=== PATIENT | male | born 1950 ===

== ENCOUNTER 2016-11-20 18:06 | Inpatient (IN) | payer MEDICARE, MEDICAID ==
[~2016-11-20] VITALS: Ht 182.9 cm; Wt 101.1 kg
[2016-11-20] VITALS (7 sets, daily range): BP systolic 109–125; BP diastolic 50–68; PULSE 92–100; RESP 16–24; O2SAT 98–100
[~2016-11-20 18:06] MED LIST: AMIO200T PO; ATOR40TA69 PO; CHOL100043 PO; FURO40TA4 PO; HYDR-3797 PO; INSU100I25 SUBQ; LORA10CA PO; OXYB5TAB10 PO; PANT40TA3 PO; POTA20TA16 PO; SERT100T9 PO; TAMS0.4C29 PO; TRIA80OI TOPICAL; WARF1TAB8 PO
--- NOTE | 2016-11-20 18:25 | ED.REPORT ---
HPI-General Illness Date of Service Nov 20, 2016 ED Provider: Roney Tyson MD This patient is a 66 year old male on Warfarin with a history of GI bleed, hypertension, DM, and artificial valve presenting to the ED complaining of possible GI bleed. Patient states that he has had dark stools that have been going on for the last couple days. Patient had a blood transfusion in October 2016 due to similar past symptoms. He denies hematuria or vomiting blood. Patient's family states that he has been gagging frequently but no vomiting and that he has appeared to be pale and fatigued. Nurse from the clinic checked the patient in his home and advised that patient needs blood. Nursing Notes Stated Complaint: NEED BLOOD/ANEMIA Chief Complaint: General Complaint Nursing Notes Reviewed: Yes Allergies: Coded Allergies: No Known Drug Allergies (Verified Allergy, Unknown, 01/11/15) Uncoded Allergies: UNK (Allergy, Unknown, 09/11/09) Scheduled Amiodarone (Amiodarone) 200 Mg Tablet 200 MG PO QAM Ascorbate Calcium (Vitamin C) 500 Mg Tablet 500 MG PO DAILY Atorvastatin Calcium (Atorvastatin Calcium) 40 Mg Tablet 40 MG PO QPM Cholecalciferol (Vitamin D3) (Vitamin D) 1,000 Unit Tablet 1,000 UNIT PO QAM Ferrous Sulfate (Ferrous Sulfate) 324 Mg Tablet.dr 324 MG PO BID Furosemide (Furosemide) 40 Mg Tablet 40 MG PO QAM Insulin Aspart (NovoLOG U-100 Pen) 100 Unit/Ml Insuln.pen 20 UNITS SC TIDWM Insulin Detemir (Levemir Flextouch) 100 Unit/1 Ml Insuln.pen 55 UNITS SUBQ QAM Multivitamin (Once Daily) 1 Each Tablet 1 EACH PO DAILY Oxybutynin Chloride (Oxybutynin Chloride) 5 Mg Tablet 5 MG PO BID Pantoprazole DR (Pantoprazole DR) 40 Mg Tablet.dr 40 MG PO DAILYAC Potassium Chloride (Potassium Chloride) 20 Meq Tab.er.prt 20 MEQ PO QAM Sertraline HCl (Sertraline) 100 Mg Tablet 200 MG PO QAM Tamsulosin ER (Tamsulosin ER) 0.4 Mg Cap.er.24h 0.4 MG PO QPM Warfarin Sodium (Jantoven) 1 Mg Tablet 1 MG PO DIRECTED Scheduled PRN Hydroxyzine Pamoate (HydrOXYzine Pamoate) 25 Mg Capsule 25 MG PO HS PRN PRN For Insomnia Mometasone/Formoterol (Dulera 100 Mcg/5 Mcg Inhaler) 13 Gm Hfa.aer.ad 1 PUFFS IH DIRECTED PRN PRN For Shortness of Breath General Time Seen by MD: 18:25 Chief Complaint Blood in stool Hx Obtained From: Patient, Other family... Arrived By: Walk-in Sudden in Onset?: No Onset Occurred: More than a week ago... 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 BPH with [place] Hyperlipidemia Chronic kidney disease stage III GERD Cerebral infarction Anxiety Aortic valve stenosis Paroxysmal atrial fibrillation Chornic GI bleed Reports: Diabetes mellitus, Hypertension Past Surgical History Valve replacement - on Warfarin Family History Alcoholism Smoking History Former Smoker Social History Alcohol Use: >5 per day Drug Use: Denies drug use Other Social History: Good social support, Local resident Ambulatory Status Independent Review of Systems Pale Full Review of Systems Constitutional: Reports: Fatigue Cardiovascular: Denies: Chest pain, Edema GI: Reports: Abdominal pain, Melena Male: Denies Hematuria Musculoskeletal: Denies: Back pain Skin: Denies Rash Complete sys rev & neg: except as marked. Physical Exam Vital Signs Vital Signs Date Time Temp Pulse Resp B/P Pulse Ox O2 Delivery O2 Flow Rate FiO2 11/20/16 19:32 36.8 92 20 112/51 100 Nasal Cannula 2 11/20/16 18:13 36.3 93 16 117/68 99 Room Air Initial VS: Reviewed General/Constitutional: Well-developed Head / Eyes: Atraumatic, Normocephalic, PERRL ENT: Mucous membranes moist, Conjunctiva normal, No scleral icterus Neck: Supple, Non-tender, Full range of motion Respiratory: Breath sounds normal, Clear to auscultation, No respiratory distress Cardiovascular: Regular rate & rhythm, Heart sounds normal, Intact distal pulses Abdomen / GI: Soft, Non-tender Lymphatic: No lymphadenopathy Neurologic: Alert, Oriented Heart Sounds / Murmur: Positive: Click present Lower Extremity / Pelvis / MS: Atraumatic, Full range of motion, No swelling, No edema Skin: Atraumatic, Warm, Dry Pale Interpretation & Diagnostics Lab Results Interpretation Result Diagram: 11/21/16 1510 11/21/16 0425 Test 11/20/16 18:45 Prothrombin Time 24.9sec (8.1-12.5) Prothromb Time International Ratio 2.29ratio Hold Hardy Top Tube Received (Received) Pulse Oximetry Interpretation Pulse Oximetry Interpretation: 99% on room air Pulse Oximetry: Pulse Ox normal ECG Interpretation ECG Interpretation: Sinus rhythm with a rate of 94, No STEMI, No ST elevation Time: 18:26 Interpreted by: ED physician Re-Eval/Medical Decision Med Decision/Clinical Course 66-year-old male with a history of chronic GI bleed presents anemic. He has symptoms consistent with anemia. He will be transfused and admitted to the hospitalist service. Due to the fact that he is not having any melanotic stool at this time and he has mechanical heart valve we will not reverse the warfarin. I discussed this with the hospitalist and he concurs. They will watch him closely. Source of Hx: Old records Time of Eval: 18:25 Patient Status: Condition improved Re-Evaluation/Progress Note: Pt. rechecked. Patient was told that he'd be admitted. Patient understands and agrees with the plan. All questions have been addressed at this time. Consultation : Referral / Consult Name: Sergei Richey MD Consulted With: Hospitalist Call Returned at: 19:30 Orthodontic Assistant: Will see patient, Agrees with eval, Agrees with plan, Accepts admit Note: Discussed findings with Dr. Richey, hospitalist, and he agrees with evaluation and plan. He will accept the patient as admit. Counseled Regarding: Diagnosis, Lab results, Need for admission Discharge & Departure Primary Impression: Anemia Anemia type: iron deficiency Iron deficiency anemia type: chronic blood loss Qualified Code: D50.0 - Iron deficiency anemia secondary to blood loss ( chronic) Additional Impression: GI bleed GI bleed type/associated pathology: unspecified gastrointestinal hemorrhage type Qualified Code: K92.2 - Gastrointestinal hemorrhage, unspecified Disposition: ADMITTED TO HOSPITAL Discharge Condition All VS Reviewed: Yes Condition: Stable Referrals: OTHER,PHYSICIAN (PCP) (Family) Scribe Attestation Portions of this note were transcribed by Sergei Allen. I, Dr. Tyson, personally performed the history, physical exam and medical decision- making; I reviewed and confirmed the accuracy of the information in the transcribed note. Signed by: Sergei Schmitz and Dev Sinha, 11/20/2016 and 22:23 Roney Tyson DO Nov 20, 2016 18:25 Fara Allen [Ruth] Nov 20, 2016 19:01 SERGEI SCHMITZ Nov 20, 2016 19:03 (18-29) Blood Urea Nitrogen 23mg/dL (8-27) Creatinine 1.47mg/dL (0.76-1.27) Estimat Glomerular Filtration Rate 51mL/min (>59) Glucose Level 132mg/dL (60-99) Calcium Level 8.2mg/dL (8.5-10.1) Total Bilirubin 0.7mg/dL (0.0-1.2) Aspartate Amino Transf (AST/SGOT) 61U/L (0-50) Alanine Aminotransferase (ALT/SGPT) 35U/L (0-44) Alkaline Phosphatase 283U/L (25-160) Total Protein 6.4g/dL (6.4-8.4) Albumin 2.7g/dL (3.4-5.0) Hold Hardy Top Tube Received (Received) Pulse Oximetry Interpretation Pulse Oximetry Interpretation: 99% on room air Pulse Oximetry: Pulse Ox normal ECG Interpretation ECG Interpretation: Sinus rhythm with a rate of 94, No STEMI, No ST elevation Time: 18:26 Interpreted by: ED physician Re-Eval/Medical Decision Source of Hx: Old records Time of Eval: 18:25 Patient Status: Condition improved Re-Evaluation/Progress Note: Pt. rechecked. Patient was told that he'd be admitted. Patient understands and agrees with the plan. All questions have been addressed at this time. Consultation : Referral / Consult Name: Sergei Richey MD Consulted With: Hospitalist Call Returned at: 19:30 Orthodontic Assistant: Will see patient, Agrees with eval, Agrees with plan, Accepts admit Note: Discussed findings with Dr. Richey, hospitalist, and he agrees with evaluation and plan. He will accept the patient as admit. Counseled Regarding: Diagnosis, Lab results, Need for admission Discharge & Departure Primary Impression: Anemia Anemia type: iron deficiency Iron deficiency anemia type: chronic blood loss Qualified Code: D50.0 - Iron deficiency anemia secondary to blood loss ( chronic) Additional Impression: GI bleed GI bleed type/associated pathology: unspecified gastrointestinal hemorrhage type Qualified Code: K92.2 - Gastrointestinal hemorrhage, unspecified Disposition: ADMITTED TO HOSPITAL Discharge Condition All VS Reviewed: Yes Condition: Stable Referrals: OTHER,PHYSICIAN (PCP) (Family) Scribe Attestation Portions of this note were transcribed by Sergei Schmitz and Ruth Allen. I, Dr. Tyson, personally performed the history, physical exam and medical decision- making; I reviewed and confirmed the accuracy of the information in the transcribed note. Signed by: Sergei Schmitz and Dev Sinha, 11/20/2016 and 22:23 Roney Tyson DO Nov 20, 2016 18:25 Fara Allen [Ruth] Nov 20, 2016 19:01 SERGEI SCHMITZ Nov 20, 2016 19:03
[2016-11-20 19:04] LABS: BASOPHILS % (AUTO) 0.3 % (0-3); EOSINOPHILS % (AUTO) 0.7 % (0-5); MONOCYTES % (AUTO) 10.5 % (4-12); Mean Corpuscular Hemoglobin 22.1 pg (27.0-35.0); Mean Corpuscular Volume 77.1 fL (81-100); NEUTROPHILS % (AUTO) 77.6 % (40-74); Platelet Count 150 bil/L (150-400)
[2016-11-20 19:20] LABS: INR 2.29 ratio
[2016-11-20] MEDS ORDERED: MOME13HF2 IH (20:55)
[2016-11-20] MEDS ORDERED: MULT-666 PO (20:55)
[2016-11-20] MEDS ORDERED: ASCO-294 PO (20:55)
[2016-11-20] MEDS ORDERED: FERR324T2 PO (20:55)
[2016-11-20] MEDS ORDERED: INSU100I SC (20:57)
[2016-11-20 21:24] LABS: APPEARANCE,URINE CLEAR (CLEAR,HAZY); COLOR,URINE YELLOW (YELLOW); OCCULT BLOOD,URINE NEGATIVE (NEGATIVE); PH,URINE 6.5 (5.0-8.0); UROBILINOGEN,URINE NORMAL (NORMAL)
[2016-11-20] MEDS ORDERED: 0.9% Sodium Chloride 250 ML ONE (22:21)
[2016-11-20] MEDS: 0.9% Sodium Chloride 1,000 ML IV SCH (22:45)
[2016-11-20] MEDS ORDERED: Ondansetron 2 mg/mL 2 mL Inj IVPUSH PRN (22:45)
[2016-11-20] MEDS ORDERED: Polyethylene Glycol (PEG) 17 Gm Powder PO PRN (22:45)
[2016-11-20] MEDS ORDERED: Alum-Mag Hydrox-Simeth 30 mL Suspension PO PRN (22:45)
[2016-11-21] VITALS (13 sets, daily range): BP systolic 109–142; BP diastolic 51–76; PULSE 84–106; RESP 14–24; O2SAT 97–100
[2016-11-21] MEDS ORDERED: 0.9% Sodium Chloride 250 ML ONE ×2 (01:40→18:14)
--- NOTE | 2016-11-21 04:06 | PCM.HPMED ---
Subjective Date of Service Nov 21, 2016 Primary Provider: Admitting Physician: Sergei Richey MD Primary Care Physician: Other,Physician Attending Physician: Sergei Richey MD Chief Complaint: dark stools and weakness History of Present Illness: Patient is a 66 year old male with a pmh as outline below that is presenting with a multiple week history of dark stools and progressively worsening weakness. Patient had been in his usual state of health during the recent holidays. However during that time the patient was noticed to have occasional dark stools. Patient said that they were either tarry and black or they were brown amixed with black. Patient had went to his usual pmd who performed a guiac test but the physician told the patient that it was positive however it was mostly stool and not that much blood. Patient continued on with his normal activities. In the past week the patient had noticed that he was becoming progessively more and more weak. He was unable to stand for prolongued periods of time, and would become breathless with even the smalles amount of activity. Patient today was seen to have an even harder time keeping his balance and actually collapsed into his counter but was able to steady himself. Patient then called his visiting nurse who then came to the house and did an i stat hgb which was seen to be 5.6, at this point EMS was called and the patient was brought to the hospital. Patient is currently hemodynamically stable however he is very drowsy and very weak. Review of Systems: Constitutional: Reports: Fatigue Cardiovascular: Denies: Chest pain, Edema GI: Reports: Abdominal pain, Melena Male: Denies Hematuria Musculoskeletal: Denies: Back pain Skin: Denies Rash Complete sys rev & neg: except as marked. Allergies Coded Allergies: No Known Drug Allergies (Verified Allergy, Unknown, 01/11/15) Uncoded Allergies: UNK (Allergy, Unknown, 09/11/09) Home Medications Amiodarone (Amiodarone) 200 Mg Tablet 200 MG PO QAM Ascorbate Calcium (Vitamin C) 500 Mg Tablet 500 MG PO DAILY Atorvastatin Calcium (Atorvastatin Calcium) 40 Mg Tablet 40 MG PO QPM Cholecalciferol (Vitamin D3) (Vitamin D) 1,000 Unit Tablet 1,000 UNIT PO QAM Ferrous Sulfate (Ferrous Sulfate) 324 Mg Tablet.dr 324 MG PO BID Furosemide (Furosemide) 40 Mg Tablet 40 MG PO QAM Insulin Aspart (NovoLOG U-100 Pen) 100 Unit/Ml Insuln.pen 20 UNITS SC TIDWM Insulin Detemir (Levemir Flextouch) 100 Unit/1 Ml Insuln.pen 55 UNITS SUBQ QAM Multivitamin (Once Daily) 1 Each Tablet 1 EACH PO DAILY Oxybutynin Chloride (Oxybutynin Chloride) 5 Mg Tablet 5 MG PO BID Pantoprazole DR (Pantoprazole DR) 40 Mg Tablet.dr 40 MG PO DAILYAC Potassium Chloride (Potassium Chloride) 20 Meq Tab.er.prt 20 MEQ PO QAM Sertraline HCl (Sertraline) 100 Mg Tablet 200 MG PO QAM Tamsulosin ER (Tamsulosin ER) 0.4 Mg Cap.er.24h 0.4 MG PO QPM Warfarin Sodium (Jantoven) 1 Mg Tablet 1 MG PO DIRECTED Scheduled PRN Hydroxyzine Pamoate (HydrOXYzine Pamoate) 25 Mg Capsule 25 MG PO HS PRN PRN For Insomnia Mometasone/Formoterol (Dulera 100 Mcg/5 Mcg Inhaler) 13 Gm Hfa.aer.ad 1 PUFFS IH DIRECTED PRN PRN For Shortness of Breath PMH 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 BPH with [place] Hyperlipidemia Chronic kidney disease stage III GERD Cerebral infarction Anxiety Aortic valve stenosis Paroxysmal atrial fibrillation Chornic GI bleed Reports: Diabetes mellitus, Hypertension Surgical History Valve replacement - on Warfarin Family History Alcoholism Social History Hx Alcohol Use: Yes Alcoholic Drinks Per Day: 0 Hx Substance Use: Yes (ETOH, 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+) Hx Tobacco Use: Yes Smoking Status: Former Smoker Exam Vital Signs Vital Sign - Last Date Time Temp Pulse Resp B/P Pulse Ox O2 Delivery O2 Flow Rate FiO2 11/21/16 03:50 36.8 106 20 128/76 97 Room Air 11/20/16 20:40 2 Intake and Output 11/20/16 11/20/16 11/21/16 Cumulative From/Thru 15:00 23:00 07:00 11/20/16 18:13 - 11/21/16 03:49 Intake Total 400 ml 400 ml Balance 400 ml 400 ml Intake IV Total 100 ml 100 ml Packed Cells 300 ml 300 ml Exam General/Constitutional: Well-developed Head / Eyes: Atraumatic, Normocephalic, PERRL Respiratory: Breath sounds normal, Clear to auscultation, No respiratory distress Cardiovascular: Regular rate & rhythm, Heart sounds normal, Intact distal pulses ENT: Mucous membranes moist, Conjunctiva normal, No scleral icterus Neck: Supple, Non-tender, Full range of motion Abdomen / GI: Soft, Non-tender Lymphatic: No lymphadenopathy Neurologic: Alert, Oriented Heart Sounds / Murmur: Positive: Click present Lower Extremity / Pelvis / MS: Atraumatic, Full range of motion, No swelling, No edema Skin: Atraumatic, Warm, Dry Lab and Diagnostics Result Diagram: 11/20/16184411/20/161844 12-lead ECG Sinus rhythm with a rate of 94, No STEMI, No ST elevation Assessment & Plan Patient is a 66 year old male that is presenting with a few week history of dark stools and progressively worsening weakness. Patient was found to have a hemoglobin of 5.6 on cbc. Patient is currently stable. GI bleed - Patient has a presumed gi bleed presumably from his extensive gastric ulcer history. - Patient has been having dark stools for the better part of a month - Patient was found to becoming progressively weaker as time went on - pt has a hemoglobin of 5.6 with stable vital signs - pt has had 2 units of blood transfused awaiting hgb level - pt will require GI consult for upper endoscopy - c/w with cbc q8 until steady state is reached - will start carafate solution and protonix 40 mg IV BID Weakness and imbalance - Patient has been experiencing imbalance and weakness in the past week - Pt has imbalance already from a previous stroke, and is recieving physical therapy as a result - Pt claims that he is already feeling more alert and awake after fluid resuscitation - will order pt eval Atrial fibrillation on coumadin - Patient has an established history of atrial fibrillation - Patient is currently rate controlled with his home medications - Pt currently on coumadin 1 mg with 1.5 mg with an INR of 2.6 for both atrial fibrillation and prosthetic heart valve - Given the subcritical nature of the patients bleed will hold off on reversing INR with vitamin K - will hold tonites coumadin dose - will resume when patient has steady hgb levels Diabetes Mellitus - established - will place on sliding scale coverage dvt ppx not warranted gi ppx via protonix VTE Mechanical Devices: Intermittant Pneumatic CD Sergei Richey MD Nov 21, 2016 04:05
[2016-11-21] MEDS ORDERED: hydrOXYzine Pamoate 25 mg Capsule PO PRN (04:10)
[2016-11-21 04:42] LABS: BASOPHILS % (AUTO) 0.5 % (0-3); EOSINOPHILS % (AUTO) 0.5 % (0-5); MONOCYTES % (AUTO) 10.6 % (4-12); Mean Corpuscular Hemoglobin 23.3 pg (27.0-35.0); Mean Corpuscular Volume 78.2 fL (81-100); NEUTROPHILS % (AUTO) 75.8 % (40-74); Platelet Count 161 bil/L (150-400)
[2016-11-21 05:24] LABS: Magnesium 1.9 mg/dL (1.6-2.6)
--- NOTE | 2016-11-21 06:26 | NUR ---
Admit Pt arrived to [facility] 2006 from ED. Pt arrived with daughter at bedside. Pt reports weakness. 2 units of PRBC's transfused and pt tolerated well. Pt declines, pain, SOB, and CP. PT orient to room, hospital policies and call light. VSS and Tele SR
[2016-11-21] MEDS: Insulin Human REGular 300 Unit/3 mL Inj SUBQ SCH ×3 (09:54→20:57)
[2016-11-21] MEDS: Pantoprazole 4 mg/mL 10 mL Inj IVPUSH SCH ×2 (09:56→18:03)
[2016-11-21] MEDS: Sucralfate 100 mg/mL 10 mL Suspension PO SCH ×3 (09:56→18:03)
[2016-11-21] MEDS: Tolterodine ER 2 mg ER24 Capsule PO SCH ×2 (09:57→20:48)
[2016-11-21] MEDS: Potassium Chloride 20 mEq SR Tablet PO SCH (10:01)
[2016-11-21] MEDS: 0.9% Sodium Chloride 1,000 ML IV SCH ×2 (10:02→22:54)
--- NOTE | 2016-11-21 11:45 | NUR ---
Social Work: Initial Assessment D: Per EMR review, pt is a 66 year old male admitted for anemia, GI Bleed, Coagulopathy. Pt is Medicare with [employer] supplement; No LTC insurance or VA Benefits. PCP is Dr. Veag. NOK is Surekha Sarmiento, Dtr, . Advanced directives on file and current, per pt. No readmit score entered at this time. INFORMATION OFFICER met with pt at bedside. Sw role explained. See initial assessment. Pt lives in [facility], alone. He is currently open for services with [facility] and has an open [employer] application. Pt cannot recall CM name. Pt states he uses a walker at baseline and has been very unsteady on his feet. Pt denies any recent falls. Pt's is slow to answer questions, somewhat forgetful but able to verbalize appropriate responses to current situation. Pt provided verbal consent for INFORMATION OFFICER to speak with his daughters, Surekha and/or Jewels ([phone]). Pt states he lives in a single-story home with one step to enter. INFORMATION OFFICER, Nel Guillen, spoke with pt's daughter, Jewels. She confirms the aforementioned information. She states that the pt's mentation has been slowly declining since a heart surgery in September of 2015. Pt has never been to skilled rehab however they believe that the pt could benefit from a skilled rehab placement for continued strengthening. Her sister, Surekha would be the one to assist pt in making decisions on preference for facilities. 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 t/c to [facility], pt's CM is Antoinette Hernandez. INFORMATION OFFICER left message notifying of pt's admission. [facility] will fax clinicals. A: Pt who is currently 1 person assist and would benefit from PT Evaluation. P: Evolving; INFORMATION OFFICER to request PT evaluation from MD to assist with dcp. JILL Valderrama Addendum: 11/21/16 at 1202 by GISELLA DIAS Amended: Links added.
[2016-11-21] MEDS ORDERED: Propofol 10,000 mCg/mL 20 mL Inj ONE (14:50)
--- NOTE | 2016-11-21 15:46 | NUR ---
per FILM PROCESSOR request , axed H&P to Soraya Ureña at [phone]
[2016-11-21] MEDS ORDERED: Phytonadione (Adult) 10 mg/1 mL Inj PO ONE (17:05)
[2016-11-21] MEDS ORDERED: 0.9% Sodium Chloride 250 ML IV ONE (19:00)
--- NOTE | 2016-11-21 19:18 | NUR ---
Plasma transfusion started FFP transfusion started per protocol at 1845. Vitals checked at 1900. No signs of adverse reaction. Pt. denies rash, itching or feeling flushed. Report given to night RN about transfusion and she is aware to take 1914 vitals.
--- NOTE | 2016-11-21 20:21 | PCM.PNMED ---
Subjective Date of Service Nov 21, 2016 Subjective Jesus Sarmiento is a 66 year old male with a history of aortic valve replacement on chronic anticoagulation, paroxysmal atrial fibrillation, COPD stage III, diabetes mellitus presented to the ER with a several week history of melena, progressive weakness as well as fatigue and a hemoglobin of 5.6. Admitted for possible GI bleed and acute anemia. Overnight: Admitted to [facility] on telemetry. Today patient denies chest pain, shortness of breath, fatigue, headache, dizziness, nausea, vomiting diarrhea or constipation. Reports dark/black stool for past several weeks. Exam Vital Signs Vital Sign - Last Date Time Temp Pulse Resp B/P Pulse Ox O2 Delivery O2 Flow Rate FiO2 11/21/16 19:00 36.4 93 15 126/66 11/21/16 16:44 99 Room Air 11/20/16 20:40 2 Intake and Output 11/20/16 11/20/16 11/21/16 Cumulative From/Thru 15:00 23:00 07:00 11/20/16 18:13 - 11/21/16 05:21 Intake Total 400 ml 400 ml Output Total 1150 ml 1150 ml Balance -750 ml -750 ml Intake Oral 0 ml 0 ml IV Total 100 ml 100 ml Packed Cells 300 ml 300 ml Output Urine Total 1150 ml 1150 ml Exam General: No acute distress, well-developed, well-nourished, mumbling a bit but appropriately interactive. HEENT: Normocephalic, atraumatic. External ears without defect. PERRLA, Anicteric sclerae, Moist mucosa. Neck: Supple with full range of motion. No jugular venous distension. No bruits. No lymphadenopathy or thyromegaly. Cardiovascular: Regular rate and rhythm with systolic murmur, no rubs, or gallops appreciated Pulmonary: Clear to auscultation bilaterally with no crackles, wheezes, or rhonchi. Normal respiratory effort with no use of accessory muscles. Abdomen: Bowel tones present. Soft, mildly tender to palpation in mid-epigastric , nondistended. No hepatosplenomegaly or masses appreciated. Extremities: No clubbing, cyanosis, edema, or lymphadenopathy appreciated. Skin: Normal temperature, pale, no rash, ulcers, or subcutaneous nodules appreciated. Neurological: Cranial nerves grossly intact. No focal deficit. IVs and Medications Medications Reviewed: Medications were reviewed in detail Lab and Diagnostics Prothrombin Time 24.9, Prothromb Time International Ratio 2.29, Hold Hardy Top Tube Received Urine Color Yellow, Urine Appearance Clear, Urine pH 6.5, Urine Specific [place] 1.010, Urine Protein Negative, Urine Glucose (UA) Negative, Urine Ketones Negative, Urine Occult Blood Negative, Urine Nitrite Negative, Urine Bilirubin Negative, Urine Urobilinogen Normal, Urine Leukocyte Esterase Negative , Urine RBC 0-2, Urine WBC 0-5, Urine Epithelial Cells Occasional, Urine Crystals None seen, Urine Bacteria None, Urine Hyaline Casts None, Urine Granular Casts None seen, Urine Waxy Casts None seen, Urine Red Blood Cell Casts None seen, Urine White Blood Cell Casts None seen, Urine Mucus None seen, Urine Trichomonas None seen, Urine Yeast None, Urinalysis Comment None, Urine Culture Reflexed Not indicated White Blood Count 11.0, Red Blood Count 3.26, Mean Corpuscular Volume 78.2, Mean Corpuscular Hemoglobin 23.3, Mean Corpuscular Hemoglobin Concent 29.8, Red Cell Distribution Width 18.0, Platelet Count 161, Neutrophils (%) (Auto) 75.8, Lymphocytes (%) (Auto) 12.1, Monocytes (%) (Auto) 10.6, Eosinophils (%) (Auto) 0.5, Basophils (%) (Auto) 0.5 Sodium Level 139, Potassium Level 4.0, Chloride Level 104, Carbon Dioxide Level 20, Blood Urea Nitrogen 21, Creatinine 1.36, Estimat Glomerular Filtration Rate 56, Glucose Level 80, Calcium Level 8.2, Magnesium Level 1.9, Total Bilirubin 1.1, Aspartate Amino Transf (AST/SGOT) 72, Alanine Aminotransferase (ALT/SGPT) 33, Alkaline Phosphatase 228, Total Protein 6.1, Albumin 2.6 Hemoglobin 7.3, Hematocrit 24.6 Result Diagram: 11/21/16 1510 11/21/16 0425 Microbiology Microbiology CLARISSA OCCULT BLOOD IMMUNOCHEM Final 11/21/16-08 OCCULT BLD IMMUNOCHEMICAL POSITIVE REFERENCE INTERVAL NEGATIVE 12-lead ECG Sinus rhythm with a rate of 94, No STEMI, No ST elevation Assessment & Plan 66 year old male with a history of aortic valve replacement on chronic anticoagulation, paroxysmal atrial fibrillation, COPD stage III, diabetes mellitus presented to the ER with a several week history of melena, progressive weakness as well as fatigue and a hemoglobin of 5.6. Admitted for possible GI bleed and acute anemia. Hospital day #1. 1. Acute gastrointestinal bleed, present on admission. Active -CT abd & pelvis on 11/06/16 showed a mass lesion within caudate lobe of liver, consistent with a hepatoma and hepatic cirrhosis -Pt admitted on 10/24/16 for similar presentation with EGD on 10/25 showing gastritis and portal gastropathy, no esophageal varices. -H/H on admission of 5.6/19.5 and pt transfused 2 units of pRBCs. Repeat H/H 7.6 /25.5 and 7.3/24.6. -Consulted GI and plan for EGD tomorrow, pending reversal of INR. -2 units of FFP, 2.5mg oral vitamin K -Goal INR < 1.5 -Continue protonix and monitor H/H -Patient NPO, CBC in the morning 2. Acute on chronic anemia, present on admission. Active -Secondary to acute blood loss. Pt is hemodynamically stable -H/H 7.3/24.6 after pRBC transfusion. -Iron studies in outpatient setting (10/23/17) show: Fe 11, Ferritin 28, TIBC 343 , %sat 3. -Pt reports ongoing iron replacement for chronic anemia. -CBC in the morning 3. Status post bioprosthetic valve( aortic valve ) with chronic anticoagulation with warfarin, present on admission. Active. -Pt also has hx of Afib. Chronically anticoagulated on warfarin. INR on admission 2.29 -Holding anticoagulation due to the acute nature of the bleed, the risk of re- bleeding -INR reversal, as above, per GI for upcoming endoscopy. -As soon as pt is stable and bleeding has been addressed we will restart anticoagulation 4. Right hepatic lobe nodular mass, present on admission. Active. -Radiology report states "mass could possibly reflect regenerating nodule, however neoplasm cannot be excluded." -Radiology reports recommend nonemergent CT of the abdomen with contrast ( hepatic protocol) for further evaluation. -Could be followed up in the outpatient setting 5. Paroxysmal atrial fibrillation,present on admission. Stable -Pt is on chronic anticoagulation on warfarin. -Continue to monitor patient on telemetry -Anticoagulation held in setting of acute GI bleed, plan for endoscopy tomorrow per GI. -Reversal of INR, as above. 6. Chronic kidney disease, stage 3. Present on admission. Stable -Apparent baseline BUN/Creatinine of 17-23/1.26-1.5 -Avoid nephrotoxic agents -Continue IV fluids 7. Insulin dependent diabetes mellitus,chronic, present on admission. Stable -Diabetic diet, low dose correctional insulin -Bedside blood glucose monitoring 8. Chronic hypertension, present on admission.Active -Continue home medications. 9. GERD, chronic, present on admission. Active. -Patient has been started on PPI, as above. 10. Depression, chronic, present on admission. Active -Continue home medications. 11. Alcoholism, in recovery. present on admission. Active -Per patient he has been sober for the nearly two years 12. Cirrhosis secondary to alcohol abuse, present on admission. Active -No fluid noted on exam -Imaging of abdomen did demonstrate some fluid, likely secondary to cirrhosis -Monitor for any mental status changes, if they occur recommend getting ammonia level and lactulose Acetaminophen-fever/headache/mild/moderate pain Antiemetics, as needed Bowel regimen, as needed. Disposition: Anticipated discharge in 1-2 days pending endoscopy results. Pain Evaluation: Adequate Pain Control VTE Prophylaxis: SCDs VTE Mechanical Devices: Intermittant Pneumatic CD Resuscitation Status: CPR: Attempt Resuscitation Attending Statement The patient was seen and examined together with Dr. Dickinson on 11-21-16 and I agree with the history, exam and plan as outlined in the note above. Tiffanie Dickinson DO Nov 21, 2016 19:44 Katrina Roy MD Nov 22, 2016 15:21
[2016-11-22] VITALS (17 sets, daily range): BP systolic 110–136; BP diastolic 47–79; PULSE 79–92; RESP 16–24; O2SAT 95–98
[2016-11-22] MEDS: Insulin Human REGular 300 Unit/3 mL Inj SUBQ SCH ×4 (03:30→20:30)
[2016-11-22 03:54] LABS: BASOPHILS % (AUTO) 0.3 % (0-3); EOSINOPHILS % (AUTO) 0.5 % (0-5); MONOCYTES % (AUTO) 10.5 % (4-12); Mean Corpuscular Hemoglobin 23.3 pg (27.0-35.0); Mean Corpuscular Volume 78.5 fL (81-100); NEUTROPHILS % (AUTO) 76.4 % (40-74); Platelet Count 116 bil/L (150-400)
[2016-11-22 04:13] LABS: INR 1.79 ratio
--- NOTE | 2016-11-22 06:21 | NUR ---
Transfusion Pt Hgb 6.3 and INR 1.79. MD notified and orders to transfuse 1 FFP and 1 PRBC were given. FFP started and no reactions noted. Pt currently resting during administration. I unit PRBC will be started when FFP finishes. VSS and Tele SR
[2016-11-22] MEDS: Sucralfate 100 mg/mL 10 mL Suspension PO SCH ×3 (09:46→16:53)
[2016-11-22] MEDS: Pantoprazole 4 mg/mL 10 mL Inj IVPUSH SCH ×2 (09:46→16:53)
[2016-11-22] MEDS: Potassium Chloride 20 mEq SR Tablet PO SCH (09:47)
[2016-11-22] MEDS: Tolterodine ER 2 mg ER24 Capsule PO SCH ×2 (09:47→21:15)
[2016-11-22 10:01] LABS: INR 1.61 ratio
[2016-11-22] MEDS: 0.9% Sodium Chloride 250 ML IV SCH ×7 (10:37→20:58)
[2016-11-22] MEDS: 0.9% Sodium Chloride 1,000 ML IV SCH ×2 (10:38→19:31)
[2016-11-22] MEDS ORDERED: Phytonadione (Adult) 10 mg/1 mL Inj PO ONE (12:15)
[2016-11-22 13:30] LABS: INR 1.59 ratio
[2016-11-22] MEDS ORDERED: MetoCLOpramide 5 mg/mL 2 mL Inj IVPUSH PRN (14:25)
[2016-11-22] MEDS ORDERED: Atropine 0.4 mg/mL Inj IVPUSH PRN (14:25)
[2016-11-22] MEDS ORDERED: Lactated Ringer's 1,000 ML IV ONE (14:25)
[2016-11-22] MEDS ORDERED: Ondansetron 2 mg/mL 2 mL Inj IVPUSH PRN (14:25)
--- NOTE | 2016-11-22 14:54 | CONS ---
[address] [address] CONSULTATION REPORT PATIENT: LOUIE FRANCIS : 1950 MR#: [id number] ADMIT: 11/20/2016 JOB ID: [id number] DATE OF SERVICE: 11/22/2016 GASTROENTEROLOGY CONSULTATION: REASON FOR CONSULTATION: Melena. HISTORY OF PRESENT ILLNESS: A 66-year-old male with a history of aortic valve replacement on Coumadin, diabetes, hypertension, alcohol abuse, BPH, hyperlipidemia, chronic kidney disease stage 3, GERD, cerebral infarct, anxiety, aortic valve stenosis in the past, paradoxical atrial fibrillation, hepatic cirrhosis most likely due to alcohol with splenomegaly by CT scan on November 05, 2016, cholelithiasis presents for consultation for melena for the past four weeks. The patient states he has had black stools one time per day, but no bright red blood per rectum. The patient denies bright red blood per rectum, nausea and vomiting, hematemesis, abdominal pain, change in bowel habits or unintentional weight loss. The patient underwent an EGD that was performed by Dr. Leonard on October 24, 2016, which showed gastritis and portal hypertensive gastropathy and no gastric or esophageal varices were seen. The patient states he had a colonoscopy in the past, unknown when. I have no records. The patient denies family history of colon cancer, inflammatory bowel disease or celiac disease. The patient was admitted with a hemoglobin of 5.6, transfused up to 6.3, currently at 7.6. Creatinine of 6.3. The patient's PT 17.2, INR 1.59. His BUN is 21. Creatinine is 1.3. The patient presents for further evaluation. PAST MEDICAL HISTORY: As stated above. PAST SURGERIES: As stated above. DRUG ALLERGIES: None. MEDICATION AT HOME: Amiodarone, vitamin C, atorvastatin, calcium, vitamin D3, iron sulfate, Lasix, NovoLog, Levemir, multivitamin, oxybutynin, pantoprazole, potassium chloride, , Tamsulosin, Coumadin, hydroxyzine as needed and Dulera as needed. SOCIAL HISTORY: He does drink alcohol. Has a history of substance abuse with alcohol and cocaine for 20 years. He is a former smoker. REVIEW OF SYSTEMS: The patient denies headache, blurred vision, nausea, vomiting, chest pain, shortness of breath, abdominal pain, skin rash or joint pain. PHYSICAL EXAMINATION: Vital signs upon presentation: His temperature is 36.4, blood pressure 110/60, pulse of 86, respiratory rate of 20. General: She has had no scars. Anicteric. Throat: Supple. Lungs: Clear to auscultation bilaterally. Cardiovascular: Regular rhythm and rate. Abdomen: Soft, nondistended, nontender. Normoactive bowel sounds. Extremities: Without cyanosis, clubbing or edema. LABORATORIES: Sodium of 139, potassium 3.6, chloride 106, bicarbonate 22, BUN of 21, creatinine 1.3. Glucose 129. Hemoglobin A1c 7.0. Calcium 7.5. Magnesium 1.9. Total bili of 1.0. AST 68, ALT 31, alk phos 148. Total protein 5.5. Albumin 2.2. White count 6.2, hemoglobin 6.3, hematocrit 21, MCV is 78. Platelet count of 116. PT 17.2, INR 1.5. ASSESSMENT AND PLAN: This is a 66-year-old male with a history of valve replacement on Coumadin, cirrhosis with splenomegaly by CAT scan, most likely due to alcohol, BPH, hyperlipidemia, chronic kidney disease stage 3, GERD, stable infarct in the past, anxiety, aortic valve stenosis in the past, paroxysmal atrial fibrillation, diabetes, hypertension who presents for consultation for melena. Differential diagnosis includes portal hypertensive gastropathy which is most likely versus peptic ulcer disease versus gastritis versus esophagitis versus duodenitis. RECOMMENDATIONS: 1. Continue Protonix drip. 2. N.p.o. except for medications. 3. EGD with anesthesia today. 4. Transfuse packed red blood cells as needed per hospitalist team.
[2016-11-22] MEDS: Lactated Ringer's 1,000 ML IV SCH ×3 (15:14→16:25)
--- NOTE | 2016-11-22 15:31 | NUR ---
[facility] Signed
--- NOTE | 2016-11-22 15:36 | PCM.HPANE ---
Patient Data Surgeon Admitting Provider:Sergei Richey MD Attending Provider:Sergei Richey MD Primary Care Physician:Other,Physician Other Provider: Reason for Visit Anemia, Gi Bleed, Coagulopathy Ht/WT & BMI Height (Feet): 6 Height (Inches): 0.00 Weight (Kilograms): 104.400 Body Mass Index 30.91 Allergies Coded Allergies: No Known Drug Allergies (Verified Allergy, Unknown, 01/11/15) Uncoded Allergies: UNK (Allergy, Unknown, 09/11/09) Past Anesthesia History Anesthesia History: Denies:: Anesthesia Reactions Diabetes History Hx Diabetes?: Yes (on insulin) Current Bedside Blood Glucose: 136 MRSA MRSA: No Medications Hypertension Medication: No Home Meds Incl Beta Araseli: No Active Scripts Pantoprazole DR 40 Mg Tablet.dr40 Mg PO DAILYAC 30 Days Prov:Rodri Clinton MD 10/27/16 Reported Medications Insulin Aspart (NovoLOG U-100 Pen)100 Unit/Ml Insuln.pen20 Units SC TIDWM 11/20/16 Mometasone/Formoterol (Dulera 100 Mcg/5 Mcg Inhaler)13 Gm Hfa.aer.ad1 Puffs IH DIRECTED PRN For Shortness of Breath 11/20/16 Ferrous Sulfate 324 Mg Tablet.dr324 Mg PO BID 30 Days Ref 0 11/20/16 Ascorbate Calcium (Vitamin C)500 Mg Kbqpbf638 Mg PO DAILY 11/20/16 Multivitamin (Once Daily)1 Each Tablet1 Each PO DAILY 11/20/16 Hydroxyzine Pamoate (HydrOXYzine Pamoate)25 Mg Achkdjx18 Mg PO HS PRN For Insomnia 10/24/16 Cholecalciferol (Vitamin D3) (Vitamin D)1,000 Unit Tablet1,000 Unit PO QAM 10/24/16 Atorvastatin Calcium 40 Mg Yuucmn16 Mg PO QPM 10/24/16 Tamsulosin ER 0.4 Mg Cap.er.24h0.4 Mg PO QPM 10/24/16 Potassium Chloride 20 Meq Tab.er.prt20 Meq PO QAM 10/24/16 Furosemide 40 Mg Pgidfb38 Mg PO QAM 10/24/16 Amiodarone 200 Mg Otfvan931 Mg PO QAM 10/24/16 Insulin Detemir (Levemir Flextouch)100 Unit/1 Ml Insuln.pen55 Units SUBQ QAM 10/24/16 Sertraline HCl (Sertraline)100 Mg Armejl602 Mg PO QAM 10/24/16 Oxybutynin Chloride 5 Mg Tablet5 Mg PO BID 10/24/16 Warfarin Sodium (Jantoven)1 Mg Tablet1 Mg PO DIRECTED 10/24/16 Discontinued Reported Medications Triamcinolone Acetonide (Triamcinolone Acetonide Ointment)80 Gm Oint...g.1 Applic TOPICAL BID PRN Top of Head Itching 10/24/16 Loratadine (Claritin)10 Mg Hannlmf37 Mg PO QAM 10/24/16 History History of ENT Problems?: No HEENT History: Positive for:: Cataracts (left eye had surgery) Dysphagia Denies:: Glaucoma Sinus Problem Hx of Heart Problems?: Yes Cardiovascular History: Positive for:: Cardiac Surgery (hx of valve replacement, on coumadin) Edema Heart Murmur (aortic valve stenosis, s/p AVR now anticoagulated) Hypertension Irregular Heartbeat (paroxysmal afib) Denies:: Congestive Heart Failure Pacemaker Thrombophlebitis Hx of Respiratory Problem?: Yes Respiratory History: Positive for:: Asthma COPD Dyspnea Pneumonia Denies:: Emphysema Hemoptysis Tuberculosis Hx Neurologic Problems?: Yes Neurological History: Positive for:: CVA Dizziness Headaches Denies:: Alzheimer's Disease Dementia Parkinson's Disease Seizures Hx of GI Problems?: Yes Gastrointestinal History: Positive for:: Gastroesphageal Reflux Gastrointestinal Bleeding Rectal Bleeding Denies:: Diverticulitis Heartburn Hepatitis Hiatal Hernia Hx of Problems?: Yes Genitourinary History: Positive for:: Kidney Stones Urinary Tract Infection Denies:: HX of Hemodialysis HX of Peritoneal Dialysis: No Male Hx: Positive for:: Prostate Problems (BPH) Denies:: Scrotal Mass Testicular Surgery Hx Musculoskeletal Problems?: Yes Musculoskeletal History: Positive for:: Back Injury Denies:: Joint Replacement Musculoskeletal Trauma Hx of Psycho/Social Problems?: Yes Psycho Social History: Denies:: Anxiety Bipolar Disorder Hx Depression Suicide Attempt Hx Surgeries?: Yes (valve replacement, ABD SURG INFANT) Hx Any Other Health Problems?: Yes Other History: Positive for:: Hospitalization Denies:: Cancer Endocrine Disease Thyroid Disease History Blood Transfusions: Positive for:: Accept Blood Products? Blood Transfusions Denies:: Blood Transfuse Reaction Hx Diabetes: Yes (on insulin)Bedside Blood Glucose: 136 Hx Alcohol Use: YesAlcoholic Drinks Per Day: 0Hx Substance Use: Yes (ETOH, cocanine 20+) Smoking Status: Former Smoker Have You Smoked inLast 12 mo: No Stop/Bang Treated for Sleep Apnea?: No Do You Have a CPAP Machine?: No S-Snoring: Do You Snore Loudly: No T-Tired: feel tired, fatigued: No O-Obsered: Observed not breath: No P-Blood Pressure: treated: Yes B- Body Mass Index > 35 kg/m2: No A- Age over 50: Yes N- Neck Large Circumference: Yes G- Gender Male: Yes CANDICE Total Score: 3 CANDICE Risk Assessment: High Risk, =/>3 Yes Risk Assessment Category Category 1A: Patient has history of documented sleep apnea, and HAS NOT received any narcotic, sedative or anesthesia administration during this stay. Category 1B: Patient has history of documented sleep apnea, and HAS received any narcotic , sedative or anesthesia administration during this stay Category 2: Patient has SUSPECTED Obstructive Sleep Apnea, and HAS received any narcotic , sedative or anesthesia administration during this stay. Category 3: Patient has SUSPECTED Obstructive Sleep Apnea and HAS NOT received narcotic, sedative or anesthesia administration during this stay. Category 4: Outpatient in Procedural Areas with known sleep apnea or who screen positive for High Risk via the STOP/BANG questionnaire. Exam Exam Vital Signs Vital Signs Date Time Temp Pulse Resp B/P Pulse Ox O2 Delivery O2 Flow Rate FiO2 11/22/16 13:35 36.4 86 20 110/63 11/22/16 11:02 36.8 85 16 122/65 11/22/16 09:54 87 11/22/16 09:31 36.7 90 24 127/69 11/22/16 06:48 37.3 80 20 131/72 11/22/16 06:28 37.3 79 20 130/70 General Appearance: Alert, Oriented X3, Cooperative, No Acute Distress HEENT/AIRWAY: MP 2, Other (poor dentition, none loose; neck FROM) Lungs: Clear to Auscultation, Normal Air Movement Heart: Exam Unremarkable, Regular Rate/Rhythm, No Murmurs/Rubs/Gallops Meds/Labs/Diagnostics Admission Meds Current Medications Phytonadione 2.5 mg 2.5 mg ONCE ONCE PO Last administered on 11/21/16t 18:33; Start 11/21/16 at 17:05; Stop 11/21/16 at 17:13; Status DC Sodium Chloride (Normal Saline) 250 ml @ ud STK-MED ONCE .ROUTE Last administered on 11/21/16 18:33; Start 11/21/16 at 18:14; Stop 11/21/16 at 18:15; Status DC Thiamine HCl 100 mg 100 mg DAILY PO Last administered on 11/22/16 09:48; Start 11/21/16 at 20:35 Sodium Chloride 250 ml @ 10 mls/hr Q24H IV Last administered on 11/22/16 10:37 ; Start 11/22/16 at 05:05 Sodium Chloride (Normal Saline) 250 ml @ 10 mls/hr Q24H IV Last administered on 11/22/16 14:15; Start 11/22/16 at 13:50 Bedside Blood Glucose: 136 Labs Test 11/20/16 18:45 11/20/16 21:14 11/21/16 04:25 11/21/16 13:43 Hold Hardy Top Tube Received (Received) Urine Color Yellow (YELLOW) Urine Appearance Clear (CLEAR,HAZY) Urine pH 6.5 (5.0-8.0) Urine Specific [place] 1.010 (1.003-1.035) Urine Protein Negativemg/dL (NEG,TRACE) Urine Glucose (UA) Negativemg/dL (NEGATIVE) Urine Ketones Negativemg/dL (NEGATIVE) Urine Occult Blood Negative (NEGATIVE) Urine Nitrite Negative (NEGATIVE) Urine Bilirubin Negative (NEGATIVE) Urine Urobilinogen Normalmg/dL (NORMAL) Urine Leukocyte Esterase Negative (NEGATIVE) Urine RBC 0-2/hpf (0-2) Urine WBC 0-5/hpf (0-5) Urine Epithelial Cells Occasional/hpf (NONE-MOD) Urine Crystals None seen (NONE SEEN) Urine Bacteria None/hpf (NONE-FEW) Urine Hyaline Casts None/lpf (NONE) Urine Granular Casts None seen (NONE SEEN) Urine Waxy Casts None seen (NONE SEEN) Urine Red Blood Cell Casts None seen (NONE SEEN) Urine White Blood Cell Casts None seen (NONE SEEN) Urine Mucus None seen (None Seen) Urine Trichomonas None seen (NONE SEEN) Urine Yeast None (NONE SEEN) Urinalysis Comment None Urine Culture Reflexed Not indicated Hemoglobin A1c 7.0% (4.8-5.6) Magnesium Level 1.9mg/dL (1.6-2.6) Hold Urine Received (Received) Test 11/22/16 03:25 11/22/16 13:00 White Blood Count 6.2th/mm3 (3.8-10.1) Red Blood Count 2.70mil/mm3 (4.40-5.80) Hemoglobin 6.3g/dL (13.8-17.2) Hematocrit 21.2% (41.0-50.0) Mean Corpuscular Volume 78.5fL (81-100) Mean Corpuscular Hemoglobin 23.3pg (27.0-35.0) Mean Corpuscular Hemoglobin Concent 29.7% (32.0-37.0) Red Cell Distribution Width 18.4% (12.3-15.4) Platelet Count 116bil/L (150-400) Neutrophils (%) (Auto) 76.4% (40-74) Lymphocytes (%) (Auto) 12.1% (14-46) Monocytes (%) (Auto) 10.5% (4-12) Eosinophils (%) (Auto) 0.5% (0-5) Basophils (%) (Auto) 0.3% (0-3) Sodium Level 139mEq/L (134-144) Potassium Level 3.6mEq/L (3.5-5.2) Chloride Level 106mEq/L (97-108) Carbon Dioxide Level 22mmol/L (18-29) Blood Urea Nitrogen 21mg/dL (8-27) Creatinine 1.30mg/dL (0.76-1.27) Estimat Glomerular Filtration Rate 59mL/min (>59) Glucose Level 129mg/dL (60-99) Calcium Level 7.5mg/dL (8.5-10.1) Total Bilirubin 1.0mg/dL (0.0-1.2) Aspartate Amino Transf (AST/SGOT) 68U/L (0-50) Alanine Aminotransferase (ALT/SGPT) 31U/L (0-44) Alkaline Phosphatase 148U/L (25-160) Total Protein 5.5g/dL (6.4-8.4) Albumin 2.2g/dL (3.4-5.0) Prothrombin Time 17.2sec (8.1-12.5) Prothromb Time International Ratio 1.59ratio Plan Impression Patient chart reviewed, patient interviewed and anesthestic plan with risks, benefits, and alternatives discussed, and informed consent obtained. NPO Status: > 8 hrs ASA Physical Status: ASA3 Severe Disease Anesthetic Plan: GA, MAC Bene/Risks/Altern/Consents: Yes HP Complete Prior to Induction: Yes Tonio Ang MD Nov 22, 2016 14:25
--- NOTE | 2016-11-22 15:37 | PCM.ANEP2 ---
Post Anesthesia Evaluation ASA/CMS Post Anesthesia VS in Patient's Normal Range?: Yes Resp Stable; Airway Patent?: Yes CV Function & Hydration Stable: Yes Mental Status Recovered?: Yes Pain control Satisfactory?: Yes N/V Control Satisfactory?: Yes Tonio Ang MD Nov 22, 2016 15:37
--- NOTE | 2016-11-22 16:29 | ENDO ---
[address] [address] ENDOSCOPY PROCEDURE PATIENT: LOUIE FRANCIS : 1950 MR#: [id number] ADMIT: 11/20/2016 JOB ID: [id number] PROCEDURE: Esophagogastroduodenoscopy and biopsy. PREOPERATIVE DIAGNOSES: 1. Erosive esophagitis. 2. Moderate nonerosive gastritis. 3. Mild portal hypertensive gastropathy. 4. Bulbar duodenitis. 5. There was oozing of blood from various places in the stomach, most likely from the patients portal hypertensive gastropathy. ANESTHESIA: Monitored anesthesia care. COMPLICATIONS: None. ESTIMATED BLOOD LOSS: Minimal. DESCRIPTION OF PROCEDURE: After the risks and benefits were explained to the patient, informed consent was obtained. After anesthesia was administered, the upper endoscope was inserted into the mouth, intubating the esophagus, stomach, and second portion of the duodenum and the mucosa carefully examined. After the procedure ws done, the scope was withdrawn and the procedure terminated. FINDINGS: Upon inspection of the esophagus there was mild erosive esophagitis of the distal esophagus. The Z-line was located at 42 cm from the incisors. Upon entering the stomach, there was mild portal hypertensive gastropathy and moderate nonerosive gastritis. There was oozing and blood clots that were seen at various parts of the stomach, most likely from the patient's portal hypertensive gastropathy. Retroflexion was normal. The duodenal bulb showed mild erythema, but the first and second portions were normal. No ulcers or masses were seen. Biopsies taken at the duodenal bulb and antrum. A hemoclip was placed post bx site given slight oozing of blood post bx with good hemostasis. IMPRESSION: 1. Mild erosive esophagitis. 2. Mild portal hypertensive gastropathy. 3. Moderate nonerosive gastritis. 4. Bulbar duodenitis. 5. Oozing and blood clots seen in various parts of the stomach, most likely from the patient's portal hypertensive gastropathy. RECOMMENDATIONS: 1. Continue Protonix drip. 2. Start Carafate 1 g by mouth 4 times a day. 3. Serial hemoglobins. 4. If the patients hemoglobin is stable, without overt signs of bleeding, by tomorrow morning, then okay to stop the Protonix drip and transition to Protonix 40 mg by mouth twice a day, along with Carafate, and to start a clear liquid diet at that point in time. 5. NPO except for meds until tomorrow morning. MTDD
--- NOTE | 2016-11-22 18:03 | PCM.PNMED ---
Subjective Date of Service Nov 22, 2016 Subjective Jesus Sarmiento Jr. is a 66-year-old male with a past medical history significant for aortic valve replacement on chronic anticoagulation, paroxysmal atrial fibrillation, COPD stage III, diabetes mellitus type 2, who presented to the ER with a several week history of melena, progressive weakness as well as fatigue and a hemoglobin of 5.6. Admitted for possible GI bleed and acute anemia. Hospital day #3. Overnight: There were no acute events. Telemetry overnight: Sinus rhythm, heart rate is 80- 90s, without ectopy. The patient is resting in bed comfortably and in no acute distress. The patient reports no abdominal discomfort or melena/hematochezia. Today patient denies chest pain, shortness of breath, fatigue, headache, dizziness, nausea, vomiting diarrhea or constipation. The patient's appetite is normal he endorses hunger. He is n.p.o. for planned EGD this afternoon. . Exam Vital Signs Vital Sign - Last Date Time Temp Pulse Resp B/P Pulse Ox O2 Delivery O2 Flow Rate FiO2 11/22/16 16:40 36.9 88 20 136/72 98 Room Air 11/22/16 15:42 2 Intake and Output 11/21/16 11/21/16 11/22/16 Cumulative From/Thru 15:00 23:00 07:00 11/20/16 18:13 - 11/22/16 06:28 Intake Total 3011 ml 3058 ml 6469 ml Output Total 1850 ml 700 ml 3700 ml Balance 1161 ml 2358 ml 2769 ml Intake Oral 0 ml 1920 ml 1920 ml IV Total 2741 ml 875 ml 3716 ml Packed Cells 300 ml FFP 263 ml 263 ml Platelets 270 ml 270 ml Output Urine Total 1850 ml 700 ml 3700 ml # Voids 2 2 Exam General: Elderly gentleman lying in bed and in no acute distress, disheveled, well-developed, well-nourished, mumbling a bit but appropriately interactive. HEENT: Normocephalic, atraumatic. External ears without defect. Pupils equal, round, reactive to light. Anicteric sclerae. Moist mucosa. Adentulous Neck: Supple with full range of motion. No lymphadenopathy or thyromegaly. Cardiovascular: Regular rate and rhythm with systolic murmur, no rubs, or gallops appreciated. Pulmonary: Clear to auscultation bilaterally with no crackles, wheezes, or rhonchi. Normal respiratory effort with no use of accessory muscles. Abdomen: Soft, mildly tender to palpation in mid-epigastric, nondistended, bowel sounds present. No hepatosplenomegaly or masses appreciated. Extremities: No clubbing, cyanosis, or edema. Skin: Normal temperature, pale, no rash, ulcers, or subcutaneous nodules appreciated. Neurological: Cranial nerves grossly intact. No focal deficit. . IVs and Medications Medications Reviewed: Medications were reviewed in detail Lab and Diagnostics Item Value Date Time Hemoglobin A1c 7.0 % H 11/21/16 0425 Calcium Level 7.5 mg/dL L 11/22/16324 Total Bilirubin 1.0 mg/dL 11/22/16324 Aspartate Amino Transf (AST/SGOT) 68 U/L H 11/22/16 032 Alanine Aminotransferase (ALT/SGPT) 31 U/L 11/22/16324 Alkaline Phosphatase 148 U/L 11/22/16324 Total Protein 5.5 g/dL L 11/22/16324 Albumin 2.2 g/dL L 11/22/16 032 Result Diagram: 11/22/16 1710 11/22/16324 Microbiology Stool occult blood positive. . 12-lead ECG Sinus rhythm with a rate of 94, No STEMI, No ST elevation Assessment & Plan Jesus Sarmiento Jr. is a 66-year-old male with a past medical history significant for aortic valve replacement on chronic anticoagulation, paroxysmal atrial fibrillation, COPD stage III, diabetes mellitus type 2, who presented to the ER with a several week history of melena, progressive weakness as well as fatigue and a hemoglobin of 5.6. Admitted for possible GI bleed and acute anemia. Hospital day #3. 1. Acute upper gastrointestinal bleed, present on admission. Active. - Patient presented severely anemic with progressive weakness and melena for several weeks. - CT abd & pelvis on 11/06/16 showed a mass lesion within caudate lobe of liver , consistent with a hepatoma and hepatic cirrhosis. - Admitted on 10/24/16 for similar presentation with EGD on 10/25 showing gastritis and portal gastropathy, no esophageal varices. - H/H on admission of 5.6/19.5 and pt transfused 2U PRBC's. - Consulted GI and plan for EGD this afternoon, pending reversal of INR. - 5U FFP, 2.5mg oral vitamin K. - Goal INR < 1.5 - Continue Protonix and monitor H/H. - Patient NPO for 24 hours after EGD. 2. Acute on chronic anemia, present on admission. Active - Secondary to acute blood loss. Pt is hemodynamically stable. - H/H 7.3/24.6 after PRBC transfusion. - Iron studies in outpatient setting (10/23/17) show: Fe 11, Ferritin 28, TIBC 343, %sat 3. - Continue iron replacement for chronic anemia once appropriate for PO intake. - Continue to monitor hemoglobin and hematocrit closely. 3. Status post bioprosthetic valve( aortic valve ) with chronic anticoagulation with warfarin, present on admission. Active. - Pt also has history of atrial fibrillation. Chronically anticoagulated on warfarin. INR on admission 2.29. - Holding warfarin due to the acute nature of the bleed. We will start a heparin drip in the morning and consider bridging in the next 1-2 days per GI recs. - INR reversal, as above, per GI for upcoming endoscopy. -As soon as pt is stable and bleeding has been addressed we will restart anticoagulation 4. Right hepatic lobe nodular mass, present on admission. Active. - Radiology report states "mass could possibly reflect regenerating nodule, however neoplasm cannot be excluded." - Radiology reports recommend nonemergent CT of the abdomen with contrast ( hepatic protocol) for further evaluation. - Could be followed up in the outpatient setting Chronic Conditions: Paroxysmal atrial fibrillation, present on admission. Stable - On chronic anticoagulation on warfarin. - Continue to monitor patient on telemetry. - Warfarin held in setting of acute GI bleed, plan for endoscopy today per GI. Start heparin gtt tomorrow morning as above problem #3. - Reversal of INR, as above. Chronic kidney disease, stage 3, present on admission. Stable. - Apparent baseline BUN/Creatinine of 17-23/1.26-1.5 - Avoid nephrotoxic agents. - Continue IV fluids Chronic diabetes mellitus type 2, insulin using. Stable - Hemoglobin A1c 7.0%. - Continue carbohydrate consistent diet. - Continue low dose correctional scale insulin. - Bedside blood glucose monitoring. Chronic hypertension, present on admission.Active - Continue home medications. GERD, chronic, present on admission. Active. - Patient has been started on PPI, as above. Depression, chronic, present on admission. Active - Continue home medications. Alcoholism, in recovery. present on admission. Active - Per patient he has been sober for the nearly two years Cirrhosis secondary to alcohol abuse, present on admission. Active - No fluid noted on exam. - Imaging of abdomen did demonstrate some fluid, likely secondary to cirrhosis. - Monitor for any mental status changes, if they occur recommend getting ammonia level and lactulose. Acetaminophen-fever/headache/mild/moderate pain Antiemetics, as needed Bowel regimen, as needed. Disposition: Anticipated discharge in 1-2 days pending endoscopy results. . VTE Prophylaxis: SCDs VTE Mechanical Devices: Intermittant Pneumatic CD Resuscitation Status: CPR: Attempt Resuscitation Attending Statement The patient was seen and examined together with Dr. Biggs on 11-22-16 and I agree with the history, exam and plan as outlined in the note above. Osiris Biggs DO Nov 22, 2016 18:03 Katrina Roy MD Nov 23, 2016 08:54
--- NOTE | 2016-11-22 19:38 | NUR ---
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 Pt left [facility] room 2006 for endo and returned to [facility] room 2006 without issue. Pt denied pain before/after procedure. Pt had large formed BM after returning from endo which was very dark green/black in appearance, guaiac sent. Pt's H/H ordered upon returning to [facility] room 2006 which came back at 8.03/12
[2016-11-22] MEDS: Sucralfate 1,000 mg Tablet PO SCH (21:15)
[2016-11-23] VITALS (8 sets, daily range): BP systolic 124–159; BP diastolic 75–89; PULSE 84–89; RESP 16–20; O2SAT 95–98
[2016-11-23] MEDS: 0.9% Sodium Chloride 1,000 ML IV SCH ×3 (00:45→12:10)
[2016-11-23] MEDS: Insulin Human REGular 300 Unit/3 mL Inj SUBQ SCH ×4 (01:54→20:30)
[2016-11-23 03:06] LABS: BASOPHILS % (AUTO) 0.2 % (0-3); EOSINOPHILS % (AUTO) 0.3 % (0-5); MONOCYTES % (AUTO) 10.3 % (4-12); Mean Corpuscular Hemoglobin 24.3 pg (27.0-35.0); Mean Corpuscular Volume 79.6 fL (81-100); Platelet Count 140 bil/L (150-400)
[2016-11-23 03:20] LABS: INR 1.47 ratio
[2016-11-23] MEDS: Sucralfate 1,000 mg Tablet PO SCH ×4 (05:54→22:04)
--- NOTE | 2016-11-23 06:12 | NUR ---
Blood Glucose Pt blood glucose 87 at HS; pt and family members very concerned about result, requested immediate treatment, pt reported feeling groggy, dizzy, and as having slurred speech. paged, 25ml of D50 administered with f/u BG of 109. BG reassessments were 140 and 157 at approx. 0000 and 0200. Pt refused 0230 insulin. This AM, family member stated pt had eaten the night prior; pt and family aware of NPO status. VSS, tele SR 80s-90s.
[2016-11-23] MEDS: Pantoprazole 4 mg/mL 10 mL Inj IVPUSH SCH ×2 (08:21→16:05)
[2016-11-23] MEDS: Potassium Chloride 20 mEq SR Tablet PO SCH (08:22)
[2016-11-23] MEDS: Tolterodine ER 2 mg ER24 Capsule PO SCH ×2 (08:22→22:04)
[2016-11-23] MEDS ORDERED: Heparin 5,000 Unit/mL Inj SUBQ SCH (08:30)
[2016-11-23] MEDS: Sucralfate 100 mg/mL 10 mL Suspension PO SCH (10:29)
--- NOTE | 2016-11-23 10:33 | PCM.PNSURG ---
Subjective Date of Service: Nov 23, 2016 Date of Service: Nov 23, 2016 Visit Information: Subjective: hb 8.2 this am. No overt signs gi bleed. Postop General: No Complaints Objective Vital Sign- Last 8 Hours Date Time Temp Pulse Resp B/P Pulse Ox O2 Delivery O2 Flow Rate FiO2 11/23/16 09:58 84 11/23/16 08:13 36.3 85 16 141/82 95 Room Air 11/23/16 04:33 36.6 85 20 124/76 95 Room Air 11/23/16 02:57 86 Intake and Output- Last 8 Hour 11/23/16 Cumulative From/Thru 07:00 11/20/16 18:13 - 11/23/16 06:06 Intake Total 1093 ml 8968 ml Output Total 1000 ml 7275 ml Balance 93 ml 1693 ml Intake Oral 0 ml 1920 ml IV Total 1093 ml 5415 ml Packed Cells 900 ml FFP 463 ml Platelets 270 ml Output Urine Total 1000 ml 7275 ml # Voids 3 5 General: Oriented X3 Neck: Supple Lungs: Clear to Auscultation Heart: Exam Unremarkable Abdomen: Benign, Soft, Non-tender, Non-distended, Normoactive bowel tones Extremities: Distal Pulses Palpable Result Diagram: 11/23/16 0250 11/23/16 0250 Assessment & Plan Impression This is a 66-year-old male with a history of valve replacement on Coumadin, cirrhosis with splenomegaly by CAT scan, most likely due to alcohol, BPH, hyperlipidemia, chronic kidney disease stage 3, GERD, stable infarct in the past, anxiety, aortic valve stenosis in the past, paroxysmal atrial fibrillation, diabetes, hypertension who presents for consultation for melena. ct abdomen liver protocol 11/05/2016- Liver: The liver is cirrhotic, again showing lobulated margin and prominent caudate lobe. Splenomegaly is persistent, consistent with portal hypertension as are perisplenic varices. Corresponding to the most recent ultrasound exam, there is a 3.7 cm rounded mass in the caudate lobe adjacent to the IVC. This shows noncontrast attenuation of 45, arterial phase of 53, venous phase 66 and 5 minute delayed phase of 53, indicating mild enhancement with washout. There is no arterial phase hyperenhancement or peripheral rim of hyperenhancement on venous or delayed phase. On CT abdomen of 02/13/2015, a 13 mm focal enhancement in this same location was present but not seen currently. Other solid organs: Gallbladder contains a solitary gallstone. Biliary system is non dilated. Pancreas is normal in morphology. Spleen is normal in size and enhancement. No adrenal nodules. Both kidneys demonstrate normal size and enhancement, without hydronephrosis or nephrolithiasis. Nodes and vessels: No retroperitoneal or mesenteric adenopathy by size criteria. Aorta and inferior vena cava are normal in size. Bowel and peritoneum: Unenhanced bowel loops are normal in caliber. No free fluid or air. Bones: No suspicious bony lesions. No vertebral body compression fractures. Miscellaneous: No ventral hernias. IMPRESSION: 1. Mass lesion within the caudate lobe of liver is confirmed . The characteristics show intermediate probability of hepatoma , category LR-3 . Since the lesion is visible on ultrasound, serial ultrasound images could be obtained to determine growth rate . Although fairly deep from the posterior skin margin, CT guided percutaneous biopsy appears feasible. 2. Hepatic cirrhosis and splenomegaly. 3. Cholelithiasis without cholecystitis. egd 11/22/2016- FINDINGS: Upon inspection of the esophagus there was mild erosive esophagitis of the distal esophagus. The Z-line was located at 42 cm from the incisors. Upon entering the stomach, there was mild portal hypertensive gastropathy and moderate nonerosive gastritis. There was oozing and blood clots that were seen at various parts of the stomach, most likely from the patient's portal hypertensive gastropathy. Retroflexion was normal. The duodenal bulb showed mild erythema, but the first and second portions were normal. No ulcers or masses were seen. Biopsies taken at the duodenal bulb and antrum. A hemoclip was placed post bx site given slight oozing of blood post bx with good hemostasis. IMPRESSION: 1. Mild erosive esophagitis. 2. Mild portal hypertensive gastropathy. 3. Moderate nonerosive gastritis. 4. Bulbar duodenitis. 5. Oozing and blood clots seen in various parts of the stomach, most likely from the patient's portal hypertensive gastropathy. Recs: 1) protonix 40mg po bid 2) Carafate 1 g by mouth 4 times a day. 3) avoid nsaids, narcotics given cirrhosis 4) start clear liquid diet. Advance as tolerate per hospitalist team 5) check afp 6) outpatient workup of liver mass in caudate (ie. also consider mri abdomen as outpatient) to r/o HCC given hx cirrhosis. 7) ok to d/c home from gi standpoint 8) await egd bx results will sign off Problems: VTE Prophylaxis: SCDs Resuscitation Status: CPR: Attempt Resuscitation Getachew Dye MD Nov 23, 2016 10:33
--- NOTE | 2016-11-23 11:13 | NUR ---
Evaluation completed. Please go to "Notes" then click on "Assessments and Notes" (bottom left corner of screen). Then select appropriate discipline tab on top of screen.
[2016-11-23] MEDS: 0.9% Sodium Chloride 250 ML IV SCH (13:50)
[2016-11-23] MEDS: Heparin 25K Unit/500mL 0.45 NS 25,000 UNIT in IV Premix 1 EACH IV SCH (15:56)
--- NOTE | 2016-11-23 17:29 | PCM.PNMED ---
Subjective Date of Service Nov 23, 2016 Subjective Jesus Sarmiento is a 66 year old male with a history of aortic valve replacement on chronic anticoagulation, paroxysmal atrial fibrillation, CKD stage III, and type 2 diabetes mellitus insulin-using who presented to the ED with a several week history of melena, progressive weakness as well as fatigue and a hemoglobin of 5.6. Admitted for possible GI bleed and acute anemia. Hospital day #4. No acute events overnight. Per nursing, patient hypoglycemic with a blood glucose of 87 and patient reported feeling groggy and dizzy with slurred speech. He received 25ml of D50 and repeat blood glucose was 109. Today, patient is sitting up in a chair visiting with his daughter. He appears comfortable and in no acute distress. He denies abdominal discomfort and endorses one bowel movement this morning that was black in color. . Exam Vital Signs Vital Sign - Last Date Time Temp Pulse Resp B/P Pulse Ox O2 Delivery O2 Flow Rate FiO2 11/23/16 09:58 84 11/23/16 08:13 36.3 16 141/82 95 Room Air 11/22/16 15:42 2 Intake and Output 11/22/16 11/22/16 11/23/16 Cumulative From/Thru 15:00 23:00 07:00 11/20/16 18:13 - 11/23/16 06:06 Intake Total 760 ml 646 ml 1093 ml 8968 ml Output Total 2575 ml 1000 ml 7275 ml Balance 760 ml -1929 ml 93 ml 1693 ml Intake Oral 0 ml 0 ml 1920 ml IV Total 160 ml 446 ml 1093 ml 5415 ml Packed Cells 600 ml 900 ml FFP 200 ml 463 ml Platelets 270 ml Output Urine Total 2575 ml 1000 ml 7275 ml # Voids 3 5 Exam General: No acute distress, well-developed, well-nourished, appropriately interactive. HEENT: Normocephalic, atraumatic. PERRLA, Anicteric sclerae, Moist mucosa. Neck: Supple with full range of motion. No jugular venous distension. No bruits. No lymphadenopathy or thyromegaly. Cardiovascular: Regular rate and rhythm with systolic murmur, no rubs, or gallops appreciated Pulmonary: Clear to auscultation bilaterally with no crackles, wheezes, or rhonchi. Abdomen: Bowel tones present. Soft, mildly tender to palpation in mid-epigastric , nondistended. No hepatosplenomegaly or masses appreciated. Extremities: No clubbing, cyanosis, edema, or lymphadenopathy appreciated. Skin: Normal temperature, turgor, no rash, ulcers, or subcutaneous nodules appreciated. IVs and Medications Medications Reviewed: Medications were reviewed in detail Lab and Diagnostics White Blood Count 6.5, Red Blood Count 3.38, Hemoglobin 8.2, Hematocrit 26.9, Mean Corpuscular Volume 79.6, Mean Corpuscular Hemoglobin 24.3, Mean Corpuscular Hemoglobin Concent 30.5, Red Cell Distribution Width 18.6, Platelet Count 140, Neutrophils (%) (Auto) 79.0, Lymphocytes (%) (Auto) 9.7, Monocytes (% ) (Auto) 10.3, Eosinophils (%) (Auto) 0.3, Basophils (%) (Auto) 0.2, Prothrombin Time 15.9, Prothromb Time International Ratio 1.47, Sodium Level 144, Potassium Level 3.5, Chloride Level 109, Carbon Dioxide Level 22, Blood Urea Nitrogen 22, Creatinine 1.28, Estimat Glomerular Filtration Rate 60, Glucose Level 169, Calcium Level 7.7, Total Bilirubin 1.5, Aspartate Amino Transf (AST/SGOT) 80, Alanine Aminotransferase (ALT/SGPT) 33, Alkaline Phosphatase 151, Total Protein 6.0, Albumin 2.4 Result Diagram: 11/23/16 0250 11/23/16 0250 Microbiology Stool occult blood positive. . 12-lead ECG Sinus rhythm with a rate of 94, No ST elevation . Additional Diagnostics ENDOSCOPY PROCEDURE: Esophagogastroduodenoscopy and biopsy (11/22/16). IMPRESSION: 1. Mild erosive esophagitis. 2. Mild portal hypertensive gastropathy. 3. Moderate nonerosive gastritis. 4. Bulbar duodenitis. 5. Oozing and blood clots seen in various parts of the stomach, most likely from the patient's portal hypertensive gastropathy. <Electronically signed by Getachew Dye MD> 11/22/16 7702 Assessment & Plan Jesus Sarmiento Jr. is a 66-year-old male with a past medical history significant for aortic valve replacement on chronic anticoagulation, paroxysmal atrial fibrillation, COPD stage III, diabetes mellitus type 2, who presented to the ER with a several week history of melena, progressive weakness as well as fatigue and a hemoglobin of 5.6. Admitted for possible GI bleed and acute anemia. Hospital day #4 1. Acute upper gastrointestinal bleed, present on admission. Resolved - s/p EGD on 11/23/16, biopsy results pending - Likely secondary to portal hypertensive gastropathy. - Continue protonix 40mg po bid, carafate 1g po qid and avoid NSAIDs, narcotics. Per GI - Start clear liquid diet, advance as tolerated 2. Acute on chronic anemia, present on admission. Stable - Secondary to acute blood loss. - H/H 5.6/19.5 on admission, transfused 2U pRBCS. - Iron studies (10/23/16) consistent with iron deficiency - Continue iron replacement for chronic anemia - CBC in the morning 3. Status post bivalvular replacement, present on admission. Stable - Pt also has hx of Afib, chronically anticoagulated on warfarin. - INR reversed prior to EGD. - Start heparin drip, bridge to warfarin. INR goal 2.5-3.5 4. Right hepatic lobe nodular mass, present on admission. Active. - Unknown etiology, may represent malignancy. Recommend further evaluation in outpatient setting. - Nodule noted on abdominal CT (11/05/16). - Will check AFP to r/o hepatocellular carcinoma given hx of cirrhosis, per GI 5. Paroxysmal atrial fibrillation, present on admission. Stable - Pt chronically anticoagulated on warfarin, which was held in setting of acute GI bleed. - INR reversed for EGD (11/22/16) - Start heparin drip, bridge to warfarin. INR goal 2.5-3.5 6. Chronic kidney disease, stage 3, present on admission. Resolved. - Apparent baseline BUN/Creatinine of 17-23/1.26-1.5 7. Chronic diabetes mellitus type 2, insulin using. Stable - Hemoglobin A1c 7.0%. - Continue diabetic diet, correctional insulin, bedside glucose monitoring. 8. Chronic hypertension, present on admission. Stable - Continue home medications. 9. GERD, chronic, present on admission. Stable - Patient has been started on PPI, as above. 10. Depression, chronic, present on admission. Stable - Continue home medications. 11. Alcoholism, in recovery. present on admission. Active - Per patient he has been sober for the nearly two years 12. Cirrhosis secondary to alcohol abuse, present on admission. Active - No fluid noted on exam. - Imaging of abdomen did demonstrate some fluid, likely secondary to cirrhosis. - Monitor for any mental status changes, if they occur recommend getting ammonia level and lactulose. Acetaminophen-fever/headache/mild/moderate pain Antiemetics, as needed Bowel regimen, as needed. Disposition: Anticipated discharge in 1-2 days pending anticoagulation and further monitoring for advancement of diet and signs/symptoms of occult bleed. Pain Evaluation: Adequate Pain Control VTE Prophylaxis: SCDs VTE Mechanical Devices: Intermittant Pneumatic CD Resuscitation Status: CPR: Attempt Resuscitation Attending Statement The patient was seen and examined together with Dr. Dickinson on 11-23-16 and I agree with the history, exam and plan as outlined in the note above. Tiffanie Dickinson DO Nov 23, 2016 11:45 Katrina Roy MD Nov 24, 2016 16:03
--- NOTE | 2016-11-23 19:40 | NUR ---
Shift Note Pt's diet resumed today with clear liquids, Pt tolerated well. Pt had BM today with no visible blood in it, guaiac sample sent to lab. Pt's coumadin doses resumed this evening along with heparin gtt to bridge, heparin gtt started at 800 units/Hr per protocol.
[2016-11-23] MEDS: Heparin 5,000 Unit/mL Inj IVPUSH PRN (21:14)
[2016-11-24] VITALS (8 sets, daily range): BP systolic 128–164; BP diastolic 67–87; PULSE 82–90; RESP 16–22; O2SAT 96–99
[2016-11-24] MEDS: Insulin Human REGular 300 Unit/3 mL Inj SUBQ SCH ×5 (02:30→20:45)
[2016-11-24 03:32] LABS: BASOPHILS % (AUTO) 0.3 % (0-3); EOSINOPHILS % (AUTO) 2.5 % (0-5); MONOCYTES % (AUTO) 10.8 % (4-12); Mean Corpuscular Hemoglobin 24.3 pg (27.0-35.0); NEUTROPHILS % (AUTO) 70.8 % (40-74); Platelet Count 103 bil/L (150-400)
[2016-11-24 03:47] LABS: INR 1.39 ratio
--- NOTE | 2016-11-24 04:38 | NUR ---
Heparin Drip Ptt this AM @ 0300 was 64.3. No changes in drip rate made. Heparin Dripp continues at 850units/hr. Next Ptt draw @ 0900 11/24/16 No noted bleeding. No BM this shift. Care continues
[2016-11-24] MEDS ORDERED: Potassium Chloride 20 mEq SR Tablet PO ONE ×2 (06:55→13:10)
[2016-11-24] MEDS: Tolterodine ER 2 mg ER24 Capsule PO SCH ×2 (08:25→20:45)
[2016-11-24] MEDS: Pantoprazole 4 mg/mL 10 mL Inj IVPUSH SCH ×2 (08:25→17:51)
[2016-11-24] MEDS: Potassium Chloride 20 mEq SR Tablet PO SCH (08:26)
[2016-11-24] MEDS: Sucralfate 1,000 mg Tablet PO SCH ×4 (08:26→20:45)
[2016-11-24] MEDS: 0.9% Sodium Chloride 250 ML IV SCH (11:48)
--- NOTE | 2016-11-24 11:48 | NUR ---
NUTRITION ASSESSMENT Assess: 66 YO M admitted for anemia, GI bleed, resolved per notes. Pt has been NPO/Clear liquids X 4 days. Pt advanced to clear liquids yesterday. Pt with liver cirrhosis. PMHX: CKD stg 3, GERD, cerebral infarction, anxiety, aortic valve stenosis, valve replacement, BPH, HLD, ETOH abuse, afib, chronic GI bleed, type 2 diabetes. DIET: Clear liquids. PO intake 100% X 1 meal. LABS: K+ 3.1, Ca 7.6, (11/23): Alb 2.4 MEDICATIONS: Reviewed. Coumadin, Lasix, Vitamin D. GI: 2 BM 11/23. SKIN: No issues noted. WEIGHT: 106.0 kg, BMI 31.7 kg/m2. ESTIMATED NEEDS: BMI/CKD Calories: 6715-1794 kcal/day (20-25 kcal/kg BW) Protein: 81-97 g/day (1.0-1.2 g/kg IBW) NUTRITION DIAGNOSIS: 1) Inadequate oral intake related to decreased ability to consume sufficient energy as evidenced by NPO/Clear liquid diet X 4 days. INTERVENTION: 1) Will await timely advancement of diet, if unable to advance diet in the next 1-3 days consider nutrition support. MONITOR/EVALUATE: PO intake, diet advance/tolerance, labs, nutrition status. Follow per moderate nutrition risk guidelines.
[2016-11-24] MEDS: Insulin ASPART 70/30 FlexPen 300 Unit/3 mL Inj SUBQ SCH ×2 (12:00→17:54)
--- NOTE | 2016-11-24 13:38 | PCM.PHAPRO ---
Progress Date of Service: Nov 24, 2016 dark stools and weakness Warfarin Management per Pharmacy: Indication: Stroke prophylaxis as patient has aortic valve replacement with atrial fibrillation Goal INR: 2.5-3.5 (closer to 2.5 due to recent GI bleed) Home Dose: Patient states was stable on warfarin 1 mg PO daily prior, however recently dose has been changing 0.5 mg->1 mg PO daily Labs: Hgb/Hct: 9.0/29.3 Plt: 103 INR: 1.35 Drug-Disease Interactions: Recent GI bleed (H+H stable), GERD, cirrhosis, EtOH abuse Additional Anticoagulants: Heparin gtts Recommendation: Warfarin 1 mg PO x 1 today at 1700 Pharmacy to continue to monitor for signs/symptoms of bleeding. Thank You, Roxann Ellis, Pharm D. Roxann Ellis Nov 24, 2016 13:38
--- NOTE | 2016-11-24 14:43 | PCM.PNMED ---
Subjective Date of Service Nov 24, 2016 Subjective Jesus Sarmiento is a 66 year old male with a history of aortic valve replacement on chronic anticoagulation, paroxysmal atrial fibrillation, CKD stage III, and type 2 diabetes mellitus insulin-using who presented to the ED with a several week history of melena, progressive weakness as well as fatigue and a hemoglobin of 5.6. Admitted for possible GI bleed and acute anemia. Hospital day #4. No acute events overnight. He denies abdominal discomfort and endorses bowel movement yesterday that was black in color. Patient states he feels weak and lethargic. Patient's speech slightly slurred per daughter this is below baseline. Patient refused physical therapy yesterday he is agreeable to attempt today. Discussed with patient his living situation and he admits to having difficulty taking medications as scheduled. Per daughter his diet is inconsistent as he does not always fix food for himself. Exam Vital Signs Vital Sign - Last Date Time Temp Pulse Resp B/P Pulse Ox O2 Delivery O2 Flow Rate FiO2 11/24/16 04:05 36.4 82 20 128/67 97 Room Air 11/22/16 15:42 2 Intake and Output 11/23/16 11/23/16 11/24/16 Cumulative From/Thru 15:00 23:00 07:00 11/20/16 18:13 - 11/24/16 05:44 Intake Total 2721 ml 565 ml 09063 ml Output Total 1700 ml 400 ml 9375 ml Balance 1021 ml 165 ml 2879 ml Intake Oral 2140 ml 400 ml 4460 ml IV Total 581 ml 165 ml 6161 ml Packed Cells 900 ml FFP 463 ml Platelets 270 ml Output Urine Total 1700 ml 400 ml 9375 ml # Voids 5 # Bowel Movements 2 2 Exam General: No acute distress, well-developed, well-nourished, appropriately interactive. Slurred speech baseline per daughter. HEENT: Normocephalic, atraumatic. PERRLA, Anicteric sclerae, Moist mucosa. Neck: Supple with full range of motion. No jugular venous distension. No bruits. No lymphadenopathy or thyromegaly. Cardiovascular: Regular rate and rhythm with systolic murmur, no rubs, or gallops appreciated Pulmonary: Clear to auscultation bilaterally with no crackles, wheezes, or rhonchi. Abdomen: Bowel tones present. Soft, mildly tender to palpation in mid-epigastric , nondistended. No hepatosplenomegaly or masses appreciated. Extremities: No clubbing, cyanosis, edema, or lymphadenopathy appreciated. Skin: Normal temperature, turgor, no rash, ulcers, or subcutaneous nodules appreciated. Lab and Diagnostics PT 15.0 INR 1.39 APTT 64.3 Result Diagram: 11/24/160 11/24/16 0310 Microbiology Stool occult blood positive. 12-lead ECG Sinus rhythm with a rate of 94, No ST elevation . Additional Diagnostics ENDOSCOPY PROCEDURE: Esophagogastroduodenoscopy and biopsy (11/22/16). IMPRESSION: 1. Mild erosive esophagitis. 2. Mild portal hypertensive gastropathy. 3. Moderate nonerosive gastritis. 4. Bulbar duodenitis. 5. Oozing and blood clots seen in various parts of the stomach, most likely from the patient's portal hypertensive gastropathy. <Electronically signed by Getachew Dye MD> 11/22/16 2230 Assessment & Plan Jesus Sarmiento Jr. is a 66-year-old male with a past medical history significant for aortic valve replacement on chronic anticoagulation, paroxysmal atrial fibrillation, COPD stage III, diabetes mellitus type 2, who presented to the ER with a several week history of melena, progressive weakness as well as fatigue and a hemoglobin of 5.6. Admitted for possible GI bleed and acute anemia. Hospital day 4. 1. Acute upper gastrointestinal bleed, present on admission. Resolved - s/p EGD on 11/23/16, biopsy results pending - Likely secondary to portal hypertensive gastropathy. - Continue protonix 40mg po bid, carafate 1g po qid and avoid NSAIDs, narcotics. Per GI - Start clear liquid diet, advance as tolerated 2. Acute on chronic anemia, present on admission. Stable - Secondary to acute blood loss. - H/H 5.6/19.5 on admission, transfused 2U pRBCS. - Iron studies (10/23/16) consistent with iron deficiency - Continue iron replacement for chronic anemia - H/H 9.0/29.3 today. Repeat in the morning. 3. Status post bivalvular replacement, present on admission. Stable - Pt also has hx of Afib, chronically anticoagulated on warfarin. - INR reversed prior to EGD. - Start heparin drip, bridge to warfarin. INR goal 2.5-3.5. 4. Right hepatic lobe nodular mass, present on admission. Active. - Unknown etiology, may represent malignancy. Recommend further evaluation in outpatient setting. - Nodule noted on abdominal CT (11/05/16). - Will check AFP to r/o hepatocellular carcinoma given hx of cirrhosis, per GI 5. Paroxysmal atrial fibrillation, present on admission. Stable - Pt chronically anticoagulated on warfarin, which was held in setting of acute GI bleed. - INR reversed for EGD (11/22/16) - Start heparin drip, bridge to warfarin. INR goal 2.5-3.5 6. Chronic kidney disease, stage 3, present on admission. Resolved. - Apparent baseline BUN/Creatinine of 17-23/1.26-1.5. 7. Chronic diabetes mellitus type 2, insulin using. Stable - Hemoglobin A1c 7.0%. - Continue diabetic diet, correctional insulin, bedside glucose monitoring. - Restarted patient on insulin aspart 10 units 3 times a day with meals. - Home regimen is insulin aspart 20 units 3 times a day with meals and Levemir 55 units every morning. 8. Chronic hypertension, present on admission. Stable - Continue home medications. 9. GERD, chronic, present on admission. Stable - Patient has been started on PPI, as above. 10. Depression, chronic, present on admission. Stable - Continue home medications. 11. Alcoholism, in recovery. present on admission. Active - Per patient he has been sober for nearly two years 12. Cirrhosis secondary to alcohol abuse, present on admission. Active - No fluid noted on exam. - Imaging of abdomen did demonstrate some fluid, likely secondary to cirrhosis. - Monitor for any mental status changes, if they occur recommend getting ammonia level and lactulose. Acetaminophen-fever/headache/mild/moderate pain Antiemetics, as needed Bowel regimen, as needed. Disposition: Anticipated discharge in 1-2 days pending anticoagulation and further monitoring for advancement of diet and signs/symptoms of occult bleed. Pain Evaluation: Adequate Pain Control GI Prophylaxis: Proton Pump Inhibitor VTE Prophylaxis: Sub-Q Heparin (Unfractionated), Theraputic Anticoag with Warfarin, SCDs VTE Mechanical Devices: Intermittant Pneumatic CD Resuscitation Status: CPR: Attempt Resuscitation Attending Statement The patient was seen and examined together with Dr. Dunn on 11/24/2016 and I agree with the history, exam and plan as outlined in the note above. . DON DUNN DO Nov 24, 2016 06:57 Keith Antony MD Nov 25, 2016 18:36
[2016-11-24] MEDS: Heparin 5,000 Unit/mL Inj IVPUSH PRN ×2 (14:52→22:05)
--- NOTE | 2016-11-24 16:02 | NUR ---
Diet Advanced His diet was advanced from a clear liquid diet to consistent carb as tolerated. He is tolerating it well. Care continues.
[2016-11-24] MEDS: Heparin 25K Unit/500mL 0.45 NS 25,000 UNIT in IV Premix 1 EACH IV SCH (19:33)
[2016-11-25] MEDS: Insulin Human REGular 300 Unit/3 mL Inj SUBQ SCH ×4 (02:30→20:46)
[2016-11-25 02:57] LABS: Mean Corpuscular Hemoglobin 23.9 pg (27.0-35.0); Mean Corpuscular Volume 78.9 fL (81-100)
[2016-11-25 03:39] LABS: INR 1.36 ratio
[2016-11-25 03:56] VITALS: BP 141/71; PULSE 86; RESP 20; O2SAT 97
[2016-11-25 03:59] LABS: Magnesium 1.6 mg/dL (1.6-2.6)
--- NOTE | 2016-11-25 05:08 | NUR ---
Heparin gtt Heparin gtt currently infusing at 975units/hr; PTT therapeutic times x1 this shift. Stool guaiac sample sent to lab. Pt denies pain, dyspnea, nausea. VSS; no telemetry.
[2016-11-25] MEDS: Sucralfate 1,000 mg Tablet PO SCH ×4 (06:21→20:45)
--- NOTE | 2016-11-25 06:30 | NUR ---
Transfer Pt transferred via wheelchair with Blanche Mcnair RN and REGISTERED NURSE STEP DOWN. Daughter with patient. Pt ambulated to bed fair. Pt has Heparin drip running.
[2016-11-25 08:23] VITALS: BP 165/73; PULSE 85; RESP 18; O2SAT 98
[2016-11-25] MEDS: Potassium Chloride 20 mEq SR Tablet PO SCH (08:50)
[2016-11-25] MEDS: Tolterodine ER 2 mg ER24 Capsule PO SCH ×2 (08:55→20:45)
[2016-11-25] MEDS: Insulin ASPART 70/30 FlexPen 300 Unit/3 mL Inj SUBQ SCH ×3 (08:55→17:36)
--- NOTE | 2016-11-25 09:08 | NUR ---
Social Work Note: Continued Discharge Planning Data& Assessment: SW met with pt daughter and pt at bedside to confirm discharge plan and assess for any unmet needs. Pt confirmed plan to return home with resume [facility] RN, PT, [employer] C[employer] EDGER, and OT. SW explained this is only a temporary service. Pt daughter is planning on getting certified as a caregiver. Per pt daughter request, SW also provided in home caregiving information. SW received a message from [facility] liaison requested [facility] application be completed. SW to complete [facility] application. Pt and pt daughter deny any other needs at this time. SW to continue to follow. Plan: Anticipated discharge home via POV with resume [facility] PT, RN, OT and [employer]. Pt and pt daughter deny any other needs at this time. SW to continue to follow. No other discharge needs identified at this time. JILL Nugent
--- NOTE | 2016-11-25 11:27 | NUR ---
Social Work Continued Discharge Planning: Access provided to [facility] as patient current with [facility] for C Rn, PT, OT and aid. Patient current with [facility] and assigned trimming caser is Antoinette Hernandez, . Per Antoinette patient is newly assigned with [facility] and services have yet to be provided due to recent hospitalization and rep inabilities to make contact with patient/family. [facility] rep requested clinicals be faxed to [phone]. SW faxed per request. [facility] rep states that she will attempt at bedside [facility] assessment or at home, pending discharge date. SW to follow. PLAN: Resume home with [facility] services via [facility] (Access provided). [facility] following (faxed clinicals). SW to follow. Goyo MELCHOR
--- NOTE | 2016-11-25 11:50 | PATH ---
SURGICAL PATHOLOGY Attending Physician:Getachew Dye MD CASE STATUS: Signed Out PATIENT NAME: LOUIE FRANCIS JR, JR PID: [id number] : 1950 DATE COLLECTED:11/22/2016 00:00 SPECIMEN: 1: Gastric, Biopsy 2: Duodenum, Biopsy CLINICAL HISTORY: GASTRITIS/PORTAL GASTROPATHY DUODENAL BULB INFLAMED A: GASTRIC BIOPSY B: DUODENAL BULB BIOPSY FINAL DIAGNOSIS: 1.GASTRIC BIOPSY: MODERATE REACTIVE GASTROPATHY, ANTRAL MUCOSA. Negative for intestinal metaplasia. Negative for Helicobacter organisms. Negative for dysplasia and malignancy. 2.DUODENAL BULB BIOPSY: ANTRAL-TYPE MUCOSA WITH MODERATE REACTIVE GASTROPATHY. Negative for intestinal metaplasia. Negative for dysplasia and malignancy. ICD10 code K29.70 GROSS DESCRIPTION: The specimen is received in two formalin filled containers labeled with the patient's name. 1). The specimen is sublabeled "gastric" and consists of a 0.3 x 0.3 x 0.3 CM portion of tissue which is entirely submitted in cassette 1A. 2). The specimen is sublabeled "duodenal bulb" and consists of 2 portions of tissue which aggregate to 0.3 x 0.3 x 0.2 CM. The specimen is entirely submitted in cassette 2A. 11/24/2016 [facility] MICRO DESCRIPTION: See diagnosis. ICD-9 CODES: CPT CODES: 1: 41945 2: 14946 Electronically Signed Out Halima Jimenez MD [facility], [place] [address] Technical component performed at [facility], [address] [place] [address] [address], [place], [address]
[2016-11-25 13:07] VITALS: BP 161/74; PULSE 97; RESP 19; O2SAT 96
[2016-11-25] MEDS: 0.9% Sodium Chloride 250 ML IV SCH (13:50)
--- NOTE | 2016-11-25 16:16 | PCM.PNMED ---
Subjective Date of Service Nov 25, 2016 Subjective Jesus Sarmiento is a 66 year old male with a history of aortic valve replacement on chronic anticoagulation, paroxysmal atrial fibrillation, CKD stage III, and type 2 diabetes mellitus insulin-using who presented to the ED with a several week history of melena, progressive weakness as well as fatigue and a hemoglobin of 5.6. Admitted for possible GI bleed and acute anemia. Hospital day 5. No acute events overnight. He denies abdominal discomfort and endorses bowel movement today. Patient states he weakness has improved and he has been able to walk with walker. Patient's speech slightly less slurred today. Exam Vital Signs Vital Sign - Last Date Time Temp Pulse Resp B/P Pulse Ox O2 Delivery O2 Flow Rate FiO2 11/25/16 13:07 36.8 97 19 161/74 96 Room Air 11/22/16 15:42 2 Intake and Output 11/24/16 11/24/16 11/25/16 Cumulative From/Thru 15:00 23:00 07:00 11/20/16 18:13 - 11/25/16 06:20 Intake Total 1120 ml 738 ml 72813 ml Output Total 2050 ml 1000 ml 38755 ml Balance -930 ml -262 ml 1687 ml Intake Oral 900 ml 500 ml 5860 ml IV Total 220 ml 238 ml 6619 ml Packed Cells 900 ml FFP 463 ml Platelets 270 ml Output Urine Total 2050 ml 1000 ml 94567 ml # Voids 2 4 11 # Bowel Movements 3 2 7 Exam General: No acute distress, well-developed, well-nourished, appropriately interactive. Slurred speech baseline per daughter. HEENT: Normocephalic, atraumatic. PERRLA, Anicteric sclerae, Moist mucosa. Neck: Supple with full range of motion. No jugular venous distension. No bruits. No lymphadenopathy or thyromegaly. Cardiovascular: Regular rate and rhythm with systolic murmur, no rubs, or gallops appreciated Pulmonary: Clear to auscultation bilaterally with no crackles, wheezes, or rhonchi. Abdomen: Bowel tones present. Soft, mildly tender to palpation in mid-epigastric , nondistended. No hepatosplenomegaly or masses appreciated. Extremities: No clubbing, cyanosis, edema, or lymphadenopathy appreciated. Skin: Normal temperature, turgor, no rash, ulcers, or subcutaneous nodules appreciated. Lab and Diagnostics Result Diagram: 1/10/17 0234 1/10/17 0234 Microbiology Stool occult blood positive. 12-lead ECG Sinus rhythm with a rate of 94, No ST elevation . Additional Diagnostics ENDOSCOPY PROCEDURE: Esophagogastroduodenoscopy and biopsy (11/22/16). IMPRESSION: 1. Mild erosive esophagitis. 2. Mild portal hypertensive gastropathy. 3. Moderate nonerosive gastritis. 4. Bulbar duodenitis. 5. Oozing and blood clots seen in various parts of the stomach, most likely from the patient's portal hypertensive gastropathy. <Electronically signed by Getachew Dye MD> 11/22/16 2713 Assessment & Plan Jesus Sarmiento Jr. is a 66-year-old male with a past medical history significant for aortic valve replacement on chronic anticoagulation, paroxysmal atrial fibrillation, COPD stage III, diabetes mellitus type 2, who presented to the ER with a several week history of melena, progressive weakness as well as fatigue and a hemoglobin of 5.6. Admitted for possible GI bleed and acute anemia. Hospital day 5. 1. Acute upper gastrointestinal bleed, present on admission. Resolved. - s/p EGD on 11/23/16, biopsy results pending - Likely secondary to portal hypertensive gastropathy. - Continue protonix 40mg po bid, carafate 1g po qid and avoid NSAIDs, narcotics. Per GI - Tolerating general diet. 2. Acute on chronic anemia, present on admission. Stable - Secondary to acute blood loss. - H/H 5.6/19.5 on admission, transfused 2U pRBCS. - Iron studies (10/23/16) consistent with iron deficiency - Continue iron replacement for chronic anemia - H/H stable. Repeat in the morning. 3. Status post bivalvular replacement, present on admission. Stable - Pt also has hx of Afib, chronically anticoagulated on warfarin. - INR reversed prior to EGD. - Start heparin drip, bridge to warfarin. INR goal 2.5-3.5. - Awaiting INR to reach goal for discharge. 4. Right hepatic lobe nodular mass, present on admission. Active. - Unknown etiology, may represent malignancy. Recommend further evaluation in outpatient setting. - Nodule noted on abdominal CT (11/05/16). - Will check AFP to r/o hepatocellular carcinoma given hx of cirrhosis, per GI 5. Paroxysmal atrial fibrillation, present on admission. Stable - Pt chronically anticoagulated on warfarin, which was held in setting of acute GI bleed. - INR reversed for EGD (11/22/16) - Start heparin drip, bridge to warfarin. INR goal 2.5-3.5 6. Chronic kidney disease, stage 3, present on admission. Resolved. - Apparent baseline BUN/Creatinine of 17-23/1.26-1.5. 7. Chronic diabetes mellitus type 2, insulin using. Stable - Hemoglobin A1c 7.0%. - Continue diabetic diet, correctional insulin, bedside glucose monitoring. - Restarted patient on insulin aspart 15 units 3 times a day with meals. - Home regimen is insulin aspart 20 units 3 times a day with meals and Levemir 55 units every morning. 8. Chronic hypertension, present on admission. Stable - Continue home medications. 9. GERD, chronic, present on admission. Stable - Patient has been started on PPI, as above. 10. Depression, chronic, present on admission. Stable - Continue home medications. 11. Alcoholism, in recovery. present on admission. Active - Per patient he has been sober for nearly two years 12. Cirrhosis secondary to alcohol abuse, present on admission. Active - No fluid noted on exam. - Imaging of abdomen did demonstrate some fluid, likely secondary to cirrhosis. - Monitor for any mental status changes, if they occur recommend getting ammonia level and lactulose. 13. Cognitive decline, present on admission. Active. - Cognitive assessment planned for today. Acetaminophen-fever/headache/mild/moderate pain Antiemetics, as needed Bowel regimen, as needed. Disposition: Anticipated discharge in 1-2 days pending therapeutic INR. Pain Evaluation: Adequate Pain Control GI Prophylaxis: Proton Pump Inhibitor VTE Prophylaxis: Sub-Q Heparin (Unfractionated), Theraputic Anticoag with Warfarin, SCDs VTE Mechanical Devices: Intermittant Pneumatic CD Resuscitation Status: CPR: Attempt Resuscitation Attending Statement The patient was seen and examined together with Dr. Dunn on 11/25/2016 and I agree with the history, exam and plan as outlined in the note above. . DON DUNN DO Nov 25, 2016 16:16 Keith Antony MD Nov 25, 2016 18:37
[2016-11-25] MEDS: Pantoprazole 40 mg ER24 Tablet PO SCH (17:35)
[2016-11-25 18:23] VITALS: BP 155/81; PULSE 92; RESP 19; O2SAT 97
--- NOTE | 2016-11-25 19:09 | NUR ---
Heparin drip Pt continuing on heparin drip, currently running at 1050 units/hr. Pt is subtherapeutic today and the rate had to be increased x2 today. Pt had one BM today, he went without a collection hat in place and therefore it was not able to be sent as a guaiac stool sample. Continue to monitor for s/s of bleeding.
[2016-11-25 22:10] VITALS: BP 124/67; PULSE 83; RESP 22; O2SAT 98
[2016-11-25] MEDS: Heparin 25K Unit/500mL 0.45 NS 25,000 UNIT in IV Premix 1 EACH IV SCH (22:25)
[2016-11-26 02:10] VITALS: BP 125/56; PULSE 78; RESP 16; O2SAT 98
[2016-11-26] MEDS: Insulin Human REGular 300 Unit/3 mL Inj SUBQ SCH ×4 (02:30→22:44)
[2016-11-26 03:51] LABS: Mean Corpuscular Hemoglobin 23.9 pg (27.0-35.0); Mean Corpuscular Volume 78.7 fL (81-100)
[2016-11-26 04:15] LABS: INR 1.37 ratio
[2016-11-26 06:10] VITALS: BP 133/81; PULSE 76; RESP 18; O2SAT 98
--- NOTE | 2016-11-26 06:32 | NUR ---
Heparin Drip Last PTT was in goal. IV currently running at 1075 units/hr. Continue to monitor for S/S bleeding. Next lab draw scheduled for 1000.
[2016-11-26] MEDS: Pantoprazole 40 mg ER24 Tablet PO SCH ×2 (06:42→17:08)
[2016-11-26] MEDS: Sucralfate 1,000 mg Tablet PO SCH ×4 (06:42→22:39)
[2016-11-26 08:09] VITALS: BP 165/85; PULSE 81; RESP 20; O2SAT 95
[2016-11-26] MEDS: Tolterodine ER 2 mg ER24 Capsule PO SCH ×2 (09:08→20:06)
--- NOTE | 2016-11-26 09:08 | NUR ---
[facility] Signed [id number]
[2016-11-26] MEDS: Potassium Chloride 20 mEq SR Tablet PO SCH (09:13)
[2016-11-26] MEDS: Insulin ASPART 70/30 FlexPen 300 Unit/3 mL Inj SUBQ SCH ×3 (09:14→16:54)
--- NOTE | 2016-11-26 12:51 | NUR ---
NUTRITION FOLLOW-UP: Assess: 66 YO M admitted with anemia, GI bleed, resolved per notes. Pt was NPO/Clear liquids X 4 days. Diet advanced yesterday to consistent carbohydrate; PO intake consistently 80% - 100% trays. Awaiting INR to reach goal for discharge. Right hepatic lobe nodular mass, present on admission, unknown etiology, may represent malignancy. Provider recommending further evaluation in outpatient setting. PMHX:CKD stg 3, GERD, cerebral infarction, anxiety, aortic valve stenosis, valve replacement, BPH, HLD, ETOH abuse, afib, chronic GI bleed, type 2 diabetes. DIET: Consistent carbohydrate. PO intake 80% - 100% trays. LABS: Reviewed. Glu 112, Ca 8.3. MEDICATIONS: Reviewed. Coumadin, Lasix, Vitamin B1 & D, insulin. GI: BM x 2 (11/25). SKIN: No issues noted. WEIGHT: 106.7 kg, BMI 31.0 kg/m2. Admit weight: 106.0 kg, BMI 31.7 kg/m2. ESTIMATED NEEDS: BMI/CKD Calories: 8622-8189 kcal/day (20-25 kcal/kg BW) Protein: 81-97 g/day (1.0-1.2 g/kg IBW) NUTRITION DIAGNOSIS: 1) Inadequate oral intake related to decreased ability to consume sufficient energy as evidenced by NPO/Clear liquid diet X 4 days - RESOLVED. INTERVENTION: 1) Will add Glucerna supplement to lunch tray to boost nutrition reserves. MONITOR/EVALUATE: PO intake, diet advance/tolerance, labs, nutrition status. Follow per moderate nutrition risk guidelines.
[2016-11-26 13:30] VITALS: BP 136/75; PULSE 79; RESP 18; O2SAT 97
[2016-11-26] MEDS: 0.9% Sodium Chloride 250 ML IV SCH (13:50)
--- NOTE | 2016-11-26 13:51 | PCM.PNMED ---
Subjective Date of Service Nov 26, 2016 Subjective denies any new issues/complaints Exam Vital Signs Vital Sign - Last Date Time Temp Pulse Resp B/P Pulse Ox O2 Delivery O2 Flow Rate FiO2 11/26/16 08:09 36.3 81 20 165/85 95 Room Air 11/22/16 15:42 2 Intake and Output 11/25/16 11/25/16 11/26/16 Cumulative From/Thru 15:00 23:00 07:00 11/20/16 18:13 - 11/26/16 06:39 Intake Total 1200 ml 977 ml 06489 ml Output Total 800 ml 1975 ml 18326 ml Balance 400 ml -998 ml 1089 ml Intake Oral 1200 ml 500 ml 7560 ml IV Total 477 ml 7096 ml Packed Cells 900 ml FFP 463 ml Platelets 270 ml Output Urine Total 800 ml 1975 ml 27792 ml # Voids 3 14 # Bowel Movements 0 7 General: Alert, Cooperative, No Acute Distress Eyes: Scleral Anicteric Mouth: Mucous Membr Moist/[place] Neck: Supple Chest & Lungs: Chest Wall Normal, Clear to auscultation & percussion Cardiovascular: Regular Rate/Rhythm Abdomen: Non-tender, Non-distended, Normoactive bowel tones, Soft Extremities: No cyanosis/clubbing/edma bilat Neurological: Grossly Neurologically Intact, Normal Speech IVs and Medications Medications Reviewed: Medications were reviewed in detail Lab and Diagnostics Result Diagram: 11/26/16 0342 11/25/16 0234 Microbiology Stool occult blood positive. 12-lead ECG Sinus rhythm with a rate of 94, No ST elevation . Additional Diagnostics ENDOSCOPY PROCEDURE: Esophagogastroduodenoscopy and biopsy (11/22/16). IMPRESSION: 1. Mild erosive esophagitis. 2. Mild portal hypertensive gastropathy. 3. Moderate nonerosive gastritis. 4. Bulbar duodenitis. 5. Oozing and blood clots seen in various parts of the stomach, most likely from the patient's portal hypertensive gastropathy. <Electronically signed by Getachew Dye MD> 11/22/16 7109 Assessment & Plan 66-year-old male with a past medical history significant for aortic valve replacement on chronic anticoagulation, paroxysmal atrial fibrillation, COPD stage III, diabetes mellitus type 2, who presented to the ER with a several week history of melena, progressive weakness as well as fatigue and a hemoglobin of 5.6. Admitted for possible GI bleed and acute anemia. 1. Acute upper gastrointestinal bleed, present on admission. Resolved. - s/p EGD on 11/23/16, biopsy results showing gastritis - Likely secondary to portal hypertensive gastropathy. - Continue Protonix 40mg po bid, Carafate 1g po qid and avoid NSAIDs, narcotics. Per GI - Tolerating general diet. 2. Acute on chronic anemia, present on admission. Stable - Secondary to acute blood loss. - H/H 5.6/19.5 on admission, transfused 2U PRBC. - Iron studies (10/23/16) consistent with iron deficiency - Continue iron replacement for chronic anemia - H/H stable. 3. Status post bivalvular replacement, present on admission. Stable - Pt also has hx of Afib, chronically anticoagulated on warfarin. - INR reversed prior to EGD. - c/w heparin drip, bridge to warfarin. INR goal 2.5-3.5. - Awaiting INR to reach goal for discharge. 4. Right hepatic lobe nodular mass, present on admission. Active. - Unknown etiology, may represent malignancy. Recommend further evaluation in outpatient setting. - Nodule noted on abdominal CT (11/05/16). - AFP elevated at 13.4. ? hepatocellular carcinoma given hx of cirrhosis. f/u w / GI 5. Paroxysmal atrial fibrillation, present on admission. Stable - Pt chronically anticoagulated on warfarin, which was held in setting of acute GI bleed. - INR reversed for EGD (11/22/16) - Heparin drip, bridge to warfarin. INR goal 2.5-3.5 6. Chronic kidney disease, stage 3, present on admission. Resolved. - Apparent baseline BUN/Creatinine of 17-23/1.26-1.5. 7. Chronic diabetes mellitus type 2, insulin using. Stable - Hemoglobin A1c 7.0%. - Continue diabetic diet, correctional insulin, bedside glucose monitoring. - Restarted patient on insulin aspart 15 units 3 times a day with meals. - Home regimen is insulin aspart 20 units 3 times a day with meals and Levemir 55 units every morning. 8. Chronic hypertension, present on admission. Stable - Continue home medications. 9. GERD, chronic, present on admission. Stable - Patient has been started on PPI, as above. 10. Depression, chronic, present on admission. Stable - Continue home medications. 11. Alcoholism, in recovery. present on admission. Active - Per patient he has been sober for nearly two years 12. Cirrhosis secondary to alcohol abuse, present on admission. Active - No fluid noted on exam. - Imaging of abdomen did demonstrate some fluid, likely secondary to cirrhosis. - Monitor for any mental status changes, if they occur recommend getting ammonia level and lactulose. 13. Cognitive decline, present on admission. Improving - f/u Disposition: Anticipated discharge in 2-3 days pending therapeutic INR. GI Prophylaxis: Proton Pump Inhibitor VTE Prophylaxis: Sub-Q Heparin (Unfractionated), Theraputic Anticoag with Warfarin, SCDs VTE Mechanical Devices: Intermittant Pneumatic CD Resuscitation Status: CPR: Attempt Resuscitation Cheko Hernandez Nov 26, 2016 13:51
--- NOTE | 2016-11-26 16:10 | NUR ---
Ambulate w/Nsg Pt is released to and encouraged to ambulate w/nsg 2-3x/day as tolerated. PT will cont to see 2x/week for continued training of safe mobility w/FWW as well as logroll techniques.
[2016-11-26 17:25] VITALS: BP 142/69; PULSE 88; RESP 18; O2SAT 98
--- NOTE | 2016-11-26 18:02 | NUR ---
Activity- Ambulated in hallway and up with standby assist in room. Tolerated activity well. Patient denies pain or shortness of breath. Heparin gtt infusing. No signs of bleeding.
[2016-11-26 19:55] VITALS: BP 144/78; PULSE 83; RESP 20; O2SAT 98
[2016-11-26] MEDS: Heparin 25K Unit/500mL 0.45 NS 25,000 UNIT in IV Premix 1 EACH IV SCH (22:44)
[2016-11-27 00:10] VITALS: BP 158/79; PULSE 82; RESP 18
[2016-11-27] MEDS: Insulin Human REGular 300 Unit/3 mL Inj SUBQ SCH ×4 (04:09→20:32)
[2016-11-27 04:25] VITALS: BP 160/79; PULSE 82; RESP 18; O2SAT 100
--- NOTE | 2016-11-27 06:01 | NUR ---
Hypertension / Heparin drip Pt mildly hypertensive tonight with SBPs in the 144s to 160s. Denies headache, dizziness or visual problems. No c/o chest pain, no Tele. No c/o SOB, RA sats 98-100%. Pt remains afebrile. IV Heparin drip infusing at 1075 units per hour/ per Cardiac protocol, last PTT within goal, next PTT this AM not resulted yet.
[2016-11-27 06:28] LABS: INR 1.26 ratio
[2016-11-27] MEDS: Potassium Chloride 20 mEq SR Tablet PO SCH (07:54)
[2016-11-27] MEDS: Sucralfate 1,000 mg Tablet PO SCH ×4 (07:54→20:32)
[2016-11-27] MEDS: Tolterodine ER 2 mg ER24 Capsule PO SCH (07:55)
[2016-11-27] MEDS: Pantoprazole 40 mg ER24 Tablet PO SCH ×2 (07:55→17:39)
[2016-11-27 08:48] VITALS: BP 152/73; PULSE 82; RESP 18; O2SAT 98
[2016-11-27] MEDS: Insulin ASPART 70/30 FlexPen 300 Unit/3 mL Inj SUBQ SCH ×3 (08:56→17:59)
--- NOTE | 2016-11-27 11:10 | NUR ---
Social Work Continued Discharge Planning: Data & Assessment:Patient was discussed in daily rounds and patient's estimated discharge date is 11/28/15. Industrial Designer spoke with Antoinette Hernandez [facility] worker, and notoied her of the patient's estimated discharge date. Antoinette Hernandez stated that she will complete an assessment on the patient once he is home. patient will resume home health with [facility] once discharged. SW will continue to to follow patient. Plan: Patient will resume home with home health services with [facility] once discharged. [facility] will complete assessment on patient. SW will continue to follow patient. Alyssa Galvan LMSW, ACM
[2016-11-27 12:30] VITALS: BP 131/68; PULSE 91; RESP 18; O2SAT 97
--- NOTE | 2016-11-27 13:01 | PCM.PNMED ---
Subjective Date of Service Nov 27, 2016 Subjective denies any new issues/complaints Exam Vital Signs Vital Sign - Last Date Time Temp Pulse Resp B/P Pulse Ox O2 Delivery O2 Flow Rate FiO2 11/27/16 12:30 36.7 91 18 131/68 97 Room Air 11/22/16 15:42 2 Intake and Output 11/26/16 11/26/16 11/27/16 Cumulative From/Thru 15:00 23:00 07:00 11/20/16 18:13 - 11/27/16 06:36 Intake Total 1044 ml 719 ml 81666 ml Output Total 1300 ml 2100 ml 54625 ml Balance -256 ml -1381 ml -548 ml Intake Oral 760 ml 450 ml 8770 ml IV Total 284 ml 269 ml 7649 ml Packed Cells 900 ml FFP 463 ml Platelets 270 ml Output Urine Total 1300 ml 2100 ml 71789 ml # Voids 14 # Bowel Movements 1 0 8 Exam General: Alert, Cooperative, No Acute Distress Eyes: Scleral Anicteric Mouth: Mucous Membr Moist/[place] Neck: Supple Chest & Lungs: Chest Wall Normal, Clear to auscultation bilat Cardiovascular: Regular Rate/Rhythm Abdomen: Non-tender, Non-distended, Normoactive bowel tones, Soft Extremities: No cyanosis/clubbing/edema bilat Neurological: Grossly Neurologically Intact, Normal Speech IVs and Medications Medications Reviewed: Medications were reviewed in detail Lab and Diagnostics Result Diagram: 11/26/16 0342 11/25/16 0234 Microbiology Stool occult blood positive. 12-lead ECG Sinus rhythm with a rate of 94, No ST elevation . Additional Diagnostics ENDOSCOPY PROCEDURE: Esophagogastroduodenoscopy and biopsy (11/22/16). IMPRESSION: 1. Mild erosive esophagitis. 2. Mild portal hypertensive gastropathy. 3. Moderate nonerosive gastritis. 4. Bulbar duodenitis. 5. Oozing and blood clots seen in various parts of the stomach, most likely from the patient's portal hypertensive gastropathy. <Electronically signed by Getachew Dye MD> 11/22/16 2896 Assessment & Plan 66-year-old male with a past medical history significant for aortic valve replacement on chronic anticoagulation, paroxysmal atrial fibrillation, COPD stage III, diabetes mellitus type 2, who presented to the ER with a several week history of melena, progressive weakness as well as fatigue and a hemoglobin of 5.6. Admitted for possible GI bleed and acute anemia. 1. Acute upper gastrointestinal bleed, present on admission. Resolved. - s/p EGD on 11/23/16, biopsy results showing gastritis - Likely secondary to portal hypertensive gastropathy. - Continue Protonix 40mg po bid, Carafate 1g po qid and avoid NSAIDs, narcotics. Per GI - Tolerating general diet. 2. Acute on chronic anemia, present on admission. Stable - Secondary to acute blood loss. - H/H 5.6/19.5 on admission, transfused 2U PRBC. - Iron studies (10/23/16) consistent with iron deficiency - Continue iron replacement for chronic anemia - H/H stable. 3. Status post bivalvular replacement, present on admission. Stable - Pt also has hx of Afib, chronically anticoagulated on warfarin. - INR reversed prior to EGD. - c/w heparin drip, bridge to warfarin. INR goal 2.5-3.5. - Awaiting INR to reach goal for discharge. 4. Right hepatic lobe nodular mass, present on admission. Active. - Unknown etiology, may represent malignancy. Recommend further evaluation in outpatient setting. - Nodule noted on abdominal CT (11/05/16). - AFP elevated at 13.4. ? hepatocellular carcinoma given hx of cirrhosis. f/u w / GI 5. Paroxysmal atrial fibrillation, present on admission. Stable - Pt chronically anticoagulated on warfarin, which was held in setting of acute GI bleed. - INR reversed for EGD (11/22/16) - Heparin drip, bridge to warfarin. INR goal 2.5-3.5 6. Chronic kidney disease, stage 3, present on admission. Resolved. - Apparent baseline BUN/Creatinine of 17-23/1.26-1.5. 7. Chronic diabetes mellitus type 2, insulin using. Stable - Hemoglobin A1c 7.0%. - Continue diabetic diet, correctional insulin, bedside glucose monitoring. - Restarted patient on insulin aspart 15 units 3 times a day with meals. - Home regimen is insulin aspart 20 units 3 times a day with meals and Levemir 55 units every morning. 8. Chronic hypertension, present on admission. Stable - Continue home medications. 9. GERD, chronic, present on admission. Stable - Patient has been started on PPI, as above. 10. Depression, chronic, present on admission. Stable - Continue home medications. 11. Alcoholism, in recovery. present on admission. Active - Per patient he has been sober for nearly two years 12. Cirrhosis secondary to alcohol abuse, present on admission. Active - No fluid noted on exam. - Imaging of abdomen did demonstrate some fluid, likely secondary to cirrhosis. - Monitor for any mental status changes, if they occur recommend getting ammonia level and lactulose. 13. Cognitive decline, present on admission. Improving - f/u Disposition: Anticipated discharge in 2-3 days pending therapeutic INR. GI Prophylaxis: Proton Pump Inhibitor VTE Prophylaxis: Sub-Q Heparin (Unfractionated), Theraputic Anticoag with Warfarin, SCDs VTE Mechanical Devices: Intermittant Pneumatic CD Resuscitation Status: CPR: Attempt Resuscitation Cheko Hernandez Nov 27, 2016 13:01
--- NOTE | 2016-11-27 14:31 | NUR ---
Daughter called Daughter Surekha called and would like to speak to public health social worker. Called public health social worker and aware.
--- NOTE | 2016-11-27 14:36 | PCM.CONPHA ---
Subjective Date of Service: Nov 27, 2016 atrial fibrillation, aortic valve replacement Reason for Pharmacy Consult: Anticoagulation Management Objective Vital Signs Date Time Temp Pulse Resp B/P Pulse Ox O2 Delivery O2 Flow Rate FiO2 11/27/16 12:30 36.7 91 18 131/68 97 Room Air 11/27/16 08:48 36.9 82 18 152/73 98 Room Air 11/27/16 04:25 36.5 82 18 160/79 100 Room Air 11/27/16 00:10 36.4 82 18 158/79 Room Air 11/26/16 19:55 36.4 83 20 144/78 98 Room Air 11/26/16 17:25 36.6 88 18 142/69 98 Room Air 11/26/16 16:00 Room Air Intake and Output 11/25/16 11/26/16 11/27/16 00:00 00:00 00:00 Intake Total 1685 ml 1938 ml 2021 ml Output Total 2450 ml 1800 ml 3275 ml Balance -765 ml 138 ml -1254 ml Weight (Kilograms): 105.300 Height (Feet): 6 Height (Inches): 0.00 Test 11/20/16 18:45 11/20/16 21:14 11/21/16 04:25 11/21/16 13:43 Hold Hardy Top Tube Received (Received) Urine Color Yellow (YELLOW) Urine Appearance Clear (CLEAR,HAZY) Urine pH 6.5 (5.0-8.0) Urine Specific Violet 1.010 (1.003-1.035) Urine Protein Negativemg/dL (NEG,TRACE) Urine Glucose (UA) Negativemg/dL (NEGATIVE) Urine Ketones Negativemg/dL (NEGATIVE) Urine Occult Blood Negative (NEGATIVE) Urine Nitrite Negative (NEGATIVE) Urine Bilirubin Negative (NEGATIVE) Urine Urobilinogen Normalmg/dL (NORMAL) Urine Leukocyte Esterase Negative (NEGATIVE) Urine RBC 0-2/hpf (0-2) Urine WBC 0-5/hpf (0-5) Urine Epithelial Cells Occasional/hpf (NONE-MOD) Urine Crystals None seen (NONE SEEN) Urine Bacteria None/hpf (NONE-FEW) Urine Hyaline Casts None/lpf (NONE) Urine Granular Casts None seen (NONE SEEN) Urine Waxy Casts None seen (NONE SEEN) Urine Red Blood Cell Casts None seen (NONE SEEN) Urine White Blood Cell Casts None seen (NONE SEEN) Urine Mucus None seen (None Seen) Urine Trichomonas None seen (NONE SEEN) Urine Yeast None (NONE SEEN) Urinalysis Comment None Urine Culture Reflexed Not indicated Hemoglobin A1c 7.0% (4.8-5.6) Hold Urine Received (Received) Test 11/23/16 02:50 11/24/16 03:05 11/24/16 03:10 11/25/16 02:34 Total Bilirubin 1.5mg/dL (0.0-1.2) Aspartate Amino Transf (AST/SGOT) 80U/L (0-50) Alanine Aminotransferase (ALT/SGPT) 33U/L (0-44) Alkaline Phosphatase 151U/L (25-160) Total Protein 6.0g/dL (6.4-8.4) Albumin 2.4g/dL (3.4-5.0) Tumor Marker Alpha Fetoprotein 13.4ng/mL (0.0-8.3) Neutrophils (%) (Auto) 70.8% (40-74) Lymphocytes (%) (Auto) 15.4% (14-46) Monocytes (%) (Auto) 10.8% (4-12) Eosinophils (%) (Auto) 2.5% (0-5) Basophils (%) (Auto) 0.3% (0-3) Sodium Level 135mEq/L (134-144) Potassium Level 3.7mEq/L (3.5-5.2) Chloride Level 99mEq/L (97-108) Carbon Dioxide Level 23mmol/L (18-29) Blood Urea Nitrogen 17mg/dL (8-27) Creatinine 1.25mg/dL (0.76-1.27) Estimat Glomerular Filtration Rate 62mL/min (>59) Glucose Level 112mg/dL (60-99) Calcium Level 8.3mg/dL (8.5-10.1) Magnesium Level 1.6mg/dL (1.6-2.6) Test 11/26/16 03:42 11/27/16 05:30 White Blood Count 6.8th/mm3 (3.8-10.1) Red Blood Count 3.47mil/mm3 (4.40-5.80) Hemoglobin 8.3g/dL (13.8-17.2) Hematocrit 27.3% (41.0-50.0) Mean Corpuscular Volume 78.7fL (81-100) Mean Corpuscular Hemoglobin 23.9pg (27.0-35.0) Mean Corpuscular Hemoglobin Concent 30.4% (32.0-37.0) Red Cell Distribution Width 18.7% (12.3-15.4) Platelet Count 105bil/L (150-400) Prothrombin Time 13.5sec (8.1-12.5) Prothromb Time International Ratio 1.26ratio Activated Partial Thromboplast Time 60.0sec (22.8-33.0) Assessment/Plan Assessment/Plan Assessment: * Patient is needing warfarin management for atrial fibrillation and aortic valve replacement. * Due to some confusion and the patient moving to [facility] from [facility], the patient did not receive warfarin the past 2 days. * Patient's INR goal range: 2.5 - 3.5 * Patient's INR on 11/27/15: 1.26 * Patient's INR has dropped steadily since the patient did not receive warfarin for 2 days. Plan: * Will restart the patient with warfarin 1 mg on 11/27/15 and will reevaluate with the PT/INR tomorrow. * Will continue to follow. Carmelo Key Nov 27, 2016 14:36
--- NOTE | 2016-11-27 15:58 | NUR ---
Social Work casino worker received received a call from patient's nurse stating that patient's daughter was requesting a call. casino worker attempted to call patient's daughter, Surekha Sarmiento [phone], but there was no answer. SW left a message with her name and number requesting a call back. SW will continue to follow. Plan: SW left a message with her name and number requesting a call back. SW will continue to try and contact patient's daughter. SW will continue to follow. Alyssa Galvan LMSW, ACM
[2016-11-27 16:27] VITALS: BP 112/64; PULSE 91; RESP 18; O2SAT 97
--- NOTE | 2016-11-27 18:56 | NUR ---
Heparin drip patient is alert and oriented X3. able to make needs known. stable vital signs. room air. denies shortness of breath or trouble breathing. stable mood . stable vital signs. IV left heparin drip at 1075 units. stable blood sugars. Insulin received as ordered. patient received all PO medications whole with water with out difficulty swallowing. ADA diet. per doctor noted patient will be discharging once INR reached goal. denies pain or discomfort. call light with in reach for safety. continue to monitor for shortness of breath, pain and safety.
[2016-11-27 20:37] VITALS: BP 142/70; PULSE 84; RESP 19; O2SAT 100
[2016-11-27] MEDS: Heparin 25K Unit/500mL 0.45 NS 25,000 UNIT in IV Premix 1 EACH IV SCH (23:22)
[2016-11-28 01:40] VITALS: BP 132/71; PULSE 85; RESP 20; O2SAT 99
[2016-11-28] MEDS: Insulin Human REGular 300 Unit/3 mL Inj SUBQ SCH ×4 (02:32→20:30)
[2016-11-28 05:42] VITALS: BP 127/73; PULSE 78; RESP 19; O2SAT 97
[2016-11-28] MEDS: Pantoprazole 40 mg ER24 Tablet PO SCH ×2 (06:55→17:18)
[2016-11-28] MEDS: Sucralfate 1,000 mg Tablet PO SCH ×4 (06:55→21:48)
--- NOTE | 2016-11-28 07:11 | NUR ---
Activity Pt was mobile with slightly unsteady gate. Got up with SBA to bathroom for BM and urinal at bedside. Heparin drip running at 1075 units/hr.
[2016-11-28 07:49] LABS: INR 1.26 ratio
--- NOTE | 2016-11-28 08:08 | NUR ---
[facility] relayed result for PTT= 65.3, Dr. Fish contacted, no change. Will follow protocol.
--- NOTE | 2016-11-28 09:42 | NUR ---
[facility] Signed 910AM
[2016-11-28] MEDS: Insulin ASPART 70/30 FlexPen 300 Unit/3 mL Inj SUBQ SCH ×3 (09:46→17:46)
[2016-11-28] MEDS: Potassium Chloride 20 mEq SR Tablet PO SCH (09:47)
[2016-11-28 11:43] VITALS: BP 134/82; PULSE 85; RESP 20; O2SAT 99
--- NOTE | 2016-11-28 13:23 | NUR ---
Social Work Continued Discharge Planning: SW conducted discharge planning update. Plan remains as home with resumption of HHC services via [facility]. Access previously provided. Patient [facility] referral initiated and case work aide Antoinette Hernandez [facility], following. SW contacted and left voice mail message for [facility] rep advising her of plans to open case upon patient anticipated discharge date, as patient and family adamant about opening case for [facility] referral. No other needs identified at this time. Patient currently on heprin drip at this time. SW to follow. PLAN: Home with resumption of HHC services via [facility] (access provided). [facility] referral initiated and home visit pending case work aide completion upon patient arrival home. SW to follow. Goyo MELCHOR
[2016-11-28] MEDS: Tolterodine ER 2 mg ER24 Capsule PO SCH (15:53)
[2016-11-28 18:02] VITALS: BP 142/75; PULSE 96; RESP 20; O2SAT 99
[2016-11-28 20:33] VITALS: BP 143/69; PULSE 91; RESP 16; O2SAT 99
[2016-11-28] MEDS ORDERED: Glucose 40% Oral Gel 15 Gm Tube PO PRN (21:05)
[2016-11-28] MEDS: Insulin LISPRO Low-Dose Scale SUBQ SCH (21:49)
--- NOTE | 2016-11-28 23:37 | PCM.PNMED ---
Subjective Date of Service Nov 28, 2016 Subjective Patient is feeling a little bit better today. His appetite is good and he is eating well. He states he is continuing to feel stronger every day. Exam Vital Signs Vital Sign - Last Date Time Temp Pulse Resp B/P Pulse Ox O2 Delivery O2 Flow Rate FiO2 11/28/16 20:33 37.0 91 16 143/69 99 Room Air 11/22/16 15:42 2 Intake and Output 11/27/16 11/27/16 11/28/16 Cumulative From/Thru 15:00 23:00 07:00 11/20/16 18:13 - 11/28/16 06:21 Intake Total 650 ml 859 ml 14538 ml Output Total 2350 ml 1250 ml 74083 ml Balance -1700 ml -391 ml -2639 ml Intake Oral 650 ml 400 ml 9820 ml IV Total 459 ml 8108 ml Packed Cells 900 ml FFP 463 ml Platelets 270 ml Output Urine Total 2350 ml 1250 ml 55366 ml # Voids 14 # Bowel Movements 1 9 Exam General: Patient is in no apparent distress and is sitting on the side of the bed eating dinner. HEENT: Head is atraumatic normocephalic. Eyes: Pupils are equally round and reactive to light and accommodation. Extraocular muscles are intact. Sclera are white anicteric. Subconjunctival mucosa is pink. Ears and nose are unremarkable. Oropharynx: There is no mucosal lesions, there is no thrush, there is no pharyngitis. Neck: Is supple, there are no nodes, or masses, or tenderness. Chest: Is clear to auscultation and percussion. There are no rales, rhonchi, wheezes or rubs. Heart: Rate, rhythm is regular. There is a grade 2/6 systolic ejection murmur heard best left sternal border radiating to the base. There is no rub or gallop appreciated. Abdomen: Good bowel sounds are present. Abdomen is obese, soft, nontender, no organomegaly or masses were appreciated. Extremities: Are symmetrical and well perfused. There is no minimal edema, there is no cellulitis, no rash. Neurologic: There are no focal neurological deficits. Cranial nerves II through XII are intact. There are no sensory or motor deficits. Psychiatric: Patients mood is calm and shows no sign of agitation. Genital: Deferred Rectal: Deferred Lab and Diagnostics Result Diagram: 11/26/16 0342 11/25/16 0234 Microbiology Stool occult blood positive. 12-lead ECG Sinus rhythm with a rate of 94, No ST elevation . Additional Diagnostics ENDOSCOPY PROCEDURE: Esophagogastroduodenoscopy and biopsy (11/22/16). IMPRESSION: 1. Mild erosive esophagitis. 2. Mild portal hypertensive gastropathy. 3. Moderate nonerosive gastritis. 4. Bulbar duodenitis. 5. Oozing and blood clots seen in various parts of the stomach, most likely from the patient's portal hypertensive gastropathy. <Electronically signed by Getachew Dye MD> 11/22/16 3507 Assessment & Plan 66-year-old male with a past medical history significant for aortic valve replacement on chronic anticoagulation, paroxysmal atrial fibrillation, COPD stage III, diabetes mellitus type 2, who presented to the ER with a several week history of melena, progressive weakness as well as fatigue and a hemoglobin of 5.6. Admitted for possible GI bleed and acute anemia. 1. Acute upper gastrointestinal bleed, present on admission. Resolved. - s/p EGD on 11/23/16, biopsy results showing gastritis - Likely secondary to portal hypertensive gastropathy. - Continue Protonix 40mg po bid, Carafate 1g po qid and avoid NSAIDs, narcotics. Per GI - Tolerating general diet. 2. Acute on chronic anemia, present on admission. Stable - Secondary to acute blood loss anemia with chronic iron deficiency anemia. - H/H 5.6/19.5 on admission, transfused 2U PRBC. - Iron studies (10/23/16) consistent with iron deficiency - Continue iron replacement for chronic anemia - H/H stable. 3. Status post bivalvular replacement, present on admission. Stable - Pt also has hx of Afib, chronically anticoagulated on warfarin. - INR reversed prior to EGD. - c/w heparin drip, bridge to warfarin. INR goal 2.5-3.5. - Awaiting INR to reach goal for discharge. 4. Right hepatic lobe nodular mass, present on admission. Active. - Unknown etiology, may represent malignancy. Recommend further evaluation in outpatient setting. - Nodule noted on abdominal CT (11/05/16). - AFP elevated at 13.4. ? hepatocellular carcinoma given hx of cirrhosis. f/u w / GI 5. Paroxysmal atrial fibrillation, present on admission. Stable - Pt chronically anticoagulated on warfarin, which was held in setting of acute GI bleed. - INR reversed for EGD (11/22/16) - Heparin drip, bridge to warfarin. INR goal 2.5-3.5 6. Chronic kidney disease, stage 3, present on admission. Resolved. - Apparent baseline BUN/Creatinine of 17-23/1.26-1.5. 7. Chronic diabetes mellitus type 2, insulin using. Stable - Hemoglobin A1c 7.0%. - Continue diabetic diet, correctional insulin, bedside glucose monitoring. - Restarted patient on insulin aspart 15 units 3 times a day with meals. - Home regimen is insulin aspart 20 units 3 times a day with meals and Levemir 55 units every morning. 8. Chronic hypertension, present on admission. Stable - Continue home medications. 9. GERD, chronic, present on admission. Stable - Patient has been started on PPI, as above. 10. Depression, chronic, present on admission. Stable - Continue home medications. 11. Alcoholism, in recovery. present on admission. Active - Per patient he has been sober for nearly two years 12. Cirrhosis secondary to alcohol abuse, present on admission. Active - No fluid noted on exam. - Imaging of abdomen did demonstrate some fluid, likely secondary to cirrhosis. - Monitor for any mental status changes, if they occur recommend getting ammonia level and lactulose. 13. Cognitive decline, present on admission. Improving - f/u Disposition: Anticipated discharge in 2-3 days pending therapeutic INR. Pain Evaluation: Adequate Pain Control GI Prophylaxis: Proton Pump Inhibitor VTE Prophylaxis: Sub-Q Heparin (Unfractionated), Theraputic Anticoag with Warfarin, SCDs VTE Mechanical Devices: Intermittant Pneumatic CD Resuscitation Status: CPR: Attempt Resuscitation AbeGrupo MD Nov 28, 2016 23:37
[2016-11-29] MEDS: Heparin 25K Unit/500mL 0.45 NS 25,000 UNIT in IV Premix 1 EACH IV SCH ×3 (01:15→14:43)
[2016-11-29] MEDS: Insulin Human REGular 300 Unit/3 mL Inj SUBQ SCH ×3 (02:30→14:30)
[2016-11-29 05:02] VITALS: BP 145/68; PULSE 89; RESP 18; O2SAT 98
--- NOTE | 2016-11-29 06:03 | NUR ---
I&O Pt has been requesting ice consistently all night, 5 cups of ice given tonight, pt has had appropriate output to match.
[2016-11-29] MEDS: Sucralfate 1,000 mg Tablet PO SCH ×4 (06:37→21:36)
[2016-11-29] MEDS: Insulin LISPRO Low-Dose Scale SUBQ SCH ×4 (07:30→21:58)
[2016-11-29 07:49] LABS: INR 1.31 ratio
[2016-11-29] MEDS: Insulin ASPART 70/30 FlexPen 300 Unit/3 mL Inj SUBQ SCH ×3 (08:00→17:42)
[2016-11-29] MEDS: Pantoprazole 40 mg ER24 Tablet PO SCH ×2 (08:09→17:31)
[2016-11-29] MEDS: Potassium Chloride 20 mEq SR Tablet PO SCH (08:10)
[2016-11-29] MEDS: Tolterodine ER 2 mg ER24 Capsule PO SCH (08:14)
[2016-11-29 08:22] LABS: BASOPHILS % (AUTO) 0.5 % (0-3); EOSINOPHILS % (AUTO) 1.1 % (0-5); MONOCYTES % (AUTO) 11.5 % (4-12); Mean Corpuscular Hemoglobin 23.7 pg (27.0-35.0); Mean Corpuscular Volume 78.9 fL (81-100); NEUTROPHILS % (AUTO) 72.7 % (40-74); Platelet Count 88 bil/L (150-400)
[2016-11-29 08:41] LABS: Magnesium 1.7 mg/dL (1.6-2.6)
[2016-11-29 09:33] VITALS: BP 135/73; PULSE 85; RESP 16; O2SAT 99
--- NOTE | 2016-11-29 14:00 | NUR ---
Coughing Pt reports coughing after eating/drinking. Pt reports that this has been the case for a long time. Swallow eval was not done by speech therapy. Hospitalist notified.
--- NOTE | 2016-11-29 15:30 | NUR ---
Insulin Pt has several orders for insulin, however pt only takes lantus and aspart at home. Hospitalist notified. Addendum: 11/29/16 at 1753 by MARY JANE BORJA RN Per hospitalistDEIRDRE to discontinue both Humulin R orders. Orders faxed to the pharmacy.
[2016-11-29 16:03] VITALS: BP 138/69; PULSE 90; RESP 20; O2SAT 97
[2016-11-29] MEDS ORDERED: Insulin Human REGular 300 Unit/3 mL Inj SUBQ SCH (17:00)
--- NOTE | 2016-11-29 18:05 | NUR ---
Dulera inhaler Has own at bedside, appears to have no medication left in it. Left message with daughter Valerie to call regarding getting a refill as our pharmacy doesn't keep this in stock. Addendum: 11/29/16 at 1812 by SEVEN RICHARDS RN Daughter Surekha walked into pt room. States will be able to get medication refilled. 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
--- NOTE | 2016-11-29 19:39 | PCM.PNMED ---
Subjective Date of Service Nov 29, 2016 Subjective Patient appears little bit more somnolent today is lying supine in bed and is speech is slow and deliberate. Patient has no new complaints. He has no pain. He states that his stools are dark Exam Vital Signs Vital Sign - Last Date Time Temp Pulse Resp B/P Pulse Ox O2 Delivery O2 Flow Rate FiO2 11/29/16 16:03 37.1 90 20 138/69 97 Room Air Intake and Output 11/28/16 11/28/16 11/29/16 Cumulative From/Thru 15:00 23:00 07:00 11/20/16 18:13 - 11/29/16 06:46 Intake Total 2210 ml 1439 ml 21569 ml Output Total 1200 ml 1850 ml 55619 ml Balance 1010 ml -411 ml -2040 ml Intake Oral 1960 ml 1200 ml 40257 ml IV Total 250 ml 239 ml 8597 ml Packed Cells 900 ml FFP 463 ml Platelets 270 ml Output Urine Total 1200 ml 1850 ml 37038 ml # Voids 14 # Bowel Movements 2 11 Exam General: Patient is somewhat more somnolent today and lying supine in bed. Speech is slow and deliberate. HEENT: Head is atraumatic normocephalic. Eyes: Pupils are equally round and reactive to light and accommodation. Extraocular muscles are intact. Sclera are white anicteric. Subconjunctival mucosa is pink. Ears and nose are unremarkable. Oropharynx: There is no mucosal lesions, there is no thrush, there is no pharyngitis. Neck: Is supple, there are no nodes, or masses, or tenderness. Chest: Is clear to auscultation and percussion. There are no rales, rhonchi, wheezes or rubs. Heart: Rate, rhythm is regular. There is a grade 2/6 systolic ejection murmur heard best left sternal border radiating to the base. There is no rub. Or gallop appreciated. Abdomen: Good bowel sounds are present. Abdomen is obese, soft, nontender, no organomegaly or masses were appreciated. Extremities: Are symmetrical and well perfused. There is minimal edema, there is no cellulitis, no rash. Neurologic: There are no focal neurological deficits. Cranial nerves II through XII are intact. There are no sensory or motor deficits. Although patient appears a little bit more somnolent today. Psychiatric: Patients mood is calm and shows no sign of agitation. Genital: Deferred Rectal: Deferred Lab and Diagnostics Result Diagram: 11/29/16 1400 11/29/16 0700 Microbiology Stool occult blood positive. 12-lead ECG Sinus rhythm with a rate of 94, No ST elevation . Additional Diagnostics ENDOSCOPY PROCEDURE: Esophagogastroduodenoscopy and biopsy (11/22/16). IMPRESSION: 1. Mild erosive esophagitis. 2. Mild portal hypertensive gastropathy. 3. Moderate nonerosive gastritis. 4. Bulbar duodenitis. 5. Oozing and blood clots seen in various parts of the stomach, most likely from the patient's portal hypertensive gastropathy. <Electronically signed by Getachew Dye MD> 11/22/16 8254 Assessment & Plan 66-year-old male with a past medical history significant for aortic valve replacement on chronic anticoagulation, paroxysmal atrial fibrillation, COPD stage III, diabetes mellitus type 2, who presented to the ER with a several week history of melena, progressive weakness as well as fatigue and a hemoglobin of 5.6. Admitted for possible GI bleed and acute anemia. 1. Acute upper gastrointestinal bleed, present on admission. Resolved?. All stools check for blood are positive these include stools on 11/21/2016, 2016, 11/24/2016, 11/26/2016 and 11/28/2016. -It is possible that these positive results represents blood that is from previous bleeding making its way through the gastrointestinal system. This also could be due to iron supplementation. However, patient could have some continued bleeding as his hemoglobin and hematocrit remained quite low. Therefore, patient will need to be monitored very closely. - s/p EGD on 11/23/16, biopsy results showing gastritis - Likely secondary to portal hypertensive gastropathy. - Continue Protonix 40mg po bid, Carafate 1g po qid and avoid NSAIDs, narcotics. Per GI - Tolerating general diet. 2. Acute on chronic anemia, present on admission. Stable - Secondary to acute blood loss anemia with chronic iron deficiency anemia. - H/H 5.6/19.5 on admission, transfused 2U PRBC. - Iron studies (10/23/16) consistent with iron deficiency - Continue iron replacement for chronic anemia - H/H stable. 3. Status post bivalvular replacement, present on admission. Stable - Pt also has hx of Afib, chronically anticoagulated on warfarin. - INR reversed prior to EGD. - c/w heparin drip, bridge to warfarin. INR goal 2.5-3.5. Continue warfarin. - Awaiting INR to reach goal for discharge. 4. Right hepatic lobe nodular mass, present on admission. Active. - Unknown etiology, may represent malignancy. Recommend further evaluation in outpatient setting. - Nodule noted on abdominal CT (11/05/16). - AFP elevated at 13.4. ? hepatocellular carcinoma given hx of cirrhosis. f/u w / GI 5. Paroxysmal atrial fibrillation, present on admission. Stable - Pt chronically anticoagulated on warfarin, which was held in setting of acute GI bleed. - INR reversed for EGD (11/22/16) - Heparin drip, bridge to warfarin. INR goal 2.5-3.5 INR remained subtherapeutic. 6. Chronic kidney disease, stage 3, present on admission. Resolved. - Apparent baseline BUN/Creatinine of 17-23/1.26-1.5. 7. Chronic diabetes mellitus type 2, insulin using. Stable - Hemoglobin A1c 7.0%. - Continue diabetic diet, correctional insulin, bedside glucose monitoring. - Restarted patient on insulin aspart 15 units 3 times a day with meals. - Home regimen is insulin aspart 20 units 3 times a day with meals and Levemir 55 units every morning. 8. Chronic hypertension, present on admission. Stable - Continue home medications. 9. GERD, chronic, present on admission. Stable - Patient has been started on PPI, as above. 10. Depression, chronic, present on admission. Stable - Continue home medications. 11. Alcoholism, in recovery. present on admission. Active - Per patient he has been sober for nearly two years 12. Cirrhosis secondary to alcohol abuse, present on admission. Active - No fluid noted on exam. - Imaging of abdomen did demonstrate some fluid, likely secondary to cirrhosis. - Monitor for any mental status changes, if they occur recommend getting ammonia level and lactulose. 13. Cognitive decline, present on admission. Improving - f/u Disposition: Anticipated discharge in 2-3 days pending therapeutic INR. Pain Evaluation: Adequate Pain Control GI Prophylaxis: Proton Pump Inhibitor VTE Prophylaxis: Sub-Q Heparin (Unfractionated), Theraputic Anticoag with Warfarin, SCDs VTE Mechanical Devices: Intermittant Pneumatic CD Resuscitation Status: CPR: Attempt Resuscitation Grupo Fish MD Nov 29, 2016 19:39
[2016-11-29 20:33] VITALS: BP 131/62; PULSE 93; RESP 16; O2SAT 98
[2016-11-30] MEDS: Heparin 25K Unit/500mL 0.45 NS 25,000 UNIT in IV Premix 1 EACH IV SCH ×2 (00:39→22:48)
[2016-11-30 04:33] VITALS: BP 127/68; PULSE 87; RESP 18; O2SAT 98
--- NOTE | 2016-11-30 05:36 | NUR ---
Nose Bleed Pt c/o nosebleed, minimal amount noted, a few spots on a tissue. Dr Jimenes informed and instructed to monitor. Pt had no additional bleeding.
[2016-11-30] MEDS: Sucralfate 1,000 mg Tablet PO SCH ×4 (06:33→21:51)
[2016-11-30] MEDS: Insulin LISPRO Low-Dose Scale SUBQ SCH ×4 (07:30→21:45)
[2016-11-30 08:21] LABS: BASOPHILS % (AUTO) 0.3 % (0-3); EOSINOPHILS % (AUTO) 1.4 % (0-5); MONOCYTES % (AUTO) 9.8 % (4-12); Mean Corpuscular Hemoglobin 23.6 pg (27.0-35.0); Mean Corpuscular Volume 78.5 fL (81-100); NEUTROPHILS % (AUTO) 73.5 % (40-74); Platelet Count 99 bil/L (150-400)
[2016-11-30 08:40] VITALS: BP 152/79; PULSE 89; RESP 20; O2SAT 99
[2016-11-30 08:43] LABS: INR 1.33 ratio
[2016-11-30] MEDS: Insulin ASPART 70/30 FlexPen 300 Unit/3 mL Inj SUBQ SCH ×3 (08:44→17:46)
[2016-11-30] MEDS: Pantoprazole 40 mg ER24 Tablet PO SCH ×2 (08:46→17:35)
[2016-11-30] MEDS: Tolterodine ER 2 mg ER24 Capsule PO SCH (08:46)
[2016-11-30] MEDS: Potassium Chloride 20 mEq SR Tablet PO SCH (08:46)
[2016-11-30 08:50] LABS: Magnesium 1.9 mg/dL (1.6-2.6)
[2016-11-30 09:22] LABS: ERYTHROCYTE SEDIMENTATION RATE 34 mm/hr (0-30)
--- NOTE | 2016-11-30 10:57 | NUR ---
Swallowing Pt has baseline issues, states medications are much easier tolerated in applesauce. meds given in applesauce, tolerated breakfast w/o issue Addendum: 11/30/16 at 1200 by ELIZA VARELA RN Seen by speech - pt to be placed on dysphagia mechanical with nectar thick liquids with meals, water/ice sips between meals. meds whole in applesauce.
--- NOTE | 2016-11-30 10:59 | NUR ---
David JENKINS aware of recent INR 1.33. POC is to wait for INR to be therapeutic prior to dc. Pt stable and w/o complaints.
--- NOTE | 2016-11-30 11:48 | PCM.PNMED ---
Subjective Date of Service Nov 30, 2016 Subjective He is now stable for discharge, pending return of INR to therapeutic levels. He is unable to reliably dose himself on Lovenox and since his goal is to return home that has been delayed. Pharmacy is managing his Coumadin dosing. His home dose was apparently 1 mg daily, and he has been very sensitive to dose changes and so his dose has been left at 2 mg for several days despite his INR remaining low.. Exam Vital Signs Vital Sign - Last Date Time Temp Pulse Resp B/P Pulse Ox O2 Delivery O2 Flow Rate FiO2 11/30/16 04:33 36.6 87 18 127/68 98 Room Air Intake and Output 11/29/16 11/29/16 11/30/16 Cumulative From/Thru 15:00 23:00 07:00 11/20/16 18:13 - 11/30/16 06:14 Intake Total 1573 ml 653 ml 96627 ml Output Total 1450 ml 400 ml 12321 ml Balance 123 ml 253 ml -1664 ml Intake Oral 1317 ml 400 ml 64303 ml IV Total 256 ml 253 ml 9106 ml Packed Cells 900 ml FFP 463 ml Platelets 270 ml Output Urine Total 1450 ml 400 ml 54386 ml # Voids 2 16 # Bowel Movements 2 1 14 Exam Alert and oriented 3, no apparent distress. Heart is regular rate and rhythm without murmur. Lungs are clear to auscultation bilaterally. He is afebrile and his vital signs are stable. He tells me he lives in his own home in [facility], visited weekly by physical therapy and visiting nurse. Dr. Sy at the [facility] is his primary care doctor. Lab and Diagnostics Result Diagram: 11/29/16 1400 11/29/16 0700 Additional Diagnostics ENDOSCOPY PROCEDURE: Esophagogastroduodenoscopy and biopsy (11/22/16). IMPRESSION: 1. Mild erosive esophagitis. 2. Mild portal hypertensive gastropathy. 3. Moderate nonerosive gastritis. 4. Bulbar duodenitis. 5. Oozing and blood clots seen in various parts of the stomach, most likely from the patient's portal hypertensive gastropathy. <Electronically signed by Getachew Dye MD> 11/22/16 6760 Assessment & Plan 66-year-old male with a past medical history significant for aortic valve replacement on chronic anticoagulation, paroxysmal atrial fibrillation, COPD stage III, diabetes mellitus type 2, who presented to the ER with a several week history of melena, progressive weakness as well as fatigue and a hemoglobin of 5.6. Admitted for possible GI bleed and acute anemia. 1. Acute upper gastrointestinal bleed, present on admission. Resolved?. All stools check for blood are positive these include stools on 11/21/2016, 2016, 11/24/2016, 11/26/2016 and 11/28/2016. He complains of black stool today. -It is possible that these positive results represents blood that is from previous bleeding making its way through the gastrointestinal system. This also could be due to iron supplementation. However, patient could have some continued bleeding as his hemoglobin and hematocrit remained quite low. Therefore, patient will need to be monitored very closely. - s/p EGD on 11/23/16, biopsy results showing gastritis - Likely secondary to portal hypertensive gastropathy. - Continue Protonix 40mg po bid, Carafate 1g po qid and avoid NSAIDs, narcotics. Per GI - Tolerating general diet. 2. Acute on chronic anemia, present on admission. Stable - Secondary to acute blood loss anemia with chronic iron deficiency anemia. - H/H 5.6/19.5 on admission, transfused 2U PRBC. - Iron studies (10/23/16) consistent with iron deficiency - Continue iron replacement for chronic anemia - H/H stable. 3. Status post bivalvular replacement, present on admission. Stable - Pt also has hx of Afib, chronically anticoagulated on warfarin. - INR reversed prior to EGD. - c/w heparin drip, bridge to warfarin. INR goal 2.5-3.5. Continue warfarin. - Awaiting INR to reach goal for discharge. I spoke with pharmacy today about increasing the dose. The plan had been to leave the dose 2 mg. That will be adjusted. 4. Right hepatic lobe nodular mass, present on admission. Active. - Unknown etiology, may represent malignancy. Recommend further evaluation in outpatient setting. - Nodule noted on abdominal CT (11/05/16). - AFP elevated at 13.4. ? hepatocellular carcinoma given hx of cirrhosis. f/u w / GI 5. Paroxysmal atrial fibrillation, present on admission. Stable - Pt chronically anticoagulated on warfarin, which was held in setting of acute GI bleed. - INR reversed for EGD (11/22/16) - Heparin drip, bridge to warfarin. INR goal 2.5-3.5 INR remained subtherapeutic. 6. Chronic kidney disease, stage 3, present on admission. Resolved. - Apparent baseline BUN/Creatinine of 17-23/1.26-1.5. 7. Chronic diabetes mellitus type 2, insulin using. Stable - Hemoglobin A1c 7.0%. - Continue diabetic diet, correctional insulin, bedside glucose monitoring. - Restarted patient on insulin aspart 15 units 3 times a day with meals. - Home regimen is insulin aspart 20 units 3 times a day with meals and Levemir 55 units every morning. 8. Chronic hypertension, present on admission. Stable - Continue home medications. 9. GERD, chronic, present on admission. Stable - Patient has been started on PPI, as above. 10. Depression, chronic, present on admission. Stable - Continue home medications. 11. Alcoholism, in recovery. present on admission. Active - Per patient he has been sober for nearly two years 12. Cirrhosis secondary to alcohol abuse, present on admission. Active - No fluid noted on exam. - Imaging of abdomen did demonstrate some fluid, likely secondary to cirrhosis. 13. Cognitive decline, present on admission. Improved Disposition: Anticipated discharge in 1-2 days pending therapeutic INR. The limiting factor is a therapeutic INR. Apparently he is not felt to be reliable as a self injector of Lovenox at home. The only other option would be a intermediate facility for continued management of his Coumadin outside of the hospital setting and then return home when the INR is at goal. GI Prophylaxis: Proton Pump Inhibitor VTE Prophylaxis: Sub-Q Heparin (Unfractionated), Theraputic Anticoag with Warfarin, SCDs VTE Mechanical Devices: Intermittant Pneumatic CD Resuscitation Status: CPR: Attempt Resuscitation Martha Gutierrez MD Nov 30, 2016 07:34
[2016-11-30 11:56] VITALS: BP 154/67; PULSE 88; O2SAT 98
--- NOTE | 2016-11-30 12:09 | NUR ---
Evaluation completed. Rec: Ila/Dysphagia Mechanical. Medication whole in pureed. GLOBAL [employer]ATIVE OFFICER to follow Please go to "Notes" then click on "Assessments and Notes" (bottom left corner of screen). Then select appropriate discipline tab on top of screen.
[2016-11-30 16:07] VITALS: BP 141/67; PULSE 93; RESP 16; O2SAT 98
--- NOTE | 2016-11-30 16:15 | NUR ---
FRANKIE signed JILL Nugent
--- NOTE | 2016-11-30 16:15 | NUR ---
Social Work Note: Continued Discharge Planning Data& Assessment: SW met with pt at bedside to discuss discharge planning and assess for any unmet needs. Pt is not medically ready for discharge at this time. Pt INR levels are not therapeutic at this time per MD in morning rounds. Pt is ambulating independently in the halls. Pt will be evaluated by [facility] for [facility] caregiving when discharged home. Pt will discharge home with resume Home Health services through [facility]. Pt daughter to transport pt home when medically ready. Pt denies any discharge needs at this time. SW to continue to follow if any other needs arise. Plan: Pt to discharge home via POV with resume [facility] when medically ready. [facility] to follow up regarding evaluation for in home caregiving. Pt denies any discharge needs at this time. SW to continue to follow if any other needs arise. JILL Nugent
[2016-11-30 20:33] VITALS: BP 146/72; PULSE 90; RESP 16; O2SAT 98
[2016-12-01 00:33] VITALS: BP 136/72; PULSE 85; RESP 16; O2SAT 98
[2016-12-01 04:33] VITALS: BP 125/67; PULSE 83; RESP 18; O2SAT 98
--- NOTE | 2016-12-01 06:43 | NUR ---
BM Pt had bowel movement BRP, there was no hat in toilet so could not be guiac, stool appeared black.
[2016-12-01] MEDS: Sucralfate 1,000 mg Tablet PO SCH ×4 (06:47→20:36)
[2016-12-01 07:13] LABS: INR 1.76 ratio
[2016-12-01 07:45] VITALS: BP 136/73; PULSE 82; RESP 16; O2SAT 98
[2016-12-01] MEDS: Potassium Chloride 20 mEq SR Tablet PO SCH (09:21)
[2016-12-01] MEDS: Pantoprazole 40 mg ER24 Tablet PO SCH ×2 (09:22→16:39)
[2016-12-01] MEDS: Tolterodine ER 2 mg ER24 Capsule PO SCH (09:22)
[2016-12-01] MEDS: Insulin LISPRO Low-Dose Scale SUBQ SCH ×4 (09:24→20:36)
[2016-12-01] MEDS: Insulin ASPART 70/30 FlexPen 300 Unit/3 mL Inj SUBQ SCH ×3 (09:25→17:32)
--- NOTE | 2016-12-01 10:49 | NUR ---
Peter JENKINS notified via cook page that guiac continues to be positive. Addendum: 12/01/16 at 1246 by ELIZA VARELA RN [id number] aware of guiac results, 2 dark stools this shift one of which was loose, symptoms of gastric bloating, flatus and decreased appetite. to order H&H today. Notified of reported SALCIDO pain 03/25, to order tylenol. Will continue to monitor, to continue heparin and warfarin.
--- NOTE | 2016-12-01 13:10 | PCM.PNMED ---
Subjective Date of Service Dec 01, 2016 Subjective 66-year-old man with hepatic cirrhosis, diabetes mellitus and valvular heart disease admitted with falling episode possibly due to symptomatic anemia. No new symptoms. On full dose PPI for gastritis. He is now stable for discharge, pending return of INR to therapeutic levels for his valvular heart disease. He is unable to reliably dose himself on Lovenox; hence inpatient warfarin therapy. Stools are guaiac positive but no overt GI bleeding. Exam Vital Signs Vital Sign - Last Date Time Temp Pulse Resp B/P Pulse Ox O2 Delivery O2 Flow Rate FiO2 12/01/16 07:45 36.5 82 16 136/73 98 Room Air Intake and Output 11/30/16 11/30/16 12/01/16 Cumulative From/Thru 15:00 23:00 07:00 11/20/16 18:13 - 12/01/16 04:33 Intake Total 2090 ml 560 ml 60072 ml Output Total 700 ml 950 ml 64026 ml Balance 1390 ml -390 ml -664 ml Intake Oral 1820 ml 300 ml 28125 ml IV Total 270 ml 260 ml 9636 ml Packed Cells 900 ml FFP 463 ml Platelets 270 ml Output Urine Total 700 ml 950 ml 26268 ml # Voids 2 18 # Bowel Movements 2 16 Exam General: Healthy slightly obese man with cognitive impairment in no acute distress HEENT: sclerae anicteric, oral mucosa moist Neck: no JVD Chest: clear to auscultation Cardiac: S1S2, III/ murmur Abdomen: BS normal, slightly protuberant, non-tender Extremities: No edema Neuro: Responds to voice but limited details, cranial nerves appear symmetric, motor and coordination normal IVs and Medications Medications Reviewed: Medications were reviewed in detail Lab and Diagnostics Result Diagram: 11/30/1616 11/30/16715 Additional Diagnostics ENDOSCOPY PROCEDURE: Esophagogastroduodenoscopy and biopsy (11/22/16). IMPRESSION: 1. Mild erosive esophagitis. 2. Mild portal hypertensive gastropathy. 3. Moderate nonerosive gastritis. 4. Bulbar duodenitis. 5. Oozing and blood clots seen in various parts of the stomach, most likely from the patient's portal hypertensive gastropathy. <Electronically signed by Getachew Dye MD> 11/22/16 6017 Assessment & Plan 66-year-old male with a past medical history significant for aortic valve replacement on chronic anticoagulation, paroxysmal atrial fibrillation, COPD stage III, diabetes mellitus type 2, who presented to the ER with a several week history of melena, progressive weakness as well as fatigue and a hemoglobin of 5.6. Admitted for possible GI bleed and acute anemia. 1. Acute upper gastrointestinal bleed, present on admission. Resolved?. All stools check for blood are positive these include stools on 11/21/2016, 2016, 11/24/2016, 11/26/2016 and 11/28/2016. Nurse reports dark black stool. It is possible that these positive results represents blood that is from previous bleeding making its way through the gastrointestinal system. This also could be due to iron supplementation. However, patient could have some continued bleeding as his hemoglobin and hematocrit remained quite low. Therefore, patient will need to be monitored very closely. S/p EGD on 11/23/16, biopsy results showing gastritis. GI blood loss likely secondary to portal hypertensive gastropathy. - Continue Protonix 40mg po bid, Carafate 1g po qid and avoid NSAIDs, narcotics. Per GI - Recheck hemoglobin today and each morning - Tolerating general diet. 2. Acute on chronic anemia, present on admission. Stable - Secondary to acute blood loss anemia with chronic iron deficiency anemia. - H/H 5.6/19.5 on admission, transfused 2U PRBC. - Iron studies (10/23/16) consistent with iron deficiency - Continue iron replacement for chronic anemia - H/H stable. 3. Status post bivalvular replacement, present on admission. Requiring bridging anticoagulation. Patient unable to manage outpatient Lovenox dosing. Currently actively heparinized, despite recent GI bleed and some evidence of ongoing guaiac positive stools. - Pt also has hx of Afib, chronically anticoagulated on warfarin. - INR reversed prior to EGD. - c/w heparin drip, bridge to warfarin. INR goal 2.5-3.5. Continue warfarin. - Awaiting INR to reach goal for discharge. Pharmacy to manage 4. Right hepatic lobe nodular mass, present on admission. Active. - Unknown etiology, may represent malignancy. Recommend further evaluation in outpatient setting. - Nodule noted on abdominal CT (11/05/16). - AFP elevated at 13.4. ? hepatocellular carcinoma given hx of cirrhosis. f/u w / GI 5. Paroxysmal atrial fibrillation, present on admission. Stable - Pt chronically anticoagulated on warfarin, which was held in setting of acute GI bleed. - INR reversed for EGD (11/22/16) - Heparin drip, bridge to warfarin. INR goal 2.5-3.5 INR remained subtherapeutic. 6. Chronic kidney disease, stage 3, present on admission. Resolved. - Apparent baseline BUN/Creatinine of 17-23/1.26-1.5. 7. Chronic diabetes mellitus type 2, insulin using. Stable - Hemoglobin A1c 7.0%. - Continue diabetic diet, correctional insulin, bedside glucose monitoring. - Restarted patient on insulin aspart 15 units 3 times a day with meals. - Home regimen is insulin aspart 20 units 3 times a day with meals and Levemir 55 units every morning. 8. Chronic hypertension, present on admission. Stable - Continue home medications. 9. GERD, chronic, present on admission. Stable - Patient has been started on PPI, as above. 10. Depression, chronic, present on admission. Stable - Continue home medications. 11. Alcoholism, in recovery. present on admission. Active - Per patient he has been sober for nearly two years 12. Cirrhosis secondary to alcohol abuse, present on admission. Active - No fluid noted on exam. - Imaging of abdomen did demonstrate some fluid, likely secondary to cirrhosis. 13. Cognitive decline, present on admission. Improved Disposition: Anticipated discharge in 1-2 days pending therapeutic INR. The limiting factor is a therapeutic INR. Apparently he is not felt to be reliable as a self injector of Lovenox at home. The only other option would be a [facility] facility for continued management of his Coumadin outside of the hospital setting and then return home when the INR is at goal. GI Prophylaxis: Proton Pump Inhibitor VTE Prophylaxis: Sub-Q Heparin (Unfractionated), Theraputic Anticoag with Warfarin, SCDs VTE Mechanical Devices: Intermittant Pneumatic CD Resuscitation Status: CPR: Attempt Resuscitation Time spent 35 minutes Filiberto Davis MD Dec 01, 2016 11:33
[2016-12-01 13:33] LABS: Mean Corpuscular Hemoglobin 22.8 pg (27.0-35.0); Mean Corpuscular Volume 77.8 fL (81-100)
--- NOTE | 2016-12-01 13:51 | NUR ---
NUTRITION FOLLOW-UP: Assess: 66 YO M admitted with anemia, GI bleed, resolved per notes. Pt continues with good po intake. Awaiting INR to reach goal for discharge. Right hepatic lobe nodular mass, present on admission, unknown etiology, may represent malignancy. Provider recommending further evaluation in outpatient setting. PMHX:CKD stg 3, GERD, cerebral infarction, anxiety, aortic valve stenosis, valve replacement, BPH, HLD, ETOH abuse, afib, chronic GI bleed, type 2 diabetes. DIET: Dysphagia Mechanical, [place] Thick, Consistent carbohydrate. Glucerna at Lunch. PO intake 90 - 100% most trays. LABS: Reviewed. MEDICATIONS: Reviewed. Coumadin, Lasix, Vitamin B1 & D, insulin. GI: BM x 3 (11/30). WEIGHT: 102.6 kg Admit weight: 106.0 kg, BMI 31.7 kg/m2. ESTIMATED NEEDS: BMI/CKD Calories: 2875-5563 kcal/day (20-25 kcal/kg BW) Protein: 81-97 g/day (1.0-1.2 g/kg IBW) NUTRITION DIAGNOSIS: 1) Chewing / swallowing difficulties related to dysfunctional swallow as evidenced by current need for mechanically altered diet texture, ST following. INTERVENTION: 1) Continue to advance diet as tolerated per ST recommendations. MONITOR/EVALUATE: PO intake, diet advance/tolerance, labs, nutrition status. Follow per moderate nutrition risk guidelines.
[2016-12-01 14:40] VITALS: BP 136/68; PULSE 84; RESP 16; O2SAT 100
[2016-12-01 20:28] VITALS: BP 142/72; PULSE 86; RESP 18; O2SAT 99
[2016-12-01] MEDS: Heparin 25K Unit/500mL 0.45 NS 25,000 UNIT in IV Premix 1 EACH IV SCH (20:36)
[2016-12-02] VITALS (8 sets, daily range): BP systolic 123–136; BP diastolic 67–76; PULSE 84–88; RESP 16–20; O2SAT 98–99
[2016-12-02] MEDS: Sucralfate 1,000 mg Tablet PO SCH ×4 (06:04→22:37)
[2016-12-02 07:09] LABS: INR 2.96 ratio
--- NOTE | 2016-12-02 07:24 | NUR ---
Activities Pt up to BR using his cane. Pt tolerated well. Heparin infusing per orders. VSS. No overt complications noted. INR level pending this am.
[2016-12-02] MEDS: Heparin 25K Unit/500mL 0.45 NS 25,000 UNIT in IV Premix 1 EACH IV SCH (07:45)
[2016-12-02 08:24] LABS: Mean Corpuscular Hemoglobin 22.7 pg (27.0-35.0)
[2016-12-02] MEDS ORDERED: 0.9% Sodium Chloride 250 ML IV PRN (09:00)
[2016-12-02] MEDS: Insulin ASPART 70/30 FlexPen 300 Unit/3 mL Inj SUBQ SCH ×3 (09:51→17:05)
[2016-12-02] MEDS: Insulin LISPRO Low-Dose Scale SUBQ SCH ×4 (09:51→22:00)
[2016-12-02] MEDS: Tolterodine ER 2 mg ER24 Capsule PO SCH (09:52)
[2016-12-02] MEDS: Pantoprazole 40 mg ER24 Tablet PO SCH ×2 (09:52→17:04)
[2016-12-02] MEDS: Potassium Chloride 20 mEq SR Tablet PO SCH (09:52)
[2016-12-02] MEDS ORDERED: Phytonadione (Adult) 10 mg/1 mL Inj PO ONE (11:30)
--- NOTE | 2016-12-02 13:30 | NUR ---
Palliative Care Palliative Care received order from Dr Hiral Davis 12/02/16 to assist with goals of care. Patient is a 66 year old man with history of aortic valve replacement (on chronic anticoagulation), paroxysmal atrial fibrillation, COPD (stage 3), DM2. He was admitted 11/20/16 for care of GI bleed and anemia. Surekha Torsten (daughter) [phone] (also listed in chart as [phone]) Valerie Sarmiento (daughter) [phone] Jewesl Oateslast name (daughter) [phone] Palliative Care to follow. Kristen Mckee
--- NOTE | 2016-12-02 15:01 | NUR ---
Tolerating least restrictive diet. [employer] to sign off. Refer to [employer] with new or worsening condition.
--- NOTE | 2016-12-02 15:25 | NUR ---
blood/food/mobility H&H low, 2nd unit of blood infusing. Tolerating well thus far. Eating most of his dysphagia diet. No cough noted with fluids. Ice in between meals - tolerating with cough. Pt reports feeling week, able to amb with cane, weak, need 1 assist as had 1 LOB when amb to BR.
--- NOTE | 2016-12-02 16:59 | PCM.PNMED ---
Subjective Date of Service Dec 02, 2016 Subjective 66-year-old man with hepatic cirrhosis, diabetes mellitus and valvular heart disease admitted with falling episode possibly due to symptomatic anemia. No new symptoms. States he feels weak today. No abdominal pain. She does continue to report black colored stool. On full dose PPI for gastritis. He has been returning to full anticoagulation for his A. fib and aortic valve replacement, but is experiencing ongoing critical GI bleeding. Exam Vital Signs Vital Sign - Last Date Time Temp Pulse Resp B/P Pulse Ox O2 Delivery O2 Flow Rate FiO2 12/02/16 15:01 36.9 85 20 123/76 12/02/16 11:35 99 Room Air Intake and Output 12/01/16 12/01/16 12/02/16 Cumulative From/Thru 15:00 23:00 07:00 11/20/16 18:13 - 12/02/16 06:06 Intake Total 1548 ml 265 ml 35635 ml Output Total 1225 ml 550 ml 27983 ml Balance 323 ml -285 ml -626 ml Intake Oral 1272 ml 57938 ml IV Total 276 ml 265 ml 34022 ml Packed Cells 900 ml FFP 463 ml Platelets 270 ml Output Urine Total 1225 ml 550 ml 64947 ml # Voids 18 # Bowel Movements 3 1 20 Exam General: Healthy slightly obese man with cognitive impairment in no acute distress HEENT: sclerae anicteric, oral mucosa moist Chest: clear to auscultation Cardiac: S1S2, III/ murmur Abdomen: BS normal, slightly protuberant, non-tender Extremities: No edema Neuro: Mild cognitive impairment, cranial nerves appear symmetric, motor and coordination normal IVs and Medications Medications Reviewed: Medications were reviewed in detail Lab and Diagnostics Result Diagram: 12/02/16 0615 11/30/16 0716 Additional Diagnostics ENDOSCOPY PROCEDURE: Esophagogastroduodenoscopy and biopsy (11/22/16). IMPRESSION: 1. Mild erosive esophagitis. 2. Mild portal hypertensive gastropathy. 3. Moderate nonerosive gastritis. 4. Bulbar duodenitis. 5. Oozing and blood clots seen in various parts of the stomach, most likely from the patient's portal hypertensive gastropathy. <Electronically signed by Getachew Dye MD> 11/22/16 7723 Assessment & Plan 66-year-old male with a past medical history significant for aortic valve replacement on chronic anticoagulation, paroxysmal atrial fibrillation, COPD stage III, diabetes mellitus type 2, who presented to the ER with a several week history of melena, progressive weakness as well as fatigue and a hemoglobin of 5.6. Admitted for possible GI bleed and acute anemia. 1. Acute upper gastrointestinal bleed, present on admission. Resolved?. All stools check for blood are positive these include stools on 11/21/2016, 2016, 11/24/2016, 11/26/2016 and 11/28/2016. Nurse reports dark black stool. The patient has continued bleeding as his hemoglobin and hematocrit remained quite low. Therefore, patient will need to continue anticoagulation. S/p EGD on 11/23/16, biopsy results showing gastritis. GI blood loss likely secondary to portal hypertensive gastropathy with diffuse gastric oozing. - Continue Protonix 40mg po bid, Carafate 1g po qid and avoid NSAIDs, narcotics. Per GI -Transfused 2 units red blood cells on 12/02 - Discontinue anticoagulation and administer vitamin K on 12/02 - Palliative care consult regarding goals of care in light of bleeding versus anticoagulation 2. Acute on chronic anemia, present on admission. Stable - Secondary to acute blood loss anemia with chronic iron deficiency anemia. - H/H 5.6/19.5 on admission, transfused 2U PRBC. - Iron studies (10/23/16) consistent with iron deficiency - Continue iron replacement for chronic anemia -Continue to monitor H/H. 3. Status post bivalvular replacement, present on admission. Unable to tolerate anticoagulation due to critical GI bleeding - Pt also has hx of Afib, chronically anticoagulated on warfarin. - Discontinue anticoagulation 4. Right hepatic lobe nodular mass, present on admission. Active. - Unknown etiology, may represent malignancy. Recommend further evaluation in outpatient setting. - Nodule noted on abdominal CT (11/05/16). - AFP elevated at 13.4. ? hepatocellular carcinoma given hx of cirrhosis. f/u w / GI 5. Paroxysmal atrial fibrillation, present on admission. Stable - Pt chronically anticoagulated on warfarin, which was held in setting of acute GI bleed. - Discontinue anticoagulation at this time 6. Chronic kidney disease, stage 3, present on admission. Resolved. Serum creatinine 1.47 on admission. Resolved to 1.12 - He has returned to his CK D stage II baseline 7. Chronic diabetes mellitus type 2, insulin using. Stable - Hemoglobin A1c 7.0%. - Continue diabetic diet, correctional insulin, bedside glucose monitoring. - Restarted patient on insulin aspart 15 units 3 times a day with meals. - Home regimen is insulin aspart 20 units 3 times a day with meals and Levemir 55 units every morning. 8. Chronic hypertension, present on admission. Stable - Continue home medications. 9. GERD, chronic, present on admission. Stable - Patient has been started on PPI, as above. 10. Depression, chronic, present on admission. Stable - Continue home medications. 11. Alcoholism, in recovery. present on admission. Active - Per patient he has been sober for nearly two years 12. Cirrhosis secondary to alcohol abuse, present on admission. Active. Liver suspicious for neoplasm requiring follow-up. - No fluid noted on exam. - Imaging of abdomen did demonstrate some fluid, likely secondary to cirrhosis. 13. Cognitive decline, present on admission. Improved Disposition: Anticipated discharge in 2-3 days pending stabilization of hemoglobin and resolution of melenic stools. GI Prophylaxis: Proton Pump Inhibitor VTE Prophylaxis: Sub-Q Heparin (Unfractionated), Theraputic Anticoag with Warfarin, SCDs VTE Mechanical Devices: Intermittant Pneumatic CD Resuscitation Status: CPR: Attempt Resuscitation Time spent 35 minutes spent in patient assessment and care coordination. Filiberto Davis MD Dec 02, 2016 16:59
[2016-12-03 05:30] VITALS: BP 136/78; PULSE 80; RESP 20; O2SAT 98
--- NOTE | 2016-12-03 06:03 | NUR ---
Fatigue / Ambulation Pt reports feeling better, however more weak and unsteady on feet. 1PA w/ standby, needs gait belt.
[2016-12-03] MEDS: Sucralfate 1,000 mg Tablet PO SCH ×4 (06:51→21:29)
[2016-12-03 07:10] LABS: Mean Corpuscular Hemoglobin 24.1 pg (27.0-35.0); Mean Corpuscular Volume 78.1 fL (81-100)
[2016-12-03 07:25] LABS: INR 1.55 ratio
[2016-12-03] MEDS: Insulin LISPRO Low-Dose Scale SUBQ SCH ×4 (07:30→21:36)
[2016-12-03 08:00] VITALS: BP 131/75; PULSE 85; RESP 20; O2SAT 98
[2016-12-03] MEDS: Tolterodine ER 2 mg ER24 Capsule PO SCH (08:34)
[2016-12-03] MEDS: Potassium Chloride 20 mEq SR Tablet PO SCH (08:34)
[2016-12-03] MEDS: Pantoprazole 40 mg ER24 Tablet PO SCH ×2 (08:34→17:06)
[2016-12-03] MEDS: Insulin ASPART 70/30 FlexPen 300 Unit/3 mL Inj SUBQ SCH ×3 (08:36→17:07)
--- NOTE | 2016-12-03 13:01 | NUR ---
Social Work: Continued d/c planning D/A: Pt is on day 13 of hospitalization. EMR reviewed, pt discussed in rounds. states that pt cannot tolerate anticoagulation, which he needs, and that d/c is pending on palliative and pt's blood levels and is not ready for d/c today. TIRE AD[employer]ER will continue to follow. Plan: Pt will d/c home via POV when medically stable with resume [facility] and [facility] eval. TIRE ADJUSTER will continue to follow. JILL Villegas
--- NOTE | 2016-12-03 15:32 | NUR ---
Mobility/pain/anticoag Pt ambulated to nurses station from room w/FWW. No LOB noted To wear SCD at night especially d/t no anticoagulation. Plan to hold anticoag until bleeding/H&H stabilized. Palliative consulted today.
[2016-12-03 16:43] VITALS: BP 132/70; PULSE 86; RESP 20; O2SAT 97
--- NOTE | 2016-12-03 16:52 | PCM.CONPAL ---
Date of Service Dec 03, 2016 Date of Hospital Admission: Nov 20, 2016 at 19:54 Date of Palliative Consult: Dec 03, 2016 Requesting Provider: Filiberto Davis MD Reason Palliative Care Consult: Goals of Care Discussion Hospital Unit @time of consult: Other (MOC-observation) Palliative Care Recommendation Summary of palliative recommendations: -Symptom management (Pain/other) GI Bleed due to gastritis Cirrhosis and portal hypertension Porcine AVR now off anticoagulation- I left a message with Dr. Rashid Godoy about this and asked their office to make sure pt has f/u appt. His appt for thsusan is cancelled since he is still in the hospital Elevated CEA and 3.7 cm mass in liver on CT-thought to be benign but warrants close followup -DPOA/Advanced Directives/POLST--see discussion Remains full code -Family/emotional support-daughters Additional Medical Diagnoses with primary management by Hospitalist team include : HTN DM SUDS- presently abstaining Probable COPD- chronic bronchitic cough-just exsmoker Problems: End of Life Preferences for now FULL CODE-- see discussion Goals of Care to be home with support of his daughters Resuscitation Status Resuscitation Status: CPR: Attempt Resuscitation Pt History History of Present Illness 66-year-old gentleman followed through the [facility] with a porcine aortic valve replacement middle 2014 at [place] in [place]. He states surgery was by Dr. Cook. He has not had much follow-up via cardiology mostly because of his canceling appointments. He was admitted to [facility] due to symptoms of increasing weakness orthostasis shortness of breath with minimal activity and was noted to have a GI bleed and significant anemia. He had similar symptoms a couple weeks ago also repeat requiring transfusion. His hemoglobin on admission this time was 7.3 decreasing to 5.6 increasing to 6.2 following transfusion. He has an ammonia level of 127 albumin of 2.6 and as well as an elevated alpha-fetoprotein level of 13.4 with upper limits of normal of 8.3. He has been on warfarin requiring very low doses of 1-2 mg. This medication has now been discontinued due to his recurrent bleed. Patient's PCP Dr. Fuentes Patient's family service worker Dr. Rashid Godoy He has a history of substance abuse disorder including illicit substances and alcohol. He states he has been clean of alcohol for 2 years and he is holding to that. He is an ex smoker having stopped in October. He lives alone is single with 2 daughters Surekha and Jewels who functioned as caregivers particularly over the past 2 months. He states they live nearby check on him frequently help him get groceries etc. He has one son. He states he had a CVA about 6 years ago with some gait instability and some memory loss and difficulty with his speech. He has known cirrhosis with portal hypertension and splenomegaly. His EGD noted active bleeding in his stomach and evidence of ongoing gastritis thought secondary to his portal hypertension that had not responded to PPIs over the past 2 weeks since his first admission for GI bleed. Alcohol none for 2 years Stopped smoking but his main druthers was chewing tobacco now for months Past Medical History Significant PMH Noted: Hypertension Porcine aortic valve replacement for stenosis History of PAF diabetes type 2 BPH with urinary frequency history of GI bleed with transfusion October 31 and again this admission History of colonoscopy unclear exactly when that was. He states he did have polyps No known allergies Social History Occupation: Has done [employer] and [employer] Social Support: 2 daughters Surekha and Jewels Living Situation: Lives alone single Spiritual Support Spiritual Support - spiritual connection Responsive Patient Symptoms Tiredness/Fatigue: Moderate Depression: Mild Drowsiness/Sleepiness: Moderate Anorexia: Mild Shortness of Breath: Moderate Other Notes black tarry stools when GI bleed Urinary frequency urgency. Post void incontinence. States urology consult one year ago. States occasional stool incontinence particularly with loose stool Chronic low back pain Palliative Performance Scale PPS Patient Status: Current PPS Ambulation: Reduced (walks with a walker or cane for stability) PPS Activity: Unable to do any work PPS Self-Care: Occasional assistance necessary PPS Intake: Normal PPS Conscious Level: Full or confusion Performance Scale: 70% Allergy Allergies Reviewed: Yes Medications Current Medications: Current Medications Sodium Chloride 250 ml @ 10 mls/hr Q24H PRN IV; Start 12/02/16 at 09:00 Scheduled Amiodarone (Amiodarone) 200 Mg Tablet 200 MG PO QAM Ascorbate Calcium (Vitamin C) 500 Mg Tablet 500 MG PO DAILY Atorvastatin Calcium (Atorvastatin Calcium) 40 Mg Tablet 40 MG PO QPM Cholecalciferol (Vitamin D3) (Vitamin D) 1,000 Unit Tablet 1,000 UNIT PO QAM Ferrous Sulfate (Ferrous Sulfate) 324 Mg Tablet 324 MG PO BID Furosemide (Furosemide) 40 Mg Tablet 40 MG PO QAM Insulin Aspart (NovoLOG U-100 Pen) 100 Unit/Ml Insuln.pen 20 UNITS SC TIDWM Insulin Detemir (Levemir Flextouch) 100 Unit/1 Ml Insuln.pen 55 UNITS SUBQ QAM Multivitamin (Once Daily) 1 Each Tablet 1 EACH PO DAILY Oxybutynin Chloride (Oxybutynin Chloride) 5 Mg Tablet 5 MG PO BID Pantoprazole DR (Pantoprazole DR) 40 Mg Tablet.dr 40 MG PO DAILYAC Potassium Chloride (Potassium Chloride) 20 Meq Tab.er.prt 20 MEQ PO QAM Sertraline HCl (Sertraline) 100 Mg Tablet 200 MG PO QAM Tamsulosin ER (Tamsulosin ER) 0.4 Mg Cap.er.24h 0.4 MG PO QPM Warfarin Sodium (Jantoven) 1 Mg Tablet 1 MG PO DIRECTED Scheduled PRN Hydroxyzine Pamoate (HydrOXYzine Pamoate) 25 Mg Capsule 25 MG PO HS PRN PRN For Insomnia Mometasone/Formoterol (Dulera 100 Mcg/5 Mcg Inhaler) 13 Gm Hfa.aer.ad 1 PUFFS IH DIRECTED PRN PRN For Shortness of Breath Objective Findings Exam Vital Sign - Last Date Time Temp Pulse Resp B/P Pulse Ox O2 Delivery O2 Flow Rate FiO2 12/03/16 16:43 37.0 86 20 132/70 97 Room Air Intake and Output 12/02/16 12/02/16 12/03/16 Cumulative From/Thru 15:00 23:00 07:00 11/20/16 18:13 - 12/03/16 06:24 Intake Total 364 ml 1891 ml 900 ml 21949 ml Output Total 800 ml 1100 ml 43405 ml Balance 364 ml 1091 ml -200 ml 629 ml Intake Oral 700 ml 900 ml 66357 ml IV Total 50 ml 837 ml 94662 ml Packed Cells 314 ml 354 ml 1568 ml FFP 463 ml Platelets 270 ml Output Urine Total 800 ml 1100 ml 57835 ml # Voids 18 # Bowel Movements 2 2 24 General: Alert/Oriented x3 HEENT: PERRLA, EOMI, Scleral Anicteric, Other (remarkably thick tongue, very poor dentition with a number of teeth each side absent) Heart: Dysrhythmia Present (heart rate is irregular with occasional ectopy) Lungs: Diminished Abdomen: Bowel Tones x4, Distended Neuro: Follows Commands, Spontaneous Eye Opening, Cranial Nerve 3-12 Intact, Other (speech has a slow K units thick tongue sometimes makes it difficult with almost slurring of words. He otherwise is appropriate and a fairly good historian) Skin: Other (number of areas of ecchymoses) Lab/Diagnostics Lab and Imaging results reviewed in detail in EMR. Hemoglobin 7.5 stable platelet count 100,000 Elevated alkaline phosphatase 192-236, mild elevation of transaminases creatinine has normalized Patient/Family Conference Members Present Family Members Present patient Medical Team Members Present? DnorthMD Discussion/Goals of Care Discussion FAMILY UNDERSTANDING OF DISEASE: Patient is aware of his cirrhosis, GI bleed as well as risk of stroke with artificial valve though not mechanical.. He also has PAF as a diagnosis. He is now off anticoagulation until his bleeding is controlled. Then restarting it is a debate.He knows the risks on both sides. He has good family support. He has control of his SUDS including smoking/chewing and I complimented him. He identifies his 2 daughters Surekha and Jewels as DPOAHC and states those forms are completed. He states he has completed an AD that states no heroics at end of life. He requests full code as he does not identify he is at end of life Time spent Total time [60 ] minutes; >50% face to face with patient and/or family, providing counselling regarding plans and recommendations, and in care coordination with his/her medical teams. I also spent an additional [ ] minutes counseling for advanced care planning with the patient/the patients family/the surrogate decision maker. copies to: Rashid Godoy MD, Deborah A MD Dec 03, 2016 16:52 Time spent Total time [ ] minutes; >50% face to face with patient and/or family, providing counselling regarding plans and recommendations, and in care coordination with his/her medical teams. I also spent an additional [ ] minutes counseling for advanced care planning with the patient/the patients family/the surrogate decision maker. Martina Madison MD Dec 03, 2016 16:52
--- NOTE | 2016-12-03 19:41 | PCM.PNMED ---
Subjective Date of Service Dec 03, 2016 Subjective Patient was seen and examined today. Patient is concerned about his current GI bleed situation and the fact that he has a valve replacement. Patient denies any chest pain, shortness of breath, nausea, vomiting, diarrhea. Patient does report weakness and black stools confirmed by nursing. Exam Vital Signs Vital Sign - Last Date Time Temp Pulse Resp B/P Pulse Ox O2 Delivery O2 Flow Rate FiO2 12/03/16 17:31 Room Air 12/03/16 16:43 37.0 86 20 132/70 97 Intake and Output 12/02/16 12/02/16 12/03/16 Cumulative From/Thru 15:00 23:00 07:00 11/20/16 18:13 - 12/03/16 06:24 Intake Total 364 ml 1891 ml 900 ml 86499 ml Output Total 800 ml 1100 ml 31371 ml Balance 364 ml 1091 ml -200 ml 629 ml Intake Oral 700 ml 900 ml 05013 ml IV Total 50 ml 837 ml 87080 ml Packed Cells 314 ml 354 ml 1568 ml FFP 463 ml Platelets 270 ml Output Urine Total 800 ml 1100 ml 47273 ml # Voids 18 # Bowel Movements 2 2 24 Exam Physical Exam: GEN: Patient was awake, alert, responding appropriately to questions HEENT: PERRLA, EOMI, Neck soft supple, trachea midline, nomocephalic/atraumatic CV: +S1/S2, RRR, positive murmur secondary to mechanical valve Respiratory: CTAB, no wheezes, rales, rhonchi GI: +bowel sounds x4, soft, compressible, mild tenderness to palpation in the right upper quadrant Skin: Mildly Jaundice EXT: no c/c/e Neuro: CN II-XII grossly intact Psych: mood and affect were appropriate IVs and Medications Medications Reviewed: Medications were reviewed in detail Medications Current Medications Sodium Chloride 250 ml @ 10 mls/hr Q24H PRN IV; Start 12/02/16 at 09:00 Lab and Diagnostics Result Diagram: 12/03/16 0630 11/30/16 0716 Additional Diagnostics ENDOSCOPY PROCEDURE: Esophagogastroduodenoscopy and biopsy (11/22/16). IMPRESSION: 1. Mild erosive esophagitis. 2. Mild portal hypertensive gastropathy. 3. Moderate nonerosive gastritis. 4. Bulbar duodenitis. 5. Oozing and blood clots seen in various parts of the stomach, most likely from the patient's portal hypertensive gastropathy. <Electronically signed by Getachew Dye MD> 11/22/16 135 Assessment & Plan 66-year-old male with a past medical history significant for aortic valve replacement on chronic anticoagulation, paroxysmal atrial fibrillation, COPD stage III, diabetes mellitus type 2, who presented to the ER with a several week history of melena, progressive weakness as well as fatigue and a hemoglobin of 5.6. Admitted for possible GI bleed and acute anemia. 1. Acute upper gastrointestinal bleed, present on admission. Resolved?. All stools check for blood are positive these include stools on 11/21/2016, 2016, 11/24/2016, 11/26/2016 and 11/28/2016. Nurse reports dark black stool. The patient has continued bleeding as his hemoglobin and hematocrit remained quite low. Therefore, patient will need to continue anticoagulation. S/p EGD on 11/23/16, biopsy results showing gastritis. GI blood loss likely secondary to portal hypertensive gastropathy with diffuse gastric oozing. - Continue Protonix 40mg po bid, Carafate 1g po qid and avoid NSAIDs, narcotics. Per GI -Transfused 2 units red blood cells on 12/02 - Discontinue anticoagulation and administer vitamin K on 12/02 - Palliative care consult regarding goals of care in light of bleeding versus anticoagulation 2. Acute on chronic anemia, present on admission. Stable - Secondary to acute blood loss anemia with chronic iron deficiency anemia. - H/H 5.6/19.5 on admission, transfused 2U PRBC H/H today 7.5/24.3 - Iron studies (10/23/16) consistent with iron deficiency - Continue iron replacement for chronic anemia -Continue to monitor H/H. 3. Status post bivalvular replacement, present on admission. Unable to tolerate anticoagulation due to critical GI bleeding - Pt also has hx of Afib, chronically anticoagulated on warfarin. - Discontinue anticoagulation 4. Right hepatic lobe nodular mass, present on admission. Active. - Unknown etiology, may represent malignancy. Recommend further evaluation in outpatient setting. - Nodule noted on abdominal CT (11/05/16). - AFP elevated at 13.4. ? hepatocellular carcinoma given hx of cirrhosis. f/u w / GI 5. Paroxysmal atrial fibrillation, present on admission. Stable - Pt chronically anticoagulated on warfarin, which was held in setting of acute GI bleed. - Discontinue anticoagulation at this time 6. Chronic kidney disease, stage 3, present on admission. Resolved. Serum creatinine 1.47 on admission. Resolved to 1.12 - He has returned to his CK D stage II baseline 7. Chronic diabetes mellitus type 2, insulin using. Stable - Hemoglobin A1c 7.0%. - Continue diabetic diet, correctional insulin, bedside glucose monitoring. - Restarted patient on insulin aspart 15 units 3 times a day with meals. - Home regimen is insulin aspart 20 units 3 times a day with meals and Levemir 55 units every morning. 8. Chronic hypertension, present on admission. Stable - Continue home medications. 9. GERD, chronic, present on admission. Stable - Patient has been started on PPI, as above. 10. Depression, chronic, present on admission. Stable - Continue home medications. 11. Alcoholism, in recovery. present on admission. Active - Per patient he has been sober for nearly two years 12. Cirrhosis secondary to alcohol abuse, present on admission. Active. Liver suspicious for neoplasm requiring follow-up. - No fluid noted on exam. - Imaging of abdomen did demonstrate some fluid, likely secondary to cirrhosis. 13. Cognitive decline, present on admission. Improved Disposition: Palate is care has been consulted in this particular case. Should the GI bleed not resolve the patient is aware that there is a balance between the bleed and anticoagulation. We will follow up with H&H tomorrow to see if the patient remained stable. GI Prophylaxis: Proton Pump Inhibitor VTE Prophylaxis: Sub-Q Heparin (Unfractionated), Theraputic Anticoag with Warfarin, SCDs VTE Mechanical Devices: Intermittant Pneumatic CD Resuscitation Status: CPR: Attempt Resuscitation Krystal White DO Dec 03, 2016 19:41
[2016-12-03 20:28] VITALS: BP 153/73; PULSE 91; RESP 20; O2SAT 99
[2016-12-04 00:54] VITALS: BP 148/74; PULSE 90; RESP 20; O2SAT 99
[2016-12-04 04:48] VITALS: BP 133/73; PULSE 89; RESP 22; O2SAT 98
[2016-12-04] MEDS: Sucralfate 1,000 mg Tablet PO SCH ×4 (05:30→21:32)
[2016-12-04 06:31] LABS: Mean Corpuscular Volume 77.7 fL (81-100)
[2016-12-04] MEDS: Insulin LISPRO Low-Dose Scale SUBQ SCH ×4 (07:30→21:32)
[2016-12-04] MEDS: Potassium Chloride 20 mEq SR Tablet PO SCH (08:12)
[2016-12-04] MEDS: Tolterodine ER 2 mg ER24 Capsule PO SCH (08:12)
[2016-12-04] MEDS: Insulin ASPART 70/30 FlexPen 300 Unit/3 mL Inj SUBQ SCH ×3 (08:13→17:18)
[2016-12-04] MEDS: Pantoprazole 40 mg ER24 Tablet PO SCH ×2 (08:13→17:18)
[2016-12-04 08:37] VITALS: BP 151/83; PULSE 88; RESP 18; O2SAT 99
--- NOTE | 2016-12-04 16:52 | NUR ---
Mobility/stool/dtr Pt feeling a little stronger today. Stool sent for [facility] Dtr Valerie in to see patient this am. Prefers kendra be set up prior to DC so there is someone on a daily basis to help him. She reports he needs help with medication management. Both sisters are able to help but not stay with him for long periods. SW notified of her request in AM rounds.
--- NOTE | 2016-12-04 16:54 | PCM.PALLBR ---
Palliative Care Recommendation Summary of palliative recommendations: 12/04/16 Pt is now off anticoagulation. I communicated to Dr. Godoy office re this and need to set up another appt for followup hopefully in the next 1-[address] Godoy can help with decision to restart anticoagulation based on his perceived risk with porcine valve vs recurrent GI bleed. Pt knows about this and the need to follow up with his PCP at the clinic to follow up on his hepatic mass-- probably reimaging in 3 months. I will call his daughter at his request to review this. His discharge to be determined by dr. White. Advise that he see a dentist to deal with his multiple caries TC to Surekha-reviewed all of the above. She requests his kendra referral be expedited. She will insure follow up is arranged with PCP and with Dr. Godoy -Symptom management (Pain/other) GI Bleed due to gastritis Cirrhosis and portal hypertension Porcine AVR now off anticoagulation- I left a message with Dr. Rashid Godoy about this and asked their office to make sure pt has f/u appt. His appt for shahnaz is cancelled since he is still in the hospital Elevated CEA and 3.7 cm mass in liver on CT-thought to be benign but warrants close followup -DPOA/Advanced Directives/POLST--see discussion Remains full code -Family/emotional support-daughters Additional Medical Diagnoses with primary management by Hospitalist team include : HTN DM SUDS- presently abstaining Probable COPD- chronic bronchitic cough-just exsmoker Problems: End of Life Preferences for now FULL CODE-- see discussion Goals of Care to be home with support of his daughters Resuscitation Status Resuscitation Status: CPR: Attempt Resuscitation Total time 45 minutes; >50% face to face with patient and/or family, providing counselling regarding plans and recommendations, and in care coordination with his/her medical teams. I also spent an additional [ ] minutes counseling for advanced care planning with the patient/the patients family/the surrogate decision maker. Palliative Brief Note Date of Service Dec 04, 2016 . Patient seen- in bed. Seems to have been playing board games. He has no complaints He is expecting to be discharged today. O: BP 150s/ dentition as mentioned-bad abd soft H/H stable to improved. Martina Madison MD Dec 04, 2016 16:54
--- NOTE | 2016-12-04 20:46 | PCM.PNMED ---
Subjective Date of Service Dec 04, 2016 Subjective Patient was examined at bedside today. Patient denies any chest pain, shortness of breath, nausea, vomiting, diarrhea. Exam Vital Signs Vital Sign - Last Date Time Temp Pulse Resp B/P Pulse Ox O2 Delivery O2 Flow Rate FiO2 12/04/16 08:37 36.3 88 18 151/83 99 Room Air Intake and Output 12/03/16 12/03/16 12/04/16 Cumulative From/Thru 15:00 23:00 07:00 11/20/16 18:13 - 12/04/16 05:25 Intake Total 1400 ml 413 ml 40926 ml Output Total 900 ml 1675 ml 06315 ml Balance 500 ml -1262 ml -133 ml Intake Oral 1400 ml 413 ml 22146 ml IV Total 0 ml 95314 ml Packed Cells 1568 ml FFP 463 ml Platelets 270 ml Output Urine Total 900 ml 1675 ml 54098 ml # Voids 18 # Bowel Movements 1 0 25 Exam Physical Exam: GEN: Patient was awake, alert, responding appropriately to questions HEENT: PERRLA, EOMI, Neck soft supple, trachea midline, nomocephalic/atraumatic CV: +S1/S2, RRR, positive systolic murmur Respiratory: CTAB, no wheezes, rales, rhonchi GI: +bowel sounds x4, soft, compressible, mild TTP, hepatomegaly Skin: Jaundice improved EXT: no c/c/e Neuro: CN II-XII grossly intact Psych: mood and affect were appropriate IVs and Medications Medications Reviewed: Medications were reviewed in detail Lab and Diagnostics Result Diagram: 12/04/16 0604 12/04/16 0604 Additional Diagnostics ENDOSCOPY PROCEDURE: Esophagogastroduodenoscopy and biopsy (11/22/16). IMPRESSION: 1. Mild erosive esophagitis. 2. Mild portal hypertensive gastropathy. 3. Moderate nonerosive gastritis. 4. Bulbar duodenitis. 5. Oozing and blood clots seen in various parts of the stomach, most likely from the patient's portal hypertensive gastropathy. <Electronically signed by Getachew Dye MD> 11/22/16 3158 Assessment & Plan 66-year-old male with a past medical history significant for aortic valve replacement on chronic anticoagulation, paroxysmal atrial fibrillation, COPD stage III, diabetes mellitus type 2, who presented to the ER with a several week history of melena, progressive weakness as well as fatigue and a hemoglobin of 5.6. Admitted for possible GI bleed and acute anemia. 1. Acute upper gastrointestinal bleed, present on admission. Resolved?. All stools check for blood are positive these include stools on 11/21/2016, 2016, 11/24/2016, 11/26/2016 and 11/28/2016. Nurse reports dark black stool. The patient has continued bleeding as his hemoglobin and hematocrit remained quite low. Therefore, patient will need to continue anticoagulation. S/p EGD on 11/23/16, biopsy results showing gastritis. GI blood loss likely secondary to portal hypertensive gastropathy with diffuse gastric oozing. - Continue Protonix 40mg po bid, Carafate 1g po qid and avoid NSAIDs, narcotics. Per GI -Transfused 2 units red blood cells on 12/02 - Discontinue anticoagulation and administer vitamin K on 12/02 - Palliative care consult regarding goals of care in light of bleeding versus anticoagulation 2. Acute on chronic anemia, present on admission. Stable - Secondary to acute blood loss anemia with chronic iron deficiency anemia. - H/H 5.6/19.5 on admission, transfused 2U PRBC H/H today 7.5/24.3 - Iron studies (10/23/16) consistent with iron deficiency - Continue iron replacement for chronic anemia -Continue to monitor H/H. 3. Status post bivalvular replacement, present on admission. Unable to tolerate anticoagulation due to critical GI bleeding - Pt also has hx of Afib, chronically anticoagulated on warfarin. - Discontinue anticoagulation 4. Right hepatic lobe nodular mass, present on admission. Active. - Unknown etiology, may represent malignancy. Recommend further evaluation in outpatient setting. - Nodule noted on abdominal CT (11/05/16). - AFP elevated at 13.4. ? hepatocellular carcinoma given hx of cirrhosis. f/u w / GI 5. Paroxysmal atrial fibrillation, present on admission. Stable - Pt chronically anticoagulated on warfarin, which was held in setting of acute GI bleed. - Discontinue anticoagulation at this time 6. Chronic kidney disease, stage 3, present on admission. Resolved. Serum creatinine 1.47 on admission. Resolved to 1.12 - He has returned to his CK D stage II baseline 7. Chronic diabetes mellitus type 2, insulin using. Stable - Hemoglobin A1c 7.0%. - Continue diabetic diet, correctional insulin, bedside glucose monitoring. - Restarted patient on insulin aspart 15 units 3 times a day with meals. - Home regimen is insulin aspart 20 units 3 times a day with meals and Levemir 55 units every morning. 8. Chronic hypertension, present on admission. Stable - Continue home medications. 9. GERD, chronic, present on admission. Stable - Patient has been started on PPI, as above. 10. Depression, chronic, present on admission. Stable - Continue home medications. 11. Alcoholism, in recovery. present on admission. Active - Per patient he has been sober for nearly two years 12. Cirrhosis secondary to alcohol abuse, present on admission. Active. Liver suspicious for neoplasm requiring follow-up. - No fluid noted on exam. - Imaging of abdomen did demonstrate some fluid, likely secondary to cirrhosis. 13. Cognitive decline, present on admission. Improved Disposition: The patient's H&H seems to be stabilizing. If the patient's H&H remained stable tomorrow morning the patient may be able to be discharged home. The patient's primary care and middleware solutions architect have been informed of the patient' s current situation by Dr. Madison. He will also been informed of the patient's new liver mass that will need further workup as well. GI Prophylaxis: Proton Pump Inhibitor VTE Prophylaxis: Sub-Q Heparin (Unfractionated), Theraputic Anticoag with Warfarin, SCDs VTE Mechanical Devices: Intermittant Pneumatic CD Resuscitation Status: CPR: Attempt Resuscitation Krystal White DO Dec 04, 2016 20:46
[2016-12-04 21:18] VITALS: BP 163/80; PULSE 86; RESP 17; O2SAT 99
[2016-12-05 05:04] VITALS: BP 137/78; PULSE 87; RESP 18; O2SAT 100
[2016-12-05] MEDS: Pantoprazole 40 mg ER24 Tablet PO SCH ×2 (06:43→17:00)
[2016-12-05] MEDS: Sucralfate 1,000 mg Tablet PO SCH ×4 (06:43→21:44)
--- NOTE | 2016-12-05 07:14 | NUR ---
Activity Pt ambulated to bathroom. Guaiac sent to lab. Daughter visited last night would like to talk with social welfare research worker and MD about upcoming discharge. Let oncoming RN know this as well.
[2016-12-05 07:31] LABS: Mean Corpuscular Hemoglobin 23.2 pg (27.0-35.0); Mean Corpuscular Volume 77.1 fL (81-100)
--- NOTE | 2016-12-05 08:02 | NUR ---
Social Work: Continued Discharge Planning D: LEGAL RESEARCHER received message from Body Worker with the following information: Case Management received phone call from JILL Edwards, [phone])with the [facility]. She is inquiring if case management had been in communication with Antoinette Hernandez, [facility] worker assigned to complete pt's assessment for [facility]. event technician have attempted several phone calls to Antoinette to discuss multiple patients with no return communication. A: Pt who needs completed HCS assessment P: LEGAL RESEARCHER will attempt contact with Antoinette today and attempt to speak to her historic sites supervisor if she is not available; LEGAL RESEARCHER to continue to follow. JILL Valderrama
[2016-12-05 08:30] VITALS: BP 157/78; PULSE 83; RESP 18; O2SAT 99
[2016-12-05] MEDS: Insulin LISPRO Low-Dose Scale SUBQ SCH ×4 (08:36→21:57)
[2016-12-05] MEDS: Insulin ASPART 70/30 FlexPen 300 Unit/3 mL Inj SUBQ SCH ×3 (08:37→16:59)
[2016-12-05] MEDS: Tolterodine ER 2 mg ER24 Capsule PO SCH (08:37)
[2016-12-05] MEDS: Potassium Chloride 20 mEq SR Tablet PO SCH (08:38)
--- NOTE | 2016-12-05 11:54 | NUR ---
NUTRITION FOLLOW-UP: Assess: 66 YO M admitted with anemia, GI bleed, resolved per notes. Pt continues with good po intake of 100% most meals. Pt is on a dysphagia mechanical diet and ST has signed off as this is pt's baseline diet. Pt has not had a new wt since 11/28. New wt was requested today. PMHX: CKD stg 3, GERD, cerebral infarction, anxiety, aortic valve stenosis, valve replacement, BPH, HLD, ETOH abuse, afib, chronic GI bleed, type 2 diabetes. DIET: Dysphagia Mechanical, [place] Thick, PO intake 100% most trays. LABS: Reviewed. Glu 133, Ca 8.4, AST 100, ALT 55, Alk phos 240, Ammonia 127, Alb 2.9 MEDICATIONS: Reviewed. Coumadin, Lasix, Vitamin B1 & D, insulin. GI: BM x 1 (12/05). WEIGHT: 102.6 kg, BMI 30.7kg/m2 Admit weight: 106.0 kg, IBW 80.9kg ESTIMATED NEEDS: BMI/CKD Calories: 6853-5013 kcal/day (20-25 kcal/kg BW) Protein: 81-97 g/day (1.0-1.2 g/kg IBW) NUTRITION DIAGNOSIS: 1) Chewing / swallowing difficulties related to dysfunctional swallow as evidenced by current need for mechanically altered diet texture, ST following.---Pt is at baseline diet INTERVENTION: 1) Continue current diet and supplements 2) Will monitor for new wt MONITOR/EVALUATE: PO intake, diet tolerance, labs, nutrition status. Follow per moderate nutrition risk guidelines.
[2016-12-05 12:24] LABS: Mean Corpuscular Hemoglobin 23.4 pg (27.0-35.0); Mean Corpuscular Volume 77.4 fL (81-100)
[2016-12-05 12:30] VITALS: BP 149/74; PULSE 83; RESP 14; O2SAT 99
--- NOTE | 2016-12-05 15:36 | NUR ---
Social Work Continued Discharge Planning: Plan remains as home with continued HHC services via [facility]. SW contacted [facility] rep Jose Miguel who was advised of potential weekend discharge for resumption of care services. SW spoke to [facility] child welfare social worker Antoinette Dwayne, who states that bedside eval to take place on Thursday at 9am or at home, pending discharge date. SW advised rep of possible weekend discharge. Rep aware and states upon discharge, call should be made to ensure home assessment vs bedside eval on Thursday. No other needs identified at this time. Patient daughter Surekha, made aware and notified. SW to follow. PLAN: Home with continued HH services via [facility] and [facility] program assistance. Goyo MELCHOR
--- NOTE | 2016-12-05 17:31 | PCM.PNMED ---
Subjective Date of Service Dec 05, 2016 Subjective Patient was examined at bedside today. Patient denies any chest pain, shortness of breath, nausea, vomiting, diarrhea. Exam Vital Signs Vital Sign - Last Date Time Temp Pulse Resp B/P Pulse Ox O2 Delivery O2 Flow Rate FiO2 12/05/16 12:30 36.7 83 14 149/74 99 12/05/16 08:30 Room Air Intake and Output 12/04/16 12/04/16 12/05/16 Cumulative From/Thru 15:00 23:00 07:00 11/20/16 18:13 - 12/05/16 05:51 Intake Total 1200 ml 150 ml 03381 ml Output Total 450 ml 650 ml 11478 ml Balance 750 ml -500 ml 117 ml Intake Oral 1200 ml 150 ml 13083 ml IV Total 0 ml 23759 ml Packed Cells 1568 ml FFP 463 ml Platelets 270 ml Output Urine Total 450 ml 650 ml 23488 ml # Voids 18 # Bowel Movements 11 16 26 Exam Physical Exam: GEN: Patient was awake, alert, responding appropriately to questions HEENT: PERRLA, EOMI, Neck soft supple, trachea midline, nomocephalic/atraumatic CV: +S1/S2, RRR, positive murmur secondary to mechanical valve Respiratory: CTAB, no wheezes, rales, rhonchi GI: +bowel sounds x4, soft, compressible, mild tenderness to palpation in the right upper quadrant, positive hepatomegaly Skin: Mildly Jaundice, improved from yesterday EXT: no c/c/e Neuro: CN II-XII grossly intact Psych: mood and affect were appropriate IVs and Medications Medications Reviewed: Medications were reviewed in detail Lab and Diagnostics Result Diagram: 12/05/16 1208 12/04/16 0604 Additional Diagnostics ENDOSCOPY PROCEDURE: Esophagogastroduodenoscopy and biopsy (11/22/16). IMPRESSION: 1. Mild erosive esophagitis. 2. Mild portal hypertensive gastropathy. 3. Moderate nonerosive gastritis. 4. Bulbar duodenitis. 5. Oozing and blood clots seen in various parts of the stomach, most likely from the patient's portal hypertensive gastropathy. <Electronically signed by Getachew Dye MD> 11/22/16 9471 Assessment & Plan 66-year-old male with a past medical history significant for aortic valve replacement on chronic anticoagulation, paroxysmal atrial fibrillation, COPD stage III, diabetes mellitus type 2, who presented to the ER with a several week history of melena, progressive weakness as well as fatigue and a hemoglobin of 5.6. Admitted for possible GI bleed and acute anemia. 1. Acute upper gastrointestinal bleed, present on admission. Resolved?. All stools check for blood are positive these include stools on 11/21/2016, 2016, 11/24/2016, 11/26/2016 and 11/28/2016. Nurse reports dark black stool. The patient has continued bleeding as his hemoglobin and hematocrit remained quite low. Therefore, patient will need to continue anticoagulation. S/p EGD on 11/23/16, biopsy results showing gastritis. GI blood loss likely secondary to portal hypertensive gastropathy with diffuse gastric oozing. - Continue Protonix 40mg po bid, Carafate 1g po qid and avoid NSAIDs, narcotics. Per GI -Transfused 2 units red blood cells on 12/02 - Discontinue anticoagulation and administer vitamin K on 12/02 - Palliative care consult regarding goals of care in light of bleeding versus anticoagulation 2. Acute on chronic anemia, present on admission. Stable - Secondary to acute blood loss anemia with chronic iron deficiency anemia. - H/H 5.6/19.5 on admission, transfused 2U PRBC H/H today 7.5/24.3 - Iron studies (10/23/16) consistent with iron deficiency - Continue iron replacement for chronic anemia -Continue to monitor H/H. 3. Status post bivalvular replacement, present on admission. Unable to tolerate anticoagulation due to critical GI bleeding - Pt also has hx of Afib, chronically anticoagulated on warfarin. - Discontinue anticoagulation 4. Right hepatic lobe nodular mass, present on admission. Active. - Unknown etiology, may represent malignancy. Recommend further evaluation in outpatient setting. - Nodule noted on abdominal CT (11/05/16). - AFP elevated at 13.4. ? hepatocellular carcinoma given hx of cirrhosis. f/u w / GI 5. Paroxysmal atrial fibrillation, present on admission. Stable - Pt chronically anticoagulated on warfarin, which was held in setting of acute GI bleed. - Discontinue anticoagulation at this time 6. Chronic kidney disease, stage 3, present on admission. Resolved. Serum creatinine 1.47 on admission. Resolved to 1.12 - He has returned to his CK D stage II baseline 7. Chronic diabetes mellitus type 2, insulin using. Stable - Hemoglobin A1c 7.0%. - Continue diabetic diet, correctional insulin, bedside glucose monitoring. - Restarted patient on insulin aspart 15 units 3 times a day with meals. - Home regimen is insulin aspart 20 units 3 times a day with meals and Levemir 55 units every morning. 8. Chronic hypertension, present on admission. Stable - Continue home medications. 9. GERD, chronic, present on admission. Stable - Patient has been started on PPI, as above. 10. Depression, chronic, present on admission. Stable - Continue home medications. 11. Alcoholism, in recovery. present on admission. Active - Per patient he has been sober for nearly two years 12. Cirrhosis secondary to alcohol abuse, present on admission. Active. Liver suspicious for neoplasm requiring follow-up. - No fluid noted on exam. - Imaging of abdomen did demonstrate some fluid, likely secondary to cirrhosis. 13. Cognitive decline, present on admission. Improved Disposition: The patient's H&H seems to be stabilizing, however this morning his hemoglobin dropped to 7.4 but repeat in 10 H&H increased to 8.6. The patient seems to be stabilizing now and this may be that the patient has a chronic anemia. We will reassess the patient's H&H in the morning and hopefully discharged tomorrow as on his H&H remained stable and he has no recurrent heme positive stools. GI Prophylaxis: Proton Pump Inhibitor VTE Prophylaxis: Sub-Q Heparin (Unfractionated), Theraputic Anticoag with Warfarin, SCDs VTE Mechanical Devices: Intermittant Pneumatic CD Resuscitation Status: CPR: Attempt Resuscitation Krystal White DO Dec 05, 2016 17:31
[2016-12-05 18:04] VITALS: BP 153/77; PULSE 89; RESP 20; O2SAT 99
--- NOTE | 2016-12-05 18:34 | NUR ---
Activity Pt. is standby assist to stand and ambulate. Has been using the standing to use the urinal and has good balance. No signs/symptoms of bleeding today. No BM today.
[2016-12-05 19:54] VITALS: BP 148/76; PULSE 91; RESP 19; O2SAT 100
[2016-12-06 04:24] VITALS: BP 119/69; PULSE 95; RESP 18; O2SAT 99
--- NOTE | 2016-12-06 06:21 | NUR ---
Activity Pt up to use urinal and to walk to bathroom, no BM. Pt sitting up to eat and drink as he was instructed to. SCDs on pt.
[2016-12-06] MEDS: Sucralfate 1,000 mg Tablet PO SCH ×4 (06:35→21:30)
[2016-12-06] MEDS: Pantoprazole 40 mg ER24 Tablet PO SCH ×2 (06:35→17:18)
[2016-12-06] MEDS: Insulin LISPRO Low-Dose Scale SUBQ SCH ×4 (07:30→22:00)
[2016-12-06 07:49] VITALS: BP 154/76; PULSE 97
[2016-12-06] MEDS: Potassium Chloride 20 mEq SR Tablet PO SCH (07:51)
[2016-12-06] MEDS: Insulin ASPART 70/30 FlexPen 300 Unit/3 mL Inj SUBQ SCH ×3 (07:58→17:25)
[2016-12-06 08:01] LABS: Mean Corpuscular Hemoglobin 23.3 pg (27.0-35.0); Mean Corpuscular Volume 77.3 fL (81-100)
[2016-12-06] MEDS: Tolterodine ER 2 mg ER24 Capsule PO SCH (08:07)
[2016-12-06 12:05] VITALS: BP 129/74; PULSE 85; RESP 18; O2SAT 99
--- NOTE | 2016-12-06 15:06 | PCM.PNMED ---
Subjective Date of Service Dec 06, 2016 Subjective Patient was examined at bedside today. Patient denies any chest pain, shortness of breath, nausea, vomiting, diarrhea. Patient states that his abdominal pain has also improved and that his stools are now back to normal color. Exam Vital Signs Vital Sign - Last Date Time Temp Pulse Resp B/P Pulse Ox O2 Delivery O2 Flow Rate FiO2 12/06/16 12:05 36.8 85 18 129/74 99 Room Air Intake and Output 12/05/16 12/05/16 12/06/16 Cumulative From/Thru 15:00 23:00 07:00 11/20/16 18:13 - 12/06/16 06:49 Intake Total 740 ml 1400 ml 39223 ml Output Total 2150 ml 1450 ml 06575 ml Balance -1410 ml -50 ml -1343 ml Intake Oral 720 ml 1400 ml 51629 ml IV Total 20 ml 95099 ml Packed Cells 1568 ml FFP 463 ml Platelets 270 ml Output Urine Total 2150 ml 1450 ml 65582 ml # Voids 18 # Bowel Movements 11 16 28 Exam Physical Exam: GEN: Patient was awake, alert, responding appropriately to questions HEENT: PERRLA, EOMI, Neck soft supple, trachea midline, nomocephalic/atraumatic CV: +S1/S2, RRR, positive murmur auscultated secondary to valve replacement Respiratory: CTAB, no wheezes, rales, rhonchi GI: +bowel sounds x4, soft, compressible, non TTP, hepatomegaly Skin: Mild jaundice improved from yesterday EXT: no c/c/e Neuro: CN II-XII grossly intact Psych: mood and affect were appropriate IVs and Medications Medications Reviewed: Medications were reviewed in detail Lab and Diagnostics Result Diagram: 12/06/16 1334 12/04/16 0604 Additional Diagnostics ENDOSCOPY PROCEDURE: Esophagogastroduodenoscopy and biopsy (11/22/16). IMPRESSION: 1. Mild erosive esophagitis. 2. Mild portal hypertensive gastropathy. 3. Moderate nonerosive gastritis. 4. Bulbar duodenitis. 5. Oozing and blood clots seen in various parts of the stomach, most likely from the patient's portal hypertensive gastropathy. <Electronically signed by Getachew Dye MD> 11/22/16 5887 Assessment & Plan 66-year-old male with a past medical history significant for aortic valve replacement on chronic anticoagulation, paroxysmal atrial fibrillation, COPD stage III, diabetes mellitus type 2, who presented to the ER with a several week history of melena, progressive weakness as well as fatigue and a hemoglobin of 5.6. Admitted for possible GI bleed and acute anemia. Acute upper gastrointestinal bleed, present on admission. Resolved?. - Continue Protonix 40mg po bid, Carafate 1g po qid and avoid NSAIDs, narcotics. Per GI -Transfused 2 units red blood cells on 12/02 - Discontinue anticoagulation and administer vitamin K on 12/02 - Palliative care consult regarding goals of care in light of bleeding versus anticoagulation Acute on chronic anemia, present on admission. Stable - Secondary to acute blood loss anemia with chronic iron deficiency anemia. - H/H 5.6/19.5 on admission, transfused 2U PRBC H/H today 8.0/26.7 - Iron studies (10/23/16) consistent with iron deficiency - Continue iron replacement for chronic anemia -Continue to monitor H/H. Status post bivalvular replacement, present on admission. Unable to tolerate anticoagulation due to critical GI bleeding - Pt also has hx of Afib, chronically anticoagulated on warfarin. - Discontinue anticoagulation Right hepatic lobe nodular mass, present on admission. Active. - Unknown etiology, may represent malignancy. Recommend further evaluation in outpatient setting. - Nodule noted on abdominal CT (11/05/16). - AFP elevated at 13.4. ? hepatocellular carcinoma given hx of cirrhosis. f/u w / GI Paroxysmal atrial fibrillation, present on admission. Stable - Pt chronically anticoagulated on warfarin, which was held in setting of acute GI bleed. - Discontinue anticoagulation at this time Chronic kidney disease, stage 3, present on admission. Resolved. Serum creatinine 1.47 on admission. Resolved to 1.12 - He has returned to his CK D stage II baseline Chronic diabetes mellitus type 2, insulin using. Stable - Hemoglobin A1c 7.0%. - Continue diabetic diet, correctional insulin, bedside glucose monitoring. - Restarted patient on insulin aspart 15 units 3 times a day with meals. - Home regimen is insulin aspart 20 units 3 times a day with meals and Levemir 55 units every morning. Chronic hypertension, present on admission. Stable - Continue home medications. GERD, chronic, present on admission. Stable - Patient has been started on PPI, as above. Depression, chronic, present on admission. Stable - Continue home medications. Alcoholism, in recovery. present on admission. Active - Per patient he has been sober for nearly two years Cirrhosis secondary to alcohol abuse, present on admission. Active. Liver suspicious for neoplasm requiring follow-up. - No fluid noted on exam. - Imaging of abdomen did demonstrate some fluid, likely secondary to cirrhosis. Cognitive decline, present on admission. Improved Disposition: The patient's H&H seems to be stabilizing and his anemia seems to be chronically hovering in the 7.5-8 region. Patient seems to be doing well and has no longer had any further symptoms of GI bleeding. The patient's stools have returned back to normal. Patient will most likely be discharged tomorrow. GI Prophylaxis: Proton Pump Inhibitor VTE Prophylaxis: Sub-Q Heparin (Unfractionated), Theraputic Anticoag with Warfarin, SCDs VTE Mechanical Devices: Intermittant Pneumatic CD Resuscitation Status: CPR: Attempt Resuscitation Krystal White DO Dec 06, 2016 15:06
[2016-12-06 22:03] VITALS: BP 163/75; PULSE 93; RESP 20; O2SAT 100
--- NOTE | 2016-12-07 02:58 | NUR ---
ACTIVITY Pt stands independently to use urinal steadily. Pt has been eating ice chips with no s/sx aspiration. Pt reported light brown colored stool this a.m. that was soft and more like his normal. No c/o pain. Hourly rounding in place.
[2016-12-07 04:09] VITALS: BP_SYST 153; BP_SYST 156; BP_DIAS 70; BP_DIAS 86; PULSE 71; PULSE 94; RESP 20; O2SAT 99
[2016-12-07] MEDS: Insulin LISPRO Low-Dose Scale SUBQ SCH ×2 (07:30→12:12)
[2016-12-07] MEDS: Sucralfate 1,000 mg Tablet PO SCH ×2 (07:44→12:08)
[2016-12-07] MEDS: Pantoprazole 40 mg ER24 Tablet PO SCH (07:45)
[2016-12-07] MEDS: Insulin ASPART 70/30 FlexPen 300 Unit/3 mL Inj SUBQ SCH ×2 (08:27→12:10)
[2016-12-07] MEDS: Tolterodine ER 2 mg ER24 Capsule PO SCH (08:34)
[2016-12-07] MEDS: Potassium Chloride 20 mEq SR Tablet PO SCH (08:35)
[2016-12-07 09:45] VITALS: BP 111/60; PULSE 84; RESP 22; O2SAT 99
--- NOTE | 2016-12-07 11:20 | PCM.DIMED ---
Discharge Instructions Date of Service Dec 07, 2016 Dates of Hospitalization Nov 20, 2016 at 19:54 Discharge Diagnosis Discharge Diagnosis Acute upper gastrointestinal bleed Acute on chronic anemia Right hepatic lobe nodular mass Paroxysmal atrial fibrillation Chronic kidney disease, stage 3 Chronic diabetes mellitus type 2 Cirrhosis secondary to alcohol abuse Medication Instructions Do not take warfarin or any other anticoagulation/blood thinners until follow up with cardiology Diet Heart Healthy Activity Other (gradually return to normal activity as tolerated) Call your provider Fever or Chills, Shortness of breath, Bleeding, Chest pain, Excessive diarrhea, Weakness (unilateral) Patient Instructions Follow-up with PCP in: 1 week (if an appointment has not already been made with your PCP please call and make an appointment) Follow-up in: 2 weeks (if an appointment has not already been made with your brake operator please call and make an appointment) Krystal White DO Dec 07, 2016 11:20
[2016-12-07] MEDS ORDERED: Thiamine PO (11:23)
--- NOTE | 2016-12-07 11:34 | PCM.DC.MED ---
Discharge Summary Date of Service Dec 07, 2016 Dates of Hospitalization Date of Hospital Admission Nov 20, 2016 at 19:54 Date of Discharge: Dec 07, 2016 Providers: Admitting Physician: Sergei Richye MD Primary Care Physician: Ria Sy MD Attending Physician: Sergei Richey MD Diagnosis at Time of Discharge Diagnosis at Time of Discharge Acute upper gastrointestinal bleed Acute on chronic anemia Right hepatic lobe nodular mass Paroxysmal atrial fibrillation Chronic kidney disease, stage 3 Chronic diabetes mellitus type 2 Cirrhosis secondary to alcohol abuse Consultations GI Procedures XRay, CTs & MRIs PROCEDURE: CT ABDOMEN HEPATIC PROTOCOL INDICATIONS: NODULE RT LOBE/ PER 10/24 US AT [facility] TECHNIQUE: 4 phase scanning was performed. Non-contrast 5 mm axial sections acquired from the diaphragm to the iliac crests. Following the administration of intravenous contrast, 5 mm thick arterial-phase, portal venous-phase, and 5-minute delayed phase images were acquired through the liver. 5 mm thick coronal and sagittal reformats were performed. For radiation dose reduction, the following was used : automated exposure control, adjustment of mA and/or kV according to patient size. COMPARISON: Abdominal ultrasound 10/24/2016; CT CAP 10/24/2016; CT abdomen 2015; CT abdomen and pelvis 02/13/2015 CT abdomen 02/12/2009; CT abdomen and pelvis 12/09/2008; abdomen ultrasound 11/27/2008 FINDINGS: Image quality: Excellent. Lung bases: Lung bases are clear. Heart size is normal. Liver: The liver is cirrhotic, again showing lobulated margin and prominent caudate lobe. Splenomegaly is persistent, consistent with portal hypertension as are perisplenic varices. Corresponding to the most recent ultrasound exam, there is a 3.7 cm rounded mass in the caudate lobe adjacent to the IVC. This shows noncontrast attenuation of 45, arterial phase of 53, venous phase 66 and 5 minute delayed phase of 53, indicating mild enhancement with washout. There is no arterial phase hyperenhancement or peripheral rim of hyperenhancement on venous or delayed phase. On CT abdomen of 02/13/2015, a 13 mm focal enhancement in this same location was present but not seen currently. Other solid organs: Gallbladder contains a solitary gallstone. Biliary system is non dilated. Pancreas is normal in morphology. Spleen is normal in size and enhancement. No adrenal nodules. Both kidneys demonstrate normal size and enhancement, without hydronephrosis or nephrolithiasis. Nodes and vessels: No retroperitoneal or mesenteric adenopathy by size criteria. Aorta and inferior vena cava are normal in size. Bowel and peritoneum: Unenhanced bowel loops are normal in caliber. No free fluid or air. Bones: No suspicious bony lesions. No vertebral body compression fractures. Miscellaneous: No ventral hernias. IMPRESSION: 1. Mass lesion within the caudate lobe of liver is confirmed . The characteristics show intermediate probability of hepatoma , category LR-3 . Since the lesion is visible on ultrasound, serial ultrasound images could be obtained to determine growth rate . Although fairly deep from the posterior skin margin, CT guided percutaneous biopsy appears feasible. 2. Hepatic cirrhosis and splenomegaly. 3. Cholelithiasis without cholecystitis. Dictated by: Delvis Sheppard M.D. on 11/06/2016 at 8:31 Approved by: Delvis Sheppard M.D. on 11/06/2016 at 8:31 Other Diagnostics ENDOSCOPY PROCEDURE: Esophagogastroduodenoscopy and biopsy (11/22/16). IMPRESSION: 1. Mild erosive esophagitis. 2. Mild portal hypertensive gastropathy. 3. Moderate nonerosive gastritis. 4. Bulbar duodenitis. 5. Oozing and blood clots seen in various parts of the stomach, most likely from the patient's portal hypertensive gastropathy. <Electronically signed by Getachew Dye MD> 11/22/16 6046 Brief History 66-year-old gentleman followed through the [facility] with a porcine aortic valve replacement middle 2014 at [facility] in [place]. He states surgery was by Dr. Cook. He has not had much follow-up via cardiology mostly because of his canceling appointments. He was admitted to [facility] due to symptoms of increasing weakness orthostasis shortness of breath with minimal activity and was noted to have a GI bleed and significant anemia. He had similar symptoms a couple weeks ago also repeat requiring transfusion. His hemoglobin on admission this time was 7.3 decreasing to 5.6 increasing to 6.2 following transfusion. He has an ammonia level of 127 albumin of 2.6 and as well as an elevated alpha-fetoprotein level of 13.4 with upper limits of normal of 8.3. He has been on warfarin requiring very low doses of 1-2 mg. This medication has now been discontinued due to his recurrent bleed. Patient's PCP Dr. 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 Rashid Godoy He has a history of substance abuse disorder including illicit substances and alcohol. He states he has been clean of alcohol for 2 years and he is holding to that. He is an ex smoker having stopped in October. He lives alone is single with 2 daughters Surekha and Jewels who functioned as caregivers particularly over the past 2 months. He states they live nearby check on him frequently help him get groceries etc. He has one son. He states he had a CVA about 6 years ago with some gait instability and some memory loss and difficulty with his speech. He has known cirrhosis with portal hypertension and splenomegaly. His EGD noted active bleeding in his stomach and evidence of ongoing gastritis thought secondary to his portal hypertension that had not responded to PPIs over the past 2 weeks since his first admission for GI bleed. Alcohol none for 2 years Stopped smoking but his main druthers was chewing tobacco now for months Hospital Course 66-year-old male with a past medical history significant for aortic valve replacement on chronic anticoagulation, paroxysmal atrial fibrillation, COPD stage III, diabetes mellitus type 2, who presented to the ER with a several week history of melena, progressive weakness as well as fatigue and a hemoglobin of 5.6. Admitted for GI bleed and acute anemia. The patient was admitted for an acute upper GI bleed with an H&H of 5.6/19.5 on admission. The patient was transfused 2 units of packed red blood cells and his hemoglobin increased to 8.0 over 26.7. The patient's H&H then started to fluctuate dropping as low as 7.4 and it seemed like he might be bleeding further however the patient's H&H was then stabilized and on discharge it is 8.5 /28.0. At this time and has been recommended that the patient no longer continue on anticoagulation as this may seem to be an issue for the patient. The patient currently is no longer actively bleeding in his stools are now back to normal color in no longer black and tarry. The patient has been advised to follow-up with his tool and die maker/designer Dr. Rashid Reyes for further recommendations on anticoagulation. It has been explained to the patient that he may not be a candidate for anticoagulation but this discussion needs to take this with his tool and die maker/designer. The patient has also been advised to follow up with his primary care physician as the patient has a mass on his liver that needs to be worked up further. Dr. Madison has sent documentation to both his tool and die maker/designer in his primary care in regards to this as well. Patient is being discharged home with home health in stable condition. Exam Vital Signs (Last) Date Time Temp Pulse Resp B/P Pulse Ox O2 Delivery O2 Flow Rate FiO2 12/07/16 09:45 36.8 84 22 111/60 99 Room Air Test 11/20/16 18:45 11/20/16 21:14 11/21/16 13:43 11/24/16 03:05 Hold Hardy Top Tube Received (Received) Urine Color Yellow (YELLOW) Urine Appearance Clear (CLEAR,HAZY) Urine pH 6.5 (5.0-8.0) Urine Specific [place] 1.010 (1.003-1.035) Urine Protein Negativemg/dL (NEG,TRACE) Urine Glucose (UA) Negativemg/dL (NEGATIVE) Urine Ketones Negativemg/dL (NEGATIVE) Urine Occult Blood Negative (NEGATIVE) Urine Nitrite Negative (NEGATIVE) Urine Bilirubin Negative (NEGATIVE) Urine Urobilinogen Normalmg/dL (NORMAL) Urine Leukocyte Esterase Negative (NEGATIVE) Urine RBC 0-2/hpf (0-2) Urine WBC 0-5/hpf (0-5) Urine Epithelial Cells Occasional/hpf (NONE-MOD) Urine Crystals None seen (NONE SEEN) Urine Bacteria None/hpf (NONE-FEW) Urine Hyaline Casts None/lpf (NONE) Urine Granular Casts None seen (NONE SEEN) Urine Waxy Casts None seen (NONE SEEN) Urine Red Blood Cell Casts None seen (NONE SEEN) Urine White Blood Cell Casts None seen (NONE SEEN) Urine Mucus None seen (None Seen) Urine Trichomonas None seen (NONE SEEN) Urine Yeast None (NONE SEEN) Urinalysis Comment None Urine Culture Reflexed Not indicated Hold Urine Received (Received) Tumor Marker Alpha Fetoprotein 13.4ng/mL (0.0-8.3) Test 11/30/16 07:16 12/02/16 06:15 12/03/16 06:30 12/04/16 06:04 Neutrophils (%) (Auto) 73.5% (40-74) Lymphocytes (%) (Auto) 14.7% (14-46) Monocytes (%) (Auto) 9.8% (4-12) Eosinophils (%) (Auto) 1.4% (0-5) Basophils (%) (Auto) 0.3% (0-3) Erythrocyte Sedimentation Rate 34mm/hr (0-30) Hemoglobin A1c 6.4% (4.8-5.6) Magnesium Level 1.9mg/dL (1.6-2.6) Ammonia 127ug/dL (18-53) Activated Partial Thromboplast Time 90.5sec (22.8-33.0) Prothrombin Time 16.7sec (8.1-12.5) Prothromb Time International Ratio 1.55ratio Sodium Level 140mEq/L (134-144) Potassium Level 3.9mEq/L (3.5-5.2) Chloride Level 105mEq/L (97-108) Carbon Dioxide Level 26mmol/L (18-29) Blood Urea Nitrogen 16mg/dL (8-27) Creatinine 1.19mg/dL (0.76-1.27) Estimat Glomerular Filtration Rate 65mL/min (>59) Glucose Level 133mg/dL (60-99) Calcium Level 8.4mg/dL (8.5-10.1) Total Bilirubin 1.2mg/dL (0.0-1.2) Aspartate Amino Transf (AST/SGOT) 100U/L (0-50) Alanine Aminotransferase (ALT/SGPT) 55U/L (0-44) Alkaline Phosphatase 240U/L (25-160) Total Protein 6.4g/dL (6.4-8.4) Albumin 2.9g/dL (3.4-5.0) Test 12/06/16 06:48 12/07/16 08:39 White Blood Count 5.7th/mm3 (3.8-10.1) Red Blood Count 3.35mil/mm3 (4.40-5.80) Mean Corpuscular Volume 77.3fL (81-100) Mean Corpuscular Hemoglobin 23.3pg (27.0-35.0) Mean Corpuscular Hemoglobin Concent 30.1% (32.0-37.0) Red Cell Distribution Width 18.9% (12.3-15.4) Platelet Count 108bil/L (150-400) Hemoglobin 8.5g/dL (13.8-17.2) Hematocrit 28.0% (41.0-50.0) Discharge Medications Discharge Medications ([Thiamine]) 100 MG TABLET 100 MG PO DAILY Prescribed by: BEBA WALKER DO Amiodarone (Amiodarone) 200 Mg Tablet 200 MG PO QAM (Reported) Ascorbate Calcium (Vitamin C) 500 Mg Tablet 500 MG PO DAILY (Reported) Atorvastatin Calcium (Atorvastatin Calcium) 40 Mg Tablet 40 MG PO QPM (Reported ) Cholecalciferol (Vitamin D3) (Vitamin D) 1,000 Unit Tablet 1,000 UNIT PO QAM ( Reported) Ferrous Sulfate (Ferrous Sulfate) 324 Mg Tablet.dr 324 MG PO BID (Reported) Furosemide (Furosemide) 40 Mg Tablet 40 MG PO QAM (Reported) Insulin Aspart (NovoLOG U-100 Pen) 100 Unit/Ml Insuln.pen 20 UNITS SC TIDWM ( Reported) Insulin Detemir (Levemir Flextouch) 100 Unit/1 Ml Insuln.pen 55 UNITS SUBQ QAM ( Reported) Multivitamin (Once Daily) 1 Each Tablet 1 EACH PO DAILY (Reported) Oxybutynin Chloride (Oxybutynin Chloride) 5 Mg Tablet 5 MG PO BID (Reported) Pantoprazole DR (Pantoprazole DR) 40 Mg Tablet.dr 40 MG PO DAILYAC Prescribed by: JUANJOSE VALLE MD Potassium Chloride (Potassium Chloride) 20 Meq Tab.er.prt 20 MEQ PO QAM ( Reported) Sertraline HCl (Sertraline) 100 Mg Tablet 200 MG PO QAM (Reported) Tamsulosin ER (Tamsulosin ER) 0.4 Mg Cap.er.24h 0.4 MG PO QPM (Reported) As needed Hydroxyzine Pamoate (HydrOXYzine Pamoate) 25 Mg Capsule 25 MG PO HS PRN PRN For Insomnia (Reported) Mometasone/Formoterol (Dulera 100 Mcg/5 Mcg Inhaler) 13 Gm Hfa.aer.ad 1 PUFFS IH DIRECTED PRN PRN For Shortness of Breath (Reported) Additional med instructions Do not take warfarin or any other anticoagulation/blood thinners until follow up with cardiology Followup Plan Discharge Diet: Heart Healthy Discharge Activity: Other (gradually return to normal activity as tolerated) Follow-up with PCP in: 1 week (if an appointment has not already been made with your PCP please call and make an appointment) Follow-up in: 2 weeks (if an appointment has not already been made with your tool and die maker/designer please call and make an appointment) copies to: Rashid Godoy MD, Precious L DO Dec 07, 2016 11:26
--- NOTE | 2016-12-07 12:15 | NUR ---
Social Work: Discharge Data & Assessment: Instructional Interventionist spoke with patient's daughter, Surekha Sarmiento [phone], and notified her that the patient would discharge today. Surekha Sarmiento voiced understanding and stated that her sister Jewels [phone] would pick the patient up later this afternoon. SW will notify patient's nurse. SW spoke with Jose Miguel at [facility] and notified him that the patient is discharging home today. Patient will resume home health with [facility] . SW will continue to follow. Plan: Patient will discharge home via daughter Jewels's private vehicle. Patient will also resume [facility] . SW will continue to follow. Alyssa Galvan, ASCENCION, JL
[2016-12-07 14:41] VITALS: BP 154/82
--- NOTE | 2016-12-07 16:34 | NUR ---
Discharge Patient discharge to home accompanied by daughter. Discharge notes, hard copy of prescription and instructions given. All belongings taken home with him. No signs of discomfort or any distress upon discharge.
== END 2016-12-07 16:20 | disposition home health service (06) | DRG 442 ==
LOC: SED 18:06 → PCC 19:54 → MOC 11-25 06:30
PROVIDERS: ADMIT Internal Medicine; ATTEND Internal Medicine
PROC: 30233N1 Transfusion of Nonautologous Red Blood Cells into Peripheral Vein, Percutaneous Approach (ICD-10-PCS; 2016-11-20)
PROC: 30233K1 Transfusion of Nonautologous Frozen Plasma into Peripheral Vein, Percutaneous Approach (ICD-10-PCS; 2016-11-21)
PROC: 30233N1 Transfusion of Nonautologous Red Blood Cells into Peripheral Vein, Percutaneous Approach (ICD-10-PCS; 2016-11-21)
PROC: 0DB68ZX Excision of Stomach, Via Natural or Artificial Opening Endoscopic, Diagnostic (ICD-10-PCS; 2016-11-22)
PROC: 30233K1 Transfusion of Nonautologous Frozen Plasma into Peripheral Vein, Percutaneous Approach (ICD-10-PCS; 2016-11-22)
PROC: 30233N1 Transfusion of Nonautologous Red Blood Cells into Peripheral Vein, Percutaneous Approach (ICD-10-PCS; 2016-11-22)
PROC: 0DB98ZX Excision of Duodenum, Via Natural or Artificial Opening Endoscopic, Diagnostic (ICD-10-PCS; principal; 2016-11-22 14:45)
PROC: 30233N1 Transfusion of Nonautologous Red Blood Cells into Peripheral Vein, Percutaneous Approach (ICD-10-PCS; 2016-12-02)
DX: K76.6 Portal hypertension (principal); K92.2 Gastrointestinal hemorrhage, unspecified; D62 Acute posthemorrhagic anemia; K31.89 Other diseases of stomach and duodenum; D50.0 Iron deficiency anemia secondary to blood loss (chronic); Z95.2 Presence of prosthetic heart valve; Z79.01 Long term (current) use of anticoagulants; Z87.891 Personal history of nicotine dependence; E78.5 Hyperlipidemia, unspecified; I48.0 Paroxysmal atrial fibrillation; E11.9 Type 2 diabetes mellitus without complications; I12.9 Hypertensive chronic kidney disease with stage 1 through stage 4 chronic kidney disease, or unspecified chronic kidney disease; N18.3 Chronic kidney disease, stage 3 (moderate); K70.30 Alcoholic cirrhosis of liver without ascites; K21.9 Gastro-esophageal reflux disease without esophagitis; F32.9 Major depressive disorder, single episode, unspecified; F10.21 Alcohol dependence, in remission; K20.8 Other esophagitis; K29.60 Other gastritis without bleeding; K29.80 Duodenitis without bleeding; R16.0 Hepatomegaly, not elsewhere classified; Z79.4 Long term (current) use of insulin; N40.0 Benign prostatic hyperplasia without lower urinary tract symptoms; K76.9 Liver disease, unspecified

== ENCOUNTER 2016-12-10 13:39 | Inpatient (IN) | payer MEDICARE, MEDICAID ==
[~2016-12-10] VITALS: Ht 182.9 cm; Wt 102.5 kg
[~2016-12-10 13:39] MED LIST changes: +ASCO-294 PO; +FERR324T2 PO; +INSU100I SC; -LORA10CA PO; +MOME13HF2 IH; +MULT-666 PO; -TRIA80OI TOPICAL; +Thiamine PO; -WARF1TAB8 PO
[2016-12-10 13:53] VITALS: BP 131/73; PULSE 98; RESP 22; O2SAT 99
[2016-12-10 14:56] LABS: BASOPHILS % (AUTO) 0.4 % (0-3); EOSINOPHILS % (AUTO) 0.5 % (0-5); Mean Corpuscular Hemoglobin 23.2 pg (27.0-35.0); Mean Corpuscular Volume 76.1 fL (81-100); NEUTROPHILS % (AUTO) 81.1 % (40-74); Platelet Count 120 bil/L (150-400)
[2016-12-10 15:25] LABS: Magnesium 1.9 mg/dL (1.6-2.6)
--- NOTE | 2016-12-10 18:02 | ED.REPORT ---
HPI-Abd Pain M 40 and Over Date of Service Dec 10, 2016 ED Provider: Roney Tyson DO A 66 year old male with a history of chronic GI bleeds, chronic kidney disease, alcoholism, aortic valve stenosis, hypertension, hyperlipidemia and GERD presents to the ED complaining of melena that began 3 days ago. Associated symptoms include mild SOB and abdominal pain. Patient was recently admitted to the hospital for anemia due to a GI bleed on 11/20. He was discharged with a hemoglobin of 8.5 on 12/07. He was also admitted on 10/24 for a GI bleed. Patient was sent to his caustic room operator earlier today who referred him to the ED after recording his hemoglobin at 7.4 and learning of his GI symptoms. He denies hematemesis, chest pain, or hematuria. Nursing Notes Stated Complaint: ABDOMINAL PAIN/BLACK STOOL Chief Complaint: Male Abdominal Pain Nursing Notes Reviewed: Yes Allergies: Coded Allergies: No Known Drug Allergies (Verified Allergy, Unknown, 12/10/16) Scheduled ([Thiamine]) 100 MG TABLET 100 MG PO DAILY Amiodarone (Amiodarone) 200 Mg Tablet 200 MG PO QAM Ascorbate Calcium (Vitamin C) 500 Mg Tablet 500 MG PO TID Atorvastatin Calcium (Atorvastatin Calcium) 40 Mg Tablet 40 MG PO QPM Cholecalciferol (Vitamin D3) (Vitamin D) 1,000 Unit Tablet 1,000 UNIT PO QAM Econazole Nitrate (Econazole Nitrate) 15 Gm Cream..g. 1 APPL TOP BID apply to scalp Ferrous Sulfate (Ferrous Sulfate) 324 Mg Tablet.dr 324 MG PO TID Furosemide (Furosemide) 40 Mg Tablet 40 MG PO QAM Insulin Aspart (NovoLOG U-100 Pen) 100 Unit/Ml Insuln.pen 20 UNITS SC TIDWM Insulin Detemir (Levemir Flextouch) 100 Unit/1 Ml Insuln.pen 55 UNITS SUBQ QAM Ketoconazole (Ketoconazole) 120 Ml Shampoo 120 ML TP DAILYWD shampoo 5ml to affected area daily Loratadine (Claritin) 10 Mg Capsule 10 MG PO MORNING Multivitamin (Once Daily) 1 Each Tablet 1 EACH PO DAILY Oxybutynin Chloride (Oxybutynin Chloride) 5 Mg Tablet 5 MG PO BID Pantoprazole DR (Pantoprazole DR) 40 Mg Tablet.dr 40 MG PO DAILYAC Potassium Chloride (Potassium Chloride) 20 Meq Tab.er.prt 20 MEQ PO QAM Sertraline HCl (Sertraline) 100 Mg Tablet 200 MG PO QAM Tamsulosin ER (Tamsulosin ER) 0.4 Mg Cap.er.24h 0.4 MG PO QPM Scheduled PRN Mometasone/Formoterol (Dulera 100 Mcg/5 Mcg Inhaler) 13 Gm Hfa.aer.ad 1 PUFFS IH DIRECTED PRN PRN For Shortness of Breath General Time Seen by MD: 18:01 Chief Complaint Other (Hematochezia) Hx Obtained From: Patient Arrived By: Walk-in Sudden in Onset?: No Onset Occurred: 3 days ago Symptom Duration: Since onset Progression since Onset: Unchanged Location: : RUQ Quality: Aching Radiation: : Does not radiate Severity: Current: Mild Severity: Maximum: Mild Associated with: Reports: Hematochezia, Melena, Denies: Hematemesis, Hematuria Pertinent Negative: Pt denies other symptoms Recent Healthcare: Recent doctor visit, Recent hospitalization Risk Factors )( AAA Risk Stratification Hypertension Risk factors reviewed Past Medical History Past Medical History Notes: PCP: Dr. Ria Sy Past Medical History 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 BPH with [place] Hyperlipidemia Chronic kidney disease stage III GERD Cerebral infarction Anxiety Aortic valve stenosis Paroxysmal atrial fibrillation [place] GI bleed Reports: Diabetes mellitus, Hypertension Past Surgical History Valve replacement - on Warfarin Family History Alcoholism Smoking History Former Smoker Social History Alcohol Use: >5 per day Drug Use: Denies drug use Other Social History: Good social support, Local resident Ambulatory Status Independent Review of Systems Constitutional: Denies: Chills, Fever Respiratory: Reports: Shortness of breath GI: Reports: Abdominal pain, Hematochezia, Melena, Denies: Hematemesis, Nausea, Vomiting Male: Denies Hematuria Complete sys rev & neg: except as marked. Neurologic: Denies: Change LOC Physical Exam Initial Vital Signs Vital Signs (First) Date Time Temp Pulse Resp B/P Pulse Ox O2 Delivery O2 Flow Rate FiO2 12/10/16 13:53 36.8 98 22 131/73 99 Room Air Initial VS: Reviewed Head / Eyes: Atraumatic, Normocephalic, PERRL Neurologic: Alert, Oriented, Nonfocal Psychiatric: Mood/affect normal, Behavior normal, Normal thought content General/Constitutional: Awake, Alert Respiratory / Chest: Atraumatic, Breath sounds NL, Breath sounds = bilat Cardiovascular: Heart rate NL, Regular rhythm, Heart sounds NL CARDIO: Loud click present No edema Abdomen: Atraumatic, Soft Tenderness/Guarding/Rebound: Positive: Tender RUQ... (Mild) Back: Atraumatic, Inspection NL Skin: Atraumatic, Warm, Dry, Intact SKIN: Pale Upper Extremity / MS: Atraumatic, Neurologic intact, Vascular intact Lower Extremity / Pelvis / MS: Atraumatic, Neurologic intact, Vascular intact Interpretation & Diagnostics Lab Results Interpretation Result Diagram: 12/10/16 1430 12/10/16 1430 Test 12/10/16 14:30 12/10/16 19:00 White Blood Count 5.5th/mm3 (3.8-10.1) Red Blood Count 4.14mil/mm3 (4.40-5.80) Hemoglobin 9.6g/dL (13.8-17.2) Hematocrit 31.5% (41.0-50.0) Mean Corpuscular Volume 76.1fL (81-100) Mean Corpuscular Hemoglobin 23.2pg (27.0-35.0) Mean Corpuscular Hemoglobin Concent 30.5% (32.0-37.0) Red Cell Distribution Width 19.2% (12.3-15.4) Platelet Count 120bil/L (150-400) Neutrophils (%) (Auto) 81.1% (40-74) Lymphocytes (%) (Auto) 9.8% (14-46) Monocytes (%) (Auto) 8.0% (4-12) Eosinophils (%) (Auto) 0.5% (0-5) Basophils (%) (Auto) 0.4% (0-3) Prothrombin Time 12.6sec (8.1-12.5) Prothromb Time International Ratio 1.17ratio Hold Urine Received (Received) Sodium Level 135mEq/L (134-144) Potassium Level 4.0mEq/L (3.5-5.2) Chloride Level 100mEq/L (97-108) Carbon Dioxide Level 22mmol/L (18-29) Blood Urea Nitrogen 16mg/dL (8-27) Creatinine 1.08mg/dL (0.76-1.27) Estimat Glomerular Filtration Rate 73mL/min (>59) Glucose Level 181mg/dL (60-99) Calcium Level 8.2mg/dL (8.5-10.1) Magnesium Level 1.9mg/dL (1.6-2.6) Total Bilirubin 0.8mg/dL (0.0-1.2) Aspartate Amino Transf (AST/SGOT) 67U/L (0-50) Alanine Aminotransferase (ALT/SGPT) 49U/L (0-44) Alkaline Phosphatase 259U/L (25-160) Total Protein 6.4g/dL (6.4-8.4) Albumin 2.9g/dL (3.4-5.0) Urine Color Yellow (YELLOW) Urine Appearance Clear (CLEAR,HAZY) Urine pH 6.5 (5.0-8.0) Urine Specific [place] <1.005 (1.003-1.035) Urine Protein Negativemg/dL (NEG,TRACE) Urine Glucose (UA) Negativemg/dL (NEGATIVE) Urine Ketones Negativemg/dL (NEGATIVE) Urine Occult Blood Negative (NEGATIVE) Urine Nitrite Negative (NEGATIVE) Urine Bilirubin Negative (NEGATIVE) Urine Urobilinogen Normalmg/dL (NORMAL) Urine Leukocyte Esterase Negative (NEGATIVE) Urine RBC 0-2/hpf (0-2) Urine WBC 0-5/hpf (0-5) Urine Epithelial Cells Occasional/hpf (NONE-MOD) Urine Crystals None seen (NONE SEEN) Urine Bacteria None/hpf (NONE-FEW) Urine Hyaline Casts None/lpf (NONE) Urine Granular Casts None seen (NONE SEEN) Urine Waxy Casts None seen (NONE SEEN) Urine Red Blood Cell Casts None seen (NONE SEEN) Urine White Blood Cell Casts None seen (NONE SEEN) Urine Mucus None seen (None Seen) Urine Trichomonas None seen (NONE SEEN) Urine Yeast None (NONE SEEN) Urinalysis Comment None Urine Culture Reflexed Not indicated Re-Eval/Medical Decision Med Decision/Clinical Course I discussed this with our on-call lithographic artist. We have decided that we will admit this gentleman overnight and check serial H&H. If he develops melanotic stool or a drop in his H&H then GI will get involved. Otherwise dose of Protonix and recommend close outpatient follow-up. Time of Eval: 20:06 Patient Status: Condition improved Re-Evaluation/Progress Note: Patient is rechecked. He is informed of his lab results and diagnoses. All of the patient's questions are addressed. He understands and agrees with the treatment plan to admit. Consultation #1: Referral / Consult Name: Carmelo Guillermo MD Call Returned at: 22:00 Machine Shop Specialist: Will see patient, Agrees with eval, Agrees with plan Note: GI Consultation #2: Referral / Consult Name: Andrae Jimenes MD Consulted With: Hospitalist Call Returned at: 22:42 Machine Shop Specialist: Will see patient, Agrees with eval, Agrees with plan, Accepts admit Counseled Regarding: Diagnosis, Lab results, Need for admission Discharge & Departure Primary Impression: Upper GI bleed Disposition: ADMITTED TO HOSPITAL Vital Signs - All Vital Signs Date Time Temp Pulse Resp B/P Pulse Ox O2 Delivery O2 Flow Rate FiO2 12/10/16 20:19 36.8 99 19 144/60 100 Room Air 12/10/16 13:53 36.8 98 22 131/73 99 Room Air )( All Prior VS Reviewed: Yes Condition: Stable Referrals: Ria Sy MD (PCP) Scribe Attestation Portions of this note were transcribed by Jenni Gilbert. I, Dr. Tyson personally performed the history, physical exam and medical decision-making; I reviewed and confirmed the accuracy of the information in the transcribed note. Signed by: Dev Norman, 12/10/16 [id number]. copies to: Ria Sy MD, Todd P DO Dec 10, 2016 18:02 JENNI GILBERT Dec 10, 2016 18:08
[2016-12-10 18:26] LABS: INR 1.17 ratio
[2016-12-10 19:13] LABS: APPEARANCE,URINE CLEAR (CLEAR,HAZY); COLOR,URINE YELLOW (YELLOW); PH,URINE 6.5 (5.0-8.0)
[2016-12-10 19:14] LABS: OCCULT BLOOD,URINE NEGATIVE (NEGATIVE); UROBILINOGEN,URINE NORMAL (NORMAL)
[2016-12-10] MEDS ORDERED: Pantoprazole 4 mg/mL 10 mL Inj IVPUSH ONE (20:05)
[2016-12-10 20:19] VITALS: BP 144/60; PULSE 99; RESP 19; O2SAT 100
[2016-12-10] MEDS ORDERED: Alum-Mag Hydrox-Simeth 30 mL Suspension PO PRN (20:45)
[2016-12-10] MEDS ORDERED: Polyethylene Glycol (PEG) 17 Gm Powder PO PRN (20:45)
[2016-12-10] MEDS ORDERED: Ondansetron 2 mg/mL 2 mL Inj IVPUSH PRN (20:45)
[2016-12-10 20:55] VITALS: BP 144/60; PULSE 87; RESP 18; O2SAT 99
[2016-12-10] MEDS ORDERED: ECON15CR10 TOP (21:20)
[2016-12-10] MEDS ORDERED: LORA10CA PO (21:20)
[2016-12-10] MEDS ORDERED: KETO120S3 TP (21:20)
[2016-12-10 21:41] VITALS: BP 152/75; PULSE 96; RESP 18; O2SAT 97
--- NOTE | 2016-12-10 22:21 | NUR ---
admit Pt admitted to room 3028 for UGI. Pt is A&Ox4, pale, slightly weak and unsteady on his feet. normally uses FWW; own FWW here. bed alarm on for safety. NPO x ice per Dr. Alicia. pt tolerating ice. Denies pain or discomfort. Pt is oriented to room and plan of care; has watched orientation video; he verbalized understanding. Addendum: 12/10/16 at 2224 by SHERIN SINHA RN arrived in the room from ED around 21:00
[2016-12-10] MEDS ORDERED: Glucose 40% Oral Gel 15 Gm Tube PO PRN (22:35)
--- NOTE | 2016-12-10 22:38 | PCM.HPMED ---
Subjective Date of Service Dec 10, 2016 Primary Provider: Admitting Physician: Andrae Jimenes MD Primary Care Physician: Ria Sy MD Attending Physician: Andrae Jimenes MD Chief Complaint: Reported Melena History of Present Illness: 66 year old male with a Chronic GI bleeds, chronic kidney disease, alcoholism, aortic valve stenosis, hypertension, hyperlipidemia and GERD presents to [facility] emergency department complaining of melena that began 3 days ago. Associated symptoms include mild SOB and abdominal pain. Abdominal pain is his chronic pain, located in right upper quadrant. Patient was sent to his patient companion earlier today who referred him to the ED after recording his hemoglobin at 7.4 and learning of his GI symptoms. He denies hematemesis, chest pain, or hematuria. Patient was recently admitted to the hospital for anemia due to a GI bleed on 11/20. He was discharged with a hemoglobin of 8.5 on 12/07. He was also admitted on 10/24 for a GI bleed. Patient was previously on Coumadin but has not taking it since discharged from the hospital Case discussed with Dr Tyson, He spoke to Dr Guillermo, doll surgeon GI who recommended observation and checking Hgb overnight. Plan for scope if evidence of melena are present but discharge if he remains stable overnight. Review of Systems: Pertinent positives as noted in HPI. All other systems were reviewed and are negative Allergies Coded Allergies: No Known Drug Allergies (Verified Allergy, Unknown, 12/10/16) Home Medications ([Thiamine]) 100 MG TABLET 100 MG PO DAILY Prescribed by: BEBA WALKER DO Amiodarone (Amiodarone) 200 Mg Tablet 200 MG PO QAM (Reported) Ascorbate Calcium (Vitamin C) 500 Mg Tablet 500 MG PO DAILY (Reported) Atorvastatin Calcium (Atorvastatin Calcium) 40 Mg Tablet 40 MG PO QPM (Reported ) Cholecalciferol (Vitamin D3) (Vitamin D) 1,000 Unit Tablet 1,000 UNIT PO QAM ( Reported) Ferrous Sulfate (Ferrous Sulfate) 324 Mg Tablet.dr 324 MG PO BID (Reported) Furosemide (Furosemide) 40 Mg Tablet 40 MG PO QAM (Reported) Insulin Aspart (NovoLOG U-100 Pen) 100 Unit/Ml Insuln.pen 20 UNITS SC TIDWM ( Reported) Insulin Detemir (Levemir Flextouch) 100 Unit/1 Ml Insuln.pen 55 UNITS SUBQ QAM ( Reported) Multivitamin (Once Daily) 1 Each Tablet 1 EACH PO DAILY (Reported) Oxybutynin Chloride (Oxybutynin Chloride) 5 Mg Tablet 5 MG PO BID (Reported) Pantoprazole DR (Pantoprazole DR) 40 Mg Tablet.dr 40 MG PO DAILYAC Prescribed by: JUANJOSE VALLE MD Potassium Chloride (Potassium Chloride) 20 Meq Tab.er.prt 20 MEQ PO QAM ( Reported) Sertraline HCl (Sertraline) 100 Mg Tablet 200 MG PO QAM (Reported) Tamsulosin ER (Tamsulosin ER) 0.4 Mg Cap.er.24h 0.4 MG PO QPM (Reported) As needed Hydroxyzine Pamoate (HydrOXYzine Pamoate) 25 Mg Capsule 25 MG PO HS PRN PRN For Insomnia (Reported) Mometasone/Formoterol (Dulera 100 Mcg/5 Mcg Inhaler) 13 Gm Hfa.aer.ad 1 PUFFS IH DIRECTED PRN PRN For Shortness of Breath (Reported) Additional med instructions Do not take warfarin or any other anticoagulation/blood thinners until follow up with cardiology PMH 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 BPH with [place] Hyperlipidemia Chronic kidney disease stage III GERD Cerebral infarction Anxiety Aortic valve stenosis Paroxysmal atrial fibrillation Chronic GI bleed Diabetes mellitus Hypertension . Surgical History Valve replacement - on Warfarin Family History Alcoholism Social History Hx Alcohol Use: Yes Hx Substance Use: Yes (ETOH, cocanine 20+) Hx Tobacco Use: Yes Smoking Status: Former Smoker Living Arrangement: with Family Exam Vital Signs Vital Sign - Last Date Time Temp Pulse Resp B/P Pulse Ox O2 Delivery O2 Flow Rate FiO2 12/10/16 20:19 36.8 99 19 144/60 100 Room Air Exam General: Awake and alert, appropriate HEENT: Head is atraumatic normocephalic. Eyes: Pupils are equally round and reactive to light and accommodation. Extraocular muscles are intact. Sclera are white anicteric. Subconjunctival mucosa is pink. Ears and nose are unremarkable. Oropharynx: There is no mucosal lesions, there is no thrush, there is no pharyngitis. Neck: Is supple, there are no nodes, or masses, or tenderness. Chest: Is clear to auscultation and percussion. There are no rales, rhonchi, wheezes or rubs. Heart: Rate, rhythm is regular. There is a grade 2/6 systolic ejection murmur heard best left sternal border radiating to the base. There is no rub. Or gallop appreciated. Abdomen: Good bowel sounds are present. Abdomen is obese, soft, nontender, no organomegaly or masses were appreciated. Extremities: Are symmetrical and well perfused. There is minimal edema, there is no cellulitis, no rash. Neurologic: There are no focal neurological deficits. Cranial nerves II through XII are intact. There are no sensory or motor deficits. Psychiatric: Patients mood is calm and shows no sign of agitation. Genital: Deferred Rectal: Deferred Lab and Diagnostics Labs Laboratory Tests Test 12/10/16 14:30 12/10/16 19:00 White Blood Count 5.5th/mm3 (3.8-10.1) Red Blood Count 4.14mil/mm3 (4.40-5.80) Hemoglobin 9.6g/dL (13.8-17.2) Hematocrit 31.5% (41.0-50.0) Mean Corpuscular Volume 76.1fL (81-100) Mean Corpuscular Hemoglobin 23.2pg (27.0-35.0) Mean Corpuscular Hemoglobin Concent 30.5% (32.0-37.0) Red Cell Distribution Width 19.2% (12.3-15.4) Platelet Count 120bil/L (150-400) Neutrophils (%) (Auto) 81.1% (40-74) Lymphocytes (%) (Auto) 9.8% (14-46) Monocytes (%) (Auto) 8.0% (4-12) Eosinophils (%) (Auto) 0.5% (0-5) Basophils (%) (Auto) 0.4% (0-3) Prothrombin Time 12.6sec (8.1-12.5) Prothromb Time International Ratio 1.17ratio Hold Urine Received (Received) Sodium Level 135mEq/L (134-144) Potassium Level 4.0mEq/L (3.5-5.2) Chloride Level 100mEq/L (97-108) Carbon Dioxide Level 22mmol/L (18-29) Blood Urea Nitrogen 16mg/dL (8-27) Creatinine 1.08mg/dL (0.76-1.27) Estimat Glomerular Filtration Rate 73mL/min (>59) Glucose Level 181mg/dL (60-99) Calcium Level 8.2mg/dL (8.5-10.1) Magnesium Level 1.9mg/dL (1.6-2.6) Total Bilirubin 0.8mg/dL (0.0-1.2) Aspartate Amino Transf (AST/SGOT) 67U/L (0-50) Alanine Aminotransferase (ALT/SGPT) 49U/L (0-44) Alkaline Phosphatase 259U/L (25-160) Total Protein 6.4g/dL (6.4-8.4) Albumin 2.9g/dL (3.4-5.0) Urine Color Yellow (YELLOW) Urine Appearance Clear (CLEAR,HAZY) Urine pH 6.5 (5.0-8.0) Urine Specific [place] <1.005 (1.003-1.035) Urine Protein Negativemg/dL (NEG,TRACE) Urine Glucose (UA) Negativemg/dL (NEGATIVE) Urine Ketones Negativemg/dL (NEGATIVE) Urine Occult Blood Negative (NEGATIVE) Urine Nitrite Negative (NEGATIVE) Urine Bilirubin Negative (NEGATIVE) Urine Urobilinogen Normalmg/dL (NORMAL) Urine Leukocyte Esterase Negative (NEGATIVE) Urine RBC 0-2/hpf (0-2) Urine WBC 0-5/hpf (0-5) Urine Epithelial Cells Occasional/hpf (NONE-MOD) Urine Crystals None seen (NONE SEEN) Urine Bacteria None/hpf (NONE-FEW) Urine Hyaline Casts None/lpf (NONE) Urine Granular Casts None seen (NONE SEEN) Urine Waxy Casts None seen (NONE SEEN) Urine Red Blood Cell Casts None seen (NONE SEEN) Urine White Blood Cell Casts None seen (NONE SEEN) Urine Mucus None seen (None Seen) Urine Trichomonas None seen (NONE SEEN) Urine Yeast None (NONE SEEN) Urinalysis Comment None Urine Culture Reflexed Not indicated Result Diagram: 12/10/16 1430 12/10/16 143 Assessment & Plan 66-year-old male with a past medical history significant for aortic valve replacement on chronic anticoagulation, paroxysmal atrial fibrillation, COPD stage III, diabetes mellitus type 2, who presented to the ER with a several week history of melena, progressive weakness as well as fatigue and a hemoglobin of 5.6. Admitted for possible GI bleed and acute anemia. 1. Possible Melena with recent upper gastrointestinal bleed, present on admission. . - s/p EGD on 11/23/16, biopsy results showing gastritis. Likely secondary to portal hypertensive gastropathy. - Continue Protonix 40mg po bid, Carafate 1g po qid - nothing by mouth - monitoring Hgb levels overnight 2. Chronic anemia, present on admission. Stable - Secondary to acute blood loss anemia with chronic iron deficiency anemia. Iron studies (10/23/16) consistent with iron deficiency - Continue iron replacement for chronic anemia 3. Status post bivalvular replacement, Stable - Pt also has Chronic Atrial fibrillation - continue to hold Coumadin till Cardiology evaluation 4. Paroxysmal atrial fibrillation, Chronic Stable - Pt chronically anticoagulated on warfarin, which was held in setting of acute GI bleed. - INR reversed for EGD (11/22/16) - Heparin drip, bridge to warfarin. INR goal 2.5-3.5 5. Chronic kidney disease, stage 3, - avoid nephrotoxic insults - monitor urine output 6. Diabetes mellitus type 2, insulin using. Stable - Hemoglobin A1c 7.0%. - low correctional Lispro protocol and bedside glucose monitoring. - Restarted patient on insulin aspart 15 units 3 times a day with meals when eating again. 7. Chronic hypertension, Stable - Continue home medications. 8. Cirrhosis secondary to alcohol abuse - No fluid noted on exam. - Monitor for any mental status changes, if they occur recommend getting ammonia level and lactulose. - Acetaminophen as needed for mild pain/fever/headache - Bowel regimen as needed - Antiemetic as needed Patient is admitted under observation status with expected length of stay less than 2 midnights due to severity of presenting symptoms, risk of adverse event, and complexity of treatment plan. . Resuscitation Status: CPR: Attempt Resuscitation Andrae Jimenes MD Dec 10, 2016 20:49
[2016-12-11] VITALS (18 sets, daily range): BP systolic 95–172; BP diastolic 52–86; PULSE 76–101; RESP 14–18; O2SAT 95–100
--- NOTE | 2016-12-11 04:40 | NUR ---
low H/H Pt had 3 black, formed BM this shift. stool for guaiac was sent x1. H/H @02:30 was 6.7/22.5. Rec'd an order for a STAT repeat. came back 6.8/22.3. Dr. Alicia was notified and rec'd new orders. will infuse the first unit when blood is ready. pt to sign consent. Denies dizziness when up. SBA with a FWW at bedside to void or to the BR to have a BM; tolerating well. bed alarm on for safety. Addendum: 12/11/16 at 0625 by SHERIN SINHA RN pt signed consent for blood transfusion; no questions or concerns at this time. 1st unit of PRBCs infusing; pt tolerating well w/o any adverse effects.
[2016-12-11] MEDS: 0.9% Sodium Chloride 250 ML IV SCH ×2 (05:56→09:33)
[2016-12-11] MEDS: Insulin LISPRO 300 Unit/3 mL Inj SUBQ SCH ×4 (08:00→21:58)
[2016-12-11] MEDS ORDERED: Pantoprazole 4 mg/mL 10 mL Inj IVPUSH ONE (08:35)
[2016-12-11] MEDS ORDERED: cefTRIAXone Inj 1,000 MG in IV Premix 1 EACH IV SCH (08:35)
[2016-12-11] MEDS ORDERED: cefTRIAXone Inj 1,000 MG in Dextrose 5% Minibag Plus 50 ML IV SCH (08:50)
[2016-12-11] MEDS ORDERED: Propofol 10,000 mCg/mL 20 mL Inj ONE (12:15)
[2016-12-11] MEDS ORDERED: Lactated Ringer's 1,000 ML IV ONE (12:29)
--- NOTE | 2016-12-11 12:29 | PCM.HPANE ---
Patient Data Surgeon Admitting Provider:Andrae Jimenes MD Attending Provider:Andrae Jimenes MD Primary Care Physician:Ria Sy MD Other Provider: Reason for Visit [facility] Bleed Ht/WT & BMI Height (Feet): 6 Height (Inches): 0 Weight (Kilograms): 102.500 Body Mass Index 30.61 Allergies Coded Allergies: No Known Drug Allergies (Verified Allergy, Unknown, 12/10/16) Past Anesthesia History Anesthesia History: Denies:: Anesthesia Reactions, Fam Anesthesia Reaction, Fam Malignant Hypertherm, Malignant Hyperthermia Diabetes History Hx Diabetes?: Yes (on insulin) Current Bedside Blood Glucose: 85 MRSA MRSA: No Medications Active Scripts [Thiamine] (Vitamin B1)100 MG TABLET No Conflict [id number] Mg PO DAILY #10 Prov:Krystal White DO 12/07/[address] 40 Mg Tablet.dr40 Mg PO DAILYAC 30 Days Prov:Rodri Clinton MD 10/27/16 Reported Medications Ketoconazole 120 Ml Totoiaw228 Ml TP DAILYWD shampoo 5ml to affected area daily 12/10/16 Econazole Nitrate 15 Gm Cream..g.1 Appl TOP BID #1 TUBE apply to scalp 12/10/16 Loratadine (Claritin)10 Mg Bmzahik62 Mg PO MORNING Ref 0 12/10/16 Insulin Aspart (NovoLOG U-100 Pen)100 Unit/Ml Insuln.pen20 Units SC TIDWM 11/20/16 Mometasone/Formoterol (Dulera 100 Mcg/5 Mcg Inhaler)13 Gm Hfa.aer.ad1 Puffs IH DIRECTED PRN For Shortness of Breath 11/20/16 Ferrous Sulfate 324 Mg Tablet.dr324 Mg PO TID 30 Days Ref 0 11/20/16 Ascorbate Calcium (Vitamin C)500 Mg Skmomh941 Mg PO TID 11/20/16 Multivitamin (Once Daily)1 Each Tablet1 Each PO DAILY 11/20/16 Cholecalciferol (Vitamin D3) (Vitamin D)1,000 Unit Tablet1,000 Unit PO QAM 10/24/16 Atorvastatin Calcium 40 Mg Fzaars70 Mg PO QPM 10/24/16 Tamsulosin ER 0.4 Mg Cap.er.24h0.4 Mg PO QPM 10/24/16 Potassium Chloride 20 Meq Tab.er.prt20 Meq PO QAM 10/24/16 Furosemide 40 Mg Qenryz00 Mg PO QAM 10/24/16 Amiodarone 200 Mg Famfiu411 Mg PO QAM 10/24/16 Insulin Detemir (Levemir Flextouch)100 Unit/1 Ml Insuln.pen55 Units SUBQ QAM 10/24/16 Sertraline HCl (Sertraline)100 Mg Wjrfsw199 Mg PO QAM 10/24/16 Oxybutynin Chloride 5 Mg Tablet5 Mg PO BID 10/24/16 Discontinued Reported Medications Hydroxyzine Pamoate (HydrOXYzine Pamoate)25 Mg Ghhzpuu34 Mg PO HS PRN For Insomnia 10/24/16 Warfarin Sodium (Jantoven)1 Mg Tablet1 Mg PO DIRECTED 10/24/16 History History of ENT Problems?: No HEENT History: Positive for:: Cataracts (left eye had surgery) Dysphagia Denies:: Sinus Problem Hx of Heart Problems?: Yes Cardiovascular History: Positive for:: Cardiac Surgery (hx of valve replacement, on coumadin) Edema Heart Murmur (aortic valve stenosis, s/p AVR now anticoagulated) Hypertension Irregular Heartbeat (paroxysmal afib) Denies:: Congestive Heart Failure Pacemaker Thrombophlebitis Hx of Respiratory Problem?: Yes Respiratory History: Positive for:: Asthma COPD Dyspnea Pneumonia Denies:: Emphysema Hemoptysis Tuberculosis Hx Neurologic Problems?: Yes Neurological History: Positive for:: CVA Dizziness Headaches Denies:: Alzheimer's Disease Dementia Parkinson's Disease Seizures Hx of GI Problems?: Yes Gastrointestinal History: Positive for:: Gastroesphageal Reflux Gastrointestinal Bleeding Rectal Bleeding Denies:: Diverticulitis Heartburn Hepatitis Hiatal Hernia Hx of Problems?: Yes Genitourinary History: Positive for:: Kidney Stones Urinary Tract Infection Denies:: HX of Hemodialysis HX of Peritoneal Dialysis: No Male Hx: Positive for:: Prostate Problems (BPH) Denies:: Scrotal Mass Testicular Surgery Hx Musculoskeletal Problems?: Yes Musculoskeletal History: Positive for:: Back Injury Denies:: Joint Replacement Musculoskeletal Trauma Hx of Psycho/Social Problems?: Yes Psycho Social History: Denies:: Anxiety Bipolar Disorder Hx Depression Suicide Attempt Hx Surgeries?: Yes (valve replacement, ABD SURG INFANT) Hx Any Other Health Problems?: Yes Other History: Positive for:: Hospitalization Denies:: Cancer Endocrine Disease Thyroid Disease History Blood Transfusions: Positive for:: Accept Blood Products? Blood Transfusions Denies:: Blood Transfuse Reaction Hx Diabetes: Yes (on insulin)Bedside Blood Glucose: 85 Hx Alcohol Use: YesHx Substance Use: Yes (ETOH, cocanine 20+) Smoking Status: Former Smoker Have You Smoked inLast 12 mo: No Stop/Bang Treated for Sleep Apnea?: No Do You Have a CPAP Machine?: No S-Snoring: Do You Snore Loudly: No T-Tired: feel tired, fatigued: Yes O-Obsered: Observed not breath: No P-Blood Pressure: treated: Yes B- Body Mass Index > 35 kg/m2: No A- Age over 50: Yes N- Neck Large Circumference: No G- Gender Male: Yes CANDICE Total Score: 3 Risk Assessment Category Category 1A: Patient has history of documented sleep apnea, and HAS NOT received any narcotic, sedative or anesthesia administration during this stay. Category 1B: Patient has history of documented sleep apnea, and HAS received any narcotic , sedative or anesthesia administration during this stay Category 2: Patient has SUSPECTED Obstructive Sleep Apnea, and HAS received any narcotic , sedative or anesthesia administration during this stay. Category 3: Patient has SUSPECTED Obstructive Sleep Apnea and HAS NOT received narcotic, sedative or anesthesia administration during this stay. Category 4: Outpatient in Procedural Areas with known sleep apnea or who screen positive for High Risk via the STOP/BANG questionnaire. Exam Exam Vital Signs Vital Signs Date Time Temp Pulse Resp B/P Pulse Ox O2 Delivery O2 Flow Rate FiO2 12/11/16 12:25 36.2 85 18 163/84 12/11/16 09:52 36.2 85 18 125/73 12/11/16 09:36 36.4 85 18 143/82 12/11/16 09:00 36.4 85 18 143/82 12/11/16 08:51 36.4 85 18 143/82 12/11/16 08:00 92 12/11/16 05:51 36.3 87 18 136/78 12/11/16 05:25 36.7 88 18 121/70 12/11/16 04:46 89 General Appearance: Alert, Oriented X3, Cooperative, No Acute Distress HEENT/AIRWAY: MP 2 Lungs: Clear to Auscultation Heart: Exam Unremarkable Meds/Labs/Diagnostics Admission Meds Current Medications Pantoprazole 40 mg 40 mg ONCE ONCE IVPUSH Last administered on 12/10/16 20:20 ; Start 12/10/16 at 20:05; Stop 12/10/16 at 20:06; Status DC Sodium Chloride (Normal Saline) 250 ml @ 10 mls/hr Q24H IV Last administered on 12/11/16 09:33; Start 12/11/16 at 04:00 Octreotide Acetate (SandoSTATIN Inj) 50 mcg OT ONCE SUBQ Last administered on 12/11/16 10:26; Start 12/11/16 at 09:20; Stop 12/11/16 at 09:21; Status DC Bedside Blood Glucose: 85 Labs Test 12/10/16 14:30 12/10/16 19:00 12/11/16 03:40 White Blood Count 5.5th/mm3 (3.8-10.1) Red Blood Count 4.14mil/mm3 (4.40-5.80) Mean Corpuscular Volume 76.1fL (81-100) Mean Corpuscular Hemoglobin 23.2pg (27.0-35.0) Mean Corpuscular Hemoglobin Concent 30.5% (32.0-37.0) Red Cell Distribution Width 19.2% (12.3-15.4) Platelet Count 120bil/L (150-400) Neutrophils (%) (Auto) 81.1% (40-74) Lymphocytes (%) (Auto) 9.8% (14-46) Monocytes (%) (Auto) 8.0% (4-12) Eosinophils (%) (Auto) 0.5% (0-5) Basophils (%) (Auto) 0.4% (0-3) Prothrombin Time 12.6sec (8.1-12.5) Prothromb Time International Ratio 1.17ratio Hold Urine Received (Received) Sodium Level 135mEq/L (134-144) Potassium Level 4.0mEq/L (3.5-5.2) Chloride Level 100mEq/L (97-108) Carbon Dioxide Level 22mmol/L (18-29) Blood Urea Nitrogen 16mg/dL (8-27) Creatinine 1.08mg/dL (0.76-1.27) Estimat Glomerular Filtration Rate 73mL/min (>59) Glucose Level 181mg/dL (60-99) Calcium Level 8.2mg/dL (8.5-10.1) Magnesium Level 1.9mg/dL (1.6-2.6) Total Bilirubin 0.8mg/dL (0.0-1.2) Aspartate Amino Transf (AST/SGOT) 67U/L (0-50) Alanine Aminotransferase (ALT/SGPT) 49U/L (0-44) Alkaline Phosphatase 259U/L (25-160) Total Protein 6.4g/dL (6.4-8.4) Albumin 2.9g/dL (3.4-5.0) Urine Color Yellow (YELLOW) Urine Appearance Clear (CLEAR,HAZY) Urine pH 6.5 (5.0-8.0) Urine Specific [place] <1.005 (1.003-1.035) Urine Protein Negativemg/dL (NEG,TRACE) Urine Glucose (UA) Negativemg/dL (NEGATIVE) Urine Ketones Negativemg/dL (NEGATIVE) Urine Occult Blood Negative (NEGATIVE) Urine Nitrite Negative (NEGATIVE) Urine Bilirubin Negative (NEGATIVE) Urine Urobilinogen Normalmg/dL (NORMAL) Urine Leukocyte Esterase Negative (NEGATIVE) Urine RBC 0-2/hpf (0-2) Urine WBC 0-5/hpf (0-5) Urine Epithelial Cells Occasional/hpf (NONE-MOD) Urine Crystals None seen (NONE SEEN) Urine Bacteria None/hpf (NONE-FEW) Urine Hyaline Casts None/lpf (NONE) Urine Granular Casts None seen (NONE SEEN) Urine Waxy Casts None seen (NONE SEEN) Urine Red Blood Cell Casts None seen (NONE SEEN) Urine White Blood Cell Casts None seen (NONE SEEN) Urine Mucus None seen (None Seen) Urine Trichomonas None seen (NONE SEEN) Urine Yeast None (NONE SEEN) Urinalysis Comment None Urine Culture Reflexed Not indicated Hemoglobin 6.8g/dL (13.8-17.2) Hematocrit 22.3% (41.0-50.0) Plan Impression Patient chart reviewed, patient interviewed and anesthestic plan with risks, benefits, and alternatives discussed, and informed consent obtained. NPO Status: > 8 hrs ASA Physical Status: ASA3 Severe Disease Anesthetic Plan: MAC Bene/Risks/Altern/Consents: Yes HP Complete Prior to Induction: Yes Wilbur Barry MD Dec 11, 2016 12:29
[2016-12-11] MEDS: Dextrose 5% 0.45% NaCl 1,000 ML IV SCH (13:50)
--- NOTE | 2016-12-11 13:51 | PCM.PNMED ---
Subjective Date of Service Dec 11, 2016 Subjective Patient is having melena overnight hgb dropped overnight, admitted that he took ibuprofen recently, decided to take for EGD per started PPI bolus and drip, octreotide bolus followed by drip Exam Vital Signs Vital Sign - Last Date Time Temp Pulse Resp B/P Pulse Ox O2 Delivery O2 Flow Rate FiO2 12/11/16 13:27 78 14 106/62 96 Room Air 12/11/16 12:32 36.7 Intake and Output 12/10/16 12/10/16 12/11/16 Cumulative From/Thru 15:00 23:00 07:00 12/10/16 13:53 - 12/11/16 06:20 Intake Total 600 ml 600 ml Output Total 1300 ml 1300 ml Balance -700 ml -700 ml Intake Oral 600 ml 600 ml Output Urine Total 1300 ml 1300 ml # Bowel Movements 4 4 Exam NAD, comfortably laying down on the bed no JVD, MMM, no LAD RRR, nl s1, s2 no mrg CTAB, no w,c S,ND, very mild tenderness,normoactive BS+, no splenomegaly hepatomegaly warm, no edema, pulses 2/2 IVs and Medications Medications Reviewed: Medications were reviewed in detail Lab and Diagnostics Result Diagram: 12/11/16 0340 12/10/16 1430 Assessment & Plan 66-year-old male with a past medical history significant for aortic valve replacement on chronic anticoagulation, paroxysmal atrial fibrillation, COPD stage III, diabetes mellitus type 2, who presented to the ER with a several week history of melena, progressive weakness as well as fatigue and a hemoglobin of 5.6. Admitted for possible GI bleed and acute anemia. Acute, active #Recurrent upper GI bleeding in the setting of cirrhosis, NSAID use, possible med-noncompliance. s/p EGD on 11/23/16, biopsy results showing gastritis. Likely secondary to portal hypertensive gastropathy. likely similar picture vs new ulcer. -appreciate GI input, EGD today. -continue PPI gtt, octreotide gtt for 4-5D, likely until Thursday, then likely nonselective BB upon d/c -CFX 1g qd ppx given acute GIB, cirrhosis -keep telemetry, monitor hemodynamics, hgb target>8 chronic, stable #Status post bivalvular replacement, afib, not on AC given recurrent GIB, stopped from last hospitalization #CKD3, avoid nephrotoxin, renally adjust meds #Diabetes mellitus type 2, insulin using. Stable, Hemoglobin A1c 7.0%. - low correctional Lispro protocol and bedside glucose monitoring. - Restarted patient on insulin aspart 15 units 3 times a day with meals when eating again. #Chronic hypertension, Stable, continue home medications. #Cirrhosis secondary to alcohol abuse, no signs of active WD. INR seemed at baseline. dispo: likely 4-5more days diet: NPO for now, likely clears after EGD Full Code dvt ppx: SCD . Resuscitation Status: CPR: Attempt Resuscitation Time spent 35 minutes Rodri Clinton MD Dec 11, 2016 13:51
[2016-12-11] MEDS: Pantoprazole Inj 80 MG in 0.9% Sodium Chloride 80 ML IV SCH ×2 (13:53→21:11)
--- NOTE | 2016-12-11 14:12 | PCM.ENDEGD ---
EGD Date of Service: Dec 11, 2016 Physician Andrae Jimenes MD Indication for Procedure GI bleeding Post Procedure Dx & Findings: Hemorrhagic gastropathy Procedure Esophagogastroduodenoscopy PROCEDURE IN DETAIL: The patient was placed in left lateral decubitus position. Bite block was placed. Scope lubricated, placed in posterior pharynx, passed through the cricopharyngeus and esophagus, slowly advanced the entire length of the gastric pouch, pylorus was identified, scope passed through the pylorus and descending portion of duodenum, withdrawn in the antrum, retroflexed upon itself for view of fundus and cardia. Scope was then withdrawn through the oropharynx. Scope advanced into the distal esophagus. Z line was intact. However there may be no grade 1 varices one column and 2 more columns of suddle varices at best grade 1. We visualized the stomach. Retroflexion was done. Stomach was easily inflatable and deflatable using air. The cardia fundus and the body showed mild congestion with portal hypertensive gastropathy. However in the antrum, there were significant amount of patchy redness diffusely in the entire antrum and the pylorus. This could be gave however to diffuse. Under other hand with his history of recent NSAID use, this could be hemorrhagic gastropathy as well. However there was no ulcers erosions. Despite touching the mucosa, he started oozing blood. Scope further advanced to the distal duodenum which showed normal villous structures without any ulcers masses or erosions. Impression Hemorrhagic gastropathy versus GAVE. It is unclear. However with underlying portal hypertension and low platelets, he continues to have melena and decreasing hemoglobin despite IV PPI and IV octreotide, I will transfer this patient for possible argon plasma to a tertiary care center. Probable grade 1 varices Recommendation IV PPI and IV octreotide and antibiotics for 5 days. Follow his hemoglobin as well as stool output. If he does well, I would discharge the patient with not a lot of propranolol to target heart rate in the low 50s and of course and being asymptomatic such has no dizziness lightheadedness or fall risk. I would start with clears today and given full liquid diet for now. Avoid NSAIDs. Presedation Assessment Risks and Benefits Informed consent was obtained from the patient after all risks and benefits including but not limited to drug reaction, infection, pain, bleeding, perforation, as well as alternatives were discussed. Patient monitoring Continuous pulse oximetry, cardiac monitoring, blood pressure monitoring, IV access, and oxygen at 2L per nasal cannula. Complications There were no periprocedural complications identified. Post Procedure Plan Post Procedure Recommendations 1. Restrict activities today. 2. Resume normal activities in the morning. 3. Resume medications. 4. GERD behavioral modification: - Avoid fatty, acidic, spicy, large meals - Do not lie down after meals - Do not eat or drink anything for at least 2 1/2 hours before going to bed at night - Discontinue tobacco and alcohol - Decrease or avoid caffeine - Avoid chocolate and mints - Decrease weight - Avoid aspirin and non steroidal anti-inflammatory agents (NSAID) such as Aleve, Advil, Mobic, Naproxen, Ibuprofen, etc 5. Add proton pump inhibitor. Take 30 minutes before 1st meal of the day. 6. Patient informed of normal post procedure side effects as bloating, drowsiness, blood streaking in the stool 7. If gastric biopsy reveal H.pylori, continue with appropriate treatment 8. If small bowel biopsy reveals celiac, continue with appropriate treatment 9. Please don't hesitate to call me with any questions Carmelo Guillermo MD Dec 11, 2016 14:12
--- NOTE | 2016-12-11 14:41 | NUR ---
Social Work: Initial Assessment Data: Pt is a 66 y/o male admitted for upper GI bleed. Pt's PCP is Dr Sy. Pt's insurance is Medicare with [facility] supp. EMR reviewed. Pt discussed in rounds. ADVISORY APPLICATION DEVELOPER met with pt at bedside, he requested ADVISORY APPLICATION DEVELOPER call his family to complete assessment. ADVISORY APPLICATION DEVELOPER called pt's daughter at listed phone number and it was a wrong number. ADVISORY APPLICATION DEVELOPER found pt's other daughter's phone number on board in room, ADVISORY APPLICATION DEVELOPER called this number and it did not work. ADVISORY APPLICATION DEVELOPER called pt's cousin, Valerie, listed in contacts, who states she can answer questions. She states that pt lives with his two daughters in a home with no stairs. Pt uses a walker regularly. Pt has history with [facility] and at a SNF after heart surgery. Pt has no LTC or VA benefits and is not a caregiver. Valerie does not know if pt has a DPOA or not. She states pt's daughter will be at the hospital tomorrow and ADVISORY APPLICATION DEVELOPER can ask her then about this. ADVISORY APPLICATION DEVELOPER will continue to follow for possible d/c needs. Assessment: Pt who has caregiving at baseline. Plan: Pt will likely d/c home via POV when medically stable, ADVISORY APPLICATION DEVELOPER will continue to follow for possible d/c needs. JILL Villegas Addendum: 12/11/16 at 1446 by SARBJIT MALONE Amended: Links added.
[2016-12-11] MEDS ORDERED: Insulin GLARgine 100 Unit/mL Syringe SUBQ ONE (14:50)
--- NOTE | 2016-12-11 15:05 | PCM.CHPMED ---
Subjective Date of Service: Dec 11, 2016 Provider requesting consult: Rodri Clinton MD Primary Physician: Admitting Physician: Andrae Jimenes MD Primary Care Physician: Ria Sy MD Attending Physician: Andrae Jimenes MD Chief Complaint: Chief Complaint: Melena, SOB, abdominal pain History of Present Illness: 66 year old male with a Chronic GI bleeds, chronic kidney disease, alcoholism, aortic valve stenosis, hypertension, hyperlipidemia and GERD presents to [facility] emergency department complaining of melena that began 3 days ago. Associated symptoms include mild SOB and abdominal pain. He describes a chronic RUQ abdominal pain ongoing for 1 year. He reports the pain is worse when he is in the car and hits a bump. He denies hematemesis, chest pain, or hematuria. He denies diarrhea and states he has had soft stool. He was previously admitted on 10/24 for a GI bleed. Patient was also recently admitted to the hospital for anemia due to a GI bleed on 11/20. He was discharged with a hemoglobin of 8.5 on 12/07. Patient was previously on Coumadin but has not taking it since discharged from the hospital. Endoscopy on 11/22/16 showed mild erosive esophagitis mild portal hypertensive gastropathy, mild nonerosive gastritis, bulbar duodenitis and oozing/blood clots in various parts of the stomach. He had seen his apprise counselor prior to admit, who found his Hb at 7.4 and sent him to the ED. He was found to have Hb 9.6 in the ED, possibly a lab error. Hb the next day was 6.7 and he was transfused. Pt is a poor historian and cannot remember if he took NSAIDs recently, but states he may have. He was an alcoholic and states he quit 2 years ago. He reports occasional Tylenol use. No family history of colon cancer, Crohn's, UC, celiac disease. Review of Systems: Comprehensive review of systems conducted and was negative except for the pertinent positives listed above. PMH Past Medical History 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 BPH with [place] Hyperlipidemia Chronic kidney disease stage III GERD Cerebral infarction Anxiety Aortic valve stenosis Paroxysmal atrial fibrillation Chronic GI bleed Diabetes mellitus Hypertension Bedside Blood Glucose: 85 Surgical History Valve replacement - on Warfarin (discontinued) Allergies: Coded Allergies: No Known Drug Allergies (Verified Allergy, Unknown, 12/10/16) Family History Family History Alcoholism Social History Hx Alcohol Use: YesHx Substance Use: Yes (ETOH, cocanine 20+)Hx Tobacco Use: Yes Smoking Status: Former Smoker Living Arrangement: with Family Exam Vital Signs Vital Sign - Last Date Time Temp Pulse Resp B/P Pulse Ox O2 Delivery O2 Flow Rate FiO2 12/11/16 13:45 36.7 81 18 150/86 97 Room Air Intake and Output 12/10/16 12/10/16 12/11/16 Cumulative From/Thru 15:00 23:00 07:00 12/10/16 13:53 - 12/11/16 06:20 Intake Total 600 ml 600 ml Output Total 1300 ml 1300 ml Balance -700 ml -700 ml Intake Oral 600 ml 600 ml Output Urine Total 1300 ml 1300 ml # Bowel Movements 4 4 Additional Information: General: Alert, Oriented X3, Cooperative, No Acute Distress Head: Normocephalic, atraumatic. External ears normal. Eyes: PERRLA, EOMI. Anicteric sclerae. Mouth: Mouth Normal, Mucous Membranes Moist/Maud Neck: Neck supple with full range of motion. Chest & Lungs: Clear to auscultation bilaterally with no crackles, wheezes, or rhonchi. Cardiovascular: Regular Rate/Rhythm, Normal S1, Normal S2, Sharp systolic murmur at RUSB Abdomen: RUQ tenderness with rebound, Non-distended, No masses, Normoactive bowel tones, Soft Musculoskeletal: Normal Range of Motion Extremities: No cyanosis/clubbing/edema bilaterally Neurological: Grossly Neurologically Intact, Slurred speech. Lab and Diagnostics Result Diagram: 12/11/16 1415 12/10/16 1430 Assessment & Plan Assessment 66 year old male with a Chronic GI bleeds, chronic kidney disease, alcoholism, aortic valve stenosis, hypertension, hyperlipidemia and GERD presents to [facility] emergency department complaining of melena that began 3 days ago. Acute upper GI bleed. - Hx 2 recent hospitalizations for upper GI bleed, presents with melena. Patient was previously on Coumadin but has not taking it since last discharge. Endoscopy on 11/22/16 showed mild erosive esophagitis mild portal hypertensive gastropathy, mild nonerosive gastritis, bulbar duodenitis and oozing/blood clots in various parts of the stomach. Given his possible recent NSAID use, will proceed with repeat upper endoscopy to rule out ulcerative disease. However , his bleeding is likely related to his portal hypertension. - Will schedule upper endoscopy today - Octreotide bolus/drip for 5 days - Protonix bolus/drip for 5 days - Recommend starting ceftriaxone 1 g/day Possible cholecystitis - Pt reports RUQ abdominal pain chronically, worse with hitting bumps in the road while driving, and presenting with rebound tenderness. CT abd on 11/05/16 showed possible thickened gallbladder wall with large stone near cystic duct. Will order HIDA scan without CCK to avoid choledocholithiasis. - HIDA scan ordered without CCK. - Recommend consulting General Surgery History of possible liver mass. - CT abd 11/05/16 showed possible mass lesion within the caudate lobe of liver. On review with radiology today, this was not immediately apparent, and warrants further investigation. - Ordered MRI with contrast to rule out hepatocellular carcinoma Cirrhosis with portal hypertension - Pt does not appear to have been on a nonselective beta lalit. If he fails medical therapy, will consider TIPS procedure. - Recommend starting nadolol around hospital day 4 I have seen and examined the patient and agree with above. Problems: Resuscitation Status: CPR: Attempt Resuscitation Pernell Villagran Dec 11, 2016 15:04 Carmelo Guillermo MD Dec 12, 2016 17:09
--- NOTE | 2016-12-11 20:40 | NUR ---
Case Management: *Explained ROBLEDO to patient, and daughters Surekha and Jewels at 1942. Patient sitting up at bedside, discussion mostly between myself and Surekha. Surekha requested that I tell the SW that they would like to consider a SNF. Jewels said that SNF had been discussed with [facility] previously. All questions answered. I gave Jesus the paper and he signed it and dated it (I timed it). I also provided them with the "How Medicare Covers Self-Administered Drugs Given in Hospital Outpatient Settings". I was called back to the room. Surekha then informed me that she wanted the ROBLEDO voided and felt I "coerced" her father to sign it and as DPOA she wanted it voided. I asked her since she was DPOA for him she could sign it, she refused. I did void the signature with a straight line, initialed it per her request. I gave her a copy. Dinora Eaton RN
[2016-12-11] MEDS: Octreotide 500 mCg/100 mL NS IV SCH ×2 (21:11)
[2016-12-12] VITALS (9 sets, daily range): BP systolic 148–188; BP diastolic 77–95; PULSE 79–93; RESP 18–22; O2SAT 97–100
--- NOTE | 2016-12-12 00:07 | NUR ---
Coccygeal Pain Pt complained of chronic coccygeal pain. Upon assessment of coccyx, skin clean, dry and intact with no visible abrasions/wounds. Provided patient with 2 pillows for additional cushioning and positioning assistance. Patient stated pillows did provide some relief and support while positioned on left side. Bed low and locked, call light within reach. Addendum: 12/12/16 at 0328 by SAI SORIANO wrong patient
--- NOTE | 2016-12-12 03:29 | NUR ---
Pt out of bed Pt attemted to get out of bed without assistance to use urinal. Assisted pt to stand using FWW while using urinal as pt is slightly lightheaded and unsteady. Pt back in bed. Reminded pt to use call light for needs, pt agrees. Bed alarm on, call light within reach.
[2016-12-12] MEDS: Pantoprazole Inj 80 MG in 0.9% Sodium Chloride 80 ML IV SCH ×2 (04:43→15:29)
[2016-12-12] MEDS: Dextrose 5% 0.45% NaCl 1,000 ML IV SCH ×2 (04:46→20:22)
--- NOTE | 2016-12-12 05:18 | NUR ---
no bleeding No bleeding noted this shift. Pt on protonix gtt and octreotide gtt. NPO since midnight for HIDA scan. pt slept most of the night.
[2016-12-12 06:47] LABS: BASOPHILS % (AUTO) 0.4 % (0-3); EOSINOPHILS % (AUTO) 0.9 % (0-5); MONOCYTES % (AUTO) 11.1 % (4-12); Mean Corpuscular Hemoglobin 24.3 pg (27.0-35.0); Mean Corpuscular Volume 77.4 fL (81-100); Platelet Count 149 bil/L (150-400)
[2016-12-12 07:07] LABS: Magnesium 1.8 mg/dL (1.6-2.6); Phosphorus 3.8 mg/dL (2.5-4.9)
[2016-12-12] MEDS: Insulin LISPRO 300 Unit/3 mL Inj SUBQ SCH ×4 (07:24→21:40)
[2016-12-12] MEDS: Insulin GLARgine 100 Unit/mL Syringe SUBQ SCH (09:32)
[2016-12-12] MEDS: Tolterodine ER 2 mg ER24 Capsule PO SCH (09:32)
[2016-12-12] MEDS: cefTRIAXone Inj 1,000 MG in Dextrose 5% Minibag Plus 50 ML IV SCH (09:39)
--- NOTE | 2016-12-12 09:57 | DRSVH ---
PROCEDURE: NM HIDA SCAN WITHOUT CCK RADIOPHARMACEUTICAL: 5.1 mCi Tc-99m mebrofenin IV. INDICATIONS: RUQ pain. TECHNIQUE: Following intravenous administration of Tc-99m mebrofenin, sequential anterior abdominal images were obtained through at least 60 minutes. COMPARISON: None. FINDINGS: There is normal tracer uptake and excretion by the liver. There is normal visualization o f intrahepatic ducts, common bile duct, and the gallbladder. There is normal tracer excretion into d uodenum. IMPRESSION: 1. Normal filling of gallbladder. No evidence for acute cholecystitis. Dictated by: Kristopher Mishra M.D. on 12/12/2016 at 9:55 Approved by: Kristopher Mishra M.D. on 12/12/2016 at 9:55
--- NOTE | 2016-12-12 10:53 | DRSVH ---
PROCEDURE: MRI ABDOMEN WITH AND WITHOUT CONTRAST ([id number]) INDICATIONS: Rule out hepatocellular carcinoma TECHNIQUE: Coronal HASTE, axial 2D FLASH in- and [id number]; axial breath-hold T2 FSE. Dynamic axial VIBE dur ing the administration of contrast; post-contrast coronal VIBE or 2D FLASH with fat saturation from t he hepatic dome to the iliac crests. Optional diffusion weighted imaging and ADC may be performed. COMPARISON: [facility], NM, NM HIDA SCAN WO CCK, 12/12/2016, 8:00. [facility], US, US ABD DOPPLER, 10/24/2016, 19:07. [facility], CT, CT CHEST ABD PELVIS W CON, 07/2016, 17:52. [facility], CT, THORAX WITHOUT CONTRAST, 08/21/2015, 9:59. [facility], CT , ABDOMEN WITH CONTRAST, 04/07/2016, 10:33. [facility], CT, CT ABD HEPATIC PROTOCOL, 10/17, 16:11. FINDINGS: Image quality: Limited examination due to significant motion artifacts, which degrade images on multi ple sequences. Lung bases: No basal pleural effusions. Heart size is normal. Liver: There is a mass in liver (segment V) measuring 3.4 x 3.7 cm, which is vaguely visible on pre- contrast images due to subtle hyperintensity on T1 and subtle hyperintensity on T2 weighted images. I t is best seen on diffusion weighted images and delayed post contrast images. On dynamic postcontras t images, there is subtle ajx-[id number]-cdiog-enhancement of the mass during the arterial phase. On portal v enous phase, there is slightly more rapid washout of contrast compared to adjacent liver parenchyma. Because of significant motion artifacts, the mass, however, is suboptimally visualized on arterial a nd portal venous phase images. On delayed images (hepatocellular phase), the mass demonstrates hypoin tensity compared to the adjacent liver. Liver has nodular contour. The caudate lobe is enlarged. Both findings are consistent with cirrhosis. Other solid organs: Spleen is moderately enlarged, suggesting portal hypertension. Gallbladder conta ins a gallstone. Biliary system is non dilated. Pancreas is normal in morphology. No adrenal nodul es. Both kidneys demonstrate normal size and enhancement, without hydronephrosis. Nodes and vessels: No retroperitoneal or mesenteric adenopathy by size criteria. Aorta and inferior vena cava are normal in size. Bowel and peritoneum: Unenhanced bowel loops are normal in caliber. No free fluid. Bones and soft tissues: No ventral hernias. Bone marrow is normal in overall signal. IMPRESSION: 1. A suspicious hepatic mass within segment V measuring 3.4 x 3.7 cm. 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 The study, however, is significantly limited due to motion artifacts. 2. Cirrhotic liver. 3. Moderate splenomegaly, suggesting portal hypertension. 4. Cholelithiasis. Dictated by: Kristopher Mishra M.D. on 12/12/2016 at 9:56 Transcribed by: NINA on 12/12/2016 at 10:52 Approved by: Kristopher Mishra M.D. on 12/12/2016 at 12:32
[2016-12-12] MEDS: Octreotide 500 mCg/100 mL NS IV SCH ×2 (12:01)
--- NOTE | 2016-12-12 12:58 | PCM.PNMED ---
Subjective Date of Service Dec 12, 2016 Subjective Denied further black stools since yesterday, no more BM yet mild vague abdominal pain, reported self-limited nosebleeding reported by daughter. Exam Vital Signs Vital Sign - Last Date Time Temp Pulse Resp B/P Pulse Ox O2 Delivery O2 Flow Rate FiO2 12/12/16 09:27 36.6 87 20 157/82 100 Room Air Intake and Output 12/11/16 12/11/16 12/12/16 Cumulative From/Thru 15:00 23:00 07:00 12/10/16 13:53 - 12/12/16 06:46 Intake Total 820 ml 2475 ml 1341 ml 5236 ml Output Total 1700 ml 3600 ml 6600 ml Balance 820 ml 775 ml -2259 ml -1364 ml Intake Oral 2190 ml 638 ml 3428 ml IV Total 170 ml 285 ml 703 ml 1158 ml Packed Cells 650 ml 650 ml Output Urine Total 1400 ml 3600 ml 6300 ml Stool Total 300 ml 300 ml # Bowel Movements 4 Exam NAD, comfortably laying down on the bed no JVD, MMM, no LAD RRR, nl s1, s2 no mrg CTAB, no w,c S,ND, very mild tenderness,normoactive BS+, no splenomegaly hepatomegaly warm, no edema, pulses 2/2 IVs and Medications Medications Reviewed: Medications were reviewed in detail Lab and Diagnostics Result Diagram: 12/12/1662412/12/16624 Assessment & Plan 66-year-old male with a past medical history significant for aortic valve replacement on chronic anticoagulation, paroxysmal atrial fibrillation, COPD stage III, diabetes mellitus type 2, who presented to the ER with a several week history of melena, progressive weakness as well as fatigue and a hemoglobin of 5.6. Admitted for possible GI bleed and acute anemia. Acute, active #Recurrent upper GI bleeding in the setting of cirrhosis, NSAID use, possible med-noncompliance. s/p EGD on 11/23/16, biopsy results showing gastritis. Likely secondary to portal hypertensive gastropathy. Repeat EGD 12/11 showed Hemorrhagic gastropathy versus GAVE. HIDA scan obtained 12/12 due to RUQ pain, negative for cholecystitis. -today, h/h remained stable, no active GIB -appreciate GI input, -continue PPI gtt, octreotide gtt for 4-5D, likely until Thursday, then likely nonselective BB upon d/c in anticipation of TIPS -continue CFX 1g qd ppx given acute GIB, cirrhosis -keep telemetry, monitor hemodynamics, hgb target>8 #A suspicious hepatic mass within segment V measuring 3.4 x 3.7 cm, POA, this was incidental finding from prior hospitalization, now abd MRI 12/12 more suggestive of HCC -appreciate GI recs, likely needs biopsy by IR. Of note, pt has not been on any AC for a while, can go for procedure as long as INR stable. 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 Therefore, daughter demanded investigation, counseled with daughter on current status, explained it is very unlikely that pt has this atypical "streptococcus infection", rather pt has explainable cause of GIB #CKD3, avoid nephrotoxin, renally adjust meds #Diabetes mellitus type 2, insulin using. Stable, Hemoglobin A1c 7.0%. - low correctional Lispro protocol and bedside glucose monitoring. - Restarted patient on insulin aspart 15 units 3 times a day with meals when eating again. #Chronic hypertension, Stable, continue home medications. #Cirrhosis secondary to alcohol abuse, no signs of active WD. INR seemed at baseline. dispo: likely 3-4more days diet:Clears per GI Full Code dvt ppx: SCD . Resuscitation Status: CPR: Attempt Resuscitation Time spent 35 minutes Rodri Clinton MD Dec 12, 2016 12:58
--- NOTE | 2016-12-12 14:43 | NUR ---
Checked patient's previous stay and he does have a qualifying stay within the last 30 days. Updated SUPERINTENDENT PRESSURE
--- NOTE | 2016-12-12 15:09 | NUR ---
Social Work: Continued d/c planning Data: Pt is on day 2 of hospitalization. EMR reviewed. Pt discussed in rounds. MD states that pt's family wants him to be able to go to a SNF, but was told this is not an option because of his observation status. GROUP DIRECTOR met with pt and family and explained that pt has a qualifying stay within the last month and SNF is an option at this time. Pt states that he does not want to go to SNF. Pt's daughter states they are having a family meeting on Thursday afternoon at the hospital to talk about options. GROUP DIRECTOR emphasized that it is up to what the pt wants for d/c, and he cannot be forced to go to SNF. Pt's daughter states understanding. GROUP DIRECTOR suggested getting a few referrals out to SNFs to get options. Pt and daughter agreeable. Pt again states that GROUP DIRECTOR can send referrals but it doesn't mean he is going there. GROUP DIRECTOR asked what he was worried about and he states that last time he went to a SNF it was hard to get out of there. GROUP DIRECTOR stated that he could have family go and visit the locations referred and ask any questions they may have. Pt agreed to sending out referral.SNF choice list given. Family states that [facility] their top two choices, with [facility] third. GROUP DIRECTOR explained that family needs to figure out a plan to take pt home if he continued to decline SNF, pt's daughter states understanding. GROUP DIRECTOR requested UR specialist to refer pt to these locations. GROUP DIRECTOR will continue to follow. Assessment: Pt who has MARSHAL and caregiving at baseline. Plan: Pt being referred [facility], and [facility]. Pt will either d/c to SNF or home depending on pt's desires. Family wants pt to go to SNF. Pt has qualifying stay from previous admission. GROUP DIRECTOR will continue to follow. JILL Villegas
--- NOTE | 2016-12-12 16:13 | NUR ---
spiritual care: pt request lengthy conversational visit. pt animated as he spoke of his [place] traditions, his trevor and values. Dtr at bedside, supportive. Pt shared concerns and interests [place] experienced by [place] people in this area. time of prayer observed as pt requested.
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
--- NOTE | 2016-12-12 19:16 | NUR ---
FRANKIE signed by pt's CORNELL Irby.
[2016-12-13] VITALS (8 sets, daily range): BP systolic 151–175; BP diastolic 70–95; PULSE 80–94; RESP 18–24; O2SAT 96–100
[2016-12-13] MEDS: Dextrose 5% 0.45% NaCl 1,000 ML IV SCH (00:40)
[2016-12-13] MEDS: 0.9% Sodium Chloride 250 ML IV SCH (01:07)
[2016-12-13] MEDS: Pantoprazole Inj 80 MG in 0.9% Sodium Chloride 80 ML IV SCH ×3 (01:33→22:11)
--- NOTE | 2016-12-13 03:38 | NUR ---
Uneventful night Patient has no s/s of bleeding. stool guaiac pending. protonix gtt infusing at 10ml/hr. Octreotide gtt infusing at 5mls/hr. Patient taking in multiple cups of ice this shift. no pain/discomfort. will continue to monitor.
--- NOTE | 2016-12-13 03:58 | NUR ---
Hypertension Patient BP elevated 170's systolic. Patient non-symptomatic. BP is increased from base line. No PRN BP Meds ordered. paged FYI. Will continue to monitor.
[2016-12-13 07:03] LABS: INR 1.26 ratio
[2016-12-13] MEDS: Insulin LISPRO 300 Unit/3 mL Inj SUBQ SCH ×4 (07:50→21:13)
[2016-12-13] MEDS: Tolterodine ER 2 mg ER24 Capsule PO SCH (08:45)
[2016-12-13] MEDS: cefTRIAXone Inj 1,000 MG in Dextrose 5% Minibag Plus 50 ML IV SCH (08:45)
[2016-12-13] MEDS: Insulin GLARgine 100 Unit/mL Syringe SUBQ SCH (08:46)
[2016-12-13 08:55] LABS: Mean Corpuscular Volume 77.8 fL (81-100)
--- NOTE | 2016-12-13 10:37 | NUR ---
Evaluation completed. Please go to "Notes" then click on "Assessments and Notes" (bottom left corner of screen). Then select appropriate discipline tab on top of screen.
[2016-12-13] MEDS: Octreotide 500 mCg/100 mL NS IV SCH ×2 (11:16)
--- NOTE | 2016-12-13 13:18 | NUR ---
NUTRITION ASSESSMENT: Assess: 66 YO M presents with melena that began 3 days ago. Associated symptoms include mild SOB and abdominal pain. He describes a chronic RUQ abdominal pain ongoing for 1 year. 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 His bleeding appears to have stopped but his Hb continued to drop. Full liquid diet ordered over the weekend. If no obvious melena, diet will be advanced by Thursday. CT abd 11/05/16 showed possible mass lesion within the caudate lobe of liver. MRI with contrast on 12/12/16 showed a suspicious hepatic mass measuring 3.4 x 3.7 cm consistent with probable hepatocellular carcinoma. Code status: full. PMHX: CKD stg 3, GERD, cerebral infarction, anxiety, aortic valve stenosis, valve replacement, BPH, HLD, ETOH abuse, afib, chronic GI bleed, type 2 diabetes. DIET: Full liquids per MD. PO intake 100% trays. LABS: Reviewed. K+ 3.4, Glu 128, Ca 7.8, AST 102, ALT 49, Alk Phos 169, Alb 2.6. MEDICATIONS: Reviewed. Vitamins D3, B1, MVI, insulin. GI: BM x 2 yesterday. WEIGHT: 102.5 kg, BMI 30.0 kg/m2 Admit weight: 104.55 kg, IBW 80.9kg ESTIMATED NEEDS: BMI/CKD Calories: 7104-9145 kcal/day (20-25 kcal/kg BW) Protein: 81-97 g/day (1.0-1.2 g/kg IBW) NUTRITION DIAGNOSIS: 1) Inadequate oral intake related to resolving GI bleed, as evidenced by inability to advance diet beyond full liquids. 2)Chewing / swallowing difficulties related to chronic dysphagia, as evidenced by history of requirement for modified diet texture. INTERVENTION: 1) Will notify RN of dysphagia history and request MD referral. 2)Will add supplements to trays until diet advanced beyond full liquids. MONITOR/EVALUATE: Diet advance / tolerance, PO intake, diet modification, labs, nutrition status. Follow per moderate nutrition risk guidelines.
--- NOTE | 2016-12-13 13:29 | NUR ---
Bleeding Pt has had BM x 2 with no visible bleeding, BM light brown soft formed. Will continue to monitor.
--- NOTE | 2016-12-13 16:45 | NUR ---
Evaluation completed. Please go to "Notes" then click on "Assessments and Notes" (bottom left corner of screen). Then select appropriate discipline tab on top of screen.
--- NOTE | 2016-12-13 17:04 | NUR ---
Pt concerns Pt and family have asked for results from "the blood culture they asked for." On review of chart, there wasn't any blood cultures done, I let pt know this, and pt wants to know why it wasn't done. I have relayed this information to MD, via page.
--- NOTE | 2016-12-13 18:45 | PCM.PNMED ---
Subjective Date of Service Dec 13, 2016 Subjective Patient was examined at bedside today. Patient denies any chest pain, shortness of breath, nausea, vomiting, diarrhea. Patient only complains of right upper quadrant pain secondary to hepatomegaly Exam Vital Signs Vital Sign - Last Date Time Temp Pulse Resp B/P Pulse Ox O2 Delivery O2 Flow Rate FiO2 12/13/16 16:54 36.8 89 18 160/70 99 Room Air Intake and Output 12/12/16 12/12/16 12/13/16 Cumulative From/Thru 15:00 23:00 07:00 12/10/16 13:53 - 12/13/16 06:46 Intake Total 1826 ml 1000 ml 8062 ml Output Total 1900 ml 2450 ml 05582 ml Balance -74 ml -1450 ml -2888 ml Intake Oral 1136 ml 1000 ml 5564 ml IV Total 690 ml 1848 ml Packed Cells 650 ml Output Urine Total 1900 ml 2450 ml 77284 ml Stool Total 300 ml # Bowel Movements 2 6 Exam Physical Exam: GEN: Patient was awake, alert, responding appropriately to questions HEENT: PERRLA, EOMI, Neck soft supple, trachea midline, nomocephalic/atraumatic CV: +S1/S2, RRR, positive systolic murmur secondary to valve replacement auscultated Respiratory: CTAB, no wheezes, rales, rhonchi GI: +bowel sounds x4, soft, compressible, mild tenderness to palpation in the right upper quadrant secondary to hepatomegaly EXT: no c/c/e Neuro: CN II-XII grossly intact Psych: mood and affect were appropriate IVs and Medications Medications Reviewed: Medications were reviewed in detail Medications Current Medications Ceftriaxone Sodium/Dextrose/ Water 50 ml @ 100 mls/hr Q24 IV Last administered on 12/13/16 08:45; Admin Dose 100 MLS/HR; Start 12/12/16 at 08:30 Amiodarone HCl 200 mg DAILY PO Last administered on 12/13/16 08:45; Admin Dose 200 MG; Start 12/12/16 at 08:30 Atorvastatin Calcium 40 mg HS PO Last administered on 12/12/16 21:42; Admin Dose 40 MG; Start 12/11/16 at 21:00 Cholecalciferol 1,000 unit DAILY PO Last administered on 12/13/16 08:45; Admin Dose 1,000 UNIT; Start 12/12/16 at 08:30 Tolterodine Tartrate 2 mg MORNING PO Last administered on 12/13/16 08:45; Admin Dose 2 MG; Start 12/12/16 at 08:30 Tamsulosin HCl 0.4 mg DAILY PO Last administered on 12/13/16 08:45; Admin Dose 0.4 MG; Start 12/12/16 at 08:30 Multivitamins/ Minerals Therapeutic 1 tablet DAILY PO Last administered on 08:45; Admin Dose 1 TABLET; Start 12/12/16 at 08:30 Sertraline HCl 200 mg DAILY PO Last administered on 12/13/16 08:45; Admin Dose 200 MG; Start 12/12/16 at 08:30 Thiamine HCl 100 mg DAILY PO Last administered on 12/13/16 08:45; Admin Dose 100 MG; Start 12/12/16 at 08:30 Insulin Glargine 30 unit DAILY SUBQ Last administered on 12/13/16 08:46; Admin Dose 30 UNIT; Start 12/12/16 at 08:30 Lab and Diagnostics Result Diagram: 12/13/1615 12/13/1615 Assessment & Plan 66-year-old male with a past medical history significant for aortic valve replacement on chronic anticoagulation, paroxysmal atrial fibrillation, COPD stage III, diabetes mellitus type 2, who presented to the ER with a several week history of melena, progressive weakness as well as fatigue and a hemoglobin of 5.6. Admitted for possible GI bleed and acute anemia. Acute, active #Recurrent upper GI bleeding in the setting of cirrhosis with portal hypertension, NSAID use, possible med-noncompliance. s/p EGD on 11/23/16, biopsy results showing gastritis. Likely secondary to portal hypertensive gastropathy. Repeat EGD 12/11 showed Hemorrhagic gastropathy versus GAVE. HIDA scan obtained due to RUQ pain, negative for cholecystitis. -today, h/h remained stable, no active GIB -appreciate GI input, -continue PPI gtt, octreotide gtt for 4-5D, likely until Thursday, then likely nonselective BB upon d/c in anticipation of TIPS -continue CFX 1g qd ppx given acute GIB, cirrhosis -keep telemetry, monitor hemodynamics, hgb target>8 -We will consider starting beta lalit tomorrow for the portal hypertension Nadalol Iron deficiency anemia -Continue to monitor H&H -Transfuse as necessary #A suspicious hepatic mass within segment V measuring 3.4 x 3.7 cm, POA, this was incidental finding from prior hospitalization, now abd MRI 12/12 more suggestive of HCC -appreciate GI recs, likely needs biopsy by IR. Of note, pt has not been on any AC for a while, can go for procedure as long as INR stable. 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 Therefore, daughter demanded investigation, counseled with daughter on current status, explained it is very unlikely that pt has this atypical "streptococcus infection", rather pt has explainable cause of GIB #CKD3, avoid nephrotoxin, renally adjust meds #Diabetes mellitus type 2, insulin using. Stable, Hemoglobin A1c 7.0%. - low correctional Lispro protocol and bedside glucose monitoring. - Restarted patient on insulin aspart 15 units 3 times a day with meals when eating again. #Chronic hypertension, Stable, continue home medications. #Cirrhosis secondary to alcohol abuse, no signs of active WD. INR seemed at baseline. dispo: likely 3-4more days diet:Clears per GI Full Code dvt ppx: SCD . Resuscitation Status: CPR: Attempt Resuscitation Time spent 35 minutes Resuscitation Status: CPR: Attempt Resuscitation Time spent Greater than 35 minutes Krystal White DO Dec 13, 2016 18:45
[2016-12-14] VITALS (8 sets, daily range): BP systolic 120–179; BP diastolic 64–91; PULSE 72–93; RESP 20–22; O2SAT 97–100
[2016-12-14] MEDS: 0.9% Sodium Chloride 250 ML IV SCH (04:00)
[2016-12-14] MEDS: Octreotide 500 mCg/100 mL NS IV SCH ×2 (06:48)
[2016-12-14] MEDS: Insulin LISPRO 300 Unit/3 mL Inj SUBQ SCH ×4 (08:00→22:00)
[2016-12-14] MEDS ORDERED: KCl 40 mEq/D5W 500 mL 40 MEQ in IV Premix 1 EACH IV ONE (08:05)
[2016-12-14] MEDS: Tolterodine ER 2 mg ER24 Capsule PO SCH (08:11)
[2016-12-14] MEDS: Insulin GLARgine 100 Unit/mL Syringe SUBQ SCH (08:15)
[2016-12-14] MEDS: cefTRIAXone Inj 1,000 MG in Dextrose 5% Minibag Plus 50 ML IV SCH (09:15)
[2016-12-14] MEDS: Pantoprazole Inj 80 MG in 0.9% Sodium Chloride 80 ML IV SCH ×2 (09:36→20:56)
--- NOTE | 2016-12-14 10:22 | NUR ---
MED Per pharmacy, out of [employer] PO. Pharmacist will contact , for new orders.
[2016-12-14 10:45] LABS: Mean Corpuscular Hemoglobin 23.6 pg (27.0-35.0); Mean Corpuscular Volume 77.2 fL (81-100)
--- NOTE | 2016-12-14 10:55 | NUR ---
Social Work-continued d/c planning: Data:EMR Reviewed. Pt is on day 4 of hospitalization for upper GI Bleed per H&P. Pt is not medically stable, MD anticipates several more days. PT has been working with pt and have cleared pt for home with HH, ambulating 300ft with Fww. SW placed a call to daughter Surekha [phone] and left message to further discuss discharge planning, SW awaiting a return call. Pt has [facility] and is working on getting [facility]. Pt's daughter assist with care at home. SW will continue to follow. Assessment:Pt who has caregivers and HH at baseline. Plan:SW has left message with daughter Surekha to discuss discharge planning. PT has been cleared to return home with HH services. SW will continue to follow. JILL Hankins
--- NOTE | 2016-12-14 11:10 | NUR ---
Left message with daughter Surekha for FRANKIE. Siomara Quinones MSW
[2016-12-14] MEDS ORDERED: Propranolol LA 80 mg ER24 Capsule PO SCH (11:53)
--- NOTE | 2016-12-14 15:44 | NUR ---
FRANKIE signed. JILL Hankins
--- NOTE | 2016-12-14 15:45 | NUR ---
Social Work-continued d/c planning: Data:EMR Reviewed. Pt is on day 4 of hospitalization for upper GI Bleed per H&P. SW followed up with pt's family at bedside. Pt's daughters not present due to illness. GI MD came and met with family and MD may transfer pt to [facility]. SW explained PT recommendation of home. Family would like SW to follow up with them again after decision is made to either transfer pt or not. Referrals have been made to SNF. Pt has CM [facility]in[facility] through the [facility] for [facility]. Pt will need HH if pt does return home. [facility] in folder. SW will continue to follow. Assessment:Pt who is independent at baseline. Plan:Pt to discharge home with HH services vs transfer to [facility]. [facility] in folder. SW will continue to follow. JILL Hankins
--- NOTE | 2016-12-14 15:55 | PCM.PNMED ---
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 Patient denies abdominal pain. While he was walking around today with physical therapy, he said he felt dizzy. I have received a very good history from his family about his falls. That he falls frequently. Exam Vital Signs Vital Sign - Last Date Time Temp Pulse Resp B/P Pulse Ox O2 Delivery O2 Flow Rate FiO2 12/14/16 13:30 36.8 76 20 159/88 100 Room Air Intake and Output 12/13/16 12/13/16 12/14/16 Cumulative From/Thru 15:00 23:00 07:00 12/10/16 13:53 - 12/14/16 00:30 Intake Total 1040 ml 2608 ml 33418 ml Output Total 1625 ml 51399 ml Balance 1040 ml 983 ml -865 ml Intake Oral 2396 ml 7960 ml IV Total 1040 ml 212 ml 3100 ml Packed Cells 650 ml Output Urine Total 1625 ml 28747 ml Stool Total 300 ml # Bowel Movements 2 0 8 Exam Physical examination: Patient is alert oriented. Lungs clear Cardia vascular regular rate rhythm normal S1-S2 Abdomen soft nontender mild distended normoactive bowel sounds Skin shows no jaundice. Lab and Diagnostics Result Diagram: 12/14/16 1038 12/13/16 0615 Assessment & Plan 66 year old male with a Chronic GI bleeds, chronic kidney disease, alcoholism, aortic valve stenosis, hypertension, hyperlipidemia and GERD presents to [facility] emergency department complaining of melena that began 3 days ago. Upper endoscopy was done which showed showed mild erosive esophagitis mild portal hypertensive gastropathy, significant erosive gastritis, and oozing. Given his recent NSAID use, EGD was done which showed significant erosive gastropathy gave versus erosive enteropathy. However the distribution is too diffuse to be gave on the other hand it could be combination of both. Or even possibly both. We will oozing of blood noted at the site when the scope touched the surface. Currently minimal habitus GI bleeding. Hemoglobin stable. No evidence of encephalopathy. Lesion in the liver. No need to biopsy most likely this is a progress or carcinoma. Patient needs to be followed up with a [facility]. As the lesion is less than 5 cm, prognosis should be good. Please make outpatient arrangement for evaluation for HCC at these places. I stop propanolol based on his following history. At this point, recommend watching him over couple days off IV Protonix and IV octreotide. If he starts to bleed, recommend evaluation at tertiary care center such as [facility] for possible TIPS plus or minus argon therapy of the antrum. Resuscitation Status: CPR: Attempt Resuscitation Carmelo Guillermo MD Dec 14, 2016 15:54
--- NOTE | 2016-12-14 16:52 | PCM.PNMED ---
Subjective Date of Service Dec 14, 2016 Subjective Patient was examined at bedside today. Patient denies any chest pain, shortness of breath, nausea, vomiting, diarrhea. Exam Vital Signs Vital Sign - Last Date Time Temp Pulse Resp B/P Pulse Ox O2 Delivery O2 Flow Rate FiO2 12/14/16 13:30 36.8 76 20 159/88 100 Room Air Intake and Output 12/13/16 12/13/16 12/14/16 Cumulative From/Thru 15:00 23:00 07:00 12/10/16 13:53 - 12/14/16 00:30 Intake Total 1040 ml 2608 ml 15195 ml Output Total 1625 ml 00621 ml Balance 1040 ml 983 ml -865 ml Intake Oral 2396 ml 7960 ml IV Total 1040 ml 212 ml 3100 ml Packed Cells 650 ml Output Urine Total 1625 ml 95919 ml Stool Total 300 ml # Bowel Movements 2 0 8 Exam Physical Exam: GEN: Patient was awake, alert, responding appropriately to questions HEENT: PERRLA, EOMI, Neck soft supple, trachea midline, nomocephalic/atraumatic CV: +S1/S2, RRR, positive murmur auscultated secondary to mechanical valve Respiratory: CTAB, no wheezes, rales, rhonchi GI: +bowel sounds x4, soft, compressible, mild TTP in the right upper quadrant EXT: no c/c/e Neuro: CN II-XII grossly intact Psych: mood and affect were appropriate IVs and Medications Medications Reviewed: Medications were reviewed in detail Medications Current Medications Nadolol 40 mg DAILY PO; Start 12/14/16 at 08:30; Stop 12/14/16 at 11:53; Status DC Propranolol HCl 80 mg DAILY PO Last administered on 12/14/16t 12:10; Admin Dose 80 MG; Start 12/14/16 at 11:53; Stop 12/14/16 at 15:48; Status DC Lab and Diagnostics Result Diagram: 12/14/16 1038 12/13/16 0615 Assessment & Plan 66-year-old male with a past medical history significant for aortic valve replacement on chronic anticoagulation, paroxysmal atrial fibrillation, COPD stage III, diabetes mellitus type 2, who presented to the ER with a several week history of melena, progressive weakness as well as fatigue and a hemoglobin of 5.6. Admitted for possible GI bleed and acute anemia. Acute, active #Recurrent upper GI bleeding in the setting of cirrhosis with portal hypertension, NSAID use, possible med-noncompliance. s/p EGD on 11/23/16, biopsy results showing gastritis. Likely secondary to portal hypertensive gastropathy. Repeat EGD 12/11 showed Hemorrhagic gastropathy versus GAVE. HIDA scan obtained due to RUQ pain, negative for cholecystitis. -today, h/h remained stable, no active GIB -appreciate GI input, -PPI and octreotide and nonselective beta lalit have been discontinued by GI -continue CFX 1g qd ppx given acute GIB, cirrhosis -keep telemetry, monitor hemodynamics, hgb target>8 Iron deficiency anemia -Continue to monitor H&H -Transfuse as necessary #A suspicious hepatic mass within segment V measuring 3.4 x 3.7 cm, POA, this was incidental finding from prior hospitalization, now abd MRI 12/12 more suggestive of HCC -appreciate GI recs, likely needs biopsy by IR. Of note, pt has not been on any AC for a while, can go for procedure as long as INR stable. 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 Therefore, daughter demanded investigation, counseled with daughter on current status, explained it is very unlikely that pt has this atypical "streptococcus infection", rather pt has explainable cause of GIB #CKD3, avoid nephrotoxin, renally adjust meds #Diabetes mellitus type 2, insulin using. Stable, Hemoglobin A1c 7.0%. - low correctional Lispro protocol and bedside glucose monitoring. - Restarted patient on insulin aspart 15 units 3 times a day with meals when eating again. #Chronic hypertension, Stable, continue home medications. #Cirrhosis secondary to alcohol abuse, no signs of active WD. INR seemed at baseline. Disposition: The patient has been discontinued from his PPI and octreotide as per GI. They are going to continue to monitor him to see if he remains stable off of these medications. The patient seems to be hemodynamically stable and is actually improving. Upper endoscopy was performed showing mild erosive esophagitis with mild portal hypertensive gastropathy and significant erosive gastritis with oozing. This is felt to be the reason for the patient's current GI bleed. The plan from GI is to watch the patient over the next couple of days to ensure that the patient does not start to rebleed. If the patient does start to rebleed then it is recommended that the patient be evaluated at a [facility] with or without argon therapy of the antrum. The patient has had concerns for endocarditis as there was a patient that had a prosthetic valve replacement at the same time that he did and had chronic bleeding and ended up dying from this. It was explained to the patient that the reason for his bleeding is known and it is secondary to his erosive gastritis. The patient understood and was okay without pursuing an endocarditis workup. Resuscitation Status: CPR: Attempt Resuscitation Krystal White DO Dec 14, 2016 16:51
[2016-12-15] VITALS (8 sets, daily range): BP systolic 112–139; BP diastolic 56–77; PULSE 65–74; RESP 20–22; O2SAT 95–100
[2016-12-15] MEDS: Octreotide 500 mCg/100 mL NS IV SCH ×2 (01:03)
[2016-12-15] MEDS: 0.9% Sodium Chloride 250 ML IV SCH ×2 (04:00→10:16)
[2016-12-15] MEDS: Pantoprazole Inj 80 MG in 0.9% Sodium Chloride 80 ML IV SCH (06:22)
[2016-12-15] MEDS: Insulin LISPRO 300 Unit/3 mL Inj SUBQ SCH ×4 (09:28→22:00)
[2016-12-15 09:33] LABS: Mean Corpuscular Hemoglobin 23.6 pg (27.0-35.0); Mean Corpuscular Volume 77.7 fL (81-100)
[2016-12-15] MEDS: cefTRIAXone Inj 1,000 MG in Dextrose 5% Minibag Plus 50 ML IV SCH (09:34)
[2016-12-15] MEDS: Tolterodine ER 2 mg ER24 Capsule PO SCH (09:35)
[2016-12-15] MEDS: Insulin GLARgine 100 Unit/mL Syringe SUBQ SCH (09:36)
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
--- NOTE | 2016-12-15 16:47 | PCM.PNMED ---
Subjective Date of Service Dec 15, 2016 Subjective Patient was examined at bedside today. Patient denies any chest pain, shortness of breath, nausea, vomiting, diarrhea. Patient states that his stools are now brown in color and no longer black and tarry. Patient's daughter was present and had a lot of questions about the patient's current condition. Exam Vital Signs Vital Sign - Last Date Time Temp Pulse Resp B/P Pulse Ox O2 Delivery O2 Flow Rate FiO2 12/15/16 14:00 36.7 74 20 120/56 98 Room Air Intake and Output 12/14/16 12/14/16 12/15/16 Cumulative From/Thru 15:00 23:00 07:00 12/10/16 13:53 - 12/15/16 06:57 Intake Total 1000 ml 1702 ml 800 ml 38798 ml Output Total 3550 ml 825 ml 400 ml 48711 ml Balance -2550 ml 877 ml 400 ml -2138 ml Intake Oral 1000 ml 1400 ml 800 ml 84183 ml IV Total 302 ml 3402 ml Packed Cells 650 ml Output Urine Total 3550 ml 825 ml 400 ml 24030 ml Stool Total 300 ml # Voids 3 3 # Bowel Movements 2 2 12 Exam GEN: Patient was awake, alert, responding appropriately to questions HEENT: PERRLA, EOMI, Neck soft supple, trachea midline, nomocephalic/atraumatic CV: +S1/S2, RRR, positive murmur auscultated secondary to mechanical valve Respiratory: CTAB, no wheezes, rales, rhonchi GI: +bowel sounds x4, soft, compressible, mild TTP in the right upper quadrant EXT: no c/c/e Neuro: CN II-XII grossly intact Psych: mood and affect were appropriate IVs and Medications Medications Reviewed: Medications were reviewed in detail Medications Current Medications Nadolol 40 mg DAILY PO; Start 12/14/16 at 08:30; Stop 12/14/16 at 11:53; Status DC Propranolol HCl 80 mg DAILY PO Last administered on 12/14/16t 12:10; Admin Dose 80 MG; Start 12/14/16 at 11:53; Stop 12/14/16 at 15:48; Status DC Pantoprazole 20 mg 0630 PO; Start 12/16/16 at 06:30 Lab and Diagnostics Result Diagram: 12/15/1620 12/15/16 0920 Assessment & Plan 66-year-old male with a past medical history significant for aortic valve replacement on chronic anticoagulation, paroxysmal atrial fibrillation, COPD stage III, diabetes mellitus type 2, who presented to the ER with a several week history of melena, progressive weakness as well as fatigue and a hemoglobin of 5.6. Admitted for possible GI bleed and acute anemia. Acute, active #Recurrent upper GI bleeding in the setting of cirrhosis with portal hypertension, NSAID use, possible med-noncompliance. s/p EGD on 11/23/16, biopsy results showing gastritis. Likely secondary to portal hypertensive gastropathy. Repeat EGD 12/11 showed Hemorrhagic gastropathy versus GAVE. HIDA scan obtained due to RUQ pain, negative for cholecystitis. -today, h/h remained stable, no active GIB -appreciate GI input, -PPI and octreotide and nonselective beta lalit have been discontinued by GI -continue CFX 1g qd ppx given acute GIB, cirrhosis -keep telemetry, monitor hemodynamics, hgb target>8 possibly stabilizing Hemoglobin 9 yesterday 8.7 today Iron deficiency anemia -Continue to monitor H&H -Transfuse as necessary #A suspicious hepatic mass within segment V measuring 3.4 x 3.7 cm, POA, this was incidental finding from prior hospitalization, now abd MRI 12/12 more suggestive of HCC -appreciate GI recs, likely needs biopsy by IR. Of note, pt has not been on any AC for a while, can go for procedure as long as INR stable. 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 Therefore, daughter demanded investigation, counseled with daughter on current status, explained it is very unlikely that pt has this atypical "streptococcus infection", rather pt has explainable cause of GIB #CKD3, avoid nephrotoxin, renally adjust meds #Diabetes mellitus type 2, insulin using. Stable, Hemoglobin A1c 7.0%. - low correctional Lispro protocol and bedside glucose monitoring. - Restarted patient on insulin aspart 15 units 3 times a day with meals when eating again. #Chronic hypertension, Stable, continue home medications. #Cirrhosis secondary to alcohol abuse, no signs of active WD. INR seemed at baseline. Disposition: The patient has been discontinued from his PPI and octreotide as per GI. They are going to continue to monitor him to see if he remains stable off of these medications. The patient seems to be hemodynamically stable and is actually improving. Upper endoscopy was performed showing mild erosive esophagitis with mild portal hypertensive gastropathy and significant erosive gastritis with oozing. This is felt to be the reason for the patient's current GI bleed. The plan from GI is to watch the patient over the next couple of days to ensure that the patient does not start to rebleed. If the patient does start to rebleed then it is recommended that the patient be evaluated at a tertiary care center such as [facility] for possible TIPS with or without argon therapy of the antrum. The family has multiple questions and concerns and will have a family meeting with them tomorrow at 11AM. Resuscitation Status: CPR: Attempt Resuscitation Time spent greater than 35 min Krystal White DO Dec 15, 2016 16:47
--- NOTE | 2016-12-15 17:12 | NUR ---
spiritual care: follow up lengthy conversational visit. pt reflected on medical condition, updates about management and personal/family history. Pt maintained energetic conversational stye for nearly 1 hour and was appreciative of company, and support. Pt explored his sense of legacy and community responsibility as he reflected on family relationships through fb posts. kal
[2016-12-16] VITALS (7 sets, daily range): BP systolic 109–158; BP diastolic 58–77; PULSE 59–78; RESP 16–22; O2SAT 97–100
--- NOTE | 2016-12-16 00:24 | NUR ---
Transfer: Pt transferred to room 246-1, this shift pt has had an uneventful night. Pt has denied pain, chest pain and SOB. AOx3, pleasant and cooperative with care. Report given to Surekha Monterroso RN
--- NOTE | 2016-12-16 04:39 | NUR ---
ACTIVITY Patient needs encouragement to follow safety guidelines, forgets to put on his call light, wanders around his room in middle of night. Daughter came in to stay with him for the night. Patient also was able to get nuts from his daughter and was found asleep in his bed with them. Patient reminded of dietary restrictions.
[2016-12-16] MEDS: Pantoprazole 20 mg ER24 Tablet PO SCH (06:30)
[2016-12-16] MEDS: Insulin LISPRO 300 Unit/3 mL Inj SUBQ SCH ×4 (07:56→21:15)
[2016-12-16] MEDS: Tolterodine ER 2 mg ER24 Capsule PO SCH (08:05)
[2016-12-16] MEDS: Insulin GLARgine 100 Unit/mL Syringe SUBQ SCH (08:06)
[2016-12-16 08:32] LABS: Mean Corpuscular Hemoglobin 23.9 pg (27.0-35.0); Mean Corpuscular Volume 78.3 fL (81-100)
[2016-12-16] MEDS: cefTRIAXone Inj 1,000 MG in Dextrose 5% Minibag Plus 50 ML IV SCH (09:03)
--- NOTE | 2016-12-16 09:10 | NUR ---
Pain Pt c/o some lower abd tenderness at 2/10, but only when pressed on. Does not want pain meds at this time. Will continue to monitor.
--- NOTE | 2016-12-16 15:26 | NUR ---
Social Work Note Continued Discharge Planning: D/A: The Pt is a 66 y/o male that was admitted on 12/10/2016 for an upper GI bleed. PT evaluation completed on 12/15/2016, recommending home with HH PT. GI following, last note from 12/15/2016 reports that Pt will need outpatient referral for evaluation for TIPS procedure. SW met with family for FRANKIE and further discharge planning. Family declined signing the FRANKIE, requesting that the Pt be transferred to another facility. , RADU, Utilization Nurse, SW involved. SW informed by Utilization Nurse that GI will be requesting that the Pt be transferred to [facility], family given the clinics information, address, and directions. SW also contacted [facility] to request that HH services be resumed. SW informed that the recommencement of HH services must be included in discharge instructions and summary from both [facility] and , SW to inform all parties during morning rounds on 12/17/2016. SW will continue to follow for additional support. P: The Pt to be discharged with resumed [facility] vs transfer to . GI involved for likely transfer to [facility] when a bed and accepting physician becomes available. SW contacted [facility] for recommencement of services, see note above. Family declined to sign FRANKIE at this time. SW will continue to follow for additional support. Estefany Bryant MSW Habilitation Training Specialist JILL Hankins
--- NOTE | 2016-12-16 15:41 | NUR ---
Social Work Note: D/A: SW contacted by Pt's primary care nurse Valery [phone] at [facility]. Valery informed SW that they received request for the Pt to be referred to [facility]. MARLENA informed Valery of the new plan to request transfer of Pt to . SW to follow for additional support and assistance. JILL Saldivar Tools Programmer JILL Hankins
--- NOTE | 2016-12-16 17:02 | PCM.PNMED ---
Subjective Date of Service Dec 16, 2016 Subjective Patient was examined at bedside today. Patient denies any chest pain, shortness of breath, nausea, vomiting, diarrhea. Exam Vital Signs Vital Sign - Last Date Time Temp Pulse Resp B/P Pulse Ox O2 Delivery O2 Flow Rate FiO2 12/16/16 14:17 74 12/16/16 14:17 36.6 18 144/74 99 Room Air Intake and Output 12/15/16 12/15/16 12/16/16 Cumulative From/Thru 15:00 23:00 07:00 12/10/16 13:53 - 12/16/16 06:38 Intake Total 850 ml 400 ml 92623 ml Output Total 700 ml 58898 ml Balance 150 ml 400 ml -1588 ml Intake Oral 850 ml 400 ml 68251 ml IV Total 3402 ml Packed Cells 650 ml Output Urine Total 700 ml 48804 ml Stool Total 300 ml # Voids 3 2 8 # Bowel Movements 12 Exam Physical Exam: GEN: Patient was awake, alert, responding appropriately to questions HEENT: PERRLA, EOMI, Neck soft supple, trachea midline, nomocephalic/atraumatic CV: +S1/S2, RRR, murmur auscultated secondary to heart valve replacement Respiratory: CTAB, no wheezes, rales, rhonchi GI: +bowel sounds x4, soft, compressible, mild TTP right upper quadrant secondary to hepatomegaly EXT: no c/c/+2 pitting edema Neuro: CN II-XII grossly intact Psych: mood and affect were appropriate IVs and Medications Medications Reviewed: Medications were reviewed in detail Medications Current Medications Pantoprazole 20 mg 0630 PO; Start 12/16/16 at 06:30 Lisinopril 2.5 mg DAILY PO; Start 12/16/16 at 16:50; Status UNV Lab and Diagnostics Result Diagram: 12/16/16 0755 12/15/16 0920 Assessment & Plan 66-year-old male with a past medical history significant for aortic valve replacement on chronic anticoagulation, paroxysmal atrial fibrillation, COPD stage III, diabetes mellitus type 2, who presented to the ER with a several week history of melena, progressive weakness as well as fatigue and a hemoglobin of 5.6. Admitted for possible GI bleed and acute anemia. Acute, active #Recurrent upper GI bleeding in the setting of cirrhosis with portal hypertension, NSAID use, possible med-noncompliance. s/p EGD on 11/23/16, biopsy results showing gastritis. Likely secondary to portal hypertensive gastropathy. Repeat EGD 12/11 showed Hemorrhagic gastropathy versus GAVE. HIDA scan obtained due to RUQ pain, negative for cholecystitis. -today, h/h remained stable, no active GIB -appreciate GI input, -PPI and octreotide and nonselective beta lalit have been discontinued by GI -continue CFX 1g qd ppx given acute GIB, cirrhosis -keep telemetry, monitor hemodynamics, hgb target>8 possibly stabilizing Hemoglobin 9 yesterday 8.7 today Iron deficiency anemia -Continue to monitor H&H -Transfuse as necessary #A suspicious hepatic mass within segment V measuring 3.4 x 3.7 cm, POA, this was incidental finding from prior hospitalization, now abd MRI 12/12 more suggestive of HCC -appreciate GI recs, likely needs biopsy by IR. Of note, pt has not been on any AC for a while, can go for procedure as long as INR stable. 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 Therefore, daughter demanded investigation, counseled with daughter on current status, explained it is very unlikely that pt has this atypical "streptococcus infection", rather pt has explainable cause of GIB #CKD3, avoid nephrotoxin, renally adjust meds #Diabetes mellitus type 2, insulin using. Stable, Hemoglobin A1c 7.0%. - low correctional Lispro protocol and bedside glucose monitoring. - Restarted patient on insulin aspart 15 units 3 times a day with meals when eating again. #Chronic hypertension, Stable, continue home medications. #Cirrhosis secondary to alcohol abuse, no signs of active WD. INR seemed at baseline. Disposition: The patient is currently medically stable. There was a long discussion with the family today who feel that the patient is not safe to be discharged home. The patient was discharged home twice previously and within a few days he decompensated and was readmitted to the hospital. GI was also consulted and feel that the patient from our standpoint is clinically stable however the family does have valid concerns. He called to the primary care office has been made in order to start the referral to [facility]. At this time there is a possible transfer of the patient to the [facility]. The patient is not transferred then he will need to follow-up with his primary care and have a possible TIPS procedure performed and argon therapy as well. He will also need to have the liver mass worked up as this is most likely hepatocellular carcinoma. Patient may be transferred later today will be discharged tomorrow. Resuscitation Status: CPR: Attempt Resuscitation Krystal White DO Dec 16, 2016 17:02
--- NOTE | 2016-12-16 17:11 | NUR ---
spiritual care: follow up visit attempt; pt sleepy. dtr visiting and urged me to return tomorrow. will plan to follow up
[2016-12-17] VITALS (7 sets, daily range): BP systolic 111–151; BP diastolic 68–80; PULSE 72–77; RESP 18–20; O2SAT 97–100
[2016-12-17] MEDS: 0.9% Sodium Chloride 250 ML IV SCH (03:33)
--- NOTE | 2016-12-17 04:28 | NUR ---
ACTIVITY Patient was washed up mostly independently tonight. Was able to fall asleep rather early and sleeping well most of the night. Denies any pain.
[2016-12-17] MEDS: Pantoprazole 20 mg ER24 Tablet PO SCH (06:52)
[2016-12-17] MEDS: Insulin LISPRO 300 Unit/3 mL Inj SUBQ SCH ×4 (07:45→21:24)
[2016-12-17] MEDS: cefTRIAXone Inj 1,000 MG in Dextrose 5% Minibag Plus 50 ML IV SCH (08:58)
[2016-12-17] MEDS: Tolterodine ER 2 mg ER24 Capsule PO SCH (09:00)
[2016-12-17] MEDS: Insulin GLARgine 100 Unit/mL Syringe SUBQ SCH (09:01)
--- NOTE | 2016-12-17 11:13 | PCM.PNMED ---
Subjective Date of Service Dec 17, 2016 Subjective Patient was examined at bedside today. Patient denies any chest pain, shortness of breath, nausea, vomiting, diarrhea. Exam Vital Signs Vital Sign - Last Date Time Temp Pulse Resp B/P Pulse Ox O2 Delivery O2 Flow Rate FiO2 12/17/16 09:07 72 20 120/68 98 Room Air 12/17/16 04:57 36.6 Intake and Output 12/16/16 12/16/16 12/17/16 Cumulative From/Thru 15:00 23:00 07:00 12/10/16 13:53 - 12/17/16 05:44 Intake Total 1060 ml 570 ml 55739 ml Output Total 1000 ml 650 ml 85435 ml Balance 60 ml -80 ml -1608 ml Intake Oral 960 ml 220 ml 13970 ml IV Total 100 ml 350 ml 3852 ml Packed Cells 650 ml Output Urine Total 650 ml 16031 ml Stool Total 1000 ml 1300 ml # Voids 4 2 14 # Bowel Movements 0 12 Exam Physical Exam: GEN: Patient was awake, alert, responding appropriately to questions HEENT: PERRLA, EOMI, Neck soft supple, trachea midline, nomocephalic/atraumatic CV: +S1/S2, RRR, positive murmur secondary to valve replacement Respiratory: Coarse breath sounds, no wheezes GI: +bowel sounds x4, soft, compressible, non TTP EXT: no c/c trace lower extremity edema improved from yesterday Neuro: CN II-XII grossly intact Psych: mood and affect were appropriate IVs and Medications Medications Reviewed: Medications were reviewed in detail Medications Current Medications Pantoprazole 20 mg 0630 PO Last administered on 12/17/16 06:52; Admin Dose 20 MG ; Start 12/16/16 at 06:30 Lisinopril 2.5 mg DAILY PO Last administered on 12/16/16 18:00; Admin Dose 2.5 MG; Start 12/16/16 at 18:00; Stop 12/17/16 at 07:23; Status DC Lisinopril 5 mg DAILY PO Last administered on 12/17/16 09:00; Admin Dose 5 MG; Start 12/17/16 at 08:30 Lab and Diagnostics Result Diagram: 12/17/16 0805 12/15/16 0920 Assessment & Plan 66-year-old male with a past medical history significant for aortic valve replacement on chronic anticoagulation, paroxysmal atrial fibrillation, COPD stage III, diabetes mellitus type 2, who presented to the ER with a several week history of melena, progressive weakness as well as fatigue and a hemoglobin of 5.6. Admitted for possible GI bleed and acute anemia. Acute, active #Recurrent upper GI bleeding in the setting of cirrhosis with portal hypertension, NSAID use, possible med-noncompliance. s/p EGD on 11/23/16, biopsy results showing gastritis. Likely secondary to portal hypertensive gastropathy. Repeat EGD 12/11 showed Hemorrhagic gastropathy versus GAVE. HIDA scan obtained due to RUQ pain, negative for cholecystitis. -today, h/h remained stable -PPI and octreotide and nonselective beta lalit have been discontinued by GI -continue CFX 1g qd ppx given acute GIB, cirrhosis -keep telemetry, monitor hemodynamics, hgb target>8 Iron deficiency anemia -Continue to monitor H&H -Transfuse as necessary #A suspicious hepatic mass within segment V measuring 3.4 x 3.7 cm, POA, this was incidental finding from prior hospitalization, now abd MRI 12/12 more suggestive of HCC -appreciate GI recs, likely needs biopsy by IR. Of note, pt has not been on any AC for a while, can go for procedure as long as INR stable. 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 Therefore, daughter demanded investigation, counseled with daughter on current status, explained it is very unlikely that pt has this atypical "streptococcus infection", rather pt has explainable cause of GIB #CKD3, avoid nephrotoxin, renally adjust meds #Diabetes mellitus type 2, insulin using. Stable, Hemoglobin A1c 7.0%. - low correctional Lispro protocol and bedside glucose monitoring. - Restarted patient on insulin aspart 15 units 3 times a day with meals when eating again. #Chronic hypertension, Stable, continue home medications. #Cirrhosis secondary to alcohol abuse, no signs of active WD. INR seemed at baseline. Disposition: The patient is currently medically stable. And his H&H is remaining stable with hemoglobin between 8 and 9. A transfer attempt to [facility] was made however at this point the [facility] remains full and there are no beds available. After speaking with Dr. Gonzalez, she states that he should possibly be able to get on for an argon therapy procedure by the end of this week or early next week. At this time the plan is to discharge the patient tomorrow with this appointment with Dr. Gonzalez in place. Dr. Gonzalez stated that her office will call the patient's contact, Jewels in order to schedule an appointment. I have called the patient's daughter Jewels and attempted to call the patient's daughter Surekha and explained to her that the patient should be scheduled for this argon therapy procedure at Dr. Gonzalez's office however the patient may need to be discharged home and stay with one of the daughters until this procedure is able to take place. The patient will be discharged home with home health tomorrow. The patient's daughter Jewels phone number [phone] has been contacted and is in agreement with this plan. I have discussed this extensively with the GI who agreed that at this point the patient is medically stable and the next step is for him to have this procedure done at the [facility]. Resuscitation Status: CPR: Attempt Resuscitation Time spent Greater than 35 minutes Krystal White DO Dec 17, 2016 11:13
--- NOTE | 2016-12-17 11:28 | NUR ---
NUTRITION FOLLOW-UP: Assess: 66 YO M presents with upper GI bleed, mild SOB and abdominal pain, now improved. Diet has been advanced to soft yesterday, with good tolerance. 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 CT abd 11/05/16 showed possible mass lesion within the caudate lobe of liver. MRI with contrast on 12/12/16 showed a suspicious hepatic mass measuring 3.4 x 3.7 cm consistent with probable hepatocellular carcinoma. PMHX: CKD stg 3, GERD, cerebral infarction, anxiety, aortic valve stenosis, valve replacement, BPH, HLD, ETOH abuse, afib, chronic GI bleed secondary to cirrhosis and portal HTN, type 2 diabetes. DIET: Soft, [place] thick. PO intake 100% trays. LABS: Reviewed. Na 133, Glu 144, AST 108, ALT 51, Alk Phos 186, Alb 3.0. MEDICATIONS: Reviewed. GI: BM x 1 (12/15) WEIGHT: 102.5 kg. Admit weight: 104.55 kg, IBW 80.9kg ESTIMATED NEEDS: BMI/CKD Calories: 1291-1349 kcal/day (20-25 kcal/kg BW) Protein: 81-97 g/day (1.0-1.2 g/kg IBW) NUTRITION DIAGNOSIS: 1) Inadequate oral intake related to resolving GI bleed, as evidenced by inability to advance diet beyond full liquids--RESOLVED. 2) Chewing / swallowing difficulties related to chronic dysphagia, as evidenced by history of requirement for modified diet texture--IMPROVED. INTERVENTION: 1.) Continue to advance diet as able per ST recommendations. MONITOR/EVALUATE: Diet tolerance, PO intake, labs, nutrition status. Follow per low nutrition risk guidelines.
--- NOTE | 2016-12-17 15:28 | NUR ---
Loose stool GI informed of pt's loose/undigested stool (brown in color). Orders will be written for stool culture. Hat placed in bathroom.
[2016-12-17] MEDS ORDERED: LISI-571 PO (16:06)
--- NOTE | 2016-12-17 16:16 | NUR ---
PCP Referral In order to schedule an appointment with Dr. Cecille Gonzalez at , patient's PCP will refer directly. Dr. Pritchard contacted at 16:10 and made aware of the plan of care. PCP will contact clinic and will call [facility] if appointment has been made. Dr. White updated.
[2016-12-18] MEDS: 0.9% Sodium Chloride 250 ML IV SCH (04:00)
[2016-12-18 04:09] VITALS: BP 124/71; PULSE 78; RESP 18; O2SAT 98
--- NOTE | 2016-12-18 05:44 | NUR ---
GI Pt had several bouts of foamy, light brown diarrhea this shift, stool sample sent to lab, pt denies any pain, asleep on and off.
[2016-12-18 06:10] VITALS: PULSE 80
[2016-12-18 07:25] VITALS: PULSE 77
[2016-12-18] MEDS: Pantoprazole 20 mg ER24 Tablet PO SCH (07:40)
[2016-12-18 07:45] VITALS: BP 137/70; PULSE 84; RESP 20; O2SAT 99
[2016-12-18] MEDS: Insulin LISPRO 300 Unit/3 mL Inj SUBQ SCH ×2 (08:42→12:00)
[2016-12-18] MEDS: Tolterodine ER 2 mg ER24 Capsule PO SCH (08:43)
[2016-12-18] MEDS: Insulin GLARgine 100 Unit/mL Syringe SUBQ SCH (08:43)
[2016-12-18] MEDS: cefTRIAXone Inj 1,000 MG in Dextrose 5% Minibag Plus 50 ML IV SCH (08:43)
[2016-12-18 09:00] VITALS: PULSE 81
--- NOTE | 2016-12-18 11:33 | PCM.DIMED ---
Discharge Instructions Date of Service Dec 18, 2016 Dates of Hospitalization Dec 10, 2016 at 20:40 Discharge Diagnosis Discharge Diagnosis Recurrent Upper GI Bleed Portal Hypertension Iron Deficiency Anemia Liver mass possible hepatocellular carcinoma Afib with valve replacement CKD stage 3 Medication Instructions Please maintain a soft diet. Do not eat anything crunchy as this may be too rough for your stomach and may reopen the healing ulcers in your stomach. Diet Other (soft diet) Activity No restrictions Call your provider Fever or Chills, Shortness of breath, Bleeding, Vomitting, Excessive diarrhea, Other (black or tarry stools) Patient Instructions You have been diagnosed with a mass in your liver. It is very important that you follow up at the [facility] for further work up of this mass and it may be cancerous. Follow-up plan You have a follow-up appointment with Dr. Cecille Gonzalez at the [facility] for an upper GI scope tomorrow at 12:45 PM. If you have any further questions please call [phone] and ask for Rosanne Follow-up with PCP in: 1 week Follow-up in: 1 week (Please follow up with Dr. Gonzalez at [facility] for possible argon therapy [phone]) Krystal White DO Dec 17, 2016 16:03
--- NOTE | 2016-12-18 11:45 | PCM.DC.MED ---
Discharge Summary Date of Service Dec 18, 2016 Dates of Hospitalization Date of Hospital Admission Dec 10, 2016 at 20:40 Date of Discharge: Dec 18, 2016 Providers: Admitting Physician: Andrae Jimenes MD Primary Care Physician: Ria Sy MD Attending Physician: Andrae Jimenes MD Diagnosis at Time of Discharge Diagnosis at Time of Discharge Recurrent Upper GI Bleed Portal Hypertension Iron Deficiency Anemia Liver mass possible hepatocellular carcinoma Afib with valve replacement CKD stage 3 Consultations GI Brief History 66 year old male with a Chronic GI bleeds, chronic kidney disease, alcoholism, aortic valve stenosis, hypertension, hyperlipidemia and GERD presents to [facility] emergency department complaining of melena that began 3 days ago. Associated symptoms include mild SOB and abdominal pain. He describes a chronic RUQ abdominal pain ongoing for 1 year. He reports the pain is worse when he is in the car and hits a bump. He denies hematemesis, chest pain, or hematuria. He denies diarrhea and states he has had soft stool. He was previously admitted on 10/24 for a GI bleed. Patient was also recently admitted to the hospital for anemia due to a GI bleed on 11/20. He was discharged with a hemoglobin of 8.5 on 12/07. Patient was previously on Coumadin but has not taking it since discharged from the hospital. Endoscopy on 11/22/16 showed mild erosive esophagitis mild portal hypertensive gastropathy, mild nonerosive gastritis, bulbar duodenitis and oozing/blood clots in various parts of the stomach. He had seen his central office mechanic prior to admit, who found his Hb at 7.4 and sent him to the ED. He was found to have Hb 9.6 in the ED, possibly a lab error. Hb the next day was 6.7 and he was transfused. Pt is a poor historian and cannot remember if he took NSAIDs recently, but states he may have. He was an alcoholic and states he quit 2 years ago. He reports occasional Tylenol use. No family history of colon cancer, Crohn's, UC, celiac disease. Hospital Course 66-year-old male with a past medical history significant for aortic valve replacement on chronic anticoagulation, paroxysmal atrial fibrillation, COPD stage III, diabetes mellitus type 2, who presented to the ER with a several week history of melena, progressive weakness as well as fatigue and a hemoglobin of 5.6. Admitted for possible GI bleed and acute anemia. The patient was admitted for recurrent GI bleed. The patient was placed on IV Protonix and IV octreotide and this seemed to slow the patient's bleeding. 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 A HIDA scan was also obtained on chief patient's right upper quadrant pain but was negative for cholecystitis. The patient has portal hypertension and a slow bleed in the antrum and it was felt that the patient should be transferred to be appreciably 10 for possible argon therapy. Due to the fact that the patient has low platelets and also a positive hepatocellular carcinoma it was felt that he was not stable enough to do that procedure here at this facility. In attempting to transfer to the [facility] was made however the facility is currently at full capacity and there were no available beds. As the patient is currently stable and back to his baseline anemia with a hemoglobin between 8 and 9 and no further signs of bleeding. The patient is stable enough to go home. The patient will be discharged home with home health and has an appointment tomorrow at 12:[address] Cecille Gonzalez at the [facility] phone number [phone]. Dr. Gonzalez will do a repeat upper endoscopy with possible argon therapy and also do the workup of this liver mass that was found. The patient's family was contacted. And both the patient and the family are satisfied with this treatment plan. One of the patient's daughters/cousin Valerie will take the patient to his appointment tomorrow. It was suggested to the family that the patient go home with one of them for closer monitoring and then after his procedure return home with his current home health services. I have discussed this plan extensively with the GI who agreed that at this point the patient is medically stable and the next step is for him to have this procedure done at the [facility]. Exam Vital Signs (Last) Date Time Temp Pulse Resp B/P Pulse Ox O2 Delivery O2 Flow Rate FiO2 12/18/16 07:25 77 12/18/16 04:09 36.3 18 124/71 98 Room Air Exam Physical Exam: GEN: Patient was awake, alert, responding appropriately to questions HEENT: PERRLA, EOMI, Neck soft supple, trachea midline, nomocephalic/atraumatic CV: +S1/S2, RRR, systolic murmur secondary to valvular replacement Respiratory: CTAB, no wheezes, rales, rhonchi GI: +bowel sounds x4, soft, compressible, mild tenderness to palpation of the right upper quadrant secondary to hepatomegaly EXT: no c/c/+1 pitting edema bilaterally Neuro: CN II-XII grossly intact Psych: mood and affect were appropriate Test 12/10/16 14:30 12/10/16 19:00 12/12/16 06:25 12/13/16 06:15 Hold Urine Received (Received) Urine Color Yellow (YELLOW) Urine Appearance Clear (CLEAR,HAZY) Urine pH 6.5 (5.0-8.0) Urine Specific [place] <1.005 (1.003-1.035) Urine Protein Negativemg/dL (NEG,TRACE) Urine Glucose (UA) Negativemg/dL (NEGATIVE) Urine Ketones Negativemg/dL (NEGATIVE) Urine Occult Blood Negative (NEGATIVE) Urine Nitrite Negative (NEGATIVE) Urine Bilirubin Negative (NEGATIVE) Urine Urobilinogen Normalmg/dL (NORMAL) Urine Leukocyte Esterase Negative (NEGATIVE) Urine RBC 0-2/hpf (0-2) Urine WBC 0-5/hpf (0-5) Urine Epithelial Cells Occasional/hpf (NONE-MOD) Urine Crystals None seen (NONE SEEN) Urine Bacteria None/hpf (NONE-FEW) Urine Hyaline Casts None/lpf (NONE) Urine Granular Casts None seen (NONE SEEN) Urine Waxy Casts None seen (NONE SEEN) Urine Red Blood Cell Casts None seen (NONE SEEN) Urine White Blood Cell Casts None seen (NONE SEEN) Urine Mucus None seen (None Seen) Urine Trichomonas None seen (NONE SEEN) Urine Yeast None (NONE SEEN) Urinalysis Comment None Urine Culture Reflexed Not indicated Neutrophils (%) (Auto) 71.0% (40-74) Lymphocytes (%) (Auto) 16.4% (14-46) Monocytes (%) (Auto) 11.1% (4-12) Eosinophils (%) (Auto) 0.9% (0-5) Basophils (%) (Auto) 0.4% (0-3) Phosphorus Level 3.8mg/dL (2.5-4.9) Magnesium Level 1.8mg/dL (1.6-2.6) Prothrombin Time 13.5sec (8.1-12.5) Prothromb Time International Ratio 1.26ratio Test 12/15/16 09:20 12/16/16 07:55 12/17/16 16:33 12/18/16 07:03 Total Bilirubin 1.0mg/dL (0.0-1.2) Aspartate Amino Transf (AST/SGOT) 108U/L (0-50) Alanine Aminotransferase (ALT/SGPT) 51U/L (0-44) Alkaline Phosphatase 186U/L (25-160) Total Protein 6.3g/dL (6.4-8.4) Albumin 3.0g/dL (3.4-5.0) White Blood Count 6.2th/mm3 (3.8-10.1) Red Blood Count 3.73mil/mm3 (4.40-5.80) Mean Corpuscular Volume 78.3fL (81-100) Mean Corpuscular Hemoglobin 23.9pg (27.0-35.0) Mean Corpuscular Hemoglobin Concent 30.5% (32.0-37.0) Red Cell Distribution Width 19.9% (12.3-15.4) Platelet Count 165bil/L (150-400) Sodium Level 134mEq/L (134-144) Potassium Level 4.0mEq/L (3.5-5.2) Chloride Level 101mEq/L (97-108) Carbon Dioxide Level 22mmol/L (18-29) Blood Urea Nitrogen 11mg/dL (8-27) Creatinine 1.06mg/dL (0.76-1.27) Estimat Glomerular Filtration Rate 75mL/min (>59) Glucose Level 204mg/dL (60-99) Calcium Level 7.7mg/dL (8.5-10.1) Hemoglobin 7.8g/dL (13.8-17.2) Hematocrit 25.9% (41.0-50.0) Discharge Medications Discharge Medications ([Thiamine]) 100 MG TABLET 100 MG PO DAILY Prescribed by: KRYSTAL WHITE DO Amiodarone (Amiodarone) 200 Mg Tablet 200 MG PO QAM (Reported) Ascorbate Calcium (Vitamin C) 500 Mg Tablet 500 MG PO TID (Reported) Atorvastatin Calcium (Atorvastatin Calcium) 40 Mg Tablet 40 MG PO QPM (Reported ) Cholecalciferol (Vitamin D3) (Vitamin D) 1,000 Unit Tablet 1,000 UNIT PO QAM ( Reported) Econazole Nitrate (Econazole Nitrate) 15 Gm Cream..g. 1 APPL TOP BID (Reported) apply to scalp Ferrous Sulfate (Ferrous Sulfate) 324 Mg Tablet.dr 324 MG PO TID (Reported) Furosemide (Furosemide) 40 Mg Tablet 40 MG PO QAM (Reported) Insulin Aspart (NovoLOG U-100 Pen) 100 Unit/Ml Insuln.pen 20 UNITS SC TIDWM ( Reported) Insulin Detemir (Levemir Flextouch) 100 Unit/1 Ml Insuln.pen 55 UNITS SUBQ QAM ( Reported) Ketoconazole (Ketoconazole) 120 Ml Shampoo 120 ML TP DAILYWD (Reported) shampoo 5ml to affected area daily Lisinopril (Lisinopril) 5 Mg Tablet 5 MG PO DAILY Prescribed by: KRYSTAL WHITE DO Loratadine (Claritin) 10 Mg Capsule 10 MG PO MORNING (Reported) Multivitamin (Once Daily) 1 Each Tablet 1 EACH PO DAILY (Reported) Oxybutynin Chloride (Oxybutynin Chloride) 5 Mg Tablet 5 MG PO BID (Reported) Pantoprazole DR (Pantoprazole DR) 40 Mg Tablet.dr 40 MG PO DAILYAC Prescribed by: JUANJOSE VALLE MD Potassium Chloride (Potassium Chloride) 20 Meq Tab.er.prt 20 MEQ PO QAM ( Reported) Sertraline HCl (Sertraline) 100 Mg Tablet 200 MG PO QAM (Reported) Tamsulosin ER (Tamsulosin ER) 0.4 Mg Cap.er.24h 0.4 MG PO QPM (Reported) As needed Mometasone/Formoterol (Dulera 100 Mcg/5 Mcg Inhaler) 13 Gm Hfa.aer.ad 1 PUFFS IH DIRECTED PRN PRN For Shortness of Breath (Reported) Additional med instructions Please maintain a soft diet. Do not eat anything crunchy as this may be too rough for your stomach and may reopen the healing ulcers in your stomach. Followup Plan Follow-up plan You have a follow-up appointment with Dr. Cecille Gonzalez at the [facility] for an upper GI scope tomorrow at 12:45 PM. If you have any further questions please call [phone] and ask for Rosanne Discharge Diet: Other (soft diet) Discharge Activity: No restrictions Patient Instructions You have been diagnosed with a mass in your liver. It is very important that you follow up at the [facility] for further work up of this mass and it may be cancerous. Follow-up with PCP in: 1 week Follow-up in: 1 week (Please follow up with Dr. Gonzalez at [facility] for possible argon therapy [phone]) Time spent Greater than 35 minutes Krystal White DO Dec 18, 2016 11:45
--- NOTE | 2016-12-18 12:34 | NUR ---
transport called [facility], as daughter Valerie stated they can help with transport to [facility]. left at [phone] to call back to see if arrangements can be made. Addendum: 12/18/16 at 1334 by SEVEN RICHARDS RN Spoke with Siomara at 1320 who stated only provides transport thursday thru . Updated Valerie dtmario, of info [phone], She stated that either Valerie or Surekha will provide transport to [facility] tomorrow.
--- NOTE | 2016-12-18 14:25 | NUR ---
spiritual care: follow up visit attempt X2 pt sleeping; did not rouse to voice
--- NOTE | 2016-12-18 14:27 | NUR ---
Social Work: Discharge Readiness Data & Assessment: SW spoke with patient's daughter Valerie, to discuss discharge. Valerie stated that her sister Jewels [phone] will pick the patient up today. Valerie stated that she is aware of the patient's appointment tomorrow with Dr. Cardenas and either her or her sister, Surekha Sarmiento [phone], will accompany the patient at his appointment tomorrow. Director Stars called and notified [facility] and notified them that the patient is discharging home today and will resume home health. SW will give [facility] access. SW will continue to follow. Plan: Patient will discharge home with [facility]. Patient will transport home via POV and has an appointment scheduled with Dr. CARDENAS on 12/18/16. Alyssa Galvan LMSW, ACM
--- NOTE | 2016-12-18 18:19 | NUR ---
Discharge Reviewed DC instructions with daughter Jewels. Answered all questions. H&H rechecked prior to DC and Dr hWite notified, ok to discharge. Daughter Jewels reports one of the family will take him to his appt tomorrow in [place]. Pt went down in w/ to home in private auto with family.
== END 2016-12-18 17:00 | disposition home health service (06) | DRG 378 ==
LOC: SED 13:39 → MPC 20:40 → OBSVTOIN 20:40 → MPC 20:57 → MOC 12-16 00:54
PROVIDERS: ADMIT Hospitalist; ATTEND Hospitalist
PROC: 30233N1 Transfusion of Nonautologous Red Blood Cells into Peripheral Vein, Percutaneous Approach (ICD-10-PCS; 2016-12-11)
PROC: 0DJ08ZZ Inspection of Upper Intestinal Tract, Via Natural or Artificial Opening Endoscopic (ICD-10-PCS; principal; 2016-12-11 12:30)
DX: K92.2 Gastrointestinal hemorrhage, unspecified (principal); K76.6 Portal hypertension; D62 Acute posthemorrhagic anemia; E78.5 Hyperlipidemia, unspecified; K21.9 Gastro-esophageal reflux disease without esophagitis; I35.0 Nonrheumatic aortic (valve) stenosis; I12.9 Hypertensive chronic kidney disease with stage 1 through stage 4 chronic kidney disease, or unspecified chronic kidney disease; N18.3 Chronic kidney disease, stage 3 (moderate); I48.0 Paroxysmal atrial fibrillation; F10.20 Alcohol dependence, uncomplicated; D50.9 Iron deficiency anemia, unspecified; K31.89 Other diseases of stomach and duodenum; E11.9 Type 2 diabetes mellitus without complications; K70.30 Alcoholic cirrhosis of liver without ascites; R16.0 Hepatomegaly, not elsewhere classified; G89.29 Other chronic pain; Z87.891 Personal history of nicotine dependence; Z79.4 Long term (current) use of insulin; Z95.2 Presence of prosthetic heart valve; Z79.01 Long term (current) use of anticoagulants

== ENCOUNTER 2017-01-16 19:02 | Observation (INO) | payer MEDICARE, MEDICAID, OTHER ==
[~2017-01-16] VITALS: Ht 185.4 cm; Wt 104.2 kg
[~2017-01-16 19:02] MED LIST changes: +ECON15CR10 TOP; -FURO40TA4 PO; -HYDR-3797 PO; +KETO120S3 TP; +LISI-571 PO; +LORA10CA PO; -POTA20TA16 PO
[2017-01-16 19:05] VITALS: BP 165/73; PULSE 82; RESP 18; O2SAT 100
--- NOTE | 2017-01-16 19:05 | ED.REPORT ---
HPI-Abd Pain F 40 and Over Date of Service Jan 16, 2017 ED Provider: Leobardo Negron MD 66 year old male with a history of alcoholic liver cirrhosis, GI bleeds secondary to esophageal varices, and chronic kidney disease presents to the ER via EMS from [facility] accompanied by female family members complaining of acute on chronic abdominal pain onset around 15:00-16:00 this afternoon, worsening since onset. Patient reports nausea, but denies vomiting, hematemesis, black/tarry stool, though family member reports bright red blood when she wiped the patient two days ago. Patient has been alcohol free for two years. Per family, patient has had 5-6 hospital stays in the past few weeks. After second visit here at [facility], he was seen by a wax blender in [place] where he was taken off warfarin due to GI bleeding. Endoscopies performed here and at revealed esophageal varices, bleeding at the exit of stomach and dark hardened blood with pressure backing into stomach vessels with blood oozing into the stomach wall. Nursing Notes Stated Complaint: ABDOMINAL PAIN Chief Complaint: Male Abdominal Pain Nursing Notes Reviewed: Yes Allergies: Coded Allergies: No Known Drug Allergies (Verified Allergy, Unknown, 12/10/16) Scheduled ([Thiamine]) 100 MG TABLET 100 MG PO DAILY Amiodarone (Amiodarone) 200 Mg Tablet 200 MG PO QAM Ascorbate Calcium (Vitamin C) 500 Mg Tablet 500 MG PO TID Atorvastatin Calcium (Atorvastatin Calcium) 40 Mg Tablet 40 MG PO QPM Cholecalciferol (Vitamin D3) (Vitamin D) 1,000 Unit Tablet 1,000 UNIT PO QAM Econazole Nitrate (Econazole Nitrate) 15 Gm Cream..g. 1 APPL TOP BID apply to scalp Ferrous Sulfate (Ferrous Sulfate) 324 Mg Tablet.dr 324 MG PO TID Insulin Aspart (NovoLOG U-100 Pen) 100 Unit/Ml Insuln.pen 20 UNITS SC TIDWM Insulin Detemir (Levemir Flextouch) 100 Unit/1 Ml Insuln.pen 55 UNITS SUBQ QAM Ketoconazole (Ketoconazole) 120 Ml Shampoo 120 ML TP DAILYWD shampoo 5ml to affected area daily Lisinopril (Lisinopril) 5 Mg Tablet 5 MG PO DAILY Loratadine (Claritin) 10 Mg Capsule 10 MG PO MORNING Multivitamin (Once Daily) 1 Each Tablet 1 EACH PO DAILY Oxybutynin Chloride (Oxybutynin Chloride) 5 Mg Tablet 5 MG PO BID Pantoprazole DR (Pantoprazole DR) 40 Mg Tablet.dr 40 MG PO DAILYAC Sertraline HCl (Sertraline) 100 Mg Tablet 200 MG PO QAM Tamsulosin ER (Tamsulosin ER) 0.4 Mg Cap.er.24h 0.4 MG PO QPM Scheduled PRN Mometasone/Formoterol (Dulera 100 Mcg/5 Mcg Inhaler) 13 Gm Hfa.aer.ad 1 PUFFS IH DIRECTED PRN PRN For Shortness of Breath General Time Seen by MD: 19:03 Chief Complaint Abdominal pain Hx Obtained From: Patient Arrived By: Ambulance Sudden in Onset?: No Onset Occurred: 5 - 8 hours ago Symptom Duration: Since onset Location: : Diffuse Quality: Painful Severity: Current: Pain level 9 out of 10 Severity: Maximum: Pain level 9 out of 10 Associated with: Reports: Hematochezia, Nausea, Denies: Melena, Vomiting Pertinent Negative: Pt denies other symptoms Context Related History: Reports: Alcohol abuse Recent Healthcare: Recent doctor visit, Recent hospitalization Similar Sx Previous: Yes Past Medical History Past Medical History Notes: PCP: Dr. Ria Sy Past Medical History 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 BPH with [place] Hyperlipidemia Chronic kidney disease stage III GERD Cerebral infarction Anxiety Aortic valve stenosis Paroxysmal atrial fibrillation [place] GI bleed Reports: Diabetes mellitus, Hypertension Past Surgical History Valve replacement - on Warfarin Family History Alcoholism Smoking History Former Smoker Social History Alcohol Use: >5 per day Drug Use: Denies drug use Other Social History: Good social support, Local resident Ambulatory Status Independent Review of Systems Constitutional: Denies: Chills, Fever Respiratory: Denies: Non-productive cough GI: Reports: Abdominal pain, Hematochezia, Nausea, Denies: Bloody/tarry stool, Melena, Vomiting Complete sys rev & neg: except as marked. Physical Exam Vital Signs Vital Signs (First) Date Time Temp Pulse Resp B/P Pulse Ox O2 Delivery O2 Flow Rate FiO2 01/16/17 19:05 36.4 82 18 165/73 100 Room Air Initial VS: Reviewed Head / Eyes: Atraumatic, Normocephalic Neck: Supple, Non-tender, Full range of motion Extremities: Vascular intact, Neuro intact, No swelling, No tenderness Skin: Warm, Dry, No cyanosis Neurologic: Alert, Oriented, Nonfocal General/Constitutional: Awake, Alert, Well developed, Well nourished Respiratory / Chest: Breath sounds NL, Breath sounds = bilat, No respiratory distress, No rales, No rhonchi, No wheezing, No stridor Cardiovascular: Heart rate NL, Regular rhythm, Heart sounds NL, Peripheral circulation NL Abdomen: No guarding, No rebound, No distention Tenderness/Guarding/Rebound: Positive: Tender diffuse, Tender epigastric ( severe) Back: Inspection NL, Non-tender, No CVA tenderness Interpretation & Diagnostics Lab Results Interpretation Result Diagram: 01/16/17 19301/16/17 193 Test 01/16/17 19:39 01/16/17 21:00 White Blood Count 6.2th/mm3 (3.8-10.1) Red Blood Count 3.27mil/mm3 (4.40-5.80) Hemoglobin 8.1g/dL (13.8-17.2) Hematocrit 26.7% (41.0-50.0) Mean Corpuscular Volume 81.7fL (81-100) Mean Corpuscular Hemoglobin 24.8pg (27.0-35.0) Mean Corpuscular Hemoglobin Concent 30.3% (32.0-37.0) Red Cell Distribution Width 22.7% (12.3-15.4) Platelet Count 132bil/L (150-400) Neutrophils (%) (Auto) 78.1% (40-74) Lymphocytes (%) (Auto) 11.3% (14-46) Monocytes (%) (Auto) 9.8% (4-12) Eosinophils (%) (Auto) 0% (0-5) Basophils (%) (Auto) 0.2% (0-3) Sodium Level 135mEq/L (134-144) Potassium Level 3.5mEq/L (3.5-5.2) Chloride Level 101mEq/L (97-108) Carbon Dioxide Level 23mmol/L (18-29) Blood Urea Nitrogen 7mg/dL (8-27) Creatinine 0.84mg/dL (0.76-1.27) Estimat Glomerular Filtration Rate 97mL/min (>59) Glucose Level 194mg/dL (60-99) Lactic Acid Level 1.2mmol/L (0.4-2.0) Calcium Level 7.8mg/dL (8.5-10.1) Magnesium Level 1.7mg/dL (1.6-2.6) Total Bilirubin 1.0mg/dL (0.0-1.2) Aspartate Amino Transf (AST/SGOT) 81U/L (0-50) Alanine Aminotransferase (ALT/SGPT) 45U/L (0-44) Alkaline Phosphatase 261U/L (25-160) Total Protein 6.4g/dL (6.4-8.4) Albumin 2.5g/dL (3.4-5.0) Lipase 75U/L (13-60) Urine Color Yellow (YELLOW) Urine Appearance Clear (CLEAR,HAZY) Urine pH 7.0 (5.0-8.0) Urine Specific [place] 1.010 (1.003-1.035) Urine Protein Negativemg/dL (NEG,TRACE) Urine Glucose (UA) Negativemg/dL (NEGATIVE) Urine Ketones Negativemg/dL (NEGATIVE) Urine Occult Blood Negative (NEGATIVE) Urine Nitrite Negative (NEGATIVE) Urine Bilirubin Negative (NEGATIVE) Urine Urobilinogen Normalmg/dL (NORMAL) Urine Leukocyte Esterase Negative (NEGATIVE) Urine RBC 0-2/hpf (0-2) Urine WBC 0-5/hpf (0-5) Urine Epithelial Cells Few/hpf (NONE-MOD) Urine Crystals None seen (NONE SEEN) Urine Bacteria Few/hpf (NONE-FEW) Urine Hyaline Casts None/lpf (NONE) Urine Granular Casts None seen (NONE SEEN) Urine Waxy Casts None seen (NONE SEEN) Urine Red Blood Cell Casts None seen (NONE SEEN) Urine White Blood Cell Casts None seen (NONE SEEN) Urine Mucus None seen (None Seen) Urine Trichomonas None seen (NONE SEEN) Urine Yeast None (NONE SEEN) Urinalysis Comment None Urine Culture Reflexed Not indicated ECG Interpretation ECG Interpretation: Sinus rhythm Normal axis Normal intervals No acute ST segment changes T wave flattening in inferior leads Compared to 11/20/2016 Time: 20:27 Interpreted by: ED physician CT Abd / Pelvis Interpretation IMPRESSION: 1. No acute findings to explain lower abdominal pain. 2. Cirrhotic liver as before, along with previously described inferior right hepatic lobe encapsulated mass, possibly hepatocellular carcinoma. Sequelae of portal hypertension again noted, including splenomegaly and esophageal varices. 3. Mild sigmoid colon diverticulosis. 4. Sequelae of remote right renal pyelonephritis. 5. Solitary 1.2 cm dependent calcified gallstone. Dictated by: Mina Valle M.D. on 01/16/2017 at 20:32 Approved by: Mina Valle M.D. on 01/16/2017 at 20:43 Study type: Abdominal CT IV contrast Interpretation / Wet Read by: Interpret - Radiologist Re-Eval/Medical Decision Med Decision/Clinical Course In summary the patient is a 66 year old male with a history of alcoholic liver cirrhosis, GI bleeds secondary to esophageal varices, chronic gastritis/ duodenitis and chronic kidney disease presents to the ER via EMS from [facility] accompanied by female family members complaining of acute on chronic abdominal pain onset around 15:00-16:00 this afternoon, worsening since onset. Patient reports nausea, but denies vomiting, hematemesis, black/ tarry stool, though family member reports bright red blood when she wiped the patient two days ago. Patient has been alcohol free for two years. On examination the patient has significant tenderness throughout the entire abdomen felt most notable in the epigastrium. He is otherwise afebrile with stable vital signs. He was treated with the below medications: IV pantoprazole IV fluids Zofran Dilaudid Laboratory studies were notable as below: CBC no leukocytosis Hct 26.7 down from 28.0 yesterday, not significantly changed from recent baseline Lactic wnl Glucose 194 elevated Mild elevated transaminases at baseline Electrolytes normal INR 1.26 Upon chart review patient had endoscopy on 12/05/2016 mild errosive esophagitis and non-errosive gastritis with duodenitis with associated bleeding and clot formation. Moderate symptom resolution with the above medications O had ongoing significant abdominal tenderness. Patient was discussed with Dr. Abdullahi GI who recommended that if her quadrant ultrasound to assess for any evidence of acute cholecystitis. This was performed and was relatively unremarkable. Due to patient's ongoing significant pain I opted to admit the patient for further symptom management and GI consultation for consideration of upper endoscopy. Per discussion with Dr. Farrell HIDA scan may be an additional consideration. There is no evidence at this time a perforated ulcer or acute surgical intra- abdominal process. Patient is currently undergoing further workup for liver mass at the [facility] as this may be malignancy. Patient was admitted in stable condition. Source of Hx: Old records Re-Evaluation/Progress : Re-Evaluation/Progress Note: Discussed lab and radiology results and need for admission. Consultation #1: Referral / Consult Name: Levi Ashraf MD Consulted With: On-call physician (GI) Call Returned at: 21:14 Resource Center Teacher: Will see patient Note: Agrees to consult. Recommends US. Agrees to plan to admit. Will see patient in the morning. Consultation #2: Referral / Consult Name: Ludy Ruiz DO Consulted With: Hospitalist Call Returned at: 21:57 Resource Center Teacher: Agrees with eval, Agrees with plan, Accepts admit Counseled Regarding: Diagnosis, Lab results, Need for admission Discharge & Departure Departure Notes Pt is a 66 year old male with a history of alcoholic cirrhosis, GI bleeds secondary to esophageal varices, stridor/duodenitis, and chronic kidney disease who presents to the ER via EMS from [facility] accompanied by female family members complaining of acute on chronic abdominal pain onset around 15:00-16:00 this afternoon, worsening since onset. Patient reports nausea , but denies vomiting, hematemesis, black/tarry stool, though family member reports bright red blood when she wiped the patient two days ago. Patient has been alcohol free for two years. Primary Impression: Cirrhosis Hepatic cirrhosis type: unspecified hepatic cirrhosis Ascites presence: without ascites Qualified Code: K74.60 - Unspecified cirrhosis of liver Additional Impressions: Gastritis Duodenitis Esophageal varices Esophageal varices type: unspecified type Esophageal varices bleeding: without bleeding Qualified Code: I85.00 - Esophageal varices without bleeding Upper GI bleed Epigastric pain Alcoholism Transaminitis Elevated lipase Disposition: ADMITTED TO HOSPITAL Discharge Condition All VS Reviewed: Yes Condition: Stable Referrals: Ria Sy MD (PCP) Dev Attestation Portions of this note were transcribed by Calvin Read. I, Dr. Negron, personally performed the history, physical exam and medical decision-making; I reviewed and confirmed the accuracy of the information in the transcribed note. Signed by: Dev Stock, 01/16/2017 and 22:06 copies to: Ria Sy MD, Beck O MD Jan 16, 2017 19:05 CALVIN READ Jan 16, 2017 20:03
[2017-01-16 19:49] LABS: Mean Corpuscular Volume 81.7 fL (81-100)
[2017-01-16 19:52] LABS: BASOPHILS % (AUTO) 0.2 % (0-3); EOSINOPHILS % (AUTO) 0 % (0-5); MONOCYTES % (AUTO) 9.8 % (4-12); Mean Corpuscular Hemoglobin 24.8 pg (27.0-35.0); NEUTROPHILS % (AUTO) 78.1 % (40-74); Platelet Count 132 bil/L (150-400)
[2017-01-16] MEDS ORDERED: 0.9% Sodium Chloride 1,000 ML IV ONE (20:02)
[2017-01-16] MEDS ORDERED: Ondansetron 2 mg/mL 2 mL Inj IVPUSH ONE (20:05)
[2017-01-16 20:10] LABS: Magnesium 1.7 mg/dL (1.6-2.6)
[2017-01-16] MEDS: HYDROmorphone 0.5 mg/0.5 mL iSecure Syringe IVPUSH PRN ×3 (20:16→23:27)
[2017-01-16] MEDS ORDERED: Pantoprazole 4 mg/mL 10 mL Inj IVPUSH ONE (20:40)
--- NOTE | 2017-01-16 20:44 | DRSVH ---
PROCEDURE: CT ABDOMEN AND PELVIS WITH CONTRAST ([id number]) INDICATIONS: 66 year-old male with diffuse lower abdominal pain. TECHNIQUE: After the administration of intravenous contrast, 5 mm thick sections acquired from the diaphragm to the symphysis. 5 mm coronal and sagittal reformats were acquired. For radiation dose reduction, the following was used: automated exposure control, adjustment of mA and/or kV according to patient sijayjay e. COMPARISON: [facility], MR, MR ABD W&WO CON, 12/11/2016, 18:09. [facility], CT, CT ABD HEPATIC PROTOCOL, 11/05/2016, 16:11. [facility], CT, CT CHEST ABD PELVIS W CO N, 10/24/2016, 17:52. [facility], CT, ABDOMEN WITH CONTRAST, 04/07/2016, 10:33. [facility] , CT, ABDOMEN/PELVIS WITH CONTRAST, 02/13/2015, 1:03. FINDINGS: Image quality: Excellent. ABDOMEN: Lung bases: Lung bases are clear. Heart size is normal, status post median sternotomy and aortic va lve replacement. Esophageal varices are again noted. Solid organs: Liver demonstrates scalloped capsular contour and caudate lobe hypertrophy as before, indicating cirrhosis. Encapsulated 4.6 cm inferior right hepatic lobe mass in segment 5 is again note d. Gallbladder contains a 1.2 cm dependent calcified gallstone. Biliary system is non dilated. Panc reas enhances normally. There is mild splenomegaly, measuring 12.4 cm in craniocaudal dimensions. No adrenal nodules. Kidneys demonstrate normal size and enhancement, without hydronephrosis. There is persistent bilateral renal lobulation. There is concomitant posterior right renal cortical scar ring, consistent with remote pyelonephritis. Peritoneum and bowel: Bowel loops demonstrate normal wall thickness and caliber. There is mild sigm oid colon diverticulosis. There is trace pelvic free fluid. No free air. Nodes and vessels: No retroperitoneal or mesenteric adenopathy by size criteria. Aorta and inferior vena cava are normal in size, with mild aortic atherosclerosis. Miscellaneous: No ventral hernias. PELVIS: Genitourinary: Bladder wall thickness is normal. Prostate gland is normal in size. Miscellaneous: No inguinal hernias or adenopathy. Bones: No suspicious bony lesions. No vertebral body compression fractures. There is lumbar and lo wer thoracic spine disc degeneration. IMPRESSION: 1. No acute findings to explain lower abdominal pain. 2. Cirrhotic liver as before, along with previously described inferior right hepatic lobe encapsulate d mass, possibly hepatocellular carcinoma. Sequelae of portal hypertension again noted, including spl enomegaly and esophageal varices. 3. Mild sigmoid colon diverticulosis. 4. Sequelae of remote right renal pyelonephritis. 5. Solitary 1.2 cm dependent calcified gallstone. Dictated by: Mina Valle M.D. on 01/16/2017 at 20:32 Approved by: Mina Valle M.D. on 01/16/2017 at 20:43
[2017-01-16] MEDS ORDERED: Ondansetron 2 mg/mL 2 mL Inj IVPUSH PRN ×2 (21:20→22:10)
[2017-01-16] MEDS ORDERED: Alum-Mag Hydrox-Simeth 30 mL Suspension PO PRN ×2 (21:20→22:10)
[2017-01-16] MEDS ORDERED: LidocaineVisc 2%:Antacid 1:1 10 mL Syringe PO ONE (21:20)
[2017-01-16 21:22] LABS: APPEARANCE,URINE CLEAR (CLEAR,HAZY); COLOR,URINE YELLOW (YELLOW); OCCULT BLOOD,URINE NEGATIVE (NEGATIVE); UROBILINOGEN,URINE NORMAL (NORMAL)
[2017-01-16] MEDS ORDERED: Polyethylene Glycol (PEG) 17 Gm Powder PO PRN (22:10)
[2017-01-16 22:21] VITALS: BP 164/68; PULSE 85; RESP 18; O2SAT 99
[2017-01-16 22:37] VITALS: BP 161/76; PULSE 86; RESP 16; O2SAT 99
[2017-01-16] MEDS ORDERED: CARV6.252 PO (23:06)
[2017-01-16] MEDS ORDERED: MOME13HF2 IH (23:06)
[2017-01-16] MEDS ORDERED: IPRA30SP8 NS (23:07)
[2017-01-16] MEDS ORDERED: PANT40TA3 PO (23:09)
[2017-01-16 23:10] VITALS: BP 170/87; PULSE 88; RESP 18; O2SAT 99
[2017-01-16 23:16] VITALS: BP 170/87; PULSE 88; RESP 18; O2SAT 99
[2017-01-17] MEDS ORDERED: Polyethylene Glycol (PEG) 17 Gm Powder PO PRN (01:05)
[2017-01-17] MEDS ORDERED: Alum-Mag Hydrox-Simeth 30 mL Suspension PO PRN (01:05)
[2017-01-17] MEDS ORDERED: Ondansetron 2 mg/mL 2 mL Inj IVPUSH PRN (01:05)
[2017-01-17] MEDS ORDERED: HYDROmorphone 0.5 mg/0.5 mL iSecure Syringe IVPUSH PRN ×2 (01:35→05:35)
[2017-01-17] MEDS ORDERED: Glucose 40% Oral Gel 15 Gm Tube PO PRN (01:40)
--- NOTE | 2017-01-17 02:00 | PCM.HPMED ---
Subjective Date of Service Jan 17, 2017 Primary Provider: Admitting Physician: Ludy Ruiz DO Primary Care Physician: Ria Sy MD Attending Physician: Ludy Ruiz DO Admit Status: From the Emergency Department Chief Complaint: Abdominal pain History of Present Illness: 66-year-old male with a history of chronic GI bleeds, chronic kidney disease, alcoholism, aortic valve stenosis, hypertension, hyperlipidemia and GERD presented to [facility] emergency department complaining of abdominal pain. Patient reports that his abdominal pain began mid afternoon. He states that he participated with occupational therapy without any issues. He states he ate his lunch at about 11:30 and was doing well until about 3 PM when he began to experience very severe abdominal pain and nausea. Patient reports that he suspected the pain would resolve on its own and sent the EMS away when they were called earlier in the day. Around 6 PM his son came to [facility] and convinced him to come to the ER. Patient reports that he began feeling abdominal pain at around 3 PM and then he has continued to worsen from that point. He also reports that he has been having severe nausea but not vomiting. Patient notes that he had a solid bowel movement this morning, but earlier in the week was having loose stools. Patient reports that he has not been passing much gas. Patient reports that the pain is worse in his right upper quadrant and epigastric region. Patient reports the pain as a sharp pain that is constant. Patient reports the pain radiates across his abdomen and into his back. Patient denies any fever, chills, myalgias. Patient denies any chest pain, but reports chronic shortness of breath. Patient denies any hematuria, but does report some dysuria and increased frequency. Patient denies any hematemesis, hematochezia, melena. Review of Systems: A comprehensive review of systems was conducted with the patient and found to be negative except as above in the History of Present Illness. Allergies Coded Allergies: No Known Drug Allergies (Verified Allergy, Unknown, 01/17/17) Home Medications Ascorbic acid 500 mg daily Atorvastatin 40 mg daily Carvedilol 6.25 mg twice a day Cholecalciferol 1000 units daily He called as all topical 1 application twice a day Ferrous gluconate 324 mg daily Formoterol-mometasone 1 puff by inhalation twice a day Insulin aspartate 2 units 3 times before meals Insulin detemir 8 units every morning Ipratropium nasal twice a day Lisinopril 5 mg daily Loratadine 10 mg daily Multivitamin with minerals daily Oxybutynin 5 mg twice a day Pantoprazole 40 mg twice a day Tamsulosin 0.4 mg daily Thiamine 100 mg daily PMH Alcoholism Previous valve replacement BPH with [place] Hyperlipidemia Chronic kidney disease stage III GERD Cerebral infarction Anxiety Aortic valve stenosis Paroxysmal atrial fibrillation Chronic GI bleed Diabetes mellitus Hypertension Surgical History Valve replacement Family History Alcoholism Social History Hx Alcohol Use: Yes (quit 2 yrs ago) Hx Substance Use: Yes (decades ago) Hx Tobacco Use: Yes Smoking Status: Former Smoker Living Arrangement: [facility] Facility ([facility]) Exam Vital Signs Vital Sign - Last Date Time Temp Pulse Resp B/P Pulse Ox O2 Delivery O2 Flow Rate FiO2 01/16/17 23:16 36.5 88 18 170/87 99 Room Air Intake and Output 01/16/17 01/16/17 01/17/17 Cumulative From/Thru 15:00 23:00 07:00 01/16/17 19:05 - 01/17/17 01:05 Intake Total 1000 ml 1000 ml Balance 1000 ml 1000 ml Intake IV Total 1000 ml 1000 ml Exam General: No acute distress, well-developed, well-nourished, appropriately interactive HEENT: Chronically affected speech .Normocephalic, atraumatic. External ears without defect. Pupils equal, round, and reactive to light and accommodation. Moist conjunctivae. Oropharynx with moist mucosa. Neck: Supple with full range of motion.No lymphadenopathy Cardiovascular: Regular rate and rhythm with systolic murmurs. No rubs, or gallops appreciated Pulmonary: Clear to auscultation bilaterally with no crackles, wheezes, or rhonchi. Normal respiratory effort with no use of accessory muscles. Abdomen: Diffusely tender, worse in the right upper quadrant. Abdomen is obese. Bowel tones present. Soft Extremities: No clubbing, cyanosis, edema, appreciated. Skin: Normal temperature, turgor, and texture; no rash, ulcers, or subcutaneous nodules appreciated. Psychiatric: Normal mood and affect. Alert and oriented to person, place, and time. Lab and Diagnostics Result Diagram: 01/16/17193801/16/171938 Microbiology But culture is pending X-Rays, CTs and MRIs PROCEDURE: CT ABDOMEN AND PELVIS WITH CONTRAST ([id number]) INDICATIONS: 66 year-old male with diffuse lower abdominal pain. TECHNIQUE: After the administration of intravenous contrast, 5 mm thick sections acquired from the diaphragm to the symphysis. 5 mm coronal and sagittal reformats were acquired. For radiation dose reduction, the following was used: automated exposure control, adjustment of mA and/or kV according to patient size. COMPARISON: [facility], MR, MR ABD W&WO CON, 12/11/2016, 18:09. [facility], CT, CT ABD HEPATIC PROTOCOL, 11/05/2016, 16:11. [facility], CT, CT CHEST ABD PELVIS W CON, 10/24/2016, 17:52. [facility], CT, ABDOMEN WITH CONTRAST, 04/07/2016, 10:33. [facility], CT, ABDOMEN/PELVIS WITH CONTRAST, 02/13/2015, 1:03. FINDINGS: Image quality: Excellent. ABDOMEN: Lung bases: Lung bases are clear. Heart size is normal, status post median sternotomy and aortic valve replacement. Esophageal varices are again noted. Solid organs: Liver demonstrates scalloped capsular contour and caudate lobe hypertrophy as before, indicating cirrhosis. Encapsulated 4.6 cm inferior right hepatic lobe mass in segment 5 is again noted. Gallbladder contains a 1.2 cm dependent calcified gallstone. Biliary system is non dilated. Pancreas enhances normally. There is mild splenomegaly, measuring 12.4 cm in craniocaudal dimensions. No adrenal nodules. Kidneys demonstrate normal size and enhancement, without hydronephrosis. There is persistent bilateral renal lobulation. There is concomitant posterior right renal cortical scarring, consistent with remote pyelonephritis. Peritoneum and bowel: Bowel loops demonstrate normal wall thickness and caliber. There is mild sigmoid colon diverticulosis. There is trace pelvic free fluid. No free air. Nodes and vessels: No retroperitoneal or mesenteric adenopathy by size criteria. Aorta and inferior vena cava are normal in size, with mild aortic atherosclerosis. Miscellaneous: No ventral hernias. PELVIS: Genitourinary: Bladder wall thickness is normal. Prostate gland is normal in size. Miscellaneous: No inguinal hernias or adenopathy. Bones: No suspicious bony lesions. No vertebral body compression fractures. There is lumbar and lower thoracic spine disc degeneration. IMPRESSION: 1. No acute findings to explain lower abdominal pain. 2. Cirrhotic liver as before, along with previously described inferior right hepatic lobe encapsulated mass, possibly hepatocellular carcinoma. Sequelae of portal hypertension again noted, including splenomegaly and esophageal varices. 3. Mild sigmoid colon diverticulosis. 4. Sequelae of remote right renal pyelonephritis. 5. Solitary 1.2 cm dependent calcified gallstone. Dictated by: Mina Valle M.D. on 01/16/2017 at 20:32 Approved by: Mina Valle M.D. on 01/16/2017 at 20:43 Additional Diagnostics: Abdominal ultrasound performed-no formal radiology report available Assessment & Plan Acute abdominal pain of unknown etiology, present on admission, ongoing -Patient is currently in the process of evaluation at the [facility] regarding possible malignancy, hepatic mass -The ER CT abdomen and pelvis performed demonstrating "No acute findings to explain lower abdominal pain"-- see report for details - ER physician discussed case with gastroenterology who agreed to see the patient in the morning -Lipase slightly elevated at 75 -AST and ALT chronically elevated -Chronically elevated alkaline phosphatase -Pain medication available -Patient is NPO -Gentle hydration -Ultrasound results pending -UA with culture pending -Consider GI cocktail if patient has continuing pain -40 mg pantoprazole daily -low threshold to start empiric abx -Continue to monitor Chronic anemia, present on admission, ongoing -Hemoglobin 8.1, hematocrit 26.7 -Review of records demonstrate that the patient appears to be chronically anemic -Stool guaiac ordered -H&H q4 to assess for worsening -Continue to monitor -Continue iron replacement Chronic atrial fibrillation -Patient no longer on anticoagulation with warfarin -Continue home medications Chronic kidney disease stage III -Gentle hydration -Monitor ins and outs -Avoid nephrotoxic medications Diabetes mellitus type II, insulin-dependent, present on admission, ongoing -Hemoglobin A1c pending -Low-dose correctional lispro protocol and bedside glucose monitoring ordered -Hold home doses Chronic hypertension, presumed stable -Once medication reconciliation is completed continue home medications Cirrhosis secondary to alcohol abuse, presumed stable -No fluid wave on physical exam -Monitor for mental status changes Pain Evaluation: Adequate Pain Control GI Prophylaxis: Proton Pump Inhibitor VTE Mechanical Devices: Intermittant Pneumatic CD Resuscitation Status: CPR: Attempt Resuscitation Attending Statement The patient was seen and examined together with house staff on 01/16/2017 and I agree with the history, exam and plan as outlined in the note above. copies to: Ria Sy MD, Tara L DO Jan 17, 2017 01:48 Ludy Ruiz DO Jan 17, 2017 02:16
--- NOTE | 2017-01-17 02:46 | NUR ---
ADMIT; 66 YR old male admitted from [facility] at 0015 via gurney with c/o abd pain which started 3/. Pt recently was a pt at with Gi bleed. Pt denies bloody stools, emesis, on this admit. From [facility] for rehab since Thu. Dilaudid iv x1 for abd pain with relief. Voided at the bedside with sba. Bed alarm on. Pt didn't want alarm on- explained to pt the importance of knowing when he gets up. Plan: start ivf and do mrsa nasal swab. Daughter Jewels (also pts caregiver) on the cot in room. Dr. Jaeger in to see pt at this time.
[2017-01-17] MEDS: 0.9% Sodium Chloride 1,000 ML IV SCH ×2 (03:30→11:03)
[2017-01-17 04:23] VITALS: BP 153/76; PULSE 78; RESP 18; O2SAT 97
--- NOTE | 2017-01-17 05:34 | NUR ---
PSYCH; slept well during the night. No further request for pain rx voiced. Daughter was sleeping on pull out bed in the room & has left for the morning. Requested call her after his rounds in a.m. Note left on front of chart.
[2017-01-17 05:53] VITALS: PULSE 82
[2017-01-17 06:26] LABS: BASOPHILS % (AUTO) 0.3 % (0-3); EOSINOPHILS % (AUTO) 0.8 % (0-5); MONOCYTES % (AUTO) 10.6 % (4-12); Mean Corpuscular Hemoglobin 25.4 pg (27.0-35.0); Mean Corpuscular Volume 82.2 fL (81-100); NEUTROPHILS % (AUTO) 76.6 % (40-74); Platelet Count 126 bil/L (150-400)
[2017-01-17] MEDS: Insulin LISPRO 300 Unit/3 mL Inj SUBQ SCH ×4 (07:22→22:00)
[2017-01-17] MEDS: Pantoprazole 4 mg/mL 10 mL Inj IVPUSH SCH (08:47)
--- NOTE | 2017-01-17 08:48 | DRSVH ---
PROCEDURE: US ABDOMEN, LIMITED ([id number]) INDICATIONS: ruq pain TECHNIQUE: Real-time focused scanning was performed of the abdomen, with image documentation. COMPARISON: [facility], CT, CT ABD PELVIS W CON, 01/16/2017, 20:23. FINDINGS: Hepatic contour is nodular, as before. A hypoechoic 42 mm diameter mass within the right he patic lobe posteriorly is present. Gallbladder demonstrates calculi within its lumen, without evidenc e of acute cholecystitis. Pancreas is not seen. No biliary ductal dilatation. Trace ascites. IMPRESSION: 1. Cirrhosis. 2. Cholelithiasis. No evidence of cholecystitis. 3. Trace ascites. 4. Concordant with preliminary interpretation. Dictated by: Danny Menard M.D. on 01/17/2017 at 8:39 Approved by: Danny Menard M.D. on 01/17/2017 at 8:42
[2017-01-17 09:01] VITALS: PULSE 84
[2017-01-17 10:44] VITALS: BP 162/81; PULSE 85; RESP 18; O2SAT 98
--- NOTE | 2017-01-17 13:16 | CONS ---
[address] [address] CONSULTATION REPORT PATIENT: LOUIE FRANCIS : 1950 MR#: [id number] ADMIT: 01/16/2017 JOB ID: [id number] DATE OF SERVICE: 01/17/2017 REQUESTING PROVIDER: Leobardo Negron MD, and Dr. Clinton. REASON FOR CONSULTATION: Abdominal pain. HISTORY OF PRESENT ILLNESS: This is a 66-year-old male with cirrhosis. He has been sober two years. The patient was recently found to have a probable hepatoma involving the caudate lobe of the liver, which looks like it has increased slightly in size over the last couple of months. Apparently, he is lined up for a possible biopsy down at the [facility]. The patient has been in and out of hospital several times for GI bleeding in the past. He has been seen by my colleagues, Dr. Leonard, Dr. Dye, and Dr. Guillermo. Dr. 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 It is not clear whether that happened or not but the patient did have further endoscopic examination with capsule and colonoscopy at the [facility]. I have not seen any of these reports. as of this dictation. At any rate, he did not come into the hospital bleeding this time around but had a meal around lunchtime yesterday which included a moderate amount of mayonnaise. He then started to experience nausea and epigastric right upper quadrant pain that somewhat fluctuated in intensity. He has had bowel movements. No suggestion of obstruction. Pain was quite severe at a 9/10 and lasted until he finally received pain medications in the emergency department yesterday evening. This morning, he rates everything at about a 1/10. On admission, he had a normal white count. Has not had any fever in the hospital. His CAT scan was accomplished with contrast. I did not see any mention of the appendix. The patient did have a 1.2 cm, dependent calcified gallstone, but the biliary tree was nondilated. He had some diverticulosis in the sigmoid, remote right renal pyelonephritis according to the report. He had obvious signs of cirrhosis and he had splenomegaly esophageal varices, and a 4.6 cm encapsulated right hepatic lobe mass lesion. I explained that in this scenario, repeat endoscopy would likely be extremely low yield. ALLERGIES: No known drug allergies. MEDICATIONS: No report of any nonsteroidal anti-inflammatories. He was taking loratadine, tamsulosin, ferrous sulfate, atorvastatin, carvedilol, lisinopril, Dulera, Atrovent, pantoprazole twice a day, insulin, econazole cream, oxybutynin, vitamin C, vitamin D, multivitamin, thiamine, amiodarone, sertraline. PAST MEDICAL HISTORY: Cirrhosis with portal hypertension versus GAVE, chronic GI bleeding, alcoholism with sobriety x2 years, previous valve replacement, BPH, hyperlipidemia, chronic kidney disease, GERD, stroke, anxiety, aortic valve stenosis, paroxysmal atrial fibrillation, diabetes, hypertension. PAST SURGICAL HISTORY: Valve replacement. FAMILY HISTORY: Noncontributory. SOCIAL HISTORY: The patient's son was available at the bedside to help with collateral history. He is currently at [facility]. Ex-smoker. REVIEW OF SYSTEMS: As per HPI. PHYSICAL EXAMINATION: Blood pressure 162/81, pulse 85, breathing 18, temperature 36.5, 98% on room air. The patient was in no distress. Alert, oriented, appropriate, cooperative. He had a dry mouth and a slightly slurred speech pattern, but according to his family at the bedside, this is normal for him. Breathing comfortably. Abdomen slightly distended. No guarding. No real significant tenderness to palpation at present. Perhaps 1+ bilateral lower extremity edema. LABORATORY DATA: Hemoglobin is 7.9, hematocrit 26.0 (with hydration here in the hospital). White count is 6.1. Platelets 126. Creatinine 0.75. Bilirubin 0.9. INR was not obtained in the ED. Lipase was slightly elevated on admission at 75. Additionally, on admission his AST was 81, ALT 45, alk phos 261. Sodium is 136. Tylenol level was negative. Urinalysis without UTI. IMAGING: As above. ASSESSMENT AND RECOMMENDATIONS: A 66-year-old male with cirrhosis, portal hypertension, history of recurrent GI bleeding and anemia, presenting with acute onset of right-sided abdominal pain. Symptoms have resolved overnight, and I suspect this may have actually been gallbladder. On the CAT scan, he had a 1.2 cm dependent stone seen. On his followup ultrasound, there was no reported sign of any acute cholecystitis. I would recommend discussion with the radiologist to make sure they saw the appendix and that it was indeed normal. I have ordered a HIDA scan, not for evaluation of acute cholecystitis, as he clearly has had resolution of the acute symptoms. I, however, would like to see his ejection fraction. I suspect that he may have a dysfunctional gallbladder. Moving forward, if he does have a low EF, he is aware that he is not a great surgical candidate and that he would be at much higher risk for complication for cholecystectomy. In that event that he does have a low EF, he has been encouraged to consider dietary manipulation. We discussed some of the helpful foods to consume and some to avoid by way of a list that is provided at gallbladder [place]. With respect to his lesion in the liver that has grown in size, I have requested a repeat FP. If this is trending up still, then it could be argued that he avoid the biopsy that is planned at the [facility] and proceed with therapeutic options they deem appropriate for him. After his HIDA scan is accomplished I would start with liquid diet, advancing to a diabetic low-fat diet as tolerated. If he does well with this, from a GI perspective, he could be discharged back to [facility]. Please note this consult should be a no-charge visit. Please do not assess any physician charge for this particular note today.
--- NOTE | 2017-01-17 13:20 | NUR ---
Social Work- Initial Assessment Data: See Initial Assessment. Pt is a 66 year old male admitted 01/16/17 for epigastric pain per H&P. Per MD in rounds, GI consult is pending. MARLENA met with pt and family (cousin Valerie [phone] and son Janak [phone]) to discuss discharge plan, SW role explained. Pt comes from [facility]. Pt is agreeable to returning to [facility] at discharge. Pt uses a walker at baseline, does not drive. Pt has no LTC or VA benefits. Pt has DPOA on file, Surekha Sarmiento [phone], daughter. MARLENA spoke with admissions at [facility], , who is agreeable to pt returning to [facility] at discharge with Dr. Saravia to follow. SW will continue to follow. Assessment: Pt who will return to [facility]. Plan: Pt to discharge back to [facility] with MD Saravia to follow. All updated and agreeable to plan. SW continue to follow. JILL Michele Addendum: 01/17/17 at 1331 by JEANNETTE WARD Amended: Links added.
[2017-01-17 13:44] VITALS: BP 165/82; PULSE 81; RESP 18; O2SAT 99
--- NOTE | 2017-01-17 14:24 | NUR ---
Off unit To nuclear medicine for HIDA scan at 14:20. technical staff assistant informed.
--- NOTE | 2017-01-17 16:30 | DRSVH ---
PROCEDURE: AK HIDA SCAN WITH CCK PHARMACEUTICAL: 5.6 mCi Tc-99m mebrofenin IV; 2.1 mcg CCK IV. INDICATIONS: R UPPER QUAD PAIN, COMPLETE HIDA SCAN, EJECTN FRAC TECHNIQUE: Following intravenous administration of Tc-99m mebrofenin, sequential anterior abdominal images were obtained. To evaluate the contractile response of the gallbladder in response to Cholecystokinin (CC K), sincalide (0.02 g/kg) was administered by slow intravenous infusion approximately 60 minutes aft er the administration of the radiopharmaceutical. Sequential imaging was continued for [address] the start of CCK infusion. Gallbladder ejection fraction was calculated. COMPARISON 2. [facility], [facility]EN [facility], 01/16/2017, 21:50. [place], [place], [place] HIDA SCAN WO CCK, 12/12/2016, 8:00. FINDINGS: Biliary scan: There is normal tracer uptake and excretion by the liver. There is normal visualizati on of the intrahepatic ducts, common bile duct, and gallbladder. There is normal tracer transit into the duodenum. CCK stimulation: There is limited contractile response of the gallbladder to CCK infusion. The calc ulated gallbladder ejection fraction is 7.4%; normal values are above 35%. It has been shown that any patient abdominal pain after CCK administration is related to the rate of CCK injection, rather than to any underlying gallbladder disease (Clinical Nuclear Medicine 2012; 37: 63-70. Journal of Nuclear Medicine 2014; 55: 1-9). IMPRESSION: 1. No evidence of acute cholecystitis. 2. Limited emptying of the gallbladder, which may indicate chronic cholecystitis. Dictated by: Danny Menard M.D. on 01/17/2017 at 16:22 Approved by: Danny Menard M.D. on 01/17/2017 at 16:24
--- NOTE | 2017-01-17 17:56 | NUR ---
MEENA explained and signed, pt's son Janak at bedside during explanation. Copy of MEENA and Medicare self administered medication information given to pt.
[2017-01-17 20:12] VITALS: BP 156/77; PULSE 82; RESP 18; O2SAT 98
[2017-01-18 00:23] VITALS: BP 138/75; PULSE 88; RESP 18; O2SAT 99
[2017-01-18 04:35] VITALS: BP 156/78; PULSE 84; RESP 18; O2SAT 97
[2017-01-18 05:43] VITALS: PULSE 86
[2017-01-18 06:01] LABS: BASOPHILS % (AUTO) 0.3 % (0-3); EOSINOPHILS % (AUTO) 1.4 % (0-5); MONOCYTES % (AUTO) 11.1 % (4-12); Mean Corpuscular Hemoglobin 25.1 pg (27.0-35.0); Mean Corpuscular Volume 81.9 fL (81-100); NEUTROPHILS % (AUTO) 74.2 % (40-74); Platelet Count 122 bil/L (150-400)
--- NOTE | 2017-01-18 06:04 | NUR ---
Diet/pain Pt reports no pain all shift, 0 BM, continue to need guaiac, tolerating advanced diet with no complaints of N/V or pain
[2017-01-18 06:23] LABS: Magnesium 1.8 mg/dL (1.6-2.6); Phosphorus 2.6 mg/dL (2.5-4.9)
[2017-01-18] MEDS: Insulin LISPRO 300 Unit/3 mL Inj SUBQ SCH ×2 (08:00→12:06)
[2017-01-18] MEDS: Pantoprazole 4 mg/mL 10 mL Inj IVPUSH SCH (08:07)
--- NOTE | 2017-01-18 09:33 | PCM.DIMED ---
Discharge Instructions Date of Service Jan 18, 2017 Dates of Hospitalization Jan 16, 2017 at 21:38 Discharge Diagnosis Discharge Diagnosis Abdominal pain, unclear etiology, possibly related to chronic liver mass. Diet No restrictions Activity No restrictions Patient Instructions You were hospitalized with abdominal pain, underwent work-ups which didn't show any acute findings, you didn't have recurrent symptoms. Please follow up with your GI doctor at as scheduled given your liver mass. Follow-up plan Please follow up with your doctor in 2weeks Follow-up Provider: [facility] Follow-up with PCP in: 2 weeks Rodri Clinton MD Jan 18, 2017 09:33
[2017-01-18 09:49] VITALS: PULSE 86
--- NOTE | 2017-01-18 10:08 | NUR ---
Evaluation completed. Please go to "Notes" then click on "Assessments and Notes" (bottom left corner of screen). Then select appropriate discipline tab on top of screen.
--- NOTE | 2017-01-18 10:21 | NUR ---
Social Work- Readiness for Discharge Data: EMR reviewed. Pt is on day 2 of hospitalization for epigastric pain per H&P. Pt to discharge to [facility] via cabulance when medically stable. MARLENA followed up with cousin Valerie to confirm discharge plan. MARLENA spoke with admissions at [facility] [phone] who stated they are agreeable for pt to return at discharge. SW continues to follow. Assessment: Pt who would benefit from SNF. Plan: Pt to discharge back to [facility] when medically stable. SW continues to follow. Shannon Mullins MSW
--- NOTE | 2017-01-18 10:22 | NUR ---
Social Work- Discharge Data: EMR reviewed. Pt is on day 2 of hospitalization for epigastric pain per H&P. Pt is medically stable to discharge today. MARLENA spoke with Treasure, admissions at [facility] [phone], who is agreeable to accepting pt today. Treasure arranged transportation via cabulance at 1300. MARLENA created packet and faxed orders. MARLENA updated pt and cousin Valerie at bedside and informed [facility] of discharge. RN, UN, pt/family and [facility] all updated and agreeable to plan. Assessment: Pt who would benefit from SNF. Plan: Pt to discharge to [facility] today via cabulance at 1300. RN, UN, pt/family and [facility] all updated and agreeable to plan. Shannon Mullins MSW
[2017-01-18 11:50] VITALS: BP 168/86; PULSE 87; RESP 18; O2SAT 99
--- NOTE | 2017-01-18 13:49 | NUR ---
Discharge Pt discharged back to [facility] at 1300. Left via wc by transport service setup by Kayladana Bernal. Pt A&Ox3 - continues to NEELAM bro, VSColby, Received lunch - BG corrected with 1unit Lispro, IV dc'd intact - dressing CDI, All personal belongings in hand at discharge, No scripts given, Pt cousin present and concerned about diet - she received information from Dr. Ashraf re: preferred diet. Pt without questions or concerns. Report called to Valeria Bernal at pt time of dc.
--- NOTE | 2017-01-18 18:06 | PROG NOTE ---
[address] [address] PROGRESS NOTE PATIENT: LOUIE FRANCIS : 1950 MR#: [id number] ADMIT: 01/16/2017 JOB ID: [id number] DATE: 01/18/2017 SUBJECTIVE: The patient is overall clinically improved. His HIDA scan yesterday was noted. He certainly does not have acute cholecystitis but had a profoundly low ejection fraction at 7.4%. I explained this to the patient and his family at the bedside. He seems to have done fine with the heart healthy diet. Alpha fetoprotein update is still pending. OBJECTIVE: The patient is in no distress. Alert, oriented, appropriate, cooperative, conversational. Vitals stable. Blood pressure up a little bit. I did not appreciate any guarding in the right upper quadrant or significant discomfort. LABORATORY DATA: Bilirubin 0.9, AST 73, ALT 41, alk phos 206. IMAGING: As above. ASSESSMENT AND RECOMMENDATIONS: This is a 66-year-old male with cirrhosis, portal hypertension, recurrent gastrointestinal bleeding with recent acute onset right-sided abdominal pain which spontaneously resolved. He had a 1.2 cm gallstone in his gallbladder on imaging. HIDA scan demonstrates gallbladder dysfunction. We discussed gallbladder diet and I printed out a copy of some foods to avoid and foods and juices that it may be better tolerated for the patient. I urged him to follow up with the [facility] with his updated alpha fetoprotein and imaging results from here in the hospital. I am quite concerned about the presence of hepatoma and I think if the alpha fetoprotein is rising that perhaps there should be a move to therapeutic options for him rather than liver biopsy.
--- NOTE | 2017-01-18 21:43 | PCM.DC.MED ---
Discharge Summary Date of Service Jan 18, 2017 Dates of Hospitalization Date of Hospital Admission Jan 16, 2017 at 21:38 Date of Discharge: Jan 18, 2017 Providers: Admitting Physician: Ludy Ruiz DO Primary Care Physician: Ria Sy MD Attending Physician: Ludy Ruiz DO Diagnosis at Time of Discharge Diagnosis at Time of Discharge Abdominal pain, unclear etiology, possibly related to chronic liver mass, gallbladder dysfunction Consultations GI Procedures XRay, CTs & MRIs PROCEDURE: US ABDOMEN, LIMITED ([id number]) INDICATIONS: ruq pain TECHNIQUE: Real-time focused scanning was performed of the abdomen, with image documentation. COMPARISON: [facility], CT, CT ABD PELVIS W CON, 01/16/2017, 20:23. FINDINGS: Hepatic contour is nodular, as before. A hypoechoic 42 mm diameter mass within the right hepatic lobe posteriorly is present. Gallbladder demonstrates calculi within its lumen, without evidence of acute cholecystitis. Pancreas is not seen. No biliary ductal dilatation. Trace ascites. IMPRESSION: 1. Cirrhosis. 2. Cholelithiasis. No evidence of cholecystitis. 3. Trace ascites. 4. Concordant with preliminary interpretation. Dictated by: Danny Menard M.D. on 01/17/2017 at 8:39 Approved by: Danny Menard M.D. on 01/17/2017 at 8:42 PROCEDURE: CT ABDOMEN AND PELVIS WITH CONTRAST ([id number]) INDICATIONS: 66 year-old male with diffuse lower abdominal pain. TECHNIQUE: After the administration of intravenous contrast, 5 mm thick sections acquired from the diaphragm to the symphysis. 5 mm coronal and sagittal reformats were acquired. For radiation dose reduction, the following was used: automated exposure control, adjustment of mA and/or kV according to patient size. COMPARISON: [facility], MR, MR ABD W&WO CON, 12/11/2016, 18:09. [facility], CT, CT ABD HEPATIC PROTOCOL, 11/05/2016, 16:11. [facility], CT, CT CHEST ABD PELVIS W CON, 10/24/2016, 17:52. [facility], CT, ABDOMEN WITH CONTRAST, 04/07/2016, 10:33. [facility], CT, ABDOMEN/PELVIS WITH CONTRAST, 02/13/2015, 1:03. FINDINGS: Image quality: Excellent. ABDOMEN: Lung bases: Lung bases are clear. Heart size is normal, status post median sternotomy and aortic valve replacement. Esophageal varices are again noted. Solid organs: Liver demonstrates scalloped capsular contour and caudate lobe hypertrophy as before, indicating cirrhosis. Encapsulated 4.6 cm inferior right hepatic lobe mass in segment 5 is again noted. Gallbladder contains a 1.2 cm dependent calcified gallstone. Biliary system is non dilated. Pancreas enhances normally. There is mild splenomegaly, measuring 12.4 cm in craniocaudal dimensions. No adrenal nodules. Kidneys demonstrate normal size and enhancement, without hydronephrosis. There is persistent bilateral renal lobulation. There is concomitant posterior right renal cortical scarring, consistent with remote pyelonephritis. Peritoneum and bowel: Bowel loops demonstrate normal wall thickness and caliber. There is mild sigmoid colon diverticulosis. There is trace pelvic free fluid. No free air. Nodes and vessels: No retroperitoneal or mesenteric adenopathy by size criteria. Aorta and inferior vena cava are normal in size, with mild aortic atherosclerosis. Miscellaneous: No ventral hernias. PELVIS: Genitourinary: Bladder wall thickness is normal. Prostate gland is normal in size. Miscellaneous: No inguinal hernias or adenopathy. Bones: No suspicious bony lesions. No vertebral body compression fractures. There is lumbar and lower thoracic spine disc degeneration. IMPRESSION: 1. No acute findings to explain lower abdominal pain. 2. Cirrhotic liver as before, along with previously described inferior right hepatic lobe encapsulated mass, possibly hepatocellular carcinoma. Sequelae of portal hypertension again noted, including splenomegaly and esophageal varices. 3. Mild sigmoid colon diverticulosis. 4. Sequelae of remote right renal pyelonephritis. 5. Solitary 1.2 cm dependent calcified gallstone. Dictated by: Mina Valle M.D. on 01/16/2017 at 20:32 Approved by: Mina Valle M.D. on 01/16/2017 at 20:43 Brief History HPI obtained by on 01/16 66-year-old male with a history of chronic GI bleeds, chronic kidney disease, alcoholism, aortic valve stenosis, hypertension, hyperlipidemia and GERD presented to [facility] emergency department complaining of abdominal pain. Patient reports that his abdominal pain began mid afternoon. He states that he participated with occupational therapy without any issues. He states he ate his lunch at about 11:30 and was doing well until about 3 PM when he began to experience very severe abdominal pain and nausea. Patient reports that he suspected the pain would resolve on its own and sent the EMS away when they were called earlier in the day. Around 6 PM his son came to [facility] and convinced him to come to the ER. Patient reports that he began feeling abdominal pain at around 3 PM and then he has continued to worsen from that point. He also reports that he has been having severe nausea but not vomiting. Patient notes that he had a solid bowel movement this morning, but earlier in the week was having loose stools. Patient reports that he has not been passing much gas. Patient reports that the pain is worse in his right upper quadrant and epigastric region. Patient reports the pain as a sharp pain that is constant. Patient reports the pain radiates across his abdomen and into his back. Patient denies any fever, chills, myalgias. Patient denies any chest pain, but reports chronic shortness of breath. Patient denies any hematuria, but does report some dysuria and increased frequency. Patient denies any hematemesis, hematochezia, melena. Hospital Course acute problems #Acute abdominal pain, CT abd obtained on adm, showed No acute findings but given GB stone, abd US again confirmed this findings. HIDA scan obtained per GI for possible biliary dz causing sx, which showed low EF7.8% of GB which could suggest GB dysfunction. Symptoms spontaneously resolved, precaution to prevent GB stones give by GI, AFP was sent but pending. It was strongly recommended that given this known hepatic mass concerning for HCC, patient was asked to follow up GI at as scheduled. chronic, stable, continued previous tx Chronic anemia Chronic atrial fibrillation Chronic kidney disease stage III Diabetes mellitus type II, insulin-dependent, Chronic hypertension Cirrhosis secondary to alcohol abuse, presumed stable Exam Vital Signs (Last) Date Time Temp Pulse Resp B/P Pulse Ox O2 Delivery O2 Flow Rate FiO2 01/18/17 11:50 36.7 87 18 168/86 99 Room Air Exam abdomen S,ND,NT,BS+ Test 01/16/17 19:39 01/16/17 21:00 01/17/17 13:20 01/18/17 05:36 Lactic Acid Level 1.2mmol/L (0.4-2.0) Lipase 75U/L (13-60) Acetaminophen Level < 15.0ug/mL Rx (10-25) Urine Color Yellow (YELLOW) Urine Appearance Clear (CLEAR,HAZY) Urine pH 7.0 (5.0-8.0) Urine Specific [place] 1.010 (1.003-1.035) Urine Protein Negativemg/dL (NEG,TRACE) Urine Glucose (UA) Negativemg/dL (NEGATIVE) Urine Ketones Negativemg/dL (NEGATIVE) Urine Occult Blood Negative (NEGATIVE) Urine Nitrite Negative (NEGATIVE) Urine Bilirubin Negative (NEGATIVE) Urine Urobilinogen Normalmg/dL (NORMAL) Urine Leukocyte Esterase Negative (NEGATIVE) Urine RBC 0-2/hpf (0-2) Urine WBC 0-5/hpf (0-5) Urine Epithelial Cells Few/hpf (NONE-MOD) Urine Crystals None seen (NONE SEEN) Urine Bacteria Few/hpf (NONE-FEW) Urine Hyaline Casts None/lpf (NONE) Urine Granular Casts None seen (NONE SEEN) Urine Waxy Casts None seen (NONE SEEN) Urine Red Blood Cell Casts None seen (NONE SEEN) Urine White Blood Cell Casts None seen (NONE SEEN) Urine Mucus None seen (None Seen) Urine Trichomonas None seen (NONE SEEN) Urine Yeast None (NONE SEEN) Urinalysis Comment None Urine Culture Reflexed Not indicated White Blood Count 5.9th/mm3 (3.8-10.1) Red Blood Count 3.31mil/mm3 (4.40-5.80) Hemoglobin 8.3g/dL (13.8-17.2) Hematocrit 27.1% (41.0-50.0) Mean Corpuscular Volume 81.9fL (81-100) Mean Corpuscular Hemoglobin 25.1pg (27.0-35.0) Mean Corpuscular Hemoglobin Concent 30.6% (32.0-37.0) Red Cell Distribution Width 23.0% (12.3-15.4) Platelet Count 122bil/L (150-400) Neutrophils (%) (Auto) 74.2% (40-74) Lymphocytes (%) (Auto) 12.8% (14-46) Monocytes (%) (Auto) 11.1% (4-12) Eosinophils (%) (Auto) 1.4% (0-5) Basophils (%) (Auto) 0.3% (0-3) Sodium Level 136mEq/L (134-144) Potassium Level 3.7mEq/L (3.5-5.2) Chloride Level 104mEq/L (97-108) Carbon Dioxide Level 22mmol/L (18-29) Blood Urea Nitrogen 9mg/dL (8-27) Creatinine 0.92mg/dL (0.76-1.27) Estimat Glomerular Filtration Rate 88mL/min (>59) Glucose Level 131mg/dL (60-99) Calcium Level 8.0mg/dL (8.5-10.1) Phosphorus Level 2.6mg/dL (2.5-4.9) Magnesium Level 1.8mg/dL (1.6-2.6) Total Bilirubin 0.9mg/dL (0.0-1.2) Aspartate Amino Transf (AST/SGOT) 73U/L (0-50) Alanine Aminotransferase (ALT/SGPT) 41U/L (0-44) Alkaline Phosphatase 206U/L (25-160) Total Protein 6.1g/dL (6.4-8.4) Albumin 2.4g/dL (3.4-5.0) Microbiology Results But culture is pending Discharge Medications Discharge Medications ([Thiamine]) 100 MG TABLET 100 MG PO DAILY Prescribed by: BEBA WALKER DO Ascorbate Calcium (Vitamin C) 500 Mg Tablet 500 MG PO DAILY (Reported) Atorvastatin Calcium (Atorvastatin Calcium) 40 Mg Tablet 40 MG PO HS (Reported) Carvedilol (Carvedilol) 6.25 Mg Tablet 6.25 MG PO BID (Reported) Cholecalciferol (Vitamin D3) (Vitamin D) 1,000 Unit Tablet 1,000 UNIT PO QAM ( Reported) Econazole Nitrate (Econazole Nitrate) 15 Gm Cream..g. 1 APPL TOP BID (Reported) apply to scalp Ferrous Sulfate (Ferrous Sulfate) 324 Mg Tablet.dr 324 MG PO DAILY (Reported) Insulin Aspart (NovoLOG U-100 Pen) 100 Unit/Ml Insuln.pen 2 UNITS SC TIDWM ( Reported) Insulin Detemir (Levemir Flextouch) 100 Unit/1 Ml Insuln.pen 8 UNITS SUBQ QAM ( Reported) Ipratropium [place] (Ipratropium [place] 0.03% Nasal) 30 Ml [place] 2 SPRAY NS BID (Reported) Lisinopril (Lisinopril) 5 Mg Tablet 5 MG PO DAILY Prescribed by: BEBA WALKER DO Loratadine (Claritin) 10 Mg Capsule 10 MG PO MORNING (Reported) Mometasone/Formoterol (Dulera 100 Mcg/5 Mcg Inhaler) 13 Gm Hfa.aer.ad 1 PUFF IH BID (Reported) Multivitamin (Once Daily) 1 Each Tablet 1 EACH PO DAILY (Reported) Oxybutynin Chloride (Oxybutynin Chloride) 5 Mg Tablet 5 MG PO BID (Reported) Pantoprazole DR (Pantoprazole DR) 40 Mg Tablet.dr 40 MG PO BIDAC (Reported) Tamsulosin ER (Tamsulosin ER) 0.4 Mg Cap.er.24h 0.4 MG PO DAILY (Reported) Followup Plan Disposition: SNF Follow-up plan Please follow up with your doctor in 2weeks Discharge Diet: No restrictions Discharge Activity: No restrictions Patient Instructions You were hospitalized with abdominal pain, underwent work-ups which didn't show any acute findings, you didn't have recurrent symptoms. Please follow up with your GI doctor at as scheduled given your liver mass. Follow-up Provider: [facility] Follow-up with PCP in: 2 weeks Time spent 65min Rodri Clinton MD Jan 18, 2017 20:20
== END 2017-01-18 13:02 ==
LOC: SED 19:02 → OSC 21:38
PROVIDERS: ADMIT Internal Medicine; ATTEND Internal Medicine
DX: R10.11 Right upper quadrant pain (principal); R10.13 Epigastric pain; K82.9 Disease of gallbladder, unspecified; D53.9 Nutritional anemia, unspecified; I48.2 Chronic atrial fibrillation; I12.9 Hypertensive chronic kidney disease with stage 1 through stage 4 chronic kidney disease, or unspecified chronic kidney disease; N18.3 Chronic kidney disease, stage 3 (moderate); E11.9 Type 2 diabetes mellitus without complications; K70.30 Alcoholic cirrhosis of liver without ascites; F10.10 Alcohol abuse, uncomplicated; E78.5 Hyperlipidemia, unspecified; K21.9 Gastro-esophageal reflux disease without esophagitis; I35.0 Nonrheumatic aortic (valve) stenosis; N40.1 Benign prostatic hyperplasia with lower urinary tract symptoms; F41.9 Anxiety disorder, unspecified; I48.0 Paroxysmal atrial fibrillation; Z86.73 Personal history of transient ischemic attack (TIA), and cerebral infarction without residual deficits; Z95.2 Presence of prosthetic heart valve; Z87.891 Personal history of nicotine dependence; Z87.19 Personal history of other diseases of the digestive system; Z79.4 Long term (current) use of insulin
CPT/HCPCS: 36415; 74177; 76705; 78227; 80053; 81000; 82105; 83605; 83690; 83735; 84100; 85014; 85018; 85025; 86850; 87040; 87081; 92610; 93005; 96361; 96374; 96375; 96376; 99285; A9537; G0378; G0480; G8996; G8997; G8998; J1170; J1815; J2405; J2805; J7030; Q9967

== ENCOUNTER 2017-01-25 10:51 | Emergency (ER) | payer MEDICARE, MEDICAID, OTHER ==
[~2017-01-25] VITALS: Ht 185.4 cm; Wt 91.8 kg
[~2017-01-25 10:51] MED LIST changes: -AMIO200T PO; +CARV6.252 PO; +IPRA30SP8 NS; -KETO120S3 TP; -SERT100T9 PO
[2017-01-25 10:52] VITALS: BP 134/72; PULSE 65; RESP 16; O2SAT 100
--- NOTE | 2017-01-25 11:15 | ED.REPORT ---
HPI-GI Bleed Date of Service Jan 25, 2017 ED Provider: Dr. 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 Associated symptoms include fatigue, weakness (progressively worsening over the last 3 months). Denies any pain currently, vomiting, bright red blood, fever. The pt has had about 5 visits for transfusions in the last month. He reports that he has not drank alcohol for two years. Pt is followed at , and the bleed is in the duodenum or pylorus. Nursing Notes Stated Complaint: BLACK STOOL Chief Complaint: Male Abdominal Pain Nursing Notes Reviewed: Yes Allergies: Coded Allergies: Penicillins (Verified Allergy, Unknown, 01/25/17) aspirin (Verified Allergy, Unknown, 01/25/17) cephalexin (Verified Allergy, Unknown, 01/25/17) Scheduled ([Thiamine]) 100 MG TABLET 100 MG PO DAILY Atorvastatin Calcium (Atorvastatin Calcium) 40 Mg Tablet 40 MG PO HS Carvedilol (Carvedilol) 6.25 Mg Tablet 6.25 MG PO BID Cholecalciferol (Vitamin D3) (Vitamin D) 1,000 Unit Tablet 1,000 UNIT PO QAM Econazole Nitrate (Econazole Nitrate) 15 Gm Cream..g. 1 APPL TOP BID apply to scalp Ferrous Sulfate (Ferrous Sulfate) 324 Mg Tablet.dr 324 MG PO DAILY Insulin Aspart (NovoLOG U-100 Pen) 100 Unit/Ml Insuln.pen 2 UNITS SC TIDWM Insulin Detemir (Levemir Flextouch) 100 Unit/1 Ml Insuln.pen 8 UNITS SUBQ QAM Ipratropium [place] (Ipratropium [place] 0.03% Nasal) 30 Ml [place] 2 SPRAY NS BID Lisinopril (Lisinopril) 5 Mg Tablet 5 MG PO DAILY Loratadine (Claritin) 10 Mg Capsule 10 MG PO MORNING Mometasone/Formoterol (Dulera 100 Mcg/5 Mcg Inhaler) 13 Gm Hfa.aer.ad 1 PUFF IH BID Multivitamin (Once Daily) 1 Each Tablet 1 EACH PO DAILY Oxybutynin Chloride (Oxybutynin Chloride) 5 Mg Tablet 5 MG PO BID Pantoprazole (Pantoprazole DR) 40 Mg Tablet.dr 40 MG PO BIDAC Tamsulosin ER (Tamsulosin ER) 0.4 Mg Cap.er.24h 0.4 MG PO DAILY Scheduled PRN Acetaminophen (Acetaminophen) 325 Mg Tablet 650 MG PO Q4H PRN PRN For Pain Bisacodyl (Dulcolax Rectal) 10 Mg Supp.rect 10 MG RC DAILY PRN PRN For Constipation use if no BM 8 hrs after MOM Magnesium Hydroxide (Milk of Magnesia) 400 Mg/5 Ml Oral.susp 30 ML PO QAM PRN PRN For Constipation Na Phos,M-B/Na Phos,Di-Ba (Fleet Enema) 133 Ml Enema 133 ML RC DAILY PRN PRN For Constipation use at night if no BM after MOM and Dulculax General Time Seen by Provider: 11:50 Chief Complaint Chief Complaint: Stool tarry black Hx Obtained From: Patient, Daughter Arrived By: Walk-in Onset Occurred: Just prior to arrival Symptom Duration: Since onset Progression Since Onset: Constant Severity: Current: No pain currently Severity: Maximum: No pain Recent Healthcare: Recent doctor visit, Recent hospitalization Similar Sx Previous: Yes Risk-GI Bleed Bleeding Risk Stratification Bleeding Risk: No Anticoagulants RF Statements: Risk factors reviewed Past Medical History Past Medical History Notes: PCP: Dr. 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 Previous valve replacement BPH with [place] Hyperlipidemia Chronic kidney disease stage III GERD Cerebral infarction Anxiety Aortic valve stenosis Paroxysmal atrial fibrillation Chornic GI bleed Reports: Diabetes mellitus, Hypertension Past Surgical History Valve replacement Family History Alcoholism Smoking History Former Smoker Social History Alcohol Use: >5 per day Drug Use: Denies drug use Other Social History: Good social support, Local resident Ambulatory Status Walker Review of Systems Constitutional: Reports: Fatigue, Weakness - generalized, Denies: Fever GI: Reports: Bloody/tarry stool Complete sys rev & neg: except as marked. Physical Exam Initial Vital Signs Vital Signs (First) Date Time Temp Pulse Resp B/P Pulse Ox O2 Delivery O2 Flow Rate FiO2 01/25/17 10:52 36.3 65 16 134/72 100 Room Air Initial VS: Reviewed Head / Eyes: Atraumatic, Normocephalic, PERRL ENT: Mucous membranes moist, Conjunctiva normal, No scleral icterus Neck: Supple, Non-tender, Full range of motion Skin: Warm, Dry, No cyanosis Neurologic: Alert, Oriented, Nonfocal Psychiatric: Mood/affect normal, Behavior normal, Normal thought content General/Constitutional: Awake, Alert Not jaundiced. Respiratory / Chest: Breath sounds NL, Breath sounds = bilat, No respiratory distress, No rales, No rhonchi, No wheezing Abdomen: No guarding, No rebound, No palpable mass, No pulsatile mass Tenderness/Guarding/Rebound: Positive: Tender diffuse (Mild) Rectum / Perineum: Atraumatic, No gross blood Stool dark brown, guaiac positive. Interpretation & Diagnostics Lab Results Interpretation Result Diagram: 01/25/17 1215 01/25/17 1215 Test 01/25/17 12:15 White Blood Count 5.2th/mm3 (3.8-10.1) Red Blood Count 3.81mil/mm3 (4.40-5.80) Hemoglobin 9.6g/dL (13.8-17.2) Hematocrit 30.8% (41.0-50.0) Mean Corpuscular Volume 80.8fL (81-100) Mean Corpuscular Hemoglobin 25.2pg (27.0-35.0) Mean Corpuscular Hemoglobin Concent 31.2% (32.0-37.0) Red Cell Distribution Width 22.7% (12.3-15.4) Platelet Count 165bil/L (150-400) Neutrophils (%) (Auto) 70.5% (40-74) Lymphocytes (%) (Auto) 15.5% (14-46) Monocytes (%) (Auto) 11.1% (4-12) Eosinophils (%) (Auto) 2.3% (0-5) Basophils (%) (Auto) 0.4% (0-3) Prothrombin Time 12.7sec (8.1-12.5) Prothromb Time International Ratio 1.18ratio Sodium Level 138mEq/L (134-144) Potassium Level 3.6mEq/L (3.5-5.2) Chloride Level 104mEq/L (97-108) Carbon Dioxide Level 21mmol/L (18-29) Blood Urea Nitrogen 11mg/dL (8-27) Creatinine 1.08mg/dL (0.76-1.27) Estimat Glomerular Filtration Rate 73mL/min (>59) Glucose Level 188mg/dL (60-99) Calcium Level 8.4mg/dL (8.5-10.1) Total Bilirubin 0.8mg/dL (0.0-1.2) Aspartate Amino Transf (AST/SGOT) 76U/L (0-50) Alanine Aminotransferase (ALT/SGPT) 40U/L (0-44) Alkaline Phosphatase 279U/L (25-160) Total Protein 6.9g/dL (6.4-8.4) Albumin 2.9g/dL (3.4-5.0) Hold Hardy Top Tube Received (Received) Re-Eval/Medical Decision Re-Evaluation/Progress #1: Time of Eval: 11:51 Patient Status: Condition improved Re-Evaluation/Progress Note: Further discussed history. Re-Evaluation/Progress #2: Time of Eval: 13:16 Patient Status: Condition improved Re-Evaluation/Progress Note: Discussed lab results and plan to consult with hepatology. Re-Evaluation/Progress #3: Time of Eval: 14:12 Patient Status: Condition improved Re-Evaluation/Progress Note: Discussed plan for discharge. Pt understands and agrees. Consultation : Call Returned at: 13:53 Note: Dr. Noa Altamirano hepatology. Follow up as planned with GI on Thursday. Counseled Regarding: Diagnosis, Lab results, Need for follow-up, When/why to return to ED Discharge & Departure Impression: Primary Impression: Guaiac positive stools Additional Impression: Alcoholic cirrhosis of liver without ascites Disposition: Home Discharge Condition All VS Reviewed: Yes Condition: Improved Patient Instructions: Cirrhosis (ED) Additional Instructions: Your blood counts are better than they have been. Your vital signs are normal and your other blood work is reassuring. Though your stool is positive for blood on chemical testing, there is no slime melena present. You are safe to go back to [facility] for now and follow up with hepatology at on Thursday. Of course you should return to the emergency department if you develop copious black stool or vomiting of blood or if you faint. Referrals: Ria Sy MD (PCP) Scribe Attestation Portions of this note were transcribed by Jaclyn Lopez. I, Dr. Rios personally performed the history, physical exam and medical decision-making; I reviewed and confirmed the accuracy of the information in the transcribed note. Signed by: Dev Pierre, 01/25/2017 and 1420. copies to: Ria Sy MD, Kirk H MD Jan 25, 2017 11:15 JACLYN LOPEZ Jan 25, 2017 11:17 JACLYN LOPEZ Jan 25, 2017 11:17
[2017-01-25] MEDS ORDERED: ACET325T51 PO (11:53)
[2017-01-25] MEDS ORDERED: NA P133E23 RC (11:53)
[2017-01-25] MEDS ORDERED: BISA10SU61 RC (11:53)
[2017-01-25] MEDS ORDERED: MAGN400O4 PO (11:53)
[2017-01-25] MEDS ORDERED: Pantoprazole 4 mg/mL 10 mL Inj IVPUSH ONE (12:05)
[2017-01-25] MEDS ORDERED: Pantoprazole Inj 80 MG, Pharmacy To Mix 1 EA in 0.9% Sodium Chloride 80 ML IV ONE ×2 (12:05)
[2017-01-25 12:38] LABS: BASOPHILS % (AUTO) 0.4 % (0-3); EOSINOPHILS % (AUTO) 2.3 % (0-5); MONOCYTES % (AUTO) 11.1 % (4-12); Mean Corpuscular Hemoglobin 25.2 pg (27.0-35.0); Mean Corpuscular Volume 80.8 fL (81-100); NEUTROPHILS % (AUTO) 70.5 % (40-74); Platelet Count 165 bil/L (150-400)
[2017-01-25 12:51] VITALS: BP 150/64; PULSE 73; RESP 16; O2SAT 100
[2017-01-25 13:01] LABS: INR 1.18 ratio
[2017-01-25 13:37] VITALS: BP_SYST 144; BP_SYST 145; BP_SYST 151; BP_DIAS 59; BP_DIAS 63; BP_DIAS 64
[2017-01-25 14:36] VITALS: BP 136/56; PULSE 72; RESP 18; O2SAT 98
== END 2017-01-25 14:20 | disposition home or self-care (01) ==
LOC: SED 10:51
DX: R19.5 Other fecal abnormalities (principal); K70.30 Alcoholic cirrhosis of liver without ascites; K21.9 Gastro-esophageal reflux disease without esophagitis; E11.22 Type 2 diabetes mellitus with diabetic chronic kidney disease; N18.3 Chronic kidney disease, stage 3 (moderate); E78.5 Hyperlipidemia, unspecified; Z79.4 Long term (current) use of insulin; Z87.891 Personal history of nicotine dependence; Z88.0 Allergy status to penicillin; Z88.8 Allergy status to other drugs, medicaments and biological substances

== ENCOUNTER 2017-01-27 01:44 | Day surgery (SDC) | payer MEDICARE, MEDICAID, OTHER ==
[~2017-01-27] VITALS: Ht 182.9 cm; Wt 96.0 kg
[~2017-01-27 01:44] MED LIST changes: +ACET325T51 PO; -ASCO-294 PO; +BISA10SU61 RC; +MAGN400O4 PO; +NA P133E23 RC
[2017-01-27] MEDS ORDERED: diphenhydrAMINE 25 mg Capsule PO ONE (07:50)
[2017-01-27 09:12] VITALS: BP 131/70
[2017-01-27] MEDS ORDERED: ASCO500C6 PO (09:20)
[2017-01-27] MEDS ORDERED: 0.9% Sodium Chloride 250 ML ONE (09:52)
[2017-01-27 10:15] VITALS: BP 144/76; PULSE 74
[2017-01-27 10:35] VITALS: BP 138/73; PULSE 74; RESP 18
[2017-01-27 12:27] VITALS: BP 129/74; PULSE 76; RESP 18
--- NOTE | 2017-01-27 12:59 | NUR ---
PR[facility] pt arrived from [facility] via , escorted by family, for PRBC transfusion alert and cooperative; denies complaints or concerns report received from primary nurse at [facility] Dr Saravia contacted for clarification of orders; change to orders received (see chart) pt premedicated with PO Benadryl and one unit PRBC infused over 2 hours pt tolerated well; vss throughout and post able to ambulate in room with walker and SBA report returned to primary nurseSiomara, at [facility] Addendum: 01/27/17 at 1355 by DEN RODRÍGUEZ RN family arrived 1 hour post scheduled pick-up time to transport pt back to [facility] care summary report provided lab results faxed to [facility] at [phone]
== END 2017-01-27 23:59 | disposition home or self-care (01) ==
LOC: MOCO 01:44
PROVIDERS: ATTEND Internal Medicine
DX: D64.9 Anemia, unspecified (principal); K92.2 Gastrointestinal hemorrhage, unspecified
CPT/HCPCS: 36415; 85014; 85018; 86922; J7050

== ENCOUNTER 2017-03-05 12:17 | Inpatient (IN) | payer MEDICARE, MEDICAID, OTHER ==
[2017-03-05] VITALS (7 sets, daily range): BP systolic 125–170; BP diastolic 65–88; PULSE 77–89; RESP 16–20; O2SAT 98–100
[~2017-03-05] VITALS: Ht 185.4 cm; Wt 98.3 kg
[~2017-03-05 12:17] MED LIST changes: -ACET325T51 PO; +ASCO500C6 PO; -MAGN400O4 PO; -NA P133E23 RC
--- NOTE | 2017-03-05 12:25 | ED.REPORT ---
HPI-General Illness Date of Service Mar 05, 2017 ED Provider: History of Present Illness: 67yo male with 2 days of increasing fatigue and decreased cogition. No known trauma. Family reports hx. of cirrhosis from previous alcohol abuse. No active drinking at present. Dr. Gonzalez is PCP at [facility]. Hx. of UGI bleeds/chronic anemia. Nursing Notes Stated Complaint: GENERALIZED WEAKNESS Chief Complaint: General Complaint Nursing Notes Reviewed: Yes Allergies: Coded Allergies: Penicillins (Verified Allergy, Unknown, 03/05/17) aspirin (Verified Allergy, Unknown, 03/05/17) history GI bleeds cephalexin (Verified Allergy, Unknown, 03/05/17) Scheduled ([Hemp Oil]) 2 MG PEG DAILY Ascorbic Acid (Vitamin C) 500 Mg Capsule.er 500 MG PO DAILY Carvedilol (Carvedilol) 6.25 Mg Tablet 6.25 MG PO BID Cholecalciferol (Vitamin D3) (Vitamin D) 1,000 Unit Tablet 1,000 UNIT PO QAM Econazole Nitrate (Econazole Nitrate) 15 Gm Cream..g. 1 APPL TOP BID apply to scalp Ferrous Sulfate (Ferrous Sulfate) 324 Mg Tablet.dr 324 MG PO DAILY Insulin Aspart (NovoLOG U-100 Pen) 100 Unit/Ml Insuln.pen 2 UNITS SC TIDWM Insulin Detemir (Levemir Flextouch) 100 Unit/1 Ml Insuln.pen 8 UNITS SUBQ BID Ipratropium [place] (Ipratropium [place] 0.03% Nasal) 30 Ml [place] 2 SPRAY NS BID Lisinopril (Lisinopril) 10 Mg Tablet 10 MG PO DAILY Loratadine (Claritin) 10 Mg Capsule 10 MG PO MORNING Multivitamin (Once Daily) 1 Each Tablet 1 EACH PO DAILY Oxybutynin Chloride (Oxybutynin Chloride) 5 Mg Tablet 5 MG PO BID Pantoprazole DR (Pantoprazole DR) 40 Mg Tablet.dr 40 MG PO BIDAC Tamsulosin ER (Tamsulosin ER) 0.4 Mg Cap.er.24h 0.4 MG PO DAILY Vit B Comp/C/FA/Iron/Vit E (Vitamin B Complex Tablet) 1 Each Tablet 2 EACH PO DAILY Scheduled PRN Furosemide (Furosemide) 20 Mg Tab 20 MG PO DAILY PRN PRN edema Mometasone/Formoterol (Dulera 100 Mcg/5 Mcg Inhaler) 13 Gm Hfa.aer.ad 1 PUFF IH BID PRN PRN For Shortness of Breath General Time Seen by MD: 12:24 Chief Complaint Altered mental status, Weakness Hx Obtained From: Daughter Arrived By: Ambulance Onset Occurred: 2 days ago Symptom Duration: Since onset Severity: Current: No pain currently Recent Healthcare: Recent doctor visit, Recent hospitalization Similar Sx Previous: No Past Medical History Past Medical History Notes: PCP: Dr. 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 Previous valve replacement BPH with [place] Hyperlipidemia Chronic kidney disease stage III GERD Cerebral infarction Anxiety Aortic valve stenosis Paroxysmal atrial fibrillation Chorn[place] GI bleed Reports: Diabetes mellitus, Hypertension Past Surgical History Valve replacement Family History Alcoholism Smoking History Former Smoker Social History Alcohol Use: Denies alcohol use Drug Use: Denies drug use Other Social History: Good social support, Local resident Ambulatory Status Walker Review of Systems Unable to Obtain ROS Patient condition Physical Exam Vital Signs Vital Signs Date Time Temp Pulse Resp B/P Pulse Ox O2 Delivery O2 Flow Rate FiO2 03/05/17 14:42 35.4 81 17 125/74 99 Room Air 03/05/17 12:23 36.2 77 20 128/65 99 Room Air Initial VS: Vital signs normal General/Constitutional: No acute distress Alertness: Positive: Sleeping but arousable ENT: Airway patent, Pharynx NL, Tympanic membs NL Mouth: Negative: Muffled voice, Tongue abnormal Neck: Supple, No meningismus, Full range of motion, No adenopathy Respiratory / Chest: Breath sounds NL, Breath sounds = bilat, No respiratory distress Cardiovascular: Heart rate NL, Regular rhythm, Heart sounds NL Lower Ext Edema: Positive: Left 1+, Right 1+ Abdomen: Soft, Non-tender Mental Status: Positive: Somnolent Interpretation & Diagnostics Lab Results Interpretation Result Diagram: 03/05/17 1228 03/05/17 1250 Test 03/05/17 12:28 03/05/17 12:46 03/05/17 12:50 White Blood Count 6.2th/mm3 (3.8-10.1) Red Blood Count 4.09mil/mm3 (4.40-5.80) Hemoglobin 10.7g/dL (13.8-17.2) Hematocrit 32.9% (41.0-50.0) Mean Corpuscular Volume 80.4fL (81-100) Mean Corpuscular Hemoglobin 26.2pg (27.0-35.0) Mean Corpuscular Hemoglobin Concent 32.5% (32.0-37.0) Red Cell Distribution Width 18.0% (12.3-15.4) Platelet Count 118bil/L (150-400) Neutrophils (%) (Auto) 79.0% (40-74) Lymphocytes (%) (Auto) 12.5% (14-46) Monocytes (%) (Auto) 7.5% (4-12) Eosinophils (%) (Auto) 0.6% (0-5) Basophils (%) (Auto) 0.2% (0-3) Hold Hardy Top Tube Received (Received) Sodium Level 132mEq/L (134-144) Potassium Level 4.3mEq/L (3.5-5.2) Chloride Level 98mEq/L (97-108) Carbon Dioxide Level 18mmol/L (18-29) Blood Urea Nitrogen 19mg/dL (8-27) Creatinine 1.14mg/dL (0.76-1.27) Estimat Glomerular Filtration Rate 68mL/min (>59) Glucose Level 326mg/dL (60-99) Lactic Acid Level 2.7mmol/L (0.4-2.0) Calcium Level 9.2mg/dL (8.5-10.1) Total Bilirubin 0.8mg/dL (0.0-1.2) Aspartate Amino Transf (AST/SGOT) 89U/L (0-50) Alanine Aminotransferase (ALT/SGPT) 47U/L (0-44) Alkaline Phosphatase 339U/L (25-160) Ammonia 147ug/dL (18-53) Total Protein 7.5g/dL (6.4-8.4) Albumin 3.2g/dL (3.4-5.0) Alcohols < 10mg/dL (0-10) ECG Interpretation ECG Interpretation: 72bpom, NSR, no acute changes. Reviewed with Dr. Rios. X-Ray Chest Interpretation Chest Xray Interpretation: PROCEDURE: X-RAY CHEST ONE VIEW, PORTABLE ([id number]) INDICATIONS: AMS TECHNIQUE: One view of the chest was acquired. COMPARISON: [facility], , CHEST 2 VIEW, 10/16/2015, 15:40. [facility], CT, CT ABD PELVIS W CON, 01/16/2017, 20:23. [facility], CR, XR CHEST 1VW (PORTABLE), 10/24/2016, 16:54. FINDINGS: Surgical changes and devices: Sternotomy and prosthetic aortic valve. Lungs and pleura: There is right hemidiaphragm elevation. No pleural effusions or pneumothorax. Lungs are clear. Mediastinum: Mediastinal contours appear normal. Heart size is normal. Bones and chest wall: No suspicious bony lesions. Overlying soft tissues appear unremarkable. IMPRESSION: No acute cardiopulmonary disease. Dictated by: Kristopher Mishra M.D. on 03/05/2017 at 13:26 Approved by: Kristopher Mishra M.D. on 03/05/2017 at 13:27 CT Head Interpretation PROCEDURE: CT BRAIN WITHOUT CONTRAST ([id number]) INDICATIONS: AMS TECHNIQUE: Noncontrast 4.5 mm thick angled axial sections acquired from the foramen magnum to the vertex, with coronal reformats. COMPARISON: None. FINDINGS: Image quality: There is slight motion artifact. CSF spaces: Basal cisterns are patent. No extra-axial fluid collections. The ventricles are symmetric in size and shape. There is cerebral volume loss, with resultant ventricular and sulcal prominence. Brain: No intracranial hemorrhage, mass, or mass effect. There is a small region of encephalomalacia and within the left posterior temporal lobe redemonstrated. There are subcortical, periventricular and deep white matter hypodensities consistent with chronic small vessel ischemic changes. There is intracranial internal carotid artery atherosclerosis. Skull and face: Calvarium and visualized facial bones appear intact, without suspicious lesions. Sinuses: Visualized sinuses demonstrate moderate mucosal thickening within the left maxillary sinus and mild thickening on the right. There is also minimal thickening within ethmoid sinuses. The mastoid air cells are clear. IMPRESSION: 1. No acute intracranial abnormality. 2. Small region of encephalomalacia redemonstrated in the posterior left temporal lobe consistent with a prior infarct. Dictated by: Usama Downing M.D. on 03/05/2017 at 13:36 Approved by: Usama Downing M.D. on 03/05/2017 at 13:39 Re-Eval/Medical Decision Med Decision/Clinical Course Pt and labs evaluated by Dr. Rios who concurs with need for admission for hepatic encephalopathy (elevated serum Ammonia) and altered mental status. Dr. Deleon, hospitalist accepted Pt. to her service. Counseled Regarding: Diagnosis, Lab results, Need for admission Discharge & Departure Primary Impression: Hepatic encephalopathy Additional Impression: Altered mental status Altered mental status type: somnolence Qualified Code: R40.0 - Somnolence Disposition: ADMITTED TO HOSPITAL Referrals: Ria Sy MD (PCP) EDSupervising Provider for APC: Kieran Rios MD Attending Statement I was personally available for consultation in the Emergency Department. I have reviewed the chart and examined the patient myself and agree with the documentation as recorded by the Midlevel Provider, including the assessment, treatment plan, and the disposition. copies to: Ria Sy MD [facility] Mar 05, 2017 12:25 Kieran Rios MD Mar 05, 2017 14:55
[2017-03-05] MEDS ORDERED: 0.9% Sodium Chloride 1,000 ML IV ONE (12:28)
[2017-03-05 12:52] LABS: BASOPHILS % (AUTO) 0.2 % (0-3); EOSINOPHILS % (AUTO) 0.6 % (0-5); MONOCYTES % (AUTO) 7.5 % (4-12); Mean Corpuscular Hemoglobin 26.2 pg (27.0-35.0); Mean Corpuscular Volume 80.4 fL (81-100); Platelet Count 118 bil/L (150-400)
--- NOTE | 2017-03-05 13:28 | DRSVH ---
PROCEDURE: X-RAY CHEST ONE VIEW, PORTABLE ([id number]) INDICATIONS: AMS TECHNIQUE: One view of the chest was acquired. COMPARISON: [facility], CR, CHEST 2 VIEW, 10/16/2015, 15:40. [facility], CT, CT AB D PELVIS W CON, 01/16/2017, 20:23. [facility], CR, XR CHEST 1VW (PORTABLE), 10/24/2016, 1 6:54. FINDINGS: Surgical changes and devices: Sternotomy and prosthetic aortic valve. Lungs and pleura: There is right hemidiaphragm elevation. No pleural effusions or pneumothorax. Nanette gs are clear. Mediastinum: Mediastinal contours appear normal. Heart size is normal. Bones and chest wall: No suspicious bony lesions. Overlying soft tissues appear unremarkable. IMPRESSION: No acute cardiopulmonary disease. Dictated by: Kristopher Mishra M.D. on 03/05/2017 at 13:26 Approved by: Kristopher Mishra M.D. on 03/05/2017 at 13:27
[2017-03-05] MEDS ORDERED: Insulin Human REGular-Omnicell 100 Unit/mL IV ONE (13:30)
--- NOTE | 2017-03-05 13:41 | DRSVH ---
PROCEDURE: CT BRAIN WITHOUT CONTRAST ([id number]) INDICATIONS: AMS TECHNIQUE: Noncontrast 4.5 mm thick angled axial sections acquired from the foramen magnum to the vertex, with c oronal reformats. COMPARISON: None. FINDINGS: Image quality: There is slight motion artifact. CSF spaces: Basal cisterns are patent. No extra-axial fluid collections. The ventricles are symmet gloria in size and shape. There is cerebral volume loss, with resultant ventricular and sulcal prominen ce. Brain: No intracranial hemorrhage, mass, or mass effect. There is a small region of encephalomalaci a and within the left posterior temporal lobe redemonstrated. There are subcortical, periventricular and deep white matter hypodensities consistent with chronic small vessel ischemic changes. There is intracranial internal carotid artery atherosclerosis. Skull and face: Calvarium and visualized facial bones appear intact, without suspicious lesions. Sinuses: Visualized sinuses demonstrate moderate mucosal thickening within the left maxillary sinus and mild thickening on the right. There is also minimal thickening within ethmoid sinuses. The mast oid air cells are clear. IMPRESSION: 1. No acute intracranial abnormality. 2. Small region of encephalomalacia redemonstrated in the posterior left temporal lobe consistent wi th a prior infarct. Dictated by: Usama Downing M.D. on 03/05/2017 at 13:36 Approved by: Usama Downing M.D. on 03/05/2017 at 13:39
[2017-03-05] MEDS ORDERED: FUR20 PO (14:41)
[2017-03-05] MEDS ORDERED: VIT1TABL83 PO (14:41)
[2017-03-05] MEDS ORDERED: LISI10TA PO (14:41)
[2017-03-05] MEDS ORDERED: Hemp Oil PEG (14:41)
[2017-03-05] MEDS ORDERED: Ondansetron 2 mg/mL 2 mL Inj IVPUSH PRN (14:45)
[2017-03-05 15:06] LABS: INR 1.14 ratio
--- NOTE | 2017-03-05 15:17 | NUR ---
Admit nurse note Admission assessment completed in the ER based on daughter, Jewels's, report. Pt. is sleeping and rouses only with mumbling when MD palpates his abdomen. Per daughter pt. was brought in for confusion and weakness. He usually uses a walker and has been asking to use his wheelchair increasingly for the last several days. Apparently he c/o sob when waking from sleep several days ago and during a doctor's appointment 2 days ago "they said his lungs were crackly." Daughter caregives Mondays to and another daughter "checks in with him" Fridays to Sundays. Recent home med changes include: atorvastatin d/c'd x1 week, lisinopril increased from 5-10 mg x 2 days and furosemide daily prn given daily x 2 days. Daughter reports he has not c/o sob in the last several days. Pt .is at risk for sleep apnea. He is currently on SP02 monitoring, sleep apnea protocol to be initiated upon arrival to unit. Generic "CPR" advance directive from [facility] on file and daughter asks for assistance notarizing DPOA when both daughters are present. Social work notified. Allergies verified and sticker placed on nameband.
[2017-03-05] MEDS ORDERED: Glucose 40% Oral Gel 15 Gm Tube PO PRN (15:30)
--- NOTE | 2017-03-05 15:31 | PCM.HPMED ---
Subjective Date of Service Mar 05, 2017 Primary Provider: Admitting Physician: Primary Care Physician: Ria Sy MD Attending Physician: Chief Complaint: Chief complaint lethargy HISTORY was OBTAINED FROM daughter / [facility] NOTES History of present illness 67-year-old male with alcoholic cirrhosis/liver cancer, brought in by ambulance due to lethargy noted by home health for the past 2 days. No trauma, associated generalized weakness. Prior hospitalizations have been w/ [facility]. apparently no elevated NH3 nor ascites in the past. He indicates that he has urinary urgency now, increased lower extremity edema per daughter. baseline dysphagia diet which he refuses per daughter. In the ER temperature 36.2, otherwise vital signs stable, blood glucose 357, IV fluids, 2 units of insulin. Review of Systems - follows commands but does not reply to questions. ambulates walker at baseline, last 2 days asking for wheelchair - per daughter FAMILY HX alcoholism SOCIAL HX distant alcohol, distant recreational drug use, distant smoker/ distant chewing tobacco MEDICATIONS Scheduled ([Thiamine]) 100 MG TABLET 100 MG PO DAILY Ascorbic Acid (Vitamin C) 500 Mg Capsule.er 500 MG PO DAILY Atorvastatin Calcium (Atorvastatin Calcium) 40 Mg Tablet 40 MG PO HS Carvedilol (Carvedilol) 6.25 Mg Tablet 6.25 MG PO BID Cholecalciferol (Vitamin D3) (Vitamin D) 1,000 Unit Tablet 1,000 UNIT PO QAM Econazole Nitrate (Econazole Nitrate) 15 Gm Cream..g. 1 APPL TOP BID apply to scalp Ferrous Sulfate (Ferrous Sulfate) 324 Mg Tablet.dr 324 MG PO DAILY Insulin Aspart (NovoLOG U-100 Pen) 100 Unit/Ml Insuln.pen 2 UNITS SC TIDWM Insulin Detemir (Levemir Flextouch) 100 Unit/1 Ml Insuln.pen 8 UNITS SUBQ QAM Ipratropium [place] (Ipratropium [place] 0.03% Nasal) 30 Ml [place] 2 SPRAY NS BID Lisinopril (Lisinopril) 5 Mg Tablet 5 MG PO DAILY Loratadine (Claritin) 10 Mg Capsule 10 MG PO MORNING Mometasone/Formoterol (Dulera 100 Mcg/5 Mcg Inhaler) 13 Gm Hfa.aer.ad 1 PUFF IH BID Multivitamin (Once Daily) 1 Each Tablet 1 EACH PO DAILY Oxybutynin Chloride (Oxybutynin Chloride) 5 Mg Tablet 5 MG PO BID Pantoprazole (Pantoprazole DR) 40 Mg Tablet.dr 40 MG PO BIDAC Tamsulosin ER (Tamsulosin ER) 0.4 Mg Cap.er.24h 0.4 MG PO DAILY Scheduled PRN Bisacodyl (Dulcolax Rectal) 10 Mg Supp.rect 10 MG RC DAILY PRN PRN For Constipation Past Medical/Surgical HX , abdominal operations Anxiety Asthma Insulin diabetes CVA, paroxysmal A. fib, aortic valve replacement due to aVR Hypertension, no ME no CHF Cataracts Dysphasia GI bleed/duodenitis/GERD/diverticulitis Kidney stones/BPH/UTI Low back pain, left knee pain neck pain Exam on admission on room air NAD eyes closed mood affect somnolence, holding abdomen w. deep palpation NC/AT no icterus no injected eyes EOMI PERRL / dentures/ no oral lesions / hearing intact Supple neck CTAB equal chest rise / no accessory muscle use / asking to void / no rrw RRR S1 S2 / no mrg / 2+ radial pulses Soft mild tenderness to diffuse palpation, baseline distention per daughter, hypoactive BS no overt fluid wave No edema no cyanosis no ecchymosis of lower extremities No rash / no jaundice RICHTER symmetrical facies STUDIES EKG normal sinus rhythm 72 bnp pending lactic acid elevated UA pending LFT AST 89 ALT 47 alkaline phosphatase 339 Ammonia 147, albumin 3.2 EtOH less than 10 Imaging Date of Service: 03/05/17 1228 PROCEDURE: CT BRAIN WITHOUT CONTRAST ([id number]) INDICATIONS: AMS TECHNIQUE: Noncontrast 4.5 mm thick angled axial sections acquired from the foramen magnum to the vertex, with coronal reformats. COMPARISON: None. FINDINGS: Image quality: There is slight motion artifact. CSF spaces: Basal cisterns are patent. No extra-axial fluid collections. The ventricles are symmetric in size and shape. There is cerebral volume loss, with resultant ventricular and sulcal prominence. Brain: No intracranial hemorrhage, mass, or mass effect. There is a small region of encephalomalacia and within the left posterior temporal lobe redemonstrated. There are subcortical, periventricular and deep white matter hypodensities consistent with chronic small vessel ischemic changes. There is intracranial internal carotid artery atherosclerosis. Skull and face: Calvarium and visualized facial bones appear intact, without suspicious lesions. Sinuses: Visualized sinuses demonstrate moderate mucosal thickening within the left maxillary sinus and mild thickening on the right. There is also minimal thickening within ethmoid sinuses. The mastoid air cells are clear. IMPRESSION: 1. No acute intracranial abnormality. 2. Small region of encephalomalacia redemonstrated in the posterior left temporal lobe consistent with a prior infarct. PROCEDURE: X-RAY CHEST ONE VIEW, PORTABLE ([id number]) INDICATIONS: AMS TECHNIQUE: One view of the chest was acquired. COMPARISON: [facility], CR, CHEST 2 VIEW, 10/16/2015, 15:40. [facility], CT, CT ABD PELVIS W CON, 01/16/2017, 20:23. [facility], CR, XR CHEST 1VW (PORTABLE), 10/24/2016, 16:54. FINDINGS: Surgical changes and devices: Sternotomy and prosthetic aortic valve. Lungs and pleura: There is right hemidiaphragm elevation. No pleural effusions or pneumothorax. Lungs are clear. Mediastinum: Mediastinal contours appear normal. Heart size is normal. Bones and chest wall: No suspicious bony lesions. Overlying soft tissues appear unremarkable. IMPRESSION: No acute cardiopulmonary disease. Active issues and reason for admission hepatic encephalopathy w/ Left shift, elevated lactic acidosis, edema, evaluating for SBP/sources of infection --lactulose --pending infection evaluation BCx/UA/US abdomen, cephalosporin allergy, start levaquin, consider albumin --pending thyroid function, bladder scan, prn live if retaining urine Mild hyponatremia w/ edema --monitor --pending BNP Mild transaminitis Microcytic anemia, thrombocytopenia, due to cirrhosis thickening sinuses on CT --monitor, will be on levaquin for SBP treatment/prophylasix Chronic issues known prior to admission, present on admission DM --insulin SSI BPH --hold oxybutynin -anticholinergic GERD/CVA/AoR hx --continue medications monitor dysphagia Diet dysphagia diet w/ assist while somnolent DVT prophylaxis lovenox scd ambulate Code full, DPOA daughters - official paperwork pending Assessment and plan were discussed with patient family. Allergies Coded Allergies: Penicillins (Verified Allergy, Unknown, 03/05/17) aspirin (Verified Allergy, Unknown, 03/05/17) history GI bleeds cephalexin (Verified Allergy, Unknown, 03/05/17) PMH Social History Hx Alcohol Use: Yes (quit 2 yrs ago) Hx Substance Use: Yes (decades ago) Hx Tobacco Use: Yes Smoking Status: Former Smoker Exam Vital Signs Vital Sign - Last Date Time Temp Pulse Resp B/P Pulse Ox O2 Delivery O2 Flow Rate FiO2 03/05/17 12:23 36.2 77 20 128/65 99 Room Air Lab and Diagnostics Result Diagram: 03/05/17 1228 03/05/17 1250 Zackery Deleon MD Mar 05, 2017 14:46
[2017-03-05] MEDS ORDERED: FORMOTEROL IH PRN (15:35)
[2017-03-05] MEDS ORDERED: MOMETASONE IH PRN (15:35)
[2017-03-05 16:09] LABS: TROPONIN T < 0.010 ug/L (0.0-0.011)
[2017-03-05 16:20] LABS: APPEARANCE,URINE CLEAR (CLEAR,HAZY); COLOR,URINE YELLOW (YELLOW); OCCULT BLOOD,URINE NEGATIVE (NEGATIVE); UROBILINOGEN,URINE NORMAL (NORMAL)
[2017-03-05] MEDS ORDERED: Lactulose 200 GM/Bottle Enema RECTAL PRN (17:15)
[2017-03-05] MEDS: Insulin LISPRO 300 Unit/3 mL Inj SUBQ SCH ×2 (17:30→22:00)
[2017-03-05] MEDS: Pantoprazole 40 mg ER24 Tablet PO SCH (18:14)
--- NOTE | 2017-03-05 18:20 | NUR ---
Admit Pt arrived to unit at 1620, able to ambulate to bed with walker. Pt A&O x 3, but is mumbling and slurring words and can become agitated if he wants to be up and walking around. Pt able to answer all questions and knows medical history that is correct with what was given in report. Pt and daughter requesting food for pt because he is diabetic and hasn't eaten since 1000. Is wanting thin liquids instead of ordered thickened stating "you just need to make that order go away it's old and I'm fine." Pt signed waiver for thickened liquids and it is in chart. Pt states no pain or nausea. IV s/l, RA. BG at 1730 was 249, but insulin is not here from pharmacy yet. Multiple areas of scratches over body, all charted. CANDICE r/f positive, will obtain [employer]ESSION[employer] for date night sitter. Bed in low, call light in reach.
[2017-03-05] MEDS ORDERED: levoFLOXacin Inj 500 MG in IV Premix 1 EACH IV SCH (19:00)
[2017-03-05 19:13] LABS: TROPONIN T < 0.010 ug/L (0.0-0.011)
--- NOTE | 2017-03-05 19:39 | DRSVH ---
PROCEDURE: US ABDOMEN, LIMITED ([id number]) INDICATIONS: evaluate ascites TECHNIQUE: Real-time focused scanning was performed of the abdomen, with image documentation. COMPARISON: None. FINDINGS: 4 quadrants were evaluated for free fluid. IMPRESSION: No evidence for free fluid in the peritoneal cavity. Dictated by: Escobar Graves M.D. on 03/05/2017 at 19:37 Approved by: Escobar Graves M.D. on 03/05/2017 at 19:37
[2017-03-05] MEDS: Ipratropium 0.03% 30 mL Nasal Spray Bottle NASAL SCH (20:30)
[2017-03-05] MEDS: Insulin Human REGular 300 Unit/3 mL Inj SUBQ SCH (20:30)
[2017-03-05] MEDS: Fluticasone-Salmeterol 100-50 Inhaler INHALATION SCH (20:30)
[2017-03-05] MEDS: Lactulose 20 Gm/30 mL 30 mL Syrup PO SCH (20:54)
[2017-03-05] MEDS ORDERED: 0.9% Sodium Chloride 250 ML ONE (21:25)
[2017-03-06] MEDS: Lactulose 20 Gm/30 mL 30 mL Syrup PO SCH ×6 (00:37→21:30)
[2017-03-06] MEDS: Insulin Human REGular 300 Unit/3 mL Inj SUBQ SCH (03:11)
--- NOTE | 2017-03-06 03:36 | NUR ---
activity pt is receiving lactulose Q4hrs. he has had one large BM. pt has been alert and oriented this shift. but states that he is more tired then usual. he slept for 6 hours. he is now awake and feeling alert and rested. he has been sitting at the edge of the bed reading newspapers. pt told nurse that sometimes people think he is confused when he just doesn't understand what is being said to him. he asks that all medical terminology be simplified so he understands. he has been pleasant and cooperative with care. hourly rounding continues.
[2017-03-06 03:54] VITALS: PULSE 80
[2017-03-06 05:42] LABS: BASOPHILS % (AUTO) 0.2 % (0-3); EOSINOPHILS % (AUTO) 2.7 % (0-5); MONOCYTES % (AUTO) 12.5 % (4-12); Mean Corpuscular Hemoglobin 26.5 pg (27.0-35.0); Mean Corpuscular Volume 80.9 fL (81-100); NEUTROPHILS % (AUTO) 67.5 % (40-74); Platelet Count 119 bil/L (150-400)
[2017-03-06 05:51] VITALS: BP 152/74; PULSE 84; RESP 19; O2SAT 100
[2017-03-06 08:00] VITALS: PULSE 79
[2017-03-06] MEDS ORDERED: Glucose 40% Oral Gel 15 Gm Tube PO PRN (08:15)
[2017-03-06] MEDS: Fluticasone-Salmeterol 100-50 Inhaler INHALATION SCH ×2 (08:18→20:00)
[2017-03-06] MEDS: Ipratropium 0.03% 30 mL Nasal Spray Bottle NASAL SCH ×2 (08:26→20:00)
[2017-03-06] MEDS: Pantoprazole 40 mg ER24 Tablet PO SCH ×2 (08:28→16:55)
[2017-03-06] MEDS: Insulin LISPRO 300 Unit/3 mL Inj SUBQ SCH ×3 (12:43→22:38)
[2017-03-06 17:03] VITALS: BP 184/83; PULSE 78; RESP 19; O2SAT 100
--- NOTE | 2017-03-06 17:37 | NUR ---
Social Work- Initial Assessment Data and Assessment: : See Initial Assessment. EMR reviewed. Pt is a 66 year old male admitted 03/05/17 for hepatic encephalopathy per H&P. SW met with pt at bedside to discuss discharge plan, SW role explained and initial assessment complete. Pt has no LTC or VA benefits. Pt has DPOA on file, Surekha Sarmiento [phone], daughter. Patient's insurance is Medicare and [facility] and patient PCP is Dr. Ria Sy. Patient has a readmit score of 4 high risk. Patient reports that he lives at home and his daughter is there temporarily. Patient reports that he lives in an apartment with two steps to enter.Patient does not drive. Patient states that he use both his walker and WC at baseline. Patient reports that he has [facility] at home with RN, PT,OT, and ST. Patient states that he has been to [facility] in the past. Patient is likely to discharge home and resume [facility]. SW will continue to follow. Plan: Patient is likely to discharge home with [facility]. SW will continue to follow. Addendum: 03/06/17 at 1749 by LISA DIAS Amended: Links added.
--- NOTE | 2017-03-06 18:19 | NUR ---
Activity Pt received 2 doses of lactulose and was able to have a total of 3 BM's during 24 hours, so afternoon lactulose dose held. Pt A&O x 3, up independently in room, walking in hallways with daughter and able to shower w/o difficulty. Pt states he is frustrated that the doctor told him to walk more, but "the nurses tell me to go to bed." Explained to pt he is able to be up now that we have discussed safety and falls with him and it was only for his safety since he has fallen before at home. No c/o pain. Bed in low, call light in reach.
[2017-03-06 19:30] VITALS: BP 175/84; PULSE 78; RESP 17; O2SAT 100
--- NOTE | 2017-03-06 20:29 | PCM.PNMED ---
Subjective Date of Service Mar 06, 2017 Subjective Had a long discussion with patient today. He sounded slurred but from a phone call that was made to Dr. Irby this is his baseline due to couple of strokes. He tells me that he had a recent admission during which a liver mass was found, subsequently he followed up with [facility]. He says that he was not interested in pursuing chemotherapy radiation. Called Dr. Irby who also confirms the same story he denies fevers, chills, pain, nausea , vomiting he does not really know why he was sent to the ER though she heard people mention the word confusion he says that he had 2 bowel movements but records indicate only 1 Exam Vital Signs Vital Sign - Last Date Time Temp Pulse Resp B/P Pulse Ox O2 Delivery O2 Flow Rate FiO2 03/06/17 08:00 79 03/06/17 05:51 36.8 19 152/74 100 Room Air Intake and Output 03/05/17 03/05/17 03/06/17 Cumulative From/Thru 15:00 23:00 07:00 03/05/17 13:12 - 03/06/17 05:51 Intake Total 1000 ml 913 ml 200 ml 2113 ml Output Total 425 ml 950 ml 1375 ml Balance 1000 ml 488 ml -750 ml 738 ml Intake Oral 913 ml 200 ml 1113 ml IV Total 1000 ml 1000 ml Output Urine Total 425 ml 950 ml 1375 ml # Voids 1 1 # Bowel Movements 1 1 Exam General: NAD, sitting up in bed HEENT: NCAT, poor dentition Eyes: [place] conjunctivae. No ptosis, PERRL Neck: No masses, trachea midline, no thyromegaly Lungs: CTA with normal respiratory effort, no crackles or wheezes CV: RRR, no murmurs/rubs/gallops, normal PMI GI: Soft, non-tender with positive for hepatomegaly Skin: Warm and dry. Several excoriation over his body due to scratching Psych: A&O X3, with appropriate affect Neuro: Slurred speech IVs and Medications IV Fluids None Medications Reviewed: Medications were reviewed in detail Lab and Diagnostics Result Diagram: 03/06/1730 03/06/17529 X-Rays, CTs and MRIs [facility] [place] [address] Patient Name: LOUIE FRANCIS JR MR#: [id number] Location: [facility] Ordering Phys: Zackery Deleon MD Date of Service: 03/05/17 1749 PROCEDURE: US ABDOMEN, LIMITED ([id number]) INDICATIONS: evaluate ascites TECHNIQUE: Real-time focused scanning was performed of the abdomen, with image documentation. COMPARISON: None. FINDINGS: 4 quadrants were evaluated for free fluid. IMPRESSION: No evidence for free fluid in the peritoneal cavity. Dictated by: Escobar Graves M.D. on 03/05/2017 at 19:37 Approved by: Escobar Graves M.D. on 03/05/2017 at 19:37 [facility] Diagnostic [place] [address] Patient Name: LOUIE FRANCIS JR MR#: [id number] Location: [facility] Ordering Phys: Grupo Servin Date of Service: 03/05/17 1228 PROCEDURE: CT BRAIN WITHOUT CONTRAST ([id number]) INDICATIONS: AMS TECHNIQUE: Noncontrast 4.5 mm thick angled axial sections acquired from the foramen magnum to the vertex, with coronal reformats. COMPARISON: None. FINDINGS: Image quality: There is slight motion artifact. CSF spaces: Basal cisterns are patent. No extra-axial fluid collections. The ventricles are symmetric in size and shape. There is cerebral volume loss, with resultant ventricular and sulcal prominence. Brain: No intracranial hemorrhage, mass, or mass effect. There is a small region of encephalomalacia and within the left posterior temporal lobe redemonstrated. There are subcortical, periventricular and deep white matter hypodensities consistent with chronic small vessel ischemic changes. There is intracranial internal carotid artery atherosclerosis. Skull and face: Calvarium and visualized facial bones appear intact, without suspicious lesions. Sinuses: Visualized sinuses demonstrate moderate mucosal thickening within the left maxillary sinus and mild thickening on the right. There is also minimal thickening within ethmoid sinuses. The mastoid air cells are clear. IMPRESSION: 1. No acute intracranial abnormality. 2. Small region of encephalomalacia redemonstrated in the posterior left temporal lobe consistent with a prior infarct. Dictated by: Usama Downing M.D. on 03/05/2017 at 13:36 Approved by: Usama Downing M.D. on 03/05/2017 at 13:39 Assessment & Plan Assessment #1 Hepatic encephalopathy, POA: -- Discussed this with Surekha his daughter at length over the phone. She says that she visited with him this a.m. and his her dad appeared to be at his baseline. She says that it was his sister that was with him last night when it was noted that he was altered mentally. Patient cannot describe any of this. He says that he may have aspirated wheelchair because it would offer him more mobility without having to ask for help from his home care nurses. She also confirms that patient did not want cancer treatments. He had a visit with the [facility] 3 weeks ago. However on records from January and verify his admission during which the mass was found. -- Continue to trend serum ammonia, interested lactulose dose to 30 mg 3 times a day -- We will consider Tomorrow if he does not improve -- Continue to monitor INR, will consider vitamin K if prolonged Liver mass, present admission: This is thought to be behind his hepatic encephalopathy. Discussed this withdaughter . Surekha. She agrees that they only want symptomatic treatment as the etiology cannot be fixed by us here at this hospital, contacted palliative care, Dr. Zapata. He has reviewed her previous records and confirmed that they have in fact met with the patient during his last admission and he wanted to be full code. herself says that it is up to her dad and patient discuss that with the patient. -- Plan to continue code discussion with patient, if he wants to be DNR/DNI then we can arrange for hospice to meet with the patient, otherwise we will wait till palliative treatment consisting him on a Thursday. We appreciate palliative care team's recommendations. -- Requested [facility] records Hypertension, chronic -- Continue home medication lisinopril 10 mg daily. 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 Currently stable Chronic COPD: Continue home medication Advair, DuoNeb's Chronic GERD continue pantoprazole Disposition: To home when patient is medically cleared. We will try to give him guidance regarding his prognosis after verifying [facility] records Diet dysphagia diet DVT prophylaxis with enoxaparin subcutaneous 40 mg Joanie Castro DO Mar 06, 2017 13:48
[2017-03-06] MEDS ORDERED: levoFLOXacin Inj 500 MG in IV Premix 1 EACH IV SCH (21:00)
--- NOTE | 2017-03-07 04:21 | NUR ---
Activity Pt up ambulating in his room and in halls, tolerating well with a steady gait. Pt has 0 c/o pain, making needs known. Pt with good PO intake. 0 BM's this shift, lactulose held per parameters
[2017-03-07 05:06] VITALS: BP 121/65; PULSE 92; RESP 17; O2SAT 97
[2017-03-07] MEDS: Lactulose 20 Gm/30 mL 30 mL Syrup PO SCH ×4 (06:30→21:17)
[2017-03-07 06:34] LABS: Mean Corpuscular Hemoglobin 26.3 pg (27.0-35.0); Mean Corpuscular Volume 80.8 fL (81-100)
[2017-03-07 06:44] LABS: INR 1.11 ratio
[2017-03-07] MEDS: Pantoprazole 40 mg ER24 Tablet PO SCH ×2 (07:46→17:00)
[2017-03-07] MEDS: Ipratropium 0.03% 30 mL Nasal Spray Bottle NASAL SCH ×2 (08:30→22:08)
[2017-03-07] MEDS: Fluticasone-Salmeterol 100-50 Inhaler INHALATION SCH ×2 (08:35→21:08)
[2017-03-07] MEDS: Insulin LISPRO 300 Unit/3 mL Inj SUBQ SCH ×4 (08:36→21:59)
--- NOTE | 2017-03-07 08:55 | NUR ---
Call family: Daughter Jewels called at [phone] with information regarding patients room change to 240-2. Pt aware of location of MOC.
[2017-03-07 10:00] VITALS: BP 147/69; PULSE 88; RESP 16; O2SAT 99
[2017-03-07 14:00] VITALS: BP 145/76; PULSE 80; RESP 18; O2SAT 100
[2017-03-07 18:00] VITALS: BP 156/84; PULSE 80; RESP 18; O2SAT 100
[2017-03-07 20:00] VITALS: BP 167/76; PULSE 78; RESP 17; O2SAT 100
--- NOTE | 2017-03-07 20:06 | PCM.PNMED ---
Subjective Date of Service Mar 07, 2017 Subjective Patient is seen and examined. He is able to get up and walk with help. States that PT/OT has not visited as yet. He does not seem to be able to understand the complications of foregoing chemoradiation for hepatocellular carcinoma. Had a discussion with him today as he appears to be saying that he wants to be kept comfortable, it does not seem to understand that hospice cannot be arranged for down the road if and when he needs that level of care if he were to remain full code. He asked me about the complications of hepatocellular carcinoma, I have discussed possibilities of ascites, esophageal varices, hepatorenal syndrome, respiratory compromise, recurrent hepatic encephalopathy with him. He states that he is feeling more clear today, less confused. Exam Vital Signs Vital Sign - Last Date Time Temp Pulse Resp B/P Pulse Ox O2 Delivery O2 Flow Rate FiO2 03/07/17 05:06 36.6 92 17 121/65 97 Room Air Intake and Output 03/06/17 03/06/17 03/07/17 Cumulative From/Thru 15:00 23:00 07:00 03/05/17 13:12 - 03/07/17 05:06 Intake Total 536 ml 670 ml 3319 ml Output Total 1175 ml 1400 ml 3950 ml Balance -639 ml -730 ml -631 ml Intake Oral 536 ml 670 ml 2319 ml IV Total 1000 ml Output Urine Total 1175 ml 1400 ml 3950 ml # Voids 1 # Bowel Movements 0 0 1 Exam General: NAD, laying in bed, HEENT: NCAT, poor dentition Eyes: [place] conjunctivae. No ptosis Neck: No masses, trachea midline, no thyromegaly Lungs: CTA with normal respiratory effort, no crackles or wheezes CV: RRR, no murmurs/rubs/gallops, normal PMI MSK: no digital cyanosis Skin: Warm and dry. Several excoriations from scratching Psych: A&O X3, with appropriate affect Neuro: No focal deficits, facial as asymmetry, slurred speech at baseline IVs and Medications Medications Reviewed: Medications were reviewed in detail Lab and Diagnostics Laboratory Tests Test 03/07/17 06:16 White Blood Count 5.2th/mm3 (3.8-10.1) Red Blood Count 4.38mil/mm3 (4.40-5.80) Hemoglobin 11.5g/dL (13.8-17.2) Hematocrit 35.4% (41.0-50.0) Mean Corpuscular Volume 80.8fL (81-100) Mean Corpuscular Hemoglobin 26.3pg (27.0-35.0) Mean Corpuscular Hemoglobin Concent 32.5% (32.0-37.0) Red Cell Distribution Width 17.5% (12.3-15.4) Platelet Count 152bil/L (150-400) Prothrombin Time 11.9sec (8.1-12.5) Prothromb Time International Ratio 1.11ratio Activated Partial Thromboplast Time 32.0sec (22.8-33.0) Sodium Level 136mEq/L (134-144) Potassium Level 4.1mEq/L (3.5-5.2) Chloride Level 100mEq/L (97-108) Carbon Dioxide Level 23mmol/L (18-29) Blood Urea Nitrogen 12mg/dL (8-27) Creatinine 1.14mg/dL (0.76-1.27) Estimat Glomerular Filtration Rate 68mL/min (>59) Glucose Level 263mg/dL (60-99) Calcium Level 9.0mg/dL (8.5-10.1) Total Bilirubin 0.8mg/dL (0.0-1.2) Aspartate Amino Transf (AST/SGOT) 82U/L (0-50) Alanine Aminotransferase (ALT/SGPT) 46U/L (0-44) Alkaline Phosphatase 386U/L (25-160) Ammonia 42ug/dL (18-53) Total Protein 7.4g/dL (6.4-8.4) Albumin 3.5g/dL (3.4-5.0) Microbiology 03/05/17 Blood Culture - Preliminary, Resulted NO GROWTH AFTER 48 HOURS Result Diagram: 03/06/1752903/06/17529 X-Rays, CTs and MRIs [facility] Diagnostic Imaging Department [place], [place] [id number] Patient Name: LOUIE FRANCIS JR MR#: [id number] Location: [facility] [place] Ordering Phys: Zackery Deleon MD Date of Service: 03/05/17 381 PROCEDURE: US ABDOMEN, LIMITED ([id number]) INDICATIONS: evaluate ascites TECHNIQUE: Real-time focused scanning was performed of the abdomen, with image documentation. COMPARISON: None. FINDINGS: 4 quadrants were evaluated for free fluid. IMPRESSION: No evidence for free fluid in the peritoneal cavity. Dictated by: Escobar Graves M.D. on 03/05/2017 at 19:37 Approved by: Escobar Graves M.D. on 03/05/2017 at 19:37 [facility] Diagnostic [place] [address] Patient Name: LOUIE FRANCIS JR MR#: [id number] [place] [facility] [place] Ordering Phys: Grupo Servin [facility] Date of Service: 03/05/17 1228 PROCEDURE: CT BRAIN WITHOUT CONTRAST ([id number]) INDICATIONS: AMS TECHNIQUE: Noncontrast 4.5 mm thick angled axial sections acquired from the foramen magnum to the vertex, with coronal reformats. COMPARISON: None. FINDINGS: Image quality: There is slight motion artifact. CSF spaces: Basal cisterns are patent. No extra-axial fluid collections. The ventricles are symmetric in size and shape. There is cerebral volume loss, with resultant ventricular and sulcal prominence. Brain: No intracranial hemorrhage, mass, or mass effect. There is a small region of encephalomalacia and within the left posterior temporal lobe redemonstrated. There are subcortical, periventricular and deep white matter hypodensities consistent with chronic small vessel ischemic changes. There is intracranial internal carotid artery atherosclerosis. Skull and face: Calvarium and visualized facial bones appear intact, without suspicious lesions. Sinuses: Visualized sinuses demonstrate moderate mucosal thickening within the left maxillary sinus and mild thickening on the right. There is also minimal thickening within ethmoid sinuses. The mastoid air cells are clear. IMPRESSION: 1. No acute intracranial abnormality. 2. Small region of encephalomalacia redemonstrated in the posterior left temporal lobe consistent with a prior infarct. Dictated by: Usama Downing M.D. on 03/05/2017 at 13:36 Approved by: Usama Downing M.D. on 03/05/2017 at 13:39 Assessment & Plan Assessment #1 Hepatic encephalopathy, POA: -- Discussed this with Surekha his daughter at length over the phone. She says that she visited with him this a.m. and his her dad appeared to be at his baseline. She says that it was his sister that was with him last night when it was noted that he was altered mentally. Patient cannot describe any of this. He says that he may have aspirated wheelchair because it would offer him more mobility without having to ask for help from his home care nurses. She also confirms that patient did not want cancer treatments. He had a visit with the [facility] 3 weeks ago. However on records from January and verify his admission during which the mass was found. -- Continue to trend serum ammonia, interested lactulose dose to 30 mg 3 times a day: Patient is much improved today, ammonia levels normalized. -- Continue to monitor INR, will consider vitamin K if prolonged Liver mass, present admission: This is thought to be behind his hepatic encephalopathy. Discussed this with daughter Yulia Irby. She agrees that they only want symptomatic treatment as the etiology cannot be fixed by us here at this hospital, contacted palliative care, Dr. Zapata. He has reviewed her previous records and confirmed that they have in fact met with the patient during his last admission and he wanted to be full code. herself says that it is up to her dad and patient discuss that with the patient. -- Plan to continue code discussion with patient, if he wants to be DNR/DNI then we can arrange for hospice to meet with the patient, otherwise we will wait till palliative treatment consisting him on a Thursday. We appreciate palliative care team's recommendations. -- Requested [facility] records: His records do indicate that patient declined chemoradiation and wanted to be comfortable and have quality of life. Hypertension, chronic -- Continue home medication lisinopril 10 mg daily. 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 Currently stable Chronic COPD: Continue home medication Roula Mccoy's Chronic GERD continue pantoprazole Disposition: To home when patient is medically cleared. We will try to give him guidance regarding his prognosis after verifying [facility] records. This has been addressed today. Patient is still having trouble comprehending the course of his disease, and how the disease process will affect his ability to live alf. I feel that it will be a good idea to have palliative care help him to set goals. Diet dysphagia diet DVT prophylaxis with enoxaparin subcutaneous 40 mg GI Prophylaxis: Proton Pump Inhibitor VTE Prophylaxis: Sub-Q Enoxaparin Resuscitation Status: CPR: Attempt Resuscitation Joanie Castro DO Mar 07, 2017 05:35
--- NOTE | 2017-03-07 20:11 | PCM.ADCARE ---
Advance Care Planning Note Purpose of Encounter: Dissected goals for patient in the light of his recent diagnosis of hepatocellular carcinoma, and his decision to forego treatment Parties in Attendance: Patient, Dr. Castro Decisional Capacity: Fair Subjective: Patient states that he decided to forego cancer treatment for hcc. He is asking for what type of complications he would have because of this decision, and how morbidity will occur. He says that he will accept CPR and ventilator Objective: Patient cannot connect his prognosis with his code status decisions Goals of Care Determinations: We will continue to safety counselor patient on what it means to be have comfort and quality of care in the light of his recent diagnosis of HCC and his decision to forego treatment Plan: Palliative care will see him on Thursday CODE STATUS: Full code Time Spent Adv.Care Plannin minutes Adv. Care Plan Documenation: Documented in the progress note today Joanie Castro DO Mar 07, 2017 20:11
[2017-03-08 00:10] VITALS: BP 149/72; PULSE 80; RESP 17; O2SAT 98
--- NOTE | 2017-03-08 02:18 | NUR ---
Shift Note Pt. calm, pleasant and cooperative to staff and care, Ambulating independently in rm with cane/FWW, steady gait, assisted in shower and dressing, 0/10 pain, BG @2200 was 136 no coverage given, offered midnight snacks and accepted, x1 brown formed BM, no discomfort voiced, slept good, stable, hourly rounds, call light in reach, all needs attended.
[2017-03-08 04:24] VITALS: BP 148/77; PULSE 89; RESP 16; O2SAT 99
[2017-03-08] MEDS: Lactulose 20 Gm/30 mL 30 mL Syrup PO SCH ×2 (05:40→11:48)
[2017-03-08] MEDS: Pantoprazole 40 mg ER24 Tablet PO SCH (07:55)
[2017-03-08 08:00] VITALS: BP 120/69; PULSE 74; RESP 18; O2SAT 98
[2017-03-08] MEDS: Insulin LISPRO 300 Unit/3 mL Inj SUBQ SCH ×2 (08:02→12:00)
[2017-03-08] MEDS: Fluticasone-Salmeterol 100-50 Inhaler INHALATION SCH (08:06)
[2017-03-08] MEDS: Ipratropium 0.03% 30 mL Nasal Spray Bottle NASAL SCH (10:15)
--- NOTE | 2017-03-08 11:53 | NUR ---
Evaluation completed. Please go to "Notes" then click on "Assessments and Notes" (bottom left corner of screen). Then select appropriate discipline tab on top of screen.
--- NOTE | 2017-03-08 12:24 | PCM.DIMED ---
Discharge Instructions Date of Service Mar 08, 2017 Dates of Hospitalization Mar 05, 2017 at 15:19 Discharge Diagnosis Discharge Diagnosis Hepatic Encephalopathy, hyponatremia, DM2, BPH, HTN Test Results [facility] Diagnostic Imaging Department [place], [place] [id number] Patient Name: LOUIE FRANCIS JR MR#: [id number] Location: [facility] Ordering Phys: Zackery Deleon MD Date of Service: 03/05/17 1749 PROCEDURE: US ABDOMEN, LIMITED ([id number]) INDICATIONS: evaluate ascites TECHNIQUE: Real-time focused scanning was performed of the abdomen, with image documentation. COMPARISON: None. FINDINGS: 4 quadrants were evaluated for free fluid. IMPRESSION: No evidence for free fluid in the peritoneal cavity. Dictated by: Escobar Graves M.D. on 03/05/2017 at 19:37 Approved by: Escobar Graves M.D. on 03/05/2017 at 19:37 [facility] Diagnostic [place] [address] Patient Name: LOUIE FRANCIS JR MR#: [id number] Location: [facility] Ordering Phys: Grupo Servin Date of Service: 03/05/17 1228 PROCEDURE: CT BRAIN WITHOUT CONTRAST ([id number]) INDICATIONS: AMS TECHNIQUE: Noncontrast 4.5 mm thick angled axial sections acquired from the foramen magnum to the vertex, with coronal reformats. COMPARISON: None. FINDINGS: Image quality: There is slight motion artifact. CSF spaces: Basal cisterns are patent. No extra-axial fluid collections. The ventricles are symmetric in size and shape. There is cerebral volume loss, with resultant ventricular and sulcal prominence. Brain: No intracranial hemorrhage, mass, or mass effect. There is a small region of encephalomalacia and within the left posterior temporal lobe redemonstrated. There are subcortical, periventricular and deep white matter hypodensities consistent with chronic small vessel ischemic changes. There is intracranial internal carotid artery atherosclerosis. Skull and face: Calvarium and visualized facial bones appear intact, without suspicious lesions. Sinuses: Visualized sinuses demonstrate moderate mucosal thickening within the left maxillary sinus and mild thickening on the right. There is also minimal thickening within ethmoid sinuses. The mastoid air cells are clear. IMPRESSION: 1. No acute intracranial abnormality. 2. Small region of encephalomalacia redemonstrated in the posterior left temporal lobe consistent with a prior infarct. Dictated by: Usama Downing M.D. on 03/05/2017 at 13:36 Approved by: Usama Downing M.D. on 03/05/2017 at 13:39 [facility] Diagnostic [place] [address] Patient Name: LOUIE FRANCIS JR MR#: [id number] [place] [facility] [place]ing Phys: Grupo Servin PAC Date of Service: 03/05/17 1228 PROCEDURE: X-RAY CHEST ONE VIEW, PORTABLE ([id number]) INDICATIONS: AMS TECHNIQUE: One view of the chest was acquired. COMPARISON: [facility], CR, CHEST 2 VIEW, 10/16/2015, 15:40. [facility], CT, CT ABD PELVIS W CON, 01/16/2017, 20:23. [facility], CR, XR CHEST 1VW (PORTABLE), 10/24/2016, 16:54. FINDINGS: Surgical changes and devices: Sternotomy and prosthetic aortic valve. Lungs and pleura: There is right hemidiaphragm elevation. No pleural effusions or pneumothorax. Lungs are clear. Mediastinum: Mediastinal contours appear normal. Heart size is normal. Bones and chest wall: No suspicious bony lesions. Overlying soft tissues appear unremarkable. IMPRESSION: No acute cardiopulmonary disease. Dictated by: Kristopher Mishra M.D. on 03/05/2017 at 13:26 Approved by: Kristopher Mishra M.D. on 03/05/2017 at 13:27 Diet Other (Pl. restrict protein to 80g per day) Activity Home Health Phyical Therapy, Other (wheeled walker) Call your provider Fever or Chills, Shortness of breath, Bleeding, Chest pain, Vomitting, Excessive diarrhea, Weakness (unilateral), Other Patient Instructions Follow-up plan F/U with PCP in 2 weeks, we request that PCP addresses a POLST form and goals of care in light of his recent decision to forego therapy for HCC and seek quality of life in stead. Joanie Castro DO Mar 08, 2017 12:24
[2017-03-08] MEDS ORDERED: LACT10SO27 PO (12:29)
--- NOTE | 2017-03-08 13:37 | NUR ---
FRANKIE signed by pt JILL Webb
--- NOTE | 2017-03-08 13:39 | NUR ---
Social Work: Discharge D: Pt discussed in am rounds with MD. Pt is medically stable for discharge. PT has worked with pt and cleared him for discharge home with [facility]. DIRECTOR PRISON met with pt at bedside to confirm discharge plan. Pt agrees with plan for d/c home with resumed [facility] for RN, PT, OT, ST. Pt states his son MARELY ([phone]) is transporting him home at 3:30 today. DIRECTOR PRISON reviewed pt's EMR; no further social work needs identified at this time. t/c to Jd Farias with [facility] to notify of pt's discharge. A: Pt who lives at home with his daughter. P: Pt to discharge home with resumed [facility] for RN, PT, OT, ST. Pt's son to transport today at 3:30pm. JILL Valderrama
[2017-03-08 14:00] VITALS: BP 130/69; PULSE 78; RESP 18; O2SAT 99
--- NOTE | 2017-03-08 16:00 | NUR ---
Discharge Patient discharge to home accompanied by son via POV. Discharge notes and instructions given and well understood by son and patient. All belongings taken home. Denies any discomfort upon discharge.
--- NOTE | 2017-03-08 20:40 | PCM.DC.MED ---
Discharge Summary Date of Service Mar 08, 2017 Dates of Hospitalization Date of Hospital Admission Mar 05, 2017 at 15:19 Date of Discharge: Mar 08, 2017 Providers: Admitting Physician: Zackery Deleon MD Primary Care Physician: Ria Sy MD Attending Physician: Zackery Deleon MD Diagnosis at Time of Discharge Diagnosis at Time of Discharge Hepatic Encephalopathy, hyponatremia, DM2, BPH, HTN Consultations Physical therapy/occupational therapy/speech therapy Procedures XRay, CTs & MRIs [facility] Diagnostic Imaging Department [place], [place] [id number] Patient Name: LOUIE FRANCIS JR MR#: [id number] Location: [facility] Ordering Phys: Zackery Deleon MD Date of Service: 03/05/17 1749 PROCEDURE: US ABDOMEN, LIMITED ([id number]) INDICATIONS: evaluate ascites TECHNIQUE: Real-time focused scanning was performed of the abdomen, with image documentation. COMPARISON: None. FINDINGS: 4 quadrants were evaluated for free fluid. IMPRESSION: No evidence for free fluid in the peritoneal cavity. Dictated by: Escobar Graves M.D. on 03/05/2017 at 19:37 Approved by: Escobar Graves M.D. on 03/05/2017 at 19:37 [facility] [place] [address] Patient Name: LOUIE FRANCIS JR MR#: [id number] Location: [facility] Ordering Phys: Grupo Servin Date of Service: 03/05/17 1228 PROCEDURE: CT BRAIN WITHOUT CONTRAST ([id number]) INDICATIONS: AMS TECHNIQUE: Noncontrast 4.5 mm thick angled axial sections acquired from the foramen magnum to the vertex, with coronal reformats. COMPARISON: None. FINDINGS: Image quality: There is slight motion artifact. CSF spaces: Basal cisterns are patent. No extra-axial fluid collections. The ventricles are symmetric in size and shape. There is cerebral volume loss, with resultant ventricular and sulcal prominence. Brain: No intracranial hemorrhage, mass, or mass effect. There is a small region of encephalomalacia and within the left posterior temporal lobe redemonstrated. There are subcortical, periventricular and deep white matter hypodensities consistent with chronic small vessel ischemic changes. There is intracranial internal carotid artery atherosclerosis. Skull and face: Calvarium and visualized facial bones appear intact, without suspicious lesions. Sinuses: Visualized sinuses demonstrate moderate mucosal thickening within the left maxillary sinus and mild thickening on the right. There is also minimal thickening within ethmoid sinuses. The mastoid air cells are clear. IMPRESSION: 1. No acute intracranial abnormality. 2. Small region of encephalomalacia redemonstrated in the posterior left temporal lobe consistent with a prior infarct. Dictated by: Usama Downing M.D. on 03/05/2017 at 13:36 Approved by: Usama Downing M.D. on 03/05/2017 at 13:39 Hospital Course Assessment #1 Hepatic encephalopathy, POA: -- Discussed this with Surekha his daughter at length over the phone. She says that she visited with him this a.m. and his her dad appeared to be at his baseline. She says that it was his sister that was with him last night when it was noted that he was altered mentally. Patient cannot describe any of this. He says that he may have aspirated wheelchair because it would offer him more mobility without having to ask for help from his home care nurses. She also confirms that patient did not want cancer treatments. He had a visit with the [facility] 3 weeks ago. However on records from January and verify his admission during which the mass was found. -- Continue to trend serum ammonia, interested lactulose dose to 30 mg 3 times a day: Patient is much improved today, ammonia levels normalized. -- Continue to monitor INR, will consider vitamin K if prolonged -- On the day of discharge patient is in no acute distress, tolerating dysphagia diet, he did very well with physical therapy. Physical therapy signed off -- Patient is back to his baseline, and given extensive counseling on his recent diagnosis and prognosis. -- He is given a prescription for prophylactic lactulose, follow-up lab work prior to PCP follow-up Liver mass, present admission: This is thought to be behind his hepatic encephalopathy. Discussed this with daughter . Surekha. She agrees that they only want symptomatic treatment as the etiology cannot be fixed by us here at this hospital, contacted palliative care, Dr. Zapata. He has reviewed her previous records and confirmed that they have in fact met with the patient during his last admission and he wanted to be full code. herself says that it is up to her dad and patient discuss that with the patient. -- Plan to continue code discussion with patient, if he wants to be DNR/DNI then we can arrange for hospice to meet with the patient, otherwise we will wait till palliative treatment consisting him on a Thursday. We appreciate palliative care team's recommendations. -- Requested [facility] records: Reviewed records. His records do indicate that patient declined chemoradiation and wanted to be comfortable and have quality of life.-- Patient is back to his baseline, and given extensive counseling on his recent diagnosis and prognosis. -- We will recommend that PCP holds a CODE STATUS/goals of care meeting with patient and family. While we have initiated this discussion several times and sometimes with the help palliative care, this dialog needs to be continued to help patient make the right decisions for himself. Hypertension, chronic -- Continue home medication lisinopril 10 mg daily. Chronic anemia secondary to liver dysfunction -- Monitor H&H daily Diabetes mellitus, chronic: -- Patient is asked to continue medications at the time of discharge BPH, chronic: Continue home meds Chronic hyponatremia: Continue to monitor. Currently stable Chronic COPD: Continue home medication Roula Mccoy's Chronic GERD continue pantoprazole Diet dysphagia diet DVT prophylaxis with enoxaparin subcutaneous 40 mg Exam Vital Signs (Last) Date Time Temp Pulse Resp B/P Pulse Ox O2 Delivery O2 Flow Rate FiO2 03/08/17 08:00 36.8 74 18 120/69 98 Room Air Exam General: NAD, laying in bed, HEENT: NCAT, poor dentition Eyes: [place] conjunctivae. No ptosis Neck: No masses, trachea midline, no thyromegaly Lungs: CTA with normal respiratory effort, no crackles or wheezes CV: RRR, soft systolic murmur noted MSK: no digital cyanosis Skin: Warm and dry. Several excoriations from scratching Psych: A&O X3, with appropriate affect Neuro: No focal deficits, facial as asymmetry, slurred speech at baseline Test 03/05/17 12:46 03/05/17 12:50 03/05/17 15:20 03/05/17 15:52 Hold Hardy Top Tube Received (Received) Alcohols < 10mg/dL (0-10) Pro-B-Type Natriuretic Peptide 115.6pg/mL (0-376) Urine Color Yellow (YELLOW) Urine Appearance Clear (CLEAR,HAZY) Urine pH 6.0 (5.0-8.0) Urine Specific [place] 1.005 (1.003-1.035) Urine Protein Negativemg/dL (NEG,TRACE) Urine Glucose (UA) 100mg/dL (NEGATIVE) Urine Ketones Negativemg/dL (NEGATIVE) Urine Occult Blood Negative (NEGATIVE) Urine Nitrite Negative (NEGATIVE) Urine Bilirubin Negative (NEGATIVE) Urine Urobilinogen Normalmg/dL (NORMAL) Urine Leukocyte Esterase Negative (NEGATIVE) Urine RBC 0-2/hpf (0-2) Urine WBC 0-5/hpf (0-5) Urine Epithelial Cells None/hpf (NONE-MOD) Urine Crystals None seen (NONE SEEN) Urine Bacteria None/hpf (NONE-FEW) Urine Hyaline Casts None/lpf (NONE) Urine Granular Casts None seen (NONE SEEN) Urine Waxy Casts None seen (NONE SEEN) Urine Red Blood Cell Casts None seen (NONE SEEN) Urine White Blood Cell Casts None seen (NONE SEEN) Urine Mucus None seen (None Seen) Urine Trichomonas None seen (NONE SEEN) Urine Yeast None (NONE SEEN) Urinalysis Comment None Urine Culture Reflexed Not indicated Test 03/05/17 18:20 03/06/17 05:30 03/07/17 06:16 Lactic Acid Level 1.9mmol/L (0.4-2.0) Troponin T < 0.010ug/L (0.0-0.011) Neutrophils (%) (Auto) 67.5% (40-74) Lymphocytes (%) (Auto) 16.7% (14-46) Monocytes (%) (Auto) 12.5% (4-12) Eosinophils (%) (Auto) 2.7% (0-5) Basophils (%) (Auto) 0.2% (0-3) White Blood Count 5.2th/mm3 (3.8-10.1) Red Blood Count 4.38mil/mm3 (4.40-5.80) Hemoglobin 11.5g/dL (13.8-17.2) Hematocrit 35.4% (41.0-50.0) Mean Corpuscular Volume 80.8fL (81-100) Mean Corpuscular Hemoglobin 26.3pg (27.0-35.0) Mean Corpuscular Hemoglobin Concent 32.5% (32.0-37.0) Red Cell Distribution Width 17.5% (12.3-15.4) Platelet Count 152bil/L (150-400) Prothrombin Time 11.9sec (8.1-12.5) Prothromb Time International Ratio 1.11ratio Activated Partial Thromboplast Time 32.0sec (22.8-33.0) Sodium Level 136mEq/L (134-144) Potassium Level 4.1mEq/L (3.5-5.2) Chloride Level 100mEq/L (97-108) Carbon Dioxide Level 23mmol/L (18-29) Blood Urea Nitrogen 12mg/dL (8-27) Creatinine 1.14mg/dL (0.76-1.27) Estimat Glomerular Filtration Rate 68mL/min (>59) Glucose Level 263mg/dL (60-99) Calcium Level 9.0mg/dL (8.5-10.1) Total Bilirubin 0.8mg/dL (0.0-1.2) Aspartate Amino Transf (AST/SGOT) 82U/L (0-50) Alanine Aminotransferase (ALT/SGPT) 46U/L (0-44) Alkaline Phosphatase 386U/L (25-160) Ammonia 42ug/dL (18-53) Total Protein 7.4g/dL (6.4-8.4) Albumin 3.5g/dL (3.4-5.0) Discharge Medications Discharge Medications Ascorbic Acid (Vitamin C) 500 Mg Capsule.er 500 MG PO DAILY (Reported) Carvedilol (Carvedilol) 6.25 Mg Tablet 6.25 MG PO BID (Reported) Cholecalciferol (Vitamin D3) (Vitamin D) 1,000 Unit Tablet 1,000 UNIT PO QAM ( Reported) Econazole Nitrate (Econazole Nitrate) 15 Gm Cream..g. 1 APPL TOP BID (Reported) apply to scalp Ferrous Sulfate (Ferrous Sulfate) 324 Mg Tablet.dr 324 MG PO DAILY (Reported) Insulin Aspart (NovoLOG U-100 Pen) 100 Unit/Ml Insuln.pen 2 UNITS SC TIDWM ( Reported) Insulin Detemir (Levemir Flextouch) 100 Unit/1 Ml Insuln.pen 8 UNITS SUBQ BID ( Reported) Ipratropium [place] (Ipratropium [place] 0.03% Nasal) 30 Ml [place] 2 SPRAY NS BID (Reported) Lactulose (Lactulose) 10 Gm/15 Ml Solution 15 GM PO BID Prescribed by: JOANIE HI DO Lisinopril (Lisinopril) 10 Mg Tablet 10 MG PO DAILY (Reported) Loratadine (Claritin) 10 Mg Capsule 10 MG PO MORNING (Reported) Multivitamin (Once Daily) 1 Each Tablet 1 EACH PO DAILY (Reported) Oxybutynin Chloride (Oxybutynin Chloride) 5 Mg Tablet 5 MG PO BID (Reported) Pantoprazole DR (Pantoprazole DR) 40 Mg Tablet.dr 40 MG PO BIDAC (Reported) Tamsulosin ER (Tamsulosin ER) 0.4 Mg Cap.er.24h 0.4 MG PO DAILY (Reported) Vit B Comp/C/FA/Iron/Vit E (Vitamin B Complex Tablet) 1 Each Tablet 2 EACH PO DAILY (Reported) As needed Furosemide (Furosemide) 20 Mg Tab 20 MG PO DAILY PRN PRN edema (Reported) Mometasone/Formoterol (Dulera 100 Mcg/5 Mcg Inhaler) 13 Gm Hfa.aer.ad 1 PUFF IH BID PRN PRN For Shortness of Breath (Reported) Followup Plan Follow-up plan F/U with PCP in 2 weeks, we request that PCP addresses a POLST form and goals of care in light of his recent decision to forego therapy for HCC and seek quality of life in stead. Discharge Diet: Other (Pl. restrict protein to 80g per day) Discharge Activity: Home Health Phyical Therapy, Other (wheeled walker) Joanie Hi DO Mar 08, 2017 12:30
== END 2017-03-08 16:00 | disposition home health service (06) | DRG 443 ==
LOC: SED 12:17 → OSC 15:19 → MOC 03-07 09:12
PROVIDERS: ADMIT Urology; ATTEND Urology
DX: K72.90 Hepatic failure, unspecified without coma (principal); N40.1 Benign prostatic hyperplasia with lower urinary tract symptoms; K21.9 Gastro-esophageal reflux disease without esophagitis; N18.3 Chronic kidney disease, stage 3 (moderate); E78.5 Hyperlipidemia, unspecified; I12.9 Hypertensive chronic kidney disease with stage 1 through stage 4 chronic kidney disease, or unspecified chronic kidney disease; R39.15 Urgency of urination; J44.9 Chronic obstructive pulmonary disease, unspecified; K70.30 Alcoholic cirrhosis of liver without ascites; D64.9 Anemia, unspecified; R13.10 Dysphagia, unspecified; R16.0 Hepatomegaly, not elsewhere classified; Z88.6 Allergy status to analgesic agent; Z88.0 Allergy status to penicillin; Z79.4 Long term (current) use of insulin; Z87.891 Personal history of nicotine dependence; Z95.2 Presence of prosthetic heart valve; Z86.73 Personal history of transient ischemic attack (TIA), and cerebral infarction without residual deficits

== ENCOUNTER 2017-04-16 20:49 | Inpatient (IN) | payer MEDICARE, MEDICAID, OTHER ==
[~2017-04-16] VITALS: Ht 182.9 cm; Wt 104.0 kg
[~2017-04-16 20:49] MED LIST changes: -ATOR40TA69 PO; -BISA10SU61 RC; +FUR20 PO; +LACT10SO27 PO; -LISI-571 PO; +LISI10TA PO; -Thiamine PO; +VIT1TABL83 PO
[2017-04-16 20:53] VITALS: BP 189/96; PULSE 97; RESP 16; O2SAT 98
--- NOTE | 2017-04-16 21:32 | DRSVH ---
PROCEDURE: X-RAY CHEST ONE VIEW, PORTABLE ([id number]) INDICATIONS: 67 year-old male with fever of unknown source. TECHNIQUE: One view of the chest was acquired. COMPARISON: [facility], CR, XR CHEST 1VW (PORTABLE), 03/05/2017, 13:12. [facility], CR, XR CHEST 1VW (PORTABLE), 10/24/2016, 16:54. [facility], CR, CHEST 2 VIEW, 5, 15:40. FINDINGS: Surgical changes and devices: Patient is status post median sternotomy and cardiac valve replacement surgery. Lungs and pleura: No pleural effusions or pneumothorax. Lungs are clear. Mediastinum: Mediastinal contours appear normal. Heart size is normal. Bones and chest wall: No suspicious bony lesions. Overlying soft tissues appear unremarkable. IMPRESSION: No radiographic explanation for fevers. Dictated by: Mina Valle M.D. on 04/16/2017 at 21:29 Approved by: Mina Valle M.D. on 04/16/2017 at 21:30
[2017-04-16 21:53] LABS: BASOPHILS % (AUTO) 0.1 % (0-3); EOSINOPHILS % (AUTO) 0.1 % (0-5); MONOCYTES % (AUTO) 7.4 % (4-12); Mean Corpuscular Hemoglobin 26.7 pg (27.0-35.0); Mean Corpuscular Volume 78.7 fL (81-100); NEUTROPHILS % (AUTO) 88.2 % (40-74); Platelet Count 104 bil/L (150-400)
--- NOTE | 2017-04-16 21:55 | ED.REPORT ---
HPI-General Illness Date of Service Apr 16, 2017 ED Provider: Kieran Rios MD Pt is a 67 year old male with a hx of hepatocellular carcinoma, HTN, paroxysmal afib and DM presenting to the ED complaining of weakness and body aches onset around 1000 today. Associated symptoms include abdominal pain, fatigue, lack of appetite, fever, headache, confusion. The pt has not been taking his Lactulose. He reports that his last alcoholic drink was 2 years ago. Nursing Notes Stated Complaint: BODY ACHE,WEAKNESS,LOSS OF APPETITE Chief Complaint: General Complaint Nursing Notes Reviewed: Yes Allergies: Coded Allergies: Penicillins (Verified Allergy, Unknown, 04/16/17) aspirin (Verified Allergy, Unknown, 04/16/17) history GI bleeds cephalexin (Verified Allergy, Unknown, 04/16/17) Scheduled Ascorbic Acid (Vitamin C) 500 Mg Capsule.er 500 MG PO DAILY Carvedilol (Carvedilol) 6.25 Mg Tablet 6.25 MG PO BID Cholecalciferol (Vitamin D3) (Vitamin D) 1,000 Unit Tablet 1,000 UNIT PO QAM Econazole Nitrate (Econazole Nitrate) 15 Gm Cream..g. 1 APPL TOP BID apply to scalp Ferrous Sulfate (Ferrous Sulfate) 324 Mg Tablet.dr 324 MG PO DAILY Insulin Aspart (NovoLOG U-100 Pen) 100 Unit/Ml Insuln.pen 2 UNITS SC TIDWM Insulin Detemir (Levemir Flextouch) 100 Unit/1 Ml Insuln.pen 8 UNITS SUBQ BID Ipratropium [place] (Ipratropium [place] 0.03% Nasal) 30 Ml [place] 2 SPRAY NS BID Lactulose (Lactulose) 10 Gm/15 Ml Solution 15 GM PO BID Lisinopril (Lisinopril) 10 Mg Tablet 10 MG PO DAILY Loratadine (Claritin) 10 Mg Capsule 10 MG PO MORNING Multivitamin (Once Daily) 1 Each Tablet 1 EACH PO DAILY Oxybutynin Chloride (Oxybutynin Chloride) 5 Mg Tablet 5 MG PO BID Pantoprazole DR (Pantoprazole DR) 40 Mg Tablet.dr 40 MG PO BIDAC Tamsulosin ER (Tamsulosin ER) 0.4 Mg Cap.er.24h 0.4 MG PO DAILY Vit B Comp/C/FA/Iron/Vit E (Vitamin B Complex Tablet) 1 Each Tablet 2 EACH PO DAILY Scheduled PRN Furosemide (Furosemide) 20 Mg Tab 20 MG PO DAILY PRN PRN edema Mometasone/Formoterol (Dulera 100 Mcg/5 Mcg Inhaler) 13 Gm Hfa.aer.ad 1 PUFF IH BID PRN PRN For Shortness of Breath General Time Seen by MD: 21:35 Chief Complaint Not feeling well Hx Obtained From: Patient Arrived By: Walk-in Sudden in Onset?: No Onset Occurred: 9 - 12 hours ago Symptom Duration: Since onset Quality: Painful Severity: Current: Mild Severity: Maximum: Moderate Recent Healthcare: Recent doctor visit, Recent hospitalization Similar Sx Previous: Yes Past Medical History Past Medical History Notes: PCP: Dr. 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 Previous valve replacement BPH with [place] Hyperlipidemia Chronic kidney disease stage III GERD Cerebral infarction Anxiety Aortic valve stenosis Paroxysmal atrial fibrillation Ch[place] GI bleed Reports: Diabetes mellitus, Hypertension Past Surgical History Valve replacement Family History Alcoholism Smoking History Former Smoker Social History Alcohol Use: Denies alcohol use Drug Use: Denies drug use Other Social History: Good social support, Local resident Ambulatory Status Walker Review of Systems Body aches Full Review of Systems Constitutional: Reports: Fatigue, Fever GI: Reports: Abdominal pain Neurologic: Reports: Confusion, Headache, Weakness Complete sys rev & neg: except as marked. Physical Exam Vital Signs Vital Signs Date Time Temp Pulse Resp B/P Pulse Ox O2 Delivery O2 Flow Rate FiO2 04/16/17 23:12 37.3 93 21 132/63 96 Room Air 04/16/17 22:51 96 20 177/79 99 Room Air 04/16/17 20:53 38.1 97 16 189/96 98 Room Air Initial VS: Reviewed General/Constitutional: Well-developed, Well-nourished Head / Eyes: Atraumatic, Normocephalic, PERRL ENT: Mucous membranes moist, Conjunctiva normal, No scleral icterus Respiratory: Breath sounds normal, Clear to auscultation, No respiratory distress Abdomen / GI: Soft, Non-tender, No guarding, No rebound, No distention Skin: Warm, Dry, No cyanosis Neurologic: Alert, Oriented, Nonfocal Psychiatric: Mood/affect normal, Behavior normal, Normal thought content Cardiovascular: Heart rate NL, Regular rhythm, Heart sounds NL Heart Sounds / Murmur: Positive: Systolic murmur present.. (III/) Lower Extremity / Pelvis / MS: Full range of motion 1+ peripheral edema Interpretation & Diagnostics Lab Results Interpretation Result Diagram: 04/16/17212904/[id number]/[id number] Test 04/16/17 21:30 04/16/17 22:06 04/16/17 22:58 White Blood Count 14.8th/mm3 (3.8-10.1) Red Blood Count 4.27mil/mm3 (4.40-5.80) Hemoglobin 11.4g/dL (13.8-17.2) Hematocrit 33.6% (41.0-50.0) Mean Corpuscular Volume 78.7fL (81-100) Mean Corpuscular Hemoglobin 26.7pg (27.0-35.0) Mean Corpuscular Hemoglobin Concent 33.9% (32.0-37.0) Red Cell Distribution Width 16.2% (12.3-15.4) Platelet Count 104bil/L (150-400) Neutrophils (%) (Auto) 88.2% (40-74) Lymphocytes (%) (Auto) 3.9% (14-46) Monocytes (%) (Auto) 7.4% (4-12) Eosinophils (%) (Auto) 0.1% (0-5) Basophils (%) (Auto) 0.1% (0-3) Prothrombin Time 12.6sec (8.1-12.5) Prothromb Time International Ratio 1.17ratio Sodium Level 130mEq/L (134-144) Potassium Level 3.9mEq/L (3.5-5.2) Chloride Level 94mEq/L (97-108) Carbon Dioxide Level 19mmol/L (18-29) Blood Urea Nitrogen 16mg/dL (8-27) Creatinine 1.27mg/dL (0.76-1.27) Estimat Glomerular Filtration Rate 60mL/min (>59) Glucose Level 250mg/dL (60-99) Lactic Acid Level 2.3mmol/L (0.4-2.0) Calcium Level 9.4mg/dL (8.5-10.1) Magnesium Level 1.6mg/dL (1.6-2.6) Total Bilirubin 1.1mg/dL (0.0-1.2) Aspartate Amino Transf (AST/SGOT) 60U/L (0-50) Alanine Aminotransferase (ALT/SGPT) 34U/L (0-44) Alkaline Phosphatase 290U/L (25-160) Total Protein 7.2g/dL (6.4-8.4) Albumin 3.3g/dL (3.4-5.0) Lipase 58U/L (13-60) Alcohols < 10mg/dL (0-10) Ammonia 120ug/dL (18-53) Urine Color Yellow (YELLOW) Urine Appearance Clear (CLEAR,HAZY) Urine pH 7.0 (5.0-8.0) Urine Specific [place] 1.011 (1.003-1.035) Urine Protein Negativemg/dL (NEG,TRACE) Urine Glucose (UA) Negativemg/dL (NEGATIVE) Urine Ketones Negativemg/dL (NEGATIVE) Urine Occult Blood Negative (NEGATIVE) Urine Nitrite Negative (NEGATIVE) Urine Bilirubin Negative (NEGATIVE) Urine Urobilinogen Normalmg/dL (NORMAL) Urine Leukocyte Esterase Negative (NEGATIVE) Urine RBC 0-2/hpf (0-2) Urine WBC 0-5/hpf (0-5) Urine Epithelial Cells Occasional/hpf (NONE-MOD) Urine Crystals None seen (NONE SEEN) Urine Bacteria None/hpf (NONE-FEW) Urine Hyaline Casts None/lpf (NONE) Urine Granular Casts None seen (NONE SEEN) Urine Waxy Casts None seen (NONE SEEN) Urine Red Blood Cell Casts None seen (NONE SEEN) Urine White Blood Cell Casts None seen (NONE SEEN) Urine Mucus None seen (None Seen) Urine Trichomonas None seen (NONE SEEN) Urine Yeast None (NONE SEEN) Urine Culture Reflexed Not indicated ECG Interpretation ECG Interpretation: Probable left atrial enlargement. Time: 21:07 Normal ECG Interpretation: Normal sinus rhythm Abnormal Rate: 100 (101) Rhythm / Conduction: Tachycardia X-Ray Chest Interpretation Chest Xray Interpretation: IMPRESSION: No radiographic explanation for fevers. Dictated by: Mina Valle M.D. on 04/16/2017 at 21:29 View: Portable, 1 view Interpretation / Wet Read by: Interpret - Radiologist Re-Eval/Medical Decision Time of Eval: 23:59 Patient Status: Condition improved Re-Evaluation/Progress Note: Discussed plan for admission. Pt understands and agrees. Consultation : Referral / Consult Name: Andrae Jimenes MD Consulted With: Hospitalist Call Returned at: 00:15 Photo Editor: Will see patient, Agrees with plan, Accepts admit Counseled Regarding: Diagnosis, Lab results, Need for follow-up, When/why to return to ED Discharge & Departure Primary Impression: Sepsis, unspecified organism Disposition: ADMITTED TO HOSPITAL Discharge Condition All VS Reviewed: Yes Condition: Improved Referrals: Ria Sy MD (PCP) Dev Attestation Portions of this note were transcribed by Jaclyn Lopez. I, Dr. Rios personally performed the history, physical exam and medical decision-making; I reviewed and confirmed the accuracy of the information in the transcribed note. Signed by: Dev Pierre, 04/17/2017 at 0000. copies to: Ria Sy MD, Kirk H MD Apr 16, 2017 21:54 JACLYN LOPEZ Apr 16, 2017 21:59
[2017-04-16 22:09] LABS: INR 1.17 ratio
[2017-04-16 22:16] LABS: Magnesium 1.6 mg/dL (1.6-2.6)
[2017-04-16 22:51] VITALS: BP 177/79; PULSE 96; RESP 20; O2SAT 99
[2017-04-16 23:07] LABS: APPEARANCE,URINE CLEAR (CLEAR,HAZY); COLOR,URINE YELLOW (YELLOW); OCCULT BLOOD,URINE NEGATIVE (NEGATIVE); UROBILINOGEN,URINE NORMAL (NORMAL)
[2017-04-16 23:09] LABS: Lipase 58 U/L (13-60)
[2017-04-16] MEDS ORDERED: Tobramycin per Pharmacist XX ONE (23:10)
[2017-04-16] MEDS ORDERED: Doxycycline Inj 100 MG in Dextrose 5% 100 ML IV ONE (23:10)
[2017-04-16] MEDS ORDERED: cefTRIAXone Inj 1,000 MG in Dextrose 5% Minibag Plus 50 ML IV ONE (23:10)
[2017-04-16] MEDS ORDERED: Vancomycin Dose per Pharmacist XX ONE (23:10)
[2017-04-16 23:12] VITALS: BP 132/63; PULSE 93; RESP 21; O2SAT 96
[2017-04-16] MEDS ORDERED: Vancomycin Inj 2,000 MG in 0.9% Sodium Chloride 500 ML IV ONE (23:30)
[2017-04-17] VITALS (10 sets, daily range): BP systolic 125–165; BP diastolic 63–84; PULSE 72–93; RESP 14–21; O2SAT 96–99
[2017-04-17] MEDS ORDERED: Ondansetron 2 mg/mL 2 mL Inj IVPUSH PRN ×2 (00:10→00:20)
[2017-04-17] MEDS ORDERED: Alum-Mag Hydrox-Simeth 30 mL Suspension PO PRN ×2 (00:10→00:20)
[2017-04-17] MEDS ORDERED: Polyethylene Glycol (PEG) 17 Gm Powder PO PRN (00:20)
[2017-04-17] MEDS ORDERED: 0.9% Sodium Chloride 1,000 ML IV SCH (01:30)
[2017-04-17] MEDS ORDERED: Lactulose 20 Gm/30 mL 30 mL Syrup PO SCH (01:35)
[2017-04-17] MEDS ORDERED: Glucose 40% Oral Gel 15 Gm Tube PO PRN (02:00)
[2017-04-17] MEDS ORDERED: Dextrose 10% 250 ML IV PRN (02:00)
[2017-04-17] MEDS ORDERED: Albuterol-Ipratropium 3 mL Inhalation Solution NEB PRN (02:30)
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
[2017-04-17] MEDS: Lactulose 20 Gm/30 mL 30 mL Syrup PO SCH ×4 (03:32→20:39)
--- NOTE | 2017-04-17 04:29 | NUR ---
admit: pt drowsy when arrived to floor, answers questions appropriately when awake, but falls back to sleep. admit questions difficult to complete. meds sent to pharmacy. lactulose given. left knee with edema, redness, and pain, hospitalist aware. will continue to monitor.
[2017-04-17 06:25] LABS: Magnesium 1.7 mg/dL (1.6-2.6)
[2017-04-17] MEDS: Insulin LISPRO 300 Unit/3 mL Inj SUBQ SCH ×4 (07:44→22:25)
[2017-04-17] MEDS: Pantoprazole 40 mg ER24 Tablet PO SCH ×2 (07:52→15:41)
--- NOTE | 2017-04-17 09:00 | DRSVH ---
PROCEDURE: US ABDOMEN, LIMITED ([id number]) INDICATIONS: Ascities TECHNIQUE: Real-time focused scanning was performed of the abdomen, with image documentation. COMPARISON: [facility], , ABDOMEN LTD, 03/05/2017, 18:52. FINDINGS: Limited study performed for possible paracentesis demonstrates no discrete free fluid collections. IMPRESSION: 1. No discrete free fluid identified in the abdomen. Dictated by: Usama Downing M.D. on 04/17/2017 at 8:53 Approved by: Usama Downing M.D. on 04/17/2017 at 8:59
--- NOTE | 2017-04-17 12:22 | NUR ---
Palliative Care Palliative Care requested order from Dr Cox 04/17/17 to follow patient during this admission. He is well-known to the inpatient and outpatient palliative team. Dr Madison met with patient 04/03/17 as outpatient. Patient lives at home alone with both his daughters helping him throughout the week. Surekha (daughter) [phone] Jewels (daughter) [phone] Palliative Care to follow. Kristen Mckee
[2017-04-17] MEDS: diphenhydrAMINE 25 mg Capsule PO PRN ×2 (13:03→23:17)
--- NOTE | 2017-04-17 14:53 | NUR ---
Social Work: Initial Assessment Data: Pt is a 67 y/o male admitted for sepsis, unknown source. Pt's PCP is Dr Sy, pt's insurance is Medicare with [facility] supp. EMR reviewed. Readmit score not listed. CARDIAC CATHETERIZATION TECHNOLOGIST met with pt and daughter at bedside. Pt sleeping, CARDIAC CATHETERIZATION TECHNOLOGIST completed assessment with pt's daughter. Pt's daughter states that pt lives alone in [place] in a single story home with one step to enter. Pt uses a cane and walker at baseline, and they are considering adding a ramp to enter the home. Pt does not drive, is open with [facility], has hx at [facility]. Pt does not have LTC or VA benefits and is not a caregiver. Pt has MARSHAL, catalytic case operator unknow. UR specialist faxing clinicals to catalytic case operator. CARDIAC CATHETERIZATION TECHNOLOGIST will continue to follow for d/c planning needs and orders, anticipated either SNF or resume HH. CARDIAC CATHETERIZATION TECHNOLOGIST will continue to follow. Assessment: Pt who is independent at baseline. Plan: Pt will d/c either home with resume [facility] or to SNF depending on clinical course. CARDIAC CATHETERIZATION TECHNOLOGIST will continue to follow for d/c planning needs and orders, anticipated either SNF or resume HH. CARDIAC CATHETERIZATION TECHNOLOGIST will continue to follow. JILL Villegas Addendum: 04/17/17 at 1500 by SARBJIT MALONE SS Amended: Links added. Addendum: 04/17/17 at 1514 by SARBJIT MALONE SS Pt's daughter, Surekha, states she cares for pt on Thursday through Thursday. Pt's other daughter, Jewels ([phone]) cares for pt on Thursday through . JILL Villegas
--- NOTE | 2017-04-17 16:05 | NUR ---
per DYNAMIC BALANCER SET UP WORKER req - faxed H&P to MARSHAL Restrepo, [phone]
--- NOTE | 2017-04-17 17:42 | NUR ---
Weakness Pt c/o being weak. Slept most shift. Daughters in visiting. Tolerating meds well. Will continue to monitor.
[2017-04-17] MEDS ORDERED: Levofloxacin 750 mg/150 mL D5W IV SCH (20:45)
[2017-04-17] MEDS: 0.9% Sodium Chloride 1,000 ML IV SCH (22:20)
[2017-04-17] MEDS ORDERED: cefTRIAXone Inj 1,000 MG in Dextrose 5% Minibag Plus 50 ML IV SCH (23:00)
[2017-04-18] VITALS (7 sets, daily range): BP systolic 151–177; BP diastolic 73–92; PULSE 61–80; RESP 20–22; O2SAT 97–100
--- NOTE | 2017-04-18 03:43 | NUR ---
SKIN assumed pt. care @1900, Pt. c/o itching on back, upper arms and BLE, scratch shay,redness and dryness of skin present, given warm shower by aide, encouraged to stop scratching, administered prn benadryl and new order of hydrocortisone cream, patient state of relief and able to sleep most of the night, lab called in positive blood cultures, gram (+) cocci MD theo notified via cook page, daughter stayed for the night, vitals stable, afebrile, call light in reach at all times, will continue to monitor.
[2017-04-18 05:58] LABS: BASOPHILS % (AUTO) 0.3 % (0-3); EOSINOPHILS % (AUTO) 2.6 % (0-5); MONOCYTES % (AUTO) 13.3 % (4-12); Mean Corpuscular Hemoglobin 26.7 pg (27.0-35.0); Mean Corpuscular Volume 80.3 fL (81-100); NEUTROPHILS % (AUTO) 70.3 % (40-74); Platelet Count 88 bil/L (150-400)
[2017-04-18] MEDS: Lactulose 20 Gm/30 mL 30 mL Syrup PO SCH ×3 (07:44→20:46)
[2017-04-18] MEDS: Pantoprazole 40 mg ER24 Tablet PO SCH ×2 (07:45→17:14)
[2017-04-18] MEDS: Insulin LISPRO 300 Unit/3 mL Inj SUBQ SCH ×4 (07:45→22:00)
--- NOTE | 2017-04-18 10:24 | DRSVH ---
PROCEDURE: CT ABDOMEN AND PELVIS WITH CONTRAST ([id number]) INDICATIONS: eval for possible intraperitoneal infection TECHNIQUE: After the administration of oral and intravenous contrast, 5 mm thick sections acquired from the diap hragms to the symphysis. 5 mm thick coronal and sagittal reformats were performed. For radiation do se reduction, the following was used: automated exposure control, adjustment of mA and/or kV accordi ng to patient size. COMPARISON: None. FINDINGS: Image quality: Excellent. ABDOMEN: Lung bases: Atelectasis noted in the dependent portion of the left lung base. Heart size is normal. Prosthetic aortic valve noted. Mitral annulus calcifications noted. Atherosclerotic calcifications noted in the visualized coronary vasculature. Solid organs: Liver and spleen are normal in size and enhancement. Liver has nodular margins suggest ing hepatic cirrhosis. Gallbladder is contracted and contains a gallstone.. Biliary system is non-di lated. Pancreas enhances normally. No adrenal nodules. Kidneys are normal in size and enhancement, without hydronephrosis. Right kidney is mildly atrophied. Bilateral renal scarring noted. Peritoneum and bowel: Stomach, small bowel, and colon loops are normal in caliber and wall thickness . Gadolinium diverticuli noted in the colon without evidence of diverticulitis. The appendix is not definitely visualized. Small amount of free fluid is noted adjacent to the cecum. Nodes and vessels: No retroperitoneal or mesenteric adenopathy. Aorta and inferior vena cava are no rmal in caliber. Prominent perisplenic veins are noted possibly related to sequela portal hypertensio n. 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 Scattered atherosclerotic calcifications are noted in the abdominal and pelvic vasculature. Miscellaneous: No ventral hernias. PELVIS: Genitourinary: Bladder wall thickness is normal. Miscellaneous: No inguinal hernias or adenopathy. Bones: No suspicious bony lesions. No vertebral body compression fractures. Spine degenerative dise ase and facet arthropathy noted. IMPRESSION: 1. Small amount of free fluid noted adjacent to the cecum without definite visualization of the appe ndix. Early manifestation of appendicitis cannot be excluded. 2. Hepatic cirrhosis. 3. Perisplenic venous varices most compatible with sequela of portal venous hypertension. 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 4. No definite abscess identified. 5. No dilated loops of bowel. 6. Atherosclerosis including the coronary vasculature. 7. Colonic diverticulosis without evidence of diverticulitis. 8. Cholelithiasis. Dictated by: Marli Multani MD, PhD on 04/18/2017 at 10:16 Approved by: Marli Multani MD, PhD on 04/18/2017 at 10:22
[2017-04-18] MEDS: 0.9% Sodium Chloride 1,000 ML IV SCH (12:00)
--- NOTE | 2017-04-18 12:40 | PCM.PNMED ---
Subjective Date of Service Apr 18, 2017 Subjective Patient did well overnight though still endorsing some pruritus. He has benefited from oral Benadryl, and topical creams. He denies any fever chills or sweats. Energy level is better. Denies any shortness of breath or chest pains. He has no acute complaints at this time. Nonetheless his blood cultures have grown out staph aureus 2, certainly concerning in spite of his overall improving medical condition. Lactulose has graded some loose stool, but this is no worse than usual. Exam Vital Signs Vital Sign - Last Date Time Temp Pulse Resp B/P Pulse Ox O2 Delivery O2 Flow Rate FiO2 04/18/17 11:00 61 04/18/17 09:25 37.0 20 157/83 98 Room Air Intake and Output 04/17/17 04/17/17 04/18/17 Cumulative From/Thru 15:00 23:00 07:00 04/16/17 20:53 - 04/18/17 06:08 Intake Total 1112 ml 2440 ml 1586 ml 6238 ml Output Total 1420 ml 1475 ml 4220 ml Balance 1112 ml 1020 ml 111 ml 2018 ml Intake Oral 2440 ml 800 ml 3340 ml IV Total 1112 ml 786 ml 2898 ml Output Urine Total 1420 ml 1475 ml 4220 ml # Bowel Movements 1 1 General: Alert, Oriented X3, Cooperative, Mild Distress Eyes: PERRLA Mouth: Mucous Membranes Dry Chest & Lungs: Clear to auscultation & percussion, No adventitious breath sounds Cardiovascular: Regular Rate/Rhythm, Other (the blowing holosystolic murmur, most pronounced in aortic region) Abdomen: Non-tender, Non-distended, Other (obese) Skin: Other (excoriations present diffusely on skin of arms and legs due to scratching, there is no erythema induration or other evidence of cellulitis or superficial skin infection. ) Neurological: Grossly Neurologically Intact IVs and Medications Medications Reviewed: Medications were reviewed in detail Lab and Diagnostics Result Diagram: 04/18/17 0540 04/18/17 0540 X-Rays, CTs and MRIs . X-RAY CHEST ONE VIEW, PORTABLE IMPRESSION: No radiographic explanation for fevers. Dictated by: Mina Valle M.D. on 04/16/2017 at 21:29 12-lead ECG Twelve-lead EKG in the ED showed sinus tachycardia with probable left atrial enlargement Assessment & Plan Mr. Sarmiento is a 67 year old male past medical history of hepatocellular carcinoma, hypertension, paroxysmal A. fib and diabetes mellitus admitted for encephalopathy and sepsis. Sepsis. Present on admission. Ongoing. - On admission Sepsis criteria met, hyperthermia, tachycardia and leukocytosis and lactic acidosis - Unknown source, the cultures positive 2 for staph aureus, sensitivities pending. - Antibiotics initiated in ED ceftriaxone, doxycycline, vancomycin -Patient now transition to Cubicin on recommendation from infectious disease specialist given presence of gram-positive bacteremia - Ultrasound-guided paracentesis ordered, however there was not sufficient fluid to accomplish this. - Continue to monitor closely. - fluids are held given patient's lower extremity edema and concern for volume overload Bacteremia, positive - As noted above we have started Cubicin response to culture results - Infectious disease has been notified and will continue to follow patient - On their recommendation will be obtaining daily sets of blood cultures Presence of prosthetic heart valve, aortic - Likely accounts for murmur found on physical exam - Of additional concern given the presence of bacteremia - A BORA will be required to determine vegetation is antibiotic decisions moving forward. Hepatic encephalopathy. Present on admission. Ongoing - Secondary to hepatocellular carcinoma - Serum ammonia 120 on admit - Patient reportedly not taking home lactulose -Continue lactulose 20 g by mouth 3 times a day - Continue to monitor Urinary retention - Chronicity is unclear but patient had greater than a liter noted even post void this morning - We will obtain every 4 Hour Post void residuals, as needed straight cath, consider indwelling López if necessary. - Trial Flomax at this time for possible BPH. Anion gap metabolic acidosis. Present on admission. Ongoing - Possibly secondary to lactic acid, resolved with improved lactic acidosis. - Tox screen negative for alcohol - Continue to monitor Chronic hyponatremia. Present on admission. Ongoing - Continue to monitor Diabetes. Present on admission. Ongoing - Correctional scale - Last A1c 11/2016 6.4 Hypertension. Present on admission. Ongoing - Continue lisinopril, outpatient records showed dose discrepancy - Consider restarting Lasix in 1 - 2 days. Paroxysmal A. fib. Present on admission. Ongoing - Continue home Carvedilol - Telemetry Chronic anemia. Present on admission. Ongoing - History of GI bleed - Continue to monitor H&H BPH. Chronic. Present on admission - Continue home tamsulosin - Continue home oxybutynin COPD. Present on admission. Ongoing - DuoNeb's when necessary GERD. Chronic. Present on admission. Ongoing - Continue home pantoprazole Patient Status: Patient was admitted under inpatient status with expected length of stay greater than two midnights due to severity of presenting symptoms , risk of adverse event, and complexity of treatment plan. Pain Evaluation: Adequate Pain Control GI Prophylaxis: Proton Pump Inhibitor VTE Prophylaxis: SCDs VTE Mechanical Devices: Venous Foot Pump Resuscitation Status: CPR: Attempt Resuscitation Time spent 30 minutes Leonid Cox DO Apr 18, 2017 12:40
--- NOTE | 2017-04-18 13:01 | NUR ---
Urinary Retention Patient voiding frequently 200-300ml at a time. Patient went down for a CT, network operations center technician reported pt had a full bladder even though pt had vioded prior to test. post void residual performed, result showed > 999mL. notified, straight cath ordred and performed with 1475 mL out put. notified. Addendum: 04/18/17 at 1840 by FELISHA HUFF RN Performed another PVR per order, bladder scan showed 690 mL. In and out cath performed with 725mL output. aware.
[2017-04-18] MEDS: diphenhydrAMINE 25 mg Capsule PO PRN (21:02)
[2017-04-19] VITALS (9 sets, daily range): BP systolic 167–176; BP diastolic 78–84; PULSE 66–79; RESP 18–22; O2SAT 98–100
--- NOTE | 2017-04-19 01:01 | NUR ---
López Post-void residual of 650ml with straight cath. Per prior shift x 2 straight cath. Doctor notified and ordered López catheter. Pt refused any more catheters, including a López. Stated we could discuss it in the morning, but not until then.
[2017-04-19 05:57] LABS: BASOPHILS % (AUTO) 0.4 % (0-3); EOSINOPHILS % (AUTO) 3.8 % (0-5); MONOCYTES % (AUTO) 10.5 % (4-12); Mean Corpuscular Hemoglobin 26.6 pg (27.0-35.0); Mean Corpuscular Volume 77.9 fL (81-100); NEUTROPHILS % (AUTO) 69.8 % (40-74); Platelet Count 100 bil/L (150-400)
[2017-04-19] MEDS: Lactulose 20 Gm/30 mL 30 mL Syrup PO SCH ×3 (08:57→20:58)
[2017-04-19] MEDS: Pantoprazole 40 mg ER24 Tablet PO SCH ×2 (08:57→15:48)
[2017-04-19] MEDS: Insulin LISPRO 300 Unit/3 mL Inj SUBQ SCH ×4 (09:00→21:01)
[2017-04-19] MEDS: DAPTOmycin Inj 700 MG in 0.9% Sodium Chloride 50 ML IV SCH (09:01)
--- NOTE | 2017-04-19 09:20 | NUR ---
FRANKIE signed. JILL Hankins
--- NOTE | 2017-04-19 11:04 | NUR ---
Voiding / Bladder / Live Patient able to spontaneously void 650 mL at 0730, denies bladder discomfort, urge or urgency. Patient states he does not want to have a live catheter placed or bladder scan. States "I'm fine, I'll keep peeing fine after I drink my coffee". Educated patient about urine retention and risks. Patient reports understanding. Reviewed medications with primary MD; patient taking tamsulosin and oxybutynin. Oxybutynin subsequently stopped as MD believes this might be contributing to retention. At 1045 patient able to spontaneously void unmeasured amount while sitting on toilet. Continues to deny discomfort or urge. Will continue to monitor. Bed low and locked, call light in reach, care and frequent rounding ongoing.
--- NOTE | 2017-04-19 12:06 | PCM.PNMED ---
Subjective Date of Service Apr 19, 2017 Subjective Patient notes feeling a little bit better than the day before. Energy level is improving. Denies any sweats or chills overnight. Urinary retention has been an issue, is required 3 straight catheterizations since yesterday afternoon the retention was observed. Since how his oxybutynin hopeful this will aid in improved urinary output. He has no other acute complaints at this time. He denies any discomforts. Hopeful for discharge shortly Exam Vital Signs Vital Sign - Last Date Time Temp Pulse Resp B/P Pulse Ox O2 Delivery O2 Flow Rate FiO2 04/19/17 10:33 67 04/19/17 09:58 36.6 20 172/83 100 Room Air Intake and Output 04/18/17 04/18/17 04/19/17 Cumulative From/Thru 15:00 23:00 07:00 04/16/17 20:53 - 04/19/17 06:19 Intake Total 2075 ml 1378 ml 9691 ml Output Total 4475 ml 1900 ml 82843 ml Balance -2400 ml -522 ml -904 ml Intake Oral 1400 ml 520 ml 5260 ml IV Total 675 ml 858 ml 4431 ml Output Urine Total 4475 ml 1900 ml 52851 ml # Bowel Movements 1 Exam General: Alert, Oriented X3, Cooperative, in no acute distress Eyes: PERRLA, there is a medial subconjunctival hemorrhage in right eye observe not present previously. Eye exam otherwise normal, no evidence of compromise of iris pupil. Mouth: Mucous Membranes moist Chest & Lungs: Clear to auscultation & percussion, No adventitious breath sounds Cardiovascular: Regular Rate/Rhythm, Blowing holosystolic murmur, most pronounced in aortic region Abdomen: Non-tender, Non-distended, Obese Neurological: Grossly Neurologically Intact IVs and Medications Medications Reviewed: Medications were reviewed in detail Lab and Diagnostics Result Diagram: 04/19/1737 04/19/17536 X-Rays, CTs and MRIs . X-RAY CHEST ONE VIEW, PORTABLE IMPRESSION: No radiographic explanation for fevers. Dictated by: Mina Valle M.D. on 04/16/2017 at 21:29 12-lead ECG Twelve-lead EKG in the ED showed sinus tachycardia with probable left atrial enlargement Assessment & Plan Mr. Sarmiento is a 67 year old male past medical history of hepatocellular carcinoma, hypertension, paroxysmal A. fib and diabetes mellitus admitted for encephalopathy and sepsis. Sepsis. Present on admission. Ongoing. - On admission Sepsis criteria met, hyperthermia, tachycardia and leukocytosis and lactic acidosis - Unknown source, the cultures positive 2 for staph aureus, sensitivities pending. - Antibiotics initiated in ED ceftriaxone, doxycycline, vancomycin -Patient now transition to Cubicin on recommendation from infectious disease specialist given presence of gram-positive bacteremia - Ultrasound-guided paracentesis ordered, however there was not sufficient fluid to accomplish this. - Continue to monitor closely. - fluids are held given patient's lower extremity edema and concern for volume overload Bacteremia, positive - As noted above we have started Cubicin response to culture results - Infectious disease has been notified and will continue to follow patient - On their recommendation will be obtaining daily sets of blood cultures Presence of prosthetic heart valve, aortic - Likely accounts for murmur found on physical exam - Of additional concern given the presence of bacteremia - A BORA will be required to determine vegetation is antibiotic decisions moving forward, will contact cardiology Thursday to arrange. Hepatic encephalopathy. Present on admission. Ongoing - Secondary to hepatocellular carcinoma - Serum ammonia 120 on admit - Patient reportedly not taking home lactulose -Continue lactulose 20 g by mouth 3 times a day - Continue to monitor Urinary retention - Chronicity is unclear but patient had greater than a liter noted even post void this morning - We will obtain every 4 Hour Post void residuals, as needed straight cath, consider indwelling López if necessary. - DC'd home medication Oxybutynin, Trial Flomax at this time for possible BPH. Anion gap metabolic acidosis. Present on admission. Ongoing - Possibly secondary to lactic acid, resolved with improved lactic acidosis. - Tox screen negative for alcohol - Continue to monitor Chronic hyponatremia. Present on admission. Ongoing - Continue to monitor Diabetes. Present on admission. Ongoing - Correctional scale - Last A1c 11/2016 6.4 Hypertension. Present on admission. Ongoing - Continue lisinopril, outpatient records showed dose discrepancy - Consider restarting Lasix in 1 - 2 days. Paroxysmal A. fib. Present on admission. Ongoing - Continue home Carvedilol - Telemetry Chronic anemia. Present on admission. Ongoing - History of GI bleed - Continue to monitor H&H BPH. Chronic. Present on admission - Continue home tamsulosin COPD. Present on admission. Ongoing - DuoNeb's when necessary GERD. Chronic. Present on admission. Ongoing - Continue home pantoprazole Patient Status: Patient was admitted under inpatient status with expected length of stay greater than two midnights due to severity of presenting symptoms , risk of adverse event, and complexity of treatment plan. Pain Evaluation: Adequate Pain Control GI Prophylaxis: Proton Pump Inhibitor VTE Prophylaxis: SCDs VTE Mechanical Devices: Intermittant Pneumatic CD, Venous Foot Pump Resuscitation Status: CPR: Attempt Resuscitation Time spent 30 minutes Leonid Cox DO Apr 19, 2017 12:06
--- NOTE | 2017-04-19 14:26 | CONS ---
[address] [address] CONSULTATION REPORT PATIENT: LOUIE FRANCIS : 1950 MR#: [id number] ADMIT: 04/17/2017 JOB ID: [id number] DATE OF SERVICE: 04/19/[address] Cox for this timely consult. REASON FOR CONSULT: MSSA bacteremia. HISTORY OF PRESENT ILLNESS: The patient is an extremely complicated, 67-year-old gentleman with a past medical history that includes alcoholic cirrhosis with varices and encephalopathy, aortic valve replacement about two years ago, benign prostatic hypertrophy, diabetes mellitus, COPD, and history of diabetes, among other problems. He was in his usual state of fragilely compensated health until about three weeks ago. Then, he started to develop what he tells me was the insidious onset of chills and perhaps some sweats. That continued along without much change until April 17, the day of admission. On April 17, he noticed he was profoundly fatigued and was more short of breath than normal though without much in the way of cough. This was associated with myalgias, arthralgias and just feeling exhausted. He was subsequently brought in because family members thought he was also becoming a bit confused. Note that he does have a history of confusion in the past though due to hepatic encephalopathy. Yesterday, the day after admission, I was contacted by telephone by Dr. Cox. Dr. Cox tole me that the blood cultures had somewhat surprisingly turned positive for Staph and we discussed appropriate coverage in view of the fact that he may have a history of penicillin and/or cephalosporin allergy. We decided to place him on daptomycin and follow him closely. Today, the patient reports he is feeling a bit better. He is not having fever or chills today and has not had night sweats. He does have some worsening of what he describes as chronic headache. He is not significantly short of breath and is able to stand and walk around his room without too much difficulty. He is not having chest pain. He has minimal cough but it is largely dry. No nausea, vomiting, diarrhea. He notes that for the past three weeks or so. His legs have been swollen and he has been scratching them sometimes rather furiously late at night and even when he is asleep. This has led to a lot of scratches on his lower extremities below the mid thigh, all the way down to the feet. PAST MEDICAL HISTORY: 1. 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 2. Organic heart disease. a. Aortic valve replacement two years ago. b. Paroxysmal atrial fibrillation. c. Coronary artery disease. 3. Benign prostatic hypertrophy. 4. Hyperlipidemia. 5. Chronic renal insufficiency. 6. History of CVA. 7. Diabetes mellitus. 8. COPD. SOCIAL HISTORY: 1. The patient quit drinking about two years ago. 2. The patient is not a tobacco smoker anymore but was a heavy chewer of tobacco products. 3. 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 FAMILY HISTORY: Negative for tuberculosis in first- or second-degree relatives. REVIEW OF SYSTEMS: The patient says he has chronic headaches and they are somewhat worse lately. He has no acute visual change. No sore throat or sores in the mouth. He has not had stiff neck. He has had some shortness of breath which is off and on and chronic but it has been worse for the last few days. There is a dry cough without substernal chest pain or pleuritic chest pain. The patient has not had significant nausea, vomiting or diarrhea. He has had some urinary retention but no dysuria, urgency, or frequency. He notes that they have had to cath him a couple times with in and out cath here in the hospital, but he is currently working hard to void on his own and avoid having a López placed, which he would like very much to avoid. He notes he has edema both lower extremities, which is relatively chronic but worse the last three weeks and there are many scratches on his lower extremities. He is able to ambulate and get around fairly well on his own usually. He also notes myalgias and arthralgias. No focal weakness or new stroke-like symptoms. Remainder of the review of systems is negative. PHYSICAL EXAMINATION: Reveals an afebrile gentleman right now, but he came in at 38.1 to the ER late on the evening of April 16. Since then, he has been afebrile, now 36.6, pulse 67, respiratory rate 20, blood pressure 172/83, saturating 100% on room air. The patient is awake and alert. He has some speech latency but is oriented x3 and actually able to give quite a good history, if given enough time. His mental status therefore is clear. His head is without trauma. His eyes without conjunctivitis though he does have a right medial conjunctival hemorrhage which is quite prominent but does not affect his vision apparently. No scleral icterus is noted today. Oral cavity without thrush or hairy leukoplakia. Teeth are in fair repair without overt gingivitis. Neck is supple. There is no adenopathy or JVD at this point. Lungs are fairly clear posteriorly, a few crackles at the bases. His back is entirely straight and completely nontender with each vertebral spinous process being carefully pressed. Cardiac tones: Regular rate and rhythm at this point, with about a 2/6 murmur which is heard all across the precordium. It does not seem to radiate to one location more than another. Abdomen: Moderately obese with the liver edge that extends below the right costal margin about 2 cm. There is little or no ascites present at this time. No López catheter. No suprapubic fullness. No inguinal adenopathy. Both lower extremities have 2+ pitting edema up to the lower thighs. There are many, many excoriations, none of which appear infected below the mid thigh level all the way down to the ankles. The ankles are quite puffy with about 3+ edema but no warmth, tenderness or skin breakdown is noted. The patient does not seem to have peripheral neuropathy or at least not significantly so. There is no skin breakdown on the feet. There is no evidence for active synovitis and he is neurologically nonfocal. LABORATORIES: Include white count 15,000 in the ER on the evening of April 16. Since then, white counts normal including completely normal diff. Platelet count low at 100,000, likely reflecting chronic liver disease. Creatinine 1.19. LFTs normal. Alk phos is high at 270 but AST and ALT are normal. Albumin is 3. Urinalysis without white cells. Alcohol level undetectable. Blood cultures from the night of the when he went to the ER growing MSSA and that is in two out of four bottles. Respiratory viral PCR panel negative, MRSA screen negative, and followup blood cultures are now pending and so far negative. IMAGING: Includes a chest x-ray, which was clear. Abdominal ultrasound showed minimal ascites. CT of the abdomen showed cirrhosis and portal venous hypertension. No abscess is seen. IMPRESSION: This 67-year-old gentleman with alcoholic cirrhosis, diabetes, and chronic obstructive pulmonary disease, presents now with a high-grade methicillin-sensitive Staphylococcus aureus bacteremia which accounts for his fatigue and confusion prior to admission. My main concern here is whether his history of sweats and chills for three weeks may be related to prosthetic valve endocarditis. This will be a difficult diagnosis to make in this patient, and then I suspect Cardiology will have no interest in doing a transesophageal echocardiogram on a man with varices and we may be stuck with only a transthoracic echocardiogram in our blood cultures as ways to try and ascertain whether or not he has endocarditis. I failed to mention in my physical but he has no subconjunctival hemorrhages nor does he have any Janeway or Osler's lesions on his hands. RECOMMENDATIONS: 1. Transthoracic echo. 2. If it were possible, a transesophageal echo would be indicated here, but I suspect Cardiology will decline. This should be broached with them, but I think it is highly unlikely they will undertake it in a patient with known varices. 3. If we cannot get a BORA, we may be forced on the basis of whatever we get out of the transthoracic to decide whether or not he has endocarditis. If we thought he did have prosthetic valve endocarditis as a cause of his Staph aureus bacteremia, we would need six weeks of therapy with a beta-lactam agent, rifampin and perhaps gentamicin. This would all be extremely difficult in a patient with end-stage liver disease who already has some renal insufficiency. The toxicity would likely limit our treatment considerably. If, on the other hand, his Staph aureus bacteremia is related to the excoriations on his legs and he does not have endocarditis, we may be in fact able to treat him for just a couple weeks without undue difficulty. 4. A further complication in this case is this confusing history of penicillin and/or cephalosporin allergy. 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 Thank you very much for asking me to see this very complicated patient.
[2017-04-20] VITALS (8 sets, daily range): BP systolic 139–168; BP diastolic 70–83; PULSE 64–80; RESP 16–22; O2SAT 99
[2017-04-20 06:18] LABS: BASOPHILS % (AUTO) 0.3 % (0-3)
[2017-04-20 06:24] LABS: EOSINOPHILS % (AUTO) 7.6 % (0-5); MONOCYTES % (AUTO) 13.1 % (4-12); Mean Corpuscular Hemoglobin 24.6 pg (27.0-35.0); Mean Corpuscular Volume 78.7 fL (81-100); NEUTROPHILS % (AUTO) 65.4 % (40-74); Platelet Count 104 bil/L (150-400)
--- NOTE | 2017-04-20 07:01 | NUR ---
Uneventful Night: Pt had an uneventful night, no c/o pain, chest pain or SOB. Pt ambulated in hallway with daughter prior to HS, slept most of the night, pleasant and cooperative with care.
[2017-04-20] MEDS: Pantoprazole 40 mg ER24 Tablet PO SCH ×2 (09:12→17:59)
[2017-04-20] MEDS: Insulin LISPRO 300 Unit/3 mL Inj SUBQ SCH ×4 (09:13→21:08)
[2017-04-20] MEDS: Lactulose 20 Gm/30 mL 30 mL Syrup PO SCH ×3 (09:14→20:59)
[2017-04-20] MEDS: DAPTOmycin Inj 700 MG in 0.9% Sodium Chloride 50 ML IV SCH (09:14)
--- NOTE | 2017-04-20 11:10 | NUR ---
Palliative care note D/A: Case discussed in PC rounds this am. Note that [employer] entry indicates that pt is currently seen by [facility] . This worker had been preparing for f/u phone call post PC visit and had discussed with Jaylin MELCHOR from [facility]. Had been told that [facility] had signed off pt case end of February 2017. Pt not current with home health. Msg left for Siomara MELCHOR, dcp. Do have copies of dc summary from if would be helpful. P: Palliative care to follow. Kalina GREEN, CCM
--- NOTE | 2017-04-20 11:14 | PROG NOTE ---
[address] [address] PROGRESS NOTE PATIENT: LOUIE FRANCIS : 1950 MR#: [id number] ADMIT: 04/17/2017 JOB ID: [id number] DATE: 04/20/2017 REASON FOR FOLLOWUP: MSSA bacteremia, rule out prosthetic valve endocarditis. INTERVAL HISTORY: Overnight, the patient reports he has been feeling steadily better. No more fevers, chills, sweats, or confusion. He states his breathing is about at baseline. No chest pain. No nausea, vomiting, or diarrhea. PHYSICAL EXAMINATION: Reveals an afebrile gentleman. Temperature 36.7, pulse 67, respiratory rate 20, blood pressure 140/78. He is saturating well on room air. In no acute distress. His mental status is clear. Eyes without conjunctival hemorrhage. Oral cavity without thrush or hairy leukoplakia. Lungs reasonably clear. A few crackles at the bases. Cardiac tones with a harsh 3/6 murmur heard best along the lower left sternal border with some radiation up to the aortic area. The abdomen is without change. No significant ascites is present. He has excoriations on both legs below the knees. LABORATORIES: Include a white count 6500, platelet count 104. Creatinine 1.02. AST and ALT are normal. Alk phos 294, albumin 3.5. Urinalysis without white cells. Initial blood cultures on April 16 grew MSSA. The followup blood cultures from April 19 are negative, but they are only 24 hours old more or less. MRSA screen was negative. IMAGING: Includes an abdominal CT that was previously discussed. It shows primarily cirrhosis. An echo has not yet been done. IMPRESSION: This is a 67-year-old gentleman with advanced end-stage liver disease as well as a bioprosthetic aortic valve. He presents with excoriations on his legs which he said were due to itching while he was sleeping over the last few weeks. He also has a history of weeks of night sweats and some chills, which worsened and led to this recent admission. His blood cultures on admission grew methicillin-sensitive Staphylococcus aureus (MSSA). At this point, the main question is whether this is an MSSA bacteremia arising strictly from the soft tissues of his legs or whether he may have prosthetic valve endocarditis. I have chosen to continue with daptomycin as our sole antibiotic, at least for the time being because of some murky history of PENICILLIN and CEPHALOSPORIN allergies, and also because it is unclear to me if he has endocarditis or not. A transesophageal echo may not be available in this case because he is known to have esophageal varices. RECOMMENDATIONS: 1. Transthoracic echo today if possible. 2. Based on the results of the thoracic echo, we may push for transesophageal echo, but I suspect Cardiology will not do that because of the varices history. 3. Depending on the results of the transthoracic, we may be forced to embark on a course of treatment for prosthetic valve endocarditis. I hope this is not the case, as using rifampin would be difficult given his liver disease, and gentamicin would be also fraught with hazards as these drugs typically indicated in prosthetic valve endocarditis. Gentamicin would have a very high risk of producing hepatorenal syndrome in this gentleman with some underlying renal disease already, and the rifampin would potentially be detrimental to his liver as well as have extensive array of drug interactions. 4. We await the echo and additional blood cultures before making any final decision on duration and intensity of therapy.
--- NOTE | 2017-04-20 12:38 | PCM.PNMED ---
Subjective Date of Service Apr 20, 2017 Subjective Patient continues to note a gradual but steady improvement in his energy level. Continues to deny, fever chills or sweats. Has a little bit of lower extremity edema but no significant discomfort associated with this also no shortness of breath or chest pain. The no acute complaints at this time feeling much improved since his presentation. Exam Vital Signs Vital Sign - Last Date Time Temp Pulse Resp B/P Pulse Ox O2 Delivery O2 Flow Rate FiO2 04/20/17 10:51 80 04/20/17 09:35 36.7 20 140/78 99 Room Air Intake and Output 04/19/17 04/19/17 04/20/17 Cumulative From/Thru 15:00 23:00 07:00 04/16/17 20:53 - 04/19/17 21:05 Intake Total 84 ml 900 ml 13063 ml Output Total 650 ml 400 ml 54440 ml Balance -566 ml 500 ml -970 ml Intake Oral 900 ml 6160 ml IV Total 84 ml 4515 ml Output Urine Total 650 ml 400 ml 78878 ml # Voids 1 1 # Bowel Movements 1 Exam General: Alert, Oriented X3, Cooperative, in no acute distress Eyes: PERRLA, there is a medial subconjunctival hemorrhage in right eye observe not present previously. Eye exam otherwise normal, no evidence of compromise of iris pupil. Mouth: Mucous Membranes moist Chest & Lungs: Clear to auscultation & percussion, No adventitious breath sounds Cardiovascular: Regular Rate/Rhythm, Blowing holosystolic murmur, most pronounced in aortic region Abdomen: Non-tender, Non-distended, Obese Neurological: Grossly Neurologically Intact Skin. Multiple excoriations on upper and lower extremities though none with evidence of active infection. IVs and Medications Medications Reviewed: Medications were reviewed in detail Lab and Diagnostics Result Diagram: 04/20/17 0555 04/20/17 0555 X-Rays, CTs and MRIs . X-RAY CHEST ONE VIEW, PORTABLE IMPRESSION: No radiographic explanation for fevers. Dictated by: Mina Valle M.D. on 04/16/2017 at 21:29 12-lead ECG Twelve-lead EKG in the ED showed sinus tachycardia with probable left atrial enlargement Assessment & Plan Mr. Sarmiento is a 67 year old male past medical history of hepatocellular carcinoma, hypertension, paroxysmal A. fib and diabetes mellitus admitted for encephalopathy and sepsis. Sepsis. Present on admission. Ongoing. - On admission Sepsis criteria met, hyperthermia, tachycardia and leukocytosis and lactic acidosis - Unknown source, the cultures positive 2 for staph aureus, sensitivities pending. - Antibiotics initiated in ED ceftriaxone, doxycycline, vancomycin -Patient now transition to Cubicin on recommendation from infectious disease specialist given presence of gram-positive bacteremia - Ultrasound-guided paracentesis ordered, however there was not sufficient fluid to accomplish this. - Continue to monitor closely. - fluids continued to be held given patient's lower extremity edema and concern for volume overload Bacteremia, positive - As noted above we have started Cubicin response to culture results - Infectious disease has been notified and will continue to follow patient - On their recommendation will be obtaining daily sets of blood cultures - Transthoracic echo ordered yesterday and still pending, to evaluate for possibility of endocarditis. Presence of prosthetic heart valve, aortic - Likely accounts for murmur found on physical exam - Of additional concern given the presence of bacteremia - A BORA may be required to determine vegetation is antibiotic decisions moving forward, but this will be complicated by patient's history of esophageal varices . Hepatic encephalopathy. Present on admission. Ongoing - Secondary to hepatocellular carcinoma - Serum ammonia 120 on admit - Patient reportedly not taking home lactulose -Continue lactulose 20 g by mouth 3 times a day - Continue to monitor Urinary retention - Chronicity is unclear but patient had greater than a liter noted even post void this morning - We will obtain every 4 Hour Post void residuals, as needed straight cath, consider indwelling López if necessary. - DC'd home medication Oxybutynin which is prescribed for unclear reason to myself - Trial on only Flomax, which appears to resolve this issue. Anion gap metabolic acidosis. Present on admission. Ongoing - Possibly secondary to lactic acid, resolved with improved lactic acidosis. - Tox screen negative for alcohol - Continue to monitor Chronic hyponatremia. Present on admission. Ongoing - Continue to monitor Diabetes. Present on admission. Ongoing - Correctional scale - Last A1c 11/2016 6.4, increased to 8.0 on admission. Hypertension. Present on admission. Ongoing - Continue lisinopril, outpatient records showed dose discrepancy - Consider restarting Lasix in 1 - 2 days. Paroxysmal A. fib. Present on admission. Ongoing - Continue home Carvedilol - Telemetry Chronic anemia. Present on admission. Ongoing - History of GI bleed - Continue to monitor H&H BPH. Chronic. Present on admission - Continue home tamsulosin COPD. Present on admission. Ongoing - DuoNeb's when necessary GERD. Chronic. Present on admission. Ongoing - Continue home pantoprazole Patient Status: Patient was admitted under inpatient status with expected length of stay greater than two midnights due to severity of presenting symptoms , risk of adverse event, and complexity of treatment plan. Pain Evaluation: Adequate Pain Control GI Prophylaxis: Proton Pump Inhibitor VTE Prophylaxis: SCDs VTE Mechanical Devices: Venous Foot Pump Resuscitation Status: CPR: Attempt Resuscitation Time spent 25 minutes Leonid Cox DO Apr 20, 2017 12:38
--- NOTE | 2017-04-20 15:56 | NUR ---
Social Work-continued d/c planning: Data:EMR Reviewed. Pt is on day 3 of hospitalization for sepsis per H&P. Pt is not medically stable anticipate several days. SW received a call from Palliative care SW stating she spoke with NEUROSURGEON from [facility] and they are not currently open with pt for services. SW attempted to follow up with pt and family to discuss further, but pt currently not in room. Pt's daughters provide 24/7 care for pt at home. SW to follow up with HH tomorrow. SW will continue to follow. Assessment:pt who would benefit from HH. Plan:Pt to likely discharge home when medically stable via POV with daughters to provide 24/7 care. SW to follow up regarding HH tomorrow.SW will continue to follow. JILL Hankins
--- NOTE | 2017-04-20 17:24 | PCM.CONPAL ---
Date of Service Apr 20, 2017 Date of Hospital Admission: Apr 17, 2017 at 00:17 Date of Palliative Consult: Apr 20, 2017 Requesting Provider: EASTON TITUS DO Reason Palliative Care Consult: Pain, Goals of Care Discussion Hospital Unit @time of consult: Medical/Pediatric Care Palliative Care Recommendation Summary of palliative recommendations: -Symptom management (Pain/other) Bacteremia-MSSA but with a known AVR- Dr. Angelo following. Most likely source - all his excoriations. Pain-longstanding and pt is at high risk to misuse. Will restart gabapentin. He states gait imbalance is better since hosp but he can't say if this was noted prior to adding that med. Goal is to avoid opiates in this pt if at all possible and get some pain management. Source PN, OA and basic LBP. Will stop his acetaminophen due to liver toxicity Encephalopathy- improved despite increasing ammonia level from 120-134 HCCA-clinical dx. Still needs further follow up with [facility] but he has said repeatedly he does not want chemotx Itching/pruritis-?etiology with normal bili.Moisturize. -DPOA/Advanced Directives/POLST-DPOAHC--Surekha carter Jewels-his daughters POLST--he has never completed but he requests FULL CODE but OK to W/D care if he is not improving and likely to have QOL post. -Family/emotional support-Jewels and Surekha-daughters, He has a son who he trusts but is less involved -Spiritual support--Born [place] Additional Medical Diagnoses with primary management by Hospitalist team include : DM Bacteremia with possible endocarditis Cirrhosis with portal HTN Hx of hepatic encephalopathy. COPD ASVD-diffuse Problems: End of Life Preferences Full Code but OK to w/d if poor QOL likely Disposition Expecting home with assistance from his daughters Resuscitation Status Resuscitation Status: CPR: Attempt Resuscitation POLST Updates/Changes Previous POLST?: No Artificially Admin Nutrition: No Artifical Nutrition by Tube POLST Discussed with: Patient . Pain: Moderate Symptom management: Dyspnea, Pain Pt History History of Present Illness Mr. Sarmiento is a 67 year old male past medical history of hepatocellular carcinoma, hypertension, paroxysmal A. fib and diabetes mellitus presented to the ED this evening secondary to weakness and body aches 1 day. Per ED note the associated symptoms including abdominal pain, fatigue and lack of appetite fever or headache and confusion. The patient is reportedly not been taking his lactulose. On interview with patient he is arousable to voice though somewhat encephalopathic and has difficulty answering questions coherently. When asked specifically about pain he states diffuse abdominal pain by waving his hand over his distended abdomen. Specifically denies chest pain. PALLIATIVE CARE CONSULTATION: 67 yo pt with hx of recent dx of hepatocellular carcinoma due to longstanding alcoholic cirrhosis. This was found in October and bx not taken due to risk of bleeding from his portal HTN and modest thrombocytopenia. He was seen at but refused chemo. He was seen at [facility] for a 2nd opinion- had an MRI but it was "inconclusive". He has had bouts of hepatic encephalopathy and usually takes lactulose but had held that for 1-2 days for a conference he went to. He developed increasing abd pain he describes as diffuse and around to his back. He has chronic pain with LBP and a distant hx of opiate misuse (he denies misuse stating refused because of his ETOH). He was seen for OP Palliative and was started on gabapentin 300 mg TID to increase to 600 mg HS. He states he started it but his daughter would take it with her so it wasn' t in the house to be "overused". He has been campaigning that since he now has cancer he should be able to get pain meds for his pain-LBP and peripheral neuropathy and OA.He does find smoking MJ helpful in his pain and was hoping for medical authorization. [facility] will not do MJ or opiates. He stopped drinking 2 yrs ago. He was noted to have +BC for MSSA on admit. He has extensive excoriations over his body that he states started the last 3-4 weeks. Takes care of his daughter' s dog but he states he usually sees fleas if they are around and no one else has itching. 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 Social History Living Situation: lives alone with support of daughters Spiritual Support Spiritual Support Born again Hinduism but not going to restorationism at this time Palliative Performance Scale PPS Patient Status: Current PPS Ambulation: Reduced (made entire loop around [place] with walker on his own) PPS Activity: Unable to do normal job/work PPS Self-Care: Full Self Care PPS Intake: Normal PPS Conscious Level: Full or confusion Performance Scale: 80% POLST at Time of Admission Previous POLST?: No Allergy Allergies Reviewed: Yes Medications Current Medications: Current Medications Daptomycin/Sodium Chloride 50 ml @ 100 mls/hr Q24 IV Last administered on t 09:14; Admin Dose 100 MLS/HR; Start 04/19/17 at 08:30 Gabapentin 300 mg TID PO; Start 04/20/17 at 20:30 Scheduled Ascorbic Acid (Vitamin C) 500 Mg Capsule.er 500 MG PO DAILY Carvedilol (Carvedilol) 6.25 Mg Tablet 6.25 MG PO BID Cholecalciferol (Vitamin D3) (Vitamin D) 1,000 Unit Tablet 1,000 UNIT PO QAM Econazole Nitrate (Econazole Nitrate) 15 Gm Cream..g. 1 APPL TOP BID apply to scalp Ferrous Sulfate (Ferrous Sulfate) 324 Mg Tablet.dr 324 MG PO DAILY Insulin Aspart (NovoLOG U-100 Pen) 100 Unit/Ml Insuln.pen 2 UNITS SC TIDWM Insulin Detemir (Levemir Flextouch) 100 Unit/1 Ml Insuln.pen 8 UNITS SUBQ BID Ipratropium Franklin (Ipratropium Franklin 0.03% Nasal) 30 Ml [place] 2 SPRAY NS BID Lactulose (Lactulose) 10 Gm/15 Ml Solution 15 GM PO BID Lisinopril (Lisinopril) 10 Mg Tablet 10 MG PO DAILY Loratadine (Claritin) 10 Mg Capsule 10 MG PO MORNING Multivitamin (Once Daily) 1 Each Tablet 1 EACH PO DAILY Oxybutynin Chloride (Oxybutynin Chloride) 5 Mg Tablet 5 MG PO BID Pantoprazole (Pantoprazole DR) 40 Mg Tablet.dr 40 MG PO BIDAC Tamsulosin ER (Tamsulosin ER) 0.4 Mg Cap.er.24h 0.4 MG PO DAILY Vit B Comp/C/FA/Iron/Vit E (Vitamin B Complex Tablet) 1 Each Tablet 2 EACH PO DAILY Scheduled PRN Furosemide (Furosemide) 20 Mg Tab 20 MG PO DAILY PRN PRN edema Mometasone/Formoterol (Dulera 100 Mcg/5 Mcg Inhaler) 13 Gm Hfa.aer.ad 1 PUFF IH BID PRN PRN For Shortness of Breath Objective Findings Exam Vital Sign - Last Date Time Temp Pulse Resp B/P Pulse Ox O2 Delivery O2 Flow Rate FiO2 04/20/17 13:52 36.4 66 20 139/80 99 Room Air Intake and Output 04/19/17 04/19/17 04/20/17 Cumulative From/Thru 15:00 23:00 07:00 04/16/17 20:53 - 04/19/17 21:05 Intake Total 84 ml 900 ml 20499 ml Output Total 650 ml 400 ml 59493 ml Balance -566 ml 500 ml -970 ml Intake Oral 900 ml 6160 ml IV Total 84 ml 4515 ml Output Urine Total 650 ml 400 ml 77811 ml # Voids 1 1 # Bowel Movements 1 General: Alert/Oriented x3 HEENT: PERRLA, EOMI, Scleral Anicteric, Other (few teeth and in poor repair) Heart: Regular Rate/Rhythm, Systolic Murmur (harsh systolic murmur over precordium) Lungs: Other (good airmvmnt with occ rhonchi) Neuro: Cranial Nerve 3-12 Intact, Other (conversant, appropriate- gives a good history, recalls Dr. Angelo's and Cory's names and comments) Extremities: Edema (2+ to 3+) Skin: Other (extensive picked at sores-diffusely) Lab/Diagnostics Lab and Imaging results reviewed in detail in EMR. Patient/Family Conference Members Present Family Members Present patient Medical Team Members Present? [facility] Discussion/Goals of Care Discussion FAMILY UNDERSTANDING OF DISEASE: DISEASE PROGRESSION/EVIDENCE OF DECLINE: SYMPTOM BURDEN: GOALS: HOPES/WORRIES: FAMILY WISHES/VALUES: Do you want to be told truth about his illness, even if unpleasant? Does family want to know prognosis when it can be predicted, to better guide treatment decisions? What is quality of life for the patient: to be able to interact with their loved ones and friends, to travel, not to be bedbound, to be independent in taking care of themselves: Would patient choose quality of life over quantity of life? Would comfort care be more important than being awake and alert? If patient is no longer alert and aware because of their illness, would you choose comfort for them? Palliative Care counselled: Time spent Total time 60 minutes; >50% face to face with patient and/or family, providing counselling regarding plans and recommendations, and in care coordination with his/her medical teams. I also spent an additional [ ] minutes counseling for advanced care planning with the patient/the patients family/the surrogate decision maker. copies to: Ria Sy MD, Martina Ellison MD Apr 20, 2017 17:24
--- NOTE | 2017-04-20 18:33 | NUR ---
Ambulation Pt SBA w/ FWW. Reports being a little weak but able to bear weight. Pt steady with FWW but relies on it for stabilization. During shift pt ambulated around unit with FWW. Tolerated well. Pt even did some ROM exercises. Pt denies SOB with activity but objectively could see pt was breathing harder and was still weak. Pt instructed about safety for falls. No near falls happened during shift.
--- NOTE | 2017-04-20 18:44 | DRSVH ---
[facility] [address] [place] [address] Echocardiogram Report Name: LOUIE FRANCIS Date: 04/20/2017 Height: 72 in Hospital Exam Location: [facility] Weight: 229 lb Gender: Male BSA: 2.3 m2 : 1950 Age: 67 yrs BP: 155/ 75 mmHg Reason For Study: Endocarditis Ordering Physician: HOSPITALIST [facility] Performed By: Nikolas Carr Referring Physician: VISHNU KING Interpretation Summary The left ventricle is normal in size. There is mild concentric left ventricular hypertrophy. The ejection fraction is estimated to be 65-70%. Left ventricular wall motion is normal. The right ventricle grossly appears normal in size with probable normal systolic function. The mitral valve leaflets are moderately calcified. There is moderate mitral annular calcification. There is mild mitral regurgitation. There is a bioprosthetic aortic valve. There is trace aortic regurgitation. The tricuspid valve leaflets are thickened and/or calcified, but open well. There is mild tricuspid regurgitation. Right ventricular systolic pressure is estimated to be 23 mmHg plus the clinically estimated CVP which cannot be estimated on this exam. The left atrium is severely dilated. There is no pericardial effusion. Compared to the study on 10/16/2016, right sided pressures are lower. No clear evidence of valvular vegetation. Procedure: A two-dimensional transthoracic echocardiogram with color flow and Doppler was performed. The study quality was technically adequate. Comparison is made with the echocardiogram of 10/26/16. The patient was in normal sinus rhythm during the exam. Left Ventricle: The left ventricle is normal in size. There is mild concentric left ventricular hypertrophy. The ejection fraction is estimated to be 65-70%. Left ventricular wall motion is normal. Assessment of diastolic parameters indicates a relaxation abnormality of the left ventricle, consistent with normal filling pressures. Right Ventricle: The right ventricle grossly appears normal in size with probable normal systolic function. Atria: The left atrium is severely dilated. Right atrial size is normal. The interatrial septum is intact with no evidence for an atrial septal defect. Mitral Valve: The mitral valve leaflets are moderately calcified. There is moderate mitral annular calcification. There is mild mitral regurgitation. Aortic Valve: There is a bioprosthetic aortic valve. There is trace aortic regurgitation. Tricuspid Valve: The tricuspid valve leaflets are thickened and/or calcified, but open well. There is mild tricuspid regurgitation. Right ventricular systolic pressure is estimated to be 23 mmHg plus the clinically estimated CVP which cannot be estimated on this exam. Pulmonic Valve: The pulmonic valve leaflets are thin and pliable; valve motion is normal. There is mild pulmonic regurgitation. Great Vessels: The aortic root is normal size. The ascending aorta is mildly enlarged. The pulmonary artery is normal size. The inferior vena cava was not well visualized. Pericardium/ Pleura There is no pericardial effusion. There is no pleural effusion. MMode/2D Measurements & Calculations LVIDd: 4.6 cm RA long axis LVOT diam: 2.0 cm LVIDs: 2.9 cm LA A2 area: 29.5 cm AoV Opening FS: 38.2 % LA A4 area: 31.3 cm RA area EPSS: 0.59 cm LA length (vol) Ao root diam IVSd: 1.3 cm : 16.9 cm LVPWd: 1.3 cm LA vol: 119.8 ml RA vol asc Aorta Diam LA vol index : 44.2 ml RA Ao Arch Diam (Prox : 53.1 ml/m2 : 19.6 mm2 Trans): 2.5 cm LV craig. diameter/BSA LV sys. diameter/BSA (cm/m^2): 2.1 (cm/m^2): 1.3 Doppler Measurements & Calculations Ao V2 max: 218.8 cm/secMV E max ortiz MV E/A: 0.84 TR max ortiz Ao max P.1 mmHg : 94.6 cm/sec Med Peak E' Ortiz : 239.3 cm/sec Ao mean P.3 mmHg MV A max ortiz TR max PG LVOT Max Ortiz : 112.6 cm/sec E/E' med: 24.3 : 22.9 mmHg : 123.7 cm/sec Lat Peak E' Ortiz PA V2 max : 141.7 cm/sec VIOLA(I,D): 1.8 cm E/E' lat: 14.3 PA mean PG sev ratio: 0.58 E/e' average : 4.1 mmHg MV dec time: 0.31 sec Ao V2 mean LV V1 max PG PA V2 mean : 159.5 cm/sec : 93.6 cm/sec Ao V2 VTI: 50.8 cmLV V1 VTI : 29.5 cm VIOLA(V,D): 1.7 cm2 VIOLA indexed to BSA (cm^2/m^2): 0.79 Reading Physician:06:43 PM
[2017-04-21] VITALS (10 sets, daily range): BP systolic 124–170; BP diastolic 62–81; PULSE 64–77; RESP 18–20; O2SAT 97–100
--- NOTE | 2017-04-21 05:49 | NUR ---
Assumed Care: Assumed care of pt around 0330. Pt has been resting in bed since this time, no c/o pain, chest pain or SOB. Pleasant and cooperative with care.
[2017-04-21] MEDS: Pantoprazole 40 mg ER24 Tablet PO SCH ×2 (07:41→18:02)
[2017-04-21] MEDS: Lactulose 20 Gm/30 mL 30 mL Syrup PO SCH ×3 (07:45→20:42)
[2017-04-21] MEDS: Insulin LISPRO 300 Unit/3 mL Inj SUBQ SCH ×4 (07:48→20:57)
[2017-04-21] MEDS: DAPTOmycin Inj 700 MG in 0.9% Sodium Chloride 50 ML IV SCH (08:57)
--- NOTE | 2017-04-21 10:53 | PROG NOTE ---
[address] [address] PROGRESS NOTE PATIENT: LOUIE FRANCIS : 1950 MR#: [id number] ADMIT: 04/17/2017 JOB ID: [id number] DATE: 04/21/2017 REASON FOR FOLLOWUP: MSSA bacteremia in a patient with end-stage liver disease and a bioprosthetic aortic valve. INTERVAL HISTORY: This morning the patient is more lethargic and perhaps encephalopathic. The patient can be aroused though and says he is feeling gradually better. He no longer has fevers, chills, or sweats and his breathing is relatively close to baseline. No other new GI or pulmonary symptoms. I briefly discussed this case with the community development coordinator who felt BORA would be contraindicated on the basis of his known esophageal varices. PHYSICAL EXAMINATION: Reveals a lethargic, but arousable gentleman in no acute distress. Afebrile temperature 36.3, pulse 67, respiratory rate 20, blood pressure 153/78, saturating well on room air and in no acute distress. Examination of the eyes no subconjunctival hemorrhages. He does have a right medial conjunctival hemorrhage. The lungs are a few rales at the left base. Cardiac tones still the harsh 2/3 systolic murmur heard previously. The abdomen soft and nontender without obvious ascites. Bowel tones are present. On the lower extremities below the knees there are still many excoriations, none of which appeared very infected, but there are numerous excoriations. LABORATORIES: Include white count 6500, platelet count 104. Creatinine 1.02. LFTs normal except alk phos 294. Urinalysis without red cells. Micro includes the initial blood cultures which grew MSSA. Followup blood cultures from the 4th are negative at slightly more than 48 hours. MRSA screen was negative. The CT scans were already discussed. The echocardiogram was done yesterday by Cardiology and this is of course transthoracic. It shows good ejection fraction 65% to 70%. Mitral valve leaflets are calcified with some mild mitral regurg. There is a bioprosthetic aortic valve with trace aortic regurg. Tricuspid valve is thickened and the left atrium is dilated. There is no clear-cut evidence of valvular vegetation and as mentioned above we cannot get a BORA. IMPRESSION: Assuming the followup blood cultures stay negative, I think it is reasonable to conclude that this is a self-limited methicillin sensitive Staphylococcus aureus bacteremia arising from the excoriations of his edematous legs rather than a prosthetic valve endocarditis. To diagnose prosthetic valve endocarditis we would need a transesophageal echo which is not going to be obtained, but in discussing this with Cardiology they feel reasonably certain that he does not have infection of the bioprosthetic valve based on the transthoracic echocardiogram, and they cannot offer us a transesophageal echocardiogram. Also in our fever is the fact that the blood cultures seem to be turning negative very quickly which would suggest he probably does not have endocarditis though of course it has not improved. Empirically treating the patient for a bioprosthetic valve endocarditis might seem like a conservative and attractive proposition, but doing so would be extremely hazardous as we would need 6 weeks of IV antibiotics and would have to add rifampin which would be very difficult due to drug interactions as pre-existing very severe end-stage liver disease as well as aminoglycosides at least for a couple weeks, which would be extremely dangerous in terms of the risk of hepatorenal syndrome. Overall I think the best approach is to assume this is an isolated methicillin sensitive Staphylococcus aureus bacteremia without endocarditis. RECOMMENDATIONS: 1. I would keep the patient in the hospital for another day or two and make absolutely certain that final blood cultures are negative. 2. Once we have established that he could be discharged to complete a total of 14 days of intravenous antibiotics at a fdc facility or conceivably even to home if home IV antibiotic therapy could be arranged.
--- NOTE | 2017-04-21 16:28 | NUR ---
Social Work-continued d/c planning: Data:EMR Reviewed. Pt is on day 4 of hospitalization for sepsis per H&P. Pt is not medically stable anticipate several days. MD order received for HH services. SW followed up with pt who would like to think about this and have SW check back in. Per ID MD notes, pt may require IV abx. SW to follow up with pt and daughter tomorrow. Pt's daughters provide 24/7 care for pt at home. SW will continue to follow. Assessment:pt who would benefit from HH. Plan:Pt to likely discharge home when medically stable via POV with daughters to provide 24/7 care vs SNF. Pt may need IV abx at discharge, SW to await recommendations tomorrow. SW will continue to follow. JILL Hankins
--- NOTE | 2017-04-21 18:35 | NUR ---
PVR Pt instructed to inform staff post urination void. Pt very resistant to follow request, does not want to even take PVR. Explained to pt about rights but the importance to check on bladder volume. Next PVR performed revealing 141 mL and denying any abdominal discomfort.
--- NOTE | 2017-04-22 03:09 | NUR ---
NOC shift note Patient walked two laps in hallway, took shower. Reported chronic back pain, declined PRN medications. Vital signs stable. Cooperative with care. Bed alarm on for safety, intentional rounding in place.
[2017-04-22 04:07] VITALS: BP 144/76; PULSE 79; RESP 18; O2SAT 95
[2017-04-22] MEDS: Lactulose 20 Gm/30 mL 30 mL Syrup PO SCH ×2 (08:27→13:49)
[2017-04-22] MEDS: Pantoprazole 40 mg ER24 Tablet PO SCH (08:28)
[2017-04-22] MEDS: Insulin LISPRO 300 Unit/3 mL Inj SUBQ SCH ×2 (08:29→13:53)
[2017-04-22] MEDS ORDERED: 0.9% Sodium Chloride 250 ML ONE (08:30)
[2017-04-22] MEDS: DAPTOmycin Inj 700 MG in 0.9% Sodium Chloride 50 ML IV SCH (08:39)
--- NOTE | 2017-04-22 11:42 | PROG NOTE ---
[address] [address] PROGRESS NOTE PATIENT: LOUIE FRANCIS : 1950 MR#: [id number] ADMIT: 04/17/2017 JOB ID: [id number] DATE: 04/22/2017 INFECTIOUS DISEASE FOLLOW UP NOTE: REASON FOR FOLLOWUP: MSSA bacteremia in a patient with underlying end-stage liver disease. INTERVAL HISTORY: The patient reports he feels very well today and is quite adamant that he wants to be discharged. He reports he is all the way back to his normal state of health. He has no fevers, no chills. No sweats, no cough, and there are really no complaints other than wanting to be discharged. PHYSICAL EXAMINATION: Reveals an afebrile gentleman. Temperature 37.1, pulse 79, respiratory rate 18, blood pressure 144/76. He is in no acute distress. He does have a conjunctival hemorrhage in the right eye which was present at the time of admission, and is slowly resolving. He does not have any other ocular findings. His lungs are clear. Cardiac tones with a 2/6 murmur he has had consistently throughout the hospital stay. No peripheral stigmata of endocarditis on the hands or nails. Abdomen without change. LABORATORIES: White count was last checked two days ago and was normal at 6500. Creatinine 1.02. Alk phos 294. Follow up blood cultures are now negative for a little over three days and five hours I guess. Prior blood cultures grew MSSA. We have chosen to treat this with daptomycin because the patient has a complex and difficult to follow history of both allergies to both PENICILLINS and CEPHALOSPORINS and he has responded very well to this therapy. IMPRESSION: This is a complex patient with end-stage liver disease who has a bioprosthetic aortic valve and presented with MSSA bacteremia. His blood cultures rapidly turned negative and a transthoracic echo did not show any evidence of vegetation or dysfunction of his prosthetic valve. He also had evidence that he had been extensively scratching his chronically edematous legs and it seemed more likely that this was a transient MSSA bacteremia from leg scratching rather than infection of his prosthetic valve as we saw no abnormalities on the transthoracic echo and his blood cultures turned negative and he had no real systemic toxicity. The concern, of course, is that we are missing a prosthetic valve endocarditis but the risk and benefits I think favor a short-term Staph aureus treatment here rather than a six week treatment with rifampin and gentamicin and other potentially more toxic medications. I am also inclined to just continue with daptomycin because it is easy to use in the outpatient setting and avoids issues of allergy in this complex patient. RECOMMENDATIONS: 1. The patient can be discharged today. 2. I have written for midline infusion catheter that can be used for the next 11 days. 3. I would continue dapto 700 once a day through May 03. 4. The patient should have one set of labs drawn next week which should include a CBC and CPK and that should be faxed to my office. 5. I can see the patient again in followup as needed though I am not certain that I will need to given his very steady course. I can be summoned to the [facility] at any time. 6. The patient can receive his antibiotics here in [facility] daily and his family can bring him back and forth which he states would be feasible or if it could be set up by the oncology social work, he could get home IV and antibiotics. 7. This case was discussed in detail with the attending physician, Dr. Cox, as well as with social work and the patient.
--- NOTE | 2017-04-22 11:44 | PCM.PNMED ---
Subjective Date of Service Apr 21, 2017 Subjective Patient feeling greatly improved, continues to deny fevers chills sweats chest pains palpitations are really any complaints. Overall bone marrow short liver understanding of need for continued hospitalization for IV antibiotic therapy for workup of bacteremia. Exam Vital Signs Vital Sign - Last Date Time Temp Pulse Resp B/P Pulse Ox O2 Delivery O2 Flow Rate FiO2 04/22/17 04:07 37.1 79 18 144/76 95 Room Air Intake and Output 04/21/17 04/21/17 04/22/17 Cumulative From/Thru 15:00 23:00 07:00 04/16/17 20:53 - 04/22/17 04:58 Intake Total 1720 ml 71898 ml Output Total 1400 ml 57433 ml Balance 320 ml -1080 ml Intake Oral 1720 ml 87888 ml IV Total 4665 ml Output Urine Total 1400 ml 31369 ml # Voids 3 # Bowel Movements 0 5 Exam General: Alert, Oriented X3, Cooperative, in no acute distress Eyes: PERRLA, there is a medial subconjunctival hemorrhage in right eye greatly improved, and nearly resolved. Mouth: Mucous Membranes moist, very poor dentition. Chest & Lungs: Clear to auscultation & percussion, No adventitious breath sounds Cardiovascular: Regular Rate/Rhythm, Blowing holosystolic murmur, most pronounced in aortic region Abdomen: Non-tender, Non-distended, Obese Neurological: Grossly Neurologically Intact Skin. Multiple excoriations on upper and lower extremities though none with evidence of active infection. IVs and Medications Medications Reviewed: Medications were reviewed in detail Lab and Diagnostics Result Diagram: 04/20/17 0555 04/20/17 0555 X-Rays, CTs and MRIs . X-RAY CHEST ONE VIEW, PORTABLE IMPRESSION: No radiographic explanation for fevers. Dictated by: Mina Valle M.D. on 04/16/2017 at 21:29 12-lead ECG Twelve-lead EKG in the ED showed sinus tachycardia with probable left atrial enlargement Assessment & Plan Mr. Sarmiento is a 67 year old male past medical history of hepatocellular carcinoma, hypertension, paroxysmal A. fib and diabetes mellitus admitted for encephalopathy and sepsis. Sepsis. Present on admission. Resolved - On admission Sepsis criteria met, hyperthermia, tachycardia and leukocytosis and lactic acidosis - Unknown source, the cultures positive 2 for staph aureus, sensitivities pending. - Antibiotics initiated in ED ceftriaxone, doxycycline, vancomycin -Patient now transition to Cubicin on recommendation from infectious disease specialist given presence of gram-positive bacteremia - Ultrasound-guided paracentesis ordered, however there was not sufficient fluid to accomplish this. - Continue to monitor closely. -Improving medically sepsis is resolved Bacteremia, positive - As noted above we have started Cubicin response to culture results - Infectious disease has been notified and will continue to follow patient - On their recommendation will be obtaining daily sets of blood cultures - Transthoracic echo is not suggestive of endocarditis - The assumption being only bacteremia without endocarditis, take resource superficial abrasions or dental, and approximately 2 week IV antibiotic treatments will be effective - Infectious disease will arrange placement of PICC line and outpatient antibiotic therapy when clinically stable possibly soon as tomorrow. Presence of prosthetic heart valve, aortic - Likely accounts for murmur found on physical exam - Of additional concern given the presence of bacteremia - A BORA may be required to determine vegetation is antibiotic decisions moving forward, but this will be complicated by patient's history of esophageal varices . Hepatic encephalopathy. Present on admission. Ongoing - Secondary to hepatocellular carcinoma - Serum ammonia 120 on admit - Patient reportedly not taking home lactulose -Continue lactulose 20 g by mouth 3 times a day - Continue to monitor Urinary retention - Chronicity is unclear but patient had greater than a liter noted even post void this morning - We will obtain every 4 Hour Post void residuals, as needed straight cath, consider indwelling López if necessary. - DC'd home medication Oxybutynin which is prescribed for unclear reason to myself - Trial on only Flomax, which appears to resolve this issue. Anion gap metabolic acidosis. Present on admission. Ongoing - Possibly secondary to lactic acid, resolved with improved lactic acidosis. - Tox screen negative for alcohol - Continue to monitor Chronic hyponatremia. Present on admission. Ongoing - Continue to monitor Diabetes. Present on admission. Ongoing - Correctional scale - Last A1c 11/2016 6.4, increased to 8.0 on admission. Hypertension. Present on admission. Ongoing - Continue lisinopril, outpatient records showed dose discrepancy - Consider restarting Lasix in 1 - 2 days. Paroxysmal A. fib. Present on admission. Ongoing - Continue home Carvedilol - Telemetry Chronic anemia. Present on admission. Ongoing - History of GI bleed - Continue to monitor H&H BPH. Chronic. Present on admission - Continue home tamsulosin COPD. Present on admission. Ongoing - DuoNeb's when necessary GERD. Chronic. Present on admission. Ongoing - Continue home pantoprazole Pain Evaluation: Adequate Pain Control GI Prophylaxis: Proton Pump Inhibitor VTE Prophylaxis: SCDs VTE Mechanical Devices: Venous Foot Pump Resuscitation Status: CPR: Attempt Resuscitation Time spent 20 minutes Leonid Cox DO Apr 22, 2017 11:44
--- NOTE | 2017-04-22 11:49 | PCM.DC.MED ---
Discharge Summary Date of Service Apr 22, 2017 Dates of Hospitalization Date of Hospital Admission Apr 17, 2017 at 00:17 Date of Discharge: Apr 22, 2017 Providers: Admitting Physician: Andrae Jimenes MD Primary Care Physician: Ria Sy MD Attending Physician: Andrae Jimenes MD Diagnosis at Time of Discharge Diagnosis at Time of Discharge Staph bacteremia secondary to either skin abrasion or dental source. Improving on antibiotic therapy Chronic hepatic failure, improving with compliance on lactulose. Consultations Infectious disease, Dr. Manny Angelo. Palliative care, Dr. Martina Madison. Procedures XRay, CTs & MRIs . X-RAY CHEST ONE VIEW, PORTABLE IMPRESSION: No radiographic explanation for fevers. Dictated by: Mina Valle M.D. on 04/16/2017 at 21:29 ECG 12 Lead Twelve-lead EKG in the ED showed sinus tachycardia with probable left atrial enlargement Brief History As per admission HPI< "Mr. Sarmiento is a 67 year old male past medical history of hepatocellular carcinoma, hypertension, paroxysmal A. fib and diabetes mellitus presented to the ED this evening secondary to weakness and body aches 1 day. Per ED note the associated symptoms including abdominal pain, fatigue and lack of appetite fever or headache and confusion. The patient is reportedly not been taking his lactulose. On interview with patient he is arousable to voice though somewhat encephalopathic and has difficulty answering questions coherently. When asked specifically about pain he states diffuse abdominal pain by waving his hand over his distended abdomen. Specifically denies chest pain. PALLIATIVE CARE CONSULTATION: 67 yo pt with hx of recent dx of hepatocellular carcinoma due to longstanding alcoholic cirrhosis. This was found in October and bx not taken due to risk of bleeding from his portal HTN and modest thrombocytopenia. He was seen at but refused chemo. He was seen at [facility] for a 2nd opinion- had an MRI but it was "inconclusive". He has had bouts of hepatic encephalopathy and usually takes lactulose but had held that for 1-2 days for a conference he went to. He developed increasing abd pain he describes as diffuse and around to his back. He has chronic pain with LBP and a distant hx of opiate misuse (he denies misuse stating refused because of his ETOH). He was seen for OP Palliative and was started on gabapentin 300 mg TID to increase to 600 mg HS. He states he started it but his daughter would take it with her so it wasn' t in the house to be "overused". He has been campaigning that since he now has cancer he should be able to get pain meds for his pain-LBP and peripheral neuropathy and OA.He does find smoking MJ helpful in his pain and was hoping for medical authorization. The [facility] will not do MJ or opiates. He stopped drinking 2 yrs ago." Hospital Course Sepsis. Present on admission. Resolved - On admission Sepsis criteria met, hyperthermia, tachycardia and leukocytosis and lactic acidosis - Unknown source, the cultures positive 2 for staph aureus, sensitivities pending. - Antibiotics initiated in ED ceftriaxone, doxycycline, vancomycin -Patient now transition to Cubicin on recommendation from infectious disease specialist given presence of gram-positive bacteremia - Ultrasound-guided paracentesis ordered, however there was not sufficient fluid to accomplish this. - Continue to monitor closely. -Improving medically sepsis is resolved Bacteremia, positive - As noted above we have started Cubicin response to culture results - Infectious disease has been notified and will continue to follow patient - On their recommendation will be obtaining daily sets of blood cultures, blood cultures from 04/19 are now negative for greater than 24 hours, last positive result reported on 04/18 of the tibia pansensitive species of staph aureus - Transthoracic echo is not suggestive of endocarditis - The assumption being only bacteremia without endocarditis, take resource superficial abrasions or dental, and approximately 2 week IV antibiotic treatments will be effective - Infectious disease has arranged for placement of midline catheter /PICC line and outpatient antibiotic therapy which will initiate tomorrow to complete 14 day course. Presence of prosthetic heart valve, aortic - Likely accounts for murmur found on physical exam - Of additional concern given the presence of bacteremia - A BORA to determine vegetation was not considered due to patient's history of esophageal varices . - Given findings of TTE, addition to patient's overall clinical stability and lack of any other evidence of endocarditis, this was not deemed to be of high likelihood but must be considered should patient's condition prove refractory. Hepatic encephalopathy. Present on admission. Ongoing - Secondary to hepatocellular carcinoma - Serum ammonia 120 on admit - Patient reportedly not taking home lactulose -Continue lactulose 20 g by mouth 3 times a day - Continue to monitor ammonia levels in out patient setting Urinary retention - Chronicity is unclear but patient had greater than a liter noted even post void this morning - We will obtain every 4 Hour Post void residuals, as needed straight cath, consider indwelling López if necessary. - DC'd home medication Oxybutynin which is prescribed for unclear reason to myself - Trial on only Flomax, which appears to resolve this issue. Oxybutynin was continued to be held on home discharge. Exam Vital Signs (Last) Date Time Temp Pulse Resp B/P Pulse Ox O2 Delivery O2 Flow Rate FiO2 04/22/17 04:07 37.1 79 18 144/76 95 Room Air Exam General: Alert, Oriented X3, Cooperative, in no acute distress Eyes: PERRLA, there is a medial subconjunctival hemorrhage in right eye is now resolved Mouth: Mucous Membranes moist Chest & Lungs: Clear to auscultation & percussion, No adventitious breath sounds Cardiovascular: Regular Rate/Rhythm, Blowing holosystolic murmur, most pronounced in aortic region Abdomen: Non-tender, Non-distended, Obese Neurological: Grossly Neurologically Intact Skin. Multiple excoriations on upper and lower extremities though none with evidence of active infection. Test 04/16/17 21:30 04/16/17 22:58 04/17/17 05:50 04/18/17 05:40 Prothrombin Time 12.6sec (8.1-12.5) Prothromb Time International Ratio 1.17ratio Hemoglobin A1c 8.0% (4.8-5.6) Lipase 58U/L (13-60) Alcohols < 10mg/dL (0-10) Urine Color Yellow (YELLOW) Urine Appearance Clear (CLEAR,HAZY) Urine pH 7.0 (5.0-8.0) Urine Specific [place] 1.011 (1.003-1.035) Urine Protein Negativemg/dL (NEG,TRACE) Urine Glucose (UA) Negativemg/dL (NEGATIVE) Urine Ketones Negativemg/dL (NEGATIVE) Urine Occult Blood Negative (NEGATIVE) Urine Nitrite Negative (NEGATIVE) Urine Bilirubin Negative (NEGATIVE) Urine Urobilinogen Normalmg/dL (NORMAL) Urine Leukocyte Esterase Negative (NEGATIVE) Urine RBC 0-2/hpf (0-2) Urine WBC 0-5/hpf (0-5) Urine Epithelial Cells Occasional/hpf (NONE-MOD) Urine Crystals None seen (NONE SEEN) Urine Bacteria None/hpf (NONE-FEW) Urine Hyaline Casts None/lpf (NONE) Urine Granular Casts None seen (NONE SEEN) Urine Waxy Casts None seen (NONE SEEN) Urine Red Blood Cell Casts None seen (NONE SEEN) Urine White Blood Cell Casts None seen (NONE SEEN) Urine Mucus None seen (None Seen) Urine Trichomonas None seen (NONE SEEN) Urine Yeast None (NONE SEEN) Urine Culture Reflexed Not indicated Magnesium Level 1.7mg/dL (1.6-2.6) Ammonia 139ug/dL (18-53) Lactic Acid Level 1.2mmol/L (0.4-2.0) Test 04/20/17 05:55 04/22/17 06:20 White Blood Count 6.5th/mm3 (3.8-10.1) Red Blood Count 4.51mil/mm3 (4.40-5.80) Hemoglobin 11.1g/dL (13.8-17.2) Hematocrit 35.5% (41.0-50.0) Mean Corpuscular Volume 78.7fL (81-100) Mean Corpuscular Hemoglobin 24.6pg (27.0-35.0) Mean Corpuscular Hemoglobin Concent 31.3% (32.0-37.0) Red Cell Distribution Width 16.2% (12.3-15.4) Platelet Count 104bil/L (150-400) Neutrophils (%) (Auto) 65.4% (40-74) Lymphocytes (%) (Auto) 13.1% (14-46) Monocytes (%) (Auto) 13.1% (4-12) Eosinophils (%) (Auto) 7.6% (0-5) Basophils (%) (Auto) 0.3% (0-3) Sodium Level 134mEq/L (134-144) Potassium Level 4.4mEq/L (3.5-5.2) Chloride Level 100mEq/L (97-108) Carbon Dioxide Level 20mmol/L (18-29) Blood Urea Nitrogen 15mg/dL (8-27) Creatinine 1.02mg/dL (0.76-1.27) Estimat Glomerular Filtration Rate 78mL/min (>59) Glucose Level 206mg/dL (60-99) Calcium Level 9.6mg/dL (8.5-10.1) Total Bilirubin 0.8mg/dL (0.0-1.2) Aspartate Amino Transf (AST/SGOT) 50U/L (0-50) Alanine Aminotransferase (ALT/SGPT) 27U/L (0-44) Alkaline Phosphatase 294U/L (25-160) Total Protein 7.2g/dL (6.4-8.4) Albumin 3.5g/dL (3.4-5.0) Total Creatine Kinase 107U/L (21-232) Discharge Medications Discharge Medications Ascorbic Acid (Vitamin C) 500 Mg Capsule.er 500 MG PO DAILY (Reported) Carvedilol (Carvedilol) 6.25 Mg Tablet 6.25 MG PO BID (Reported) Cholecalciferol (Vitamin D3) (Vitamin D) 1,000 Unit Tablet 1,000 UNIT PO QAM ( Reported) Econazole Nitrate (Econazole Nitrate) 15 Gm Cream..g. 1 APPL TOP BID (Reported) apply to scalp Ferrous Sulfate (Ferrous Sulfate) 324 Mg Tablet.dr 324 MG PO DAILY (Reported) Insulin Aspart (NovoLOG U-100 Pen) 100 Unit/Ml Insuln.pen 2 UNITS SC TIDWM ( Reported) Insulin Detemir (Levemir Flextouch) 100 Unit/1 Ml Insuln.pen 8 UNITS SUBQ BID ( Reported) Ipratropium [place] (Ipratropium [place] 0.03% Nasal) 30 Ml [place] 2 SPRAY NS BID (Reported) Lactulose (Lactulose) 10 Gm/15 Ml Solution 15 GM PO BID Prescribed by: STEFFANIE HI DO Lisinopril (Lisinopril) 10 Mg Tablet 10 MG PO DAILY (Reported) Loratadine (Claritin) 10 Mg Capsule 10 MG PO MORNING (Reported) Multivitamin (Once Daily) 1 Each Tablet 1 EACH PO DAILY (Reported) Pantoprazole DR (Pantoprazole DR) 40 Mg Tablet.dr 40 MG PO BIDAC (Reported) Tamsulosin ER (Tamsulosin ER) 0.4 Mg Cap.er.24h 0.4 MG PO DAILY (Reported) Vit B Comp/C/FA/Iron/Vit E (Vitamin B Complex Tablet) 1 Each Tablet 2 EACH PO DAILY (Reported) As needed Furosemide (Furosemide) 20 Mg Tab 20 MG PO DAILY PRN PRN edema (Reported) Mometasone/Formoterol (Dulera 100 Mcg/5 Mcg Inhaler) 13 Gm Hfa.aer.ad 1 PUFF IH BID PRN PRN For Shortness of Breath (Reported) Followup Plan Disposition: Discharged home with plan to return to hospital auditory care unit for intravenous infusions of antibiotic therapy for the next 1 week to complete course for bacteremia or bacteria in blood. Follow-up plan Follow daily for intravenous antibiotic infusions 1 week with primary care provider to review hospitalization and further evaluation. Discharge Diet: No restrictions Discharge Activity: No restrictions Follow-up Provider: Ria Sy MD Follow-up with PCP in: 1 week copies to: Ria Sy MD, Benjamin P DO Apr 22, 2017 11:49 1 week with primary care provider to review hospitalization and further evaluation. Discharge Diet: No restrictions Discharge Activity: No restrictions Follow-up Provider: Ria Sy MD Follow-up with PCP in: 1 week copies to: Ria Sy MD, Benjamin P DO Apr 22, 2017 11:49
--- NOTE | 2017-04-22 11:51 | PCM.DIMED ---
Discharge Instructions Date of Service Apr 22, 2017 Dates of Hospitalization Apr 17, 2017 at 00:17 Discharge Diagnosis Discharge Diagnosis Staph bacteremia secondary to either skin abrasion or dental source. Improving on antibiotic therapy Chronic hepatic failure, improving with compliance on lactulose. Diet Discharge Diet: No restrictions Activity Discharge Activity: No restrictions Patient Instructions Follow-up plan Follow daily for intravenous antibiotic infusions 1 week with primary care provider to review hospitalization and further evaluation. Follow-up Provider: Ria Sy MD Follow-up with PCP in: 1 week Leonid Cox DO Apr 22, 2017 11:51
[2017-04-22 13:30] VITALS: BP 119/84; PULSE 85; RESP 18; O2SAT 95
[2017-04-22] MEDS ORDERED: Sodium Chloride LOK Flush 10 mL Syringe IVFLUSH PRN ×3 (14:15→14:45)
--- NOTE | 2017-04-22 14:43 | NUR ---
Social Work: Discharge Data: Pt is on day 5 of hospitalization. EMR reviewed. D/C orders are in. IVABX orders written, TELEPHONE OPERATOR CHIEF discussed d/c plan with pt and daughter. They decided to go with home infusions, Home infusion choice list provided. No preference stated, rotating calendar reviewed, [facility] referred. Access given, faxed info requested. [facility] checked pt's insurance benefit, it is covered. PICC line being placed by IV therapy. HH order acknowledged for PT and RN. TELEPHONE OPERATOR CHIEF gave HH choice list to pt and daughter, [facility] is preferred. TELEPHONE OPERATOR CHIEF referred pt to [facility] for RN, PT. [facility] will garbage pick up man referral packet this afternoon and update TELEPHONE OPERATOR CHIEF in the AM regarding if they can take pt or not. TELEPHONE OPERATOR CHIEF informed pt and daughter that there is a possible delay in services due to [facility] not being able to review this afternoon. TELEPHONE OPERATOR CHIEF asked about referring them to [facility] so that it can be arranged before discharge, they declined this knowing possible delay in services. Assessment: Pt with caregiving at baseline. Plan: Pt will d/c home with [facility] for IVABX and likely [facility] for RN, PT. TELEPHONE OPERATOR CHIEF will continue to follow regarding HH on 04/23/17. JILL Villegas Addendum: 04/23/17 at 0923 by SARBJIT MALONE TELEPHONE OPERATOR CHIEF left a v/m for Adrienne with [facility] requested a call back [facility] regarding if they can accept pt. JILL Villegas Addendum: 04/23/17 at 1201 by SARBJIT DIAS TELEPHONE OPERATOR CHIEF received phone call from Adrienne with [facility], they can open with pt. No further d/c planning needs. JILL Villegas
--- NOTE | 2017-04-22 15:05 | NUR ---
IV therapy IV therapy at bed side and Mid line placement is in the progress.
--- NOTE | 2017-04-22 17:01 | NUR ---
Discharge Daughter Jewels at bed side. Called IV therapy r/t bleeding at the dressing site. Redressed Mid line by IV Therapist. Blue team hospitalist at bed side speaking to daughter and patient prior o discharge. Reviewed discharge paper work, discharge medications, and care notes, patient signed and understood discharge instructions. Peripheral IV to right arm discontinued with out difficulty. patient's home medications sealed from pharmacy given with patient. Daughter and patient aware of home infusions of IV ABO and per daughter home infusion nurse will be there tomorrow. patient left unit approx [phone] via wheel chair accompained by nursing staff with patient's daughter. Mid line to left arm clean dry and intact, Deneis pain or discomfort prior to discharge.
== END 2017-04-22 17:11 | disposition home health service (06) | DRG 872 ==
LOC: SED 20:49 → MPC 04-17 00:17
PROVIDERS: ADMIT Hospitalist; ATTEND Hospitalist
DX: A41.9 Sepsis, unspecified organism (principal); C22.0 Liver cell carcinoma; B15.9 Hepatitis A without hepatic coma; I85.10 Secondary esophageal varices without bleeding; E87.2 Acidosis; E87.1 Hypo-osmolality and hyponatremia; K70.40 Alcoholic hepatic failure without coma; K70.30 Alcoholic cirrhosis of liver without ascites; I86.4 Gastric varices; Z79.4 Long term (current) use of insulin; Z95.2 Presence of prosthetic heart valve; N18.3 Chronic kidney disease, stage 3 (moderate); Z87.891 Personal history of nicotine dependence; Z86.73 Personal history of transient ischemic attack (TIA), and cerebral infarction without residual deficits; E11.9 Type 2 diabetes mellitus without complications; I12.9 Hypertensive chronic kidney disease with stage 1 through stage 4 chronic kidney disease, or unspecified chronic kidney disease; I48.0 Paroxysmal atrial fibrillation; D64.9 Anemia, unspecified; N40.0 Benign prostatic hyperplasia without lower urinary tract symptoms; J44.9 Chronic obstructive pulmonary disease, unspecified; K21.9 Gastro-esophageal reflux disease without esophagitis; R33.9 Retention of urine, unspecified; B95.61 Methicillin susceptible Staphylococcus aureus infection as the cause of diseases classified elsewhere; Z51.5 Encounter for palliative care; R50.81 Fever presenting with conditions classified elsewhere; S80.812A Abrasion, left lower leg, initial encounter; S80.811A Abrasion, right lower leg, initial encounter